=== PATIENT | female | born 1935 | race Caucasian/White ===

== ENCOUNTER → 2016-04-07 | Outpatient (CLI) | payer MEDICARE, OTHER | END | disposition home or self-care (01) | LOC: LABWHC1 16:27 | PROVIDERS: ATTEND Orthopaedic Surgery | DX: Z01.812 Encounter for preprocedural laboratory examination (principal) | CPT/HCPCS: 87070 ==

== ENCOUNTER → 2016-05-20 | Outpatient (CLI) | payer MEDICARE, OTHER ==
[2016-05-20 15:03] LABS: Appearance,Urine Clear (Clear); Bacteria,Urine Rare /hpf; Bilirubin,Urine Negative (Negative); Glucose,Urine (UA) Negative (Negative); Ketones,Urine Negative (Negative); Leukocyte Esterase,Urine Moderate (Negative); Mucus,Urine Rare /hpf; Nitrite,Urine Negative (Negative); Particle Count 1070; Protein,Urine Negative (Negative); RBC,Urine <1 /hpf (0-5); Specific Gravity,Urine 1.007 (1.001-1.035); Squamous Epithelial Cell,Urine <1 /hpf (0-4); UA Billing (MACRO vs. MICRO) MICRO; Urobilinogen,Urine <2.0 mg/dL (<2.0); WBC,Urine 5 /hpf (0-5)
[2016-05-20 15:05] LABS: Basophils % (A) 1 %; CH 33.6; CHCM 30.8; Eosinophils # (A) 0.3 k/uL (0-0.7); Eosinophils % (A) 5 %; HCT 32.5 % (34.0-46.0); HDW 2.55; HGB 10.1 gm/dL (11.4-16.0); Hypochromasia Slight; Luc # (Auto) 0.16; Luc % (Auto) 3; Lymphocytes # (A) 1.4 k/uL (1.0-4.8); Lymphocytes % (A) 24 %; MCHC 30.9 g/dL (31.0-37.0); MCV 109.8 fL (80.0-100.0); Macrocytosis Marked; Mean Platelet Volume 7.2; Monocytes # (A) 0.2 k/uL (0-1.0); Monocytes % (A) 4 %; Neutrophils # (A) 3.7 k/uL (1.3-7.7); Neutrophils % (A) 64 %; RBC 2.96 m/uL (3.80-5.40); RDW 14.2 % (11.5-15.5); WBC 5.8 k/uL (3.8-10.6); WBC (Perox) 6.58
[2016-05-20 15:10] LABS: INR 1.1 (<1.1); Partial Thromboplastin Time 24.8 sec (22.0-30.0); Prothrombin Time 10.8 sec (9.0-12.0)
[2016-05-20 15:25] LABS: ALT 23 U/L (9-52); AST 20 U/L (14-36); Alkaline Phosphatase 70 U/L (38-126); Anion Gap 9 mmol/L; Blood Urea Nitrogen 21 mg/dL (7-17); Calcium 8.9 mg/dL (8.4-10.2); Carbon Dioxide 27 mmol/L (22-30); Chloride 105 mmol/L (98-107); Digoxin 0.6 ng/mL; Glucose 75 mg/dL (74-99); Non-African American GFR(MDRD) 55 (>60 ml/min/1.73 sqM); Potassium 5.3 mmol/L (3.5-5.1); Sodium 141 mmol/L (137-145); Total Bilirubin 0.7 mg/dL (0.2-1.3); Total Protein 6.5 g/dL (6.3-8.2)
[2016-05-20 15:29] LABS: Manual Review Performed
[2016-05-20 15:30] LABS: Large Platelets Present; Polychromasia Present
[2016-05-20 15:31] LABS: Target Cells Present
== END ==
LOC: LABPAT 14:26
PROVIDERS: ATTEND Orthopaedic Surgery
DX: Z01.812 Encounter for preprocedural laboratory examination (principal); Z51.81 Encounter for therapeutic drug level monitoring; Z79.01 Long term (current) use of anticoagulants; Z79.899 Other long term (current) drug therapy
CPT/HCPCS: 36415; 80053; 80162; 81001; 85025; 85610; 85730

== ENCOUNTER 2016-05-23 08:36 | Inpatient (IN) | payer MEDICARE, OTHER ==
[~2016-05-23 08:36] MED LIST: ACETAMINOPHEN TAB 500 MG TAB PO ONE; MELOXICAM 7.5 MG TAB PO ONE; MIDAZOLAM 2 MG/2 ML VIAL IV PRN; ONDANSETRON 4 MG/2 ML VIAL IVP ONE; TRANEXAMIC ACID 1,000 MG in SODIUM CHLORIDE 0.9% 100 ML IVPB ONE; ceFAZolin 2 GM in SODIUM CHLORIDE 0.9% 100 ML IVPB ONE
[2016-05-23 09:05] VITALS: RESP 16
[2016-05-23] MEDS: LACTATED RINGERS 1,000 ML IV SCH ×2 (09:17→11:21)
[2016-05-23] MEDS ORDERED: DEXAMETHASONE SOD PHOS (MDV) 100 MG/10 ML VIAL IVP ONE (09:17)
[2016-05-23] MEDS ORDERED: ePHEDrine 50 MG/ML 1 ML AMP ONE (09:45)
[2016-05-23] MEDS ORDERED: fentaNYL (PF) 50 MCG/ML 2 ML AMP ONE (09:45)
[2016-05-23] MEDS ORDERED: SUCCINYLCHOLINE CHLORIDE 100 MG/5 ML SYR IV ONE (09:45)
[2016-05-23] MEDS ORDERED: MIDAZOLAM 2 MG/2 ML VIAL ONE (09:45)
[2016-05-23] MEDS ORDERED: NEOSTIGMINE 1 MG/ML 10 ML VIAL ONE (09:45)
[2016-05-23] MEDS ORDERED: SODIUM CHLORIDE 0.9% 100 ML BAG ONE (09:45)
[2016-05-23] MEDS ORDERED: ceFAZolin 3,000 MG in SODIUM CHLORIDE 0.9% IRRIGATIO 3,000 ML IRRIGATION ONE (09:45)
[2016-05-23] MEDS ORDERED: TRANEXAMIC ACID 1,000 MG/10 ML VIAL ONE (09:45)
[2016-05-23] MEDS ORDERED: GLYCOPYRROLATE 0.2 MG/ML 2 ML VIAL ONE (09:45)
[2016-05-23] MEDS ORDERED: LIDOCAINE 1% INJ 10MG/ML (20 ML MDV) ONE (09:45)
[2016-05-23] MEDS ORDERED: ROCURONIUM BROMIDE 10 MG/ML 10 ML VIAL IV ONE (09:45)
[2016-05-23] MEDS ORDERED: PROPOFOL 10 MG/ML 20 ML VIAL IV ONE (09:45)
--- NOTE | 2016-05-23 11:38 | P.OP ---
Date of Procedure: 05/23/16 Preoperative Diagnosis: Severe osteoarthritis of the left shoulder with chronic rotator cuff tear Postoperative Diagnosis: Severe osteoarthritis left shoulder with chronic rotator cuff tear Procedure(s) Performed: Reverse total shoulder arthroplasty Implants: Kaufman SMR shoulder system, humeral stem, 17 mm porous-coated. Kaufman SMR shoulder system, humeral bearing standard Kaufman SMR shoulder, Glenosphere baseplate, small Kaufman SMR shoulder, central peg, Small Kaufman SMR shoulder, bone screw, 6.5mm x 25mm x 2 Kaufman SMR reverse shoulder glenosphere, 36 mm, small All components were press-fit. Articulation is metal on polyethylene. [facility] Surgeon: Evangelist Contreras Arts Administrator #1: Radha Medina Estimated Blood Loss (ml): 50 Pathology: none sent Condition: stable Disposition: PACU Indications for Procedure: This is a patient that presented to my office with severe pain in the shoulder. X-rays demonstrated severe osteoarthritis of the glenohumeral joint of her shoulder. After failure of conservative treatment, we discussed the surgical and nonsurgical treatment options at length. The patient wishes to proceed with a reverse total shoulder arthroplasty. Patient is aware of the complications of the procedure which include but are not limited to infection, hardware failure, persistent pain, dislocation, and nerve injury. Informed consent was obtained. Operative Findings: The operative findings are consistent with severe osteoarthritis of the left shoulder with a chronic rotator cuff tear. Description of Procedure: The patient was seen in the preoperative area, consent was reviewed, and operative site was marked with a skin marker. Patient was then brought to the operating room and given preoperative antibiotics intravenously. Patient was also given 1 g of Tranexamic acid intravenously. A general anesthetic was administered by the anesthesia department. A Feliciano catheter was placed by the nursing staff. The patient was then placed in a beachchair position with the bony prominences well-padded and the head secured. The shoulder was then prepped and draped in the usual sterile fashion. A universal timeout was then performed, which confirmed the patient's name, surgical site, ALLERGIES, and consent. A standard deltopectoral approach was performed. The skin and subcutaneous tissue was sharply dissected down to the deltoid fascia. The cephalic vein was then identified and retracted medially. The deltopectoral interval was then utilized to expose the subscapularis tendon. A retractor was then placed under the coracobrachialis tendon retracted medially, and the deltoid. The axillary nerve is palpated and protected throughout the procedure. The subscapularis tendon was then released and retracted medially. The humeral head was then exposed easily. The rotator cuff tendon was found to be completely torn and retracted. After the humeral head was exposed, osteophytes were removed with a Ronguer. Next the humeral stem was prepared. A starter reamer was then placed through the humeral head along the axis of the humeral shaft just lateral to the articular surface and just medial to the rotator cuff attachment. Sequential reaming was performed to the appropriate size. Next the intramedullary resection guide was placed on the reamer shaft. It was placed to the appropriate resection depth and angle of 20 of retroversion. Resection guide block was then secured with Steinmann pins. The proximal humerus was then resected. The block was then removed and the humerus was then reamed sequentially to a secure fit. The Reamer handle was removed and a canal cover was placed protect the humerus while the glenoid was prepared. Next attention was directed to the glenoid. The appropriate retractors were placed around the glenoid and any remaining soft tissues was removed from around the glenoid. After the glenoid was adequately exposed, the threaded glenoid guide was placed onto the glenoid and a 3.2 mm Steinmann pin was inserted in the glenoid at the desired angle and position, ensuring the pin engaged medial cortical wall. Next, the cannulated baseplate reamer was placed over the top of the Steinmann pin. The glenoid was then reamed to the appropriate depth. The glenoid reamer was then removed, leaving the Steinmann pin. The central plug reamer was then inserted over the guidewire and reamed to the appropriate depth. The guidewire was then removed. The glenoid baseplate was then preassembled on the back table, and then inserted and fully seated into the prepared glenoid. 2 screws were then placed, one superior, and one inferior. Appropriate Nicolas a sphere was then assembled onto the insertion handle and inserted into the glenoid baseplate. The locking screw was then inserted into the glenoid sphere. Attention was then redirected to the humerus. The humeral inlay reamer was then used to ream the proximal humerus. The final stem was then impacted. Next a trial humeral tray was placed in the shoulder was reduced. Shoulder was taken through a full range of motion and found to be stable. The shoulder was then gently dislocated, and the trial humerus and humeral tray were removed. The final humeral stem was impacted in the final humeral tray was impacted as well. Shoulder was then relocated. Again the shoulder was taken through a range of motion and found to have no instability. Shoulder was then irrigated with pulsatile lavage. The shoulder was then irrigated with Irrisept solution. The soft tissues were then injected with ropivacaine solution. A second dose of 1 g of Tranexamic acid was given. The subscapularis was then repaired with #1 Vicryl. The deltopectoral interval was then closed with #1 Vicryl as well. The subcutaneous tissues were closed with 2-0 Vicryl then Dermabond was placed on the skin. A sterile dressing was then applied, the patient was transported to the recovery room in an arm sling in stable condition. The blood donor unit assistant Radha Medina required due the complexity of the surgery and the need for a skilled certified surgical tech/first assistant.
[2016-05-23] MEDS ORDERED: SENNOSIDES-DOCUSATE SODIUM 1 EACH TAB PO PRN (11:44)
[2016-05-23] MEDS ORDERED: HYDROmorphone 1 MG/ML 1 ML SYRINGE IVP PRN ×2 (11:44)
[2016-05-23] MEDS ORDERED: ONDANSETRON 4 MG/2 ML VIAL IVP PRN (11:44)
[2016-05-23] MEDS: HYDROmorphone 1 MG/ML 1 ML SYRINGE IVP PRN ×8 (11:51→23:41)
--- NOTE | 2016-05-23 12:13 | XR ---
Left shoulder HISTORY: Postop shoulder arthroplasty 4 views of the left shoulder submitted Patient shows post left shoulder arthroplasty change. Alignment is maintained. Lucency in the soft ti ssues compatible with postop state. Interstitium and central vascularity are noted to be increased. D ifficult to exclude thoracic aortic aneurysm. The heart may be enlarged. IMPRESSION: Orthopedic follow-up. Correlate for possible congestive heart failure.
[2016-05-23] MEDS ORDERED: fentaNYL (PF) 50 MCG/ML 2 ML AMP IV ONE (12:30)
[2016-05-23] MEDS: SODIUM CHLORIDE 0.9% 1,000 ML IV SCH (13:17)
[2016-05-23] MEDS: oxyCODONE-APAP 10-325MG 1 EACH TAB PO PRN ×3 (13:21→23:11)
[2016-05-23] MEDS ORDERED: ONDANSETRON 4 MG TAB PO PRN (14:54)
[2016-05-23] MEDS ORDERED: ALBUTEROL NEBULIZED 2.5 MG/3 ML INHALATION PRN (14:54)
[2016-05-23 15:28] LABS: Basophils % (A) 0 %; CH 32.8; CHCM 29.3; Eosinophils % (A) 1 %; HCT 32.7 % (34.0-46.0); HDW 2.54; HGB 10.1 gm/dL (11.4-16.0); Hypochromasia Marked; Luc # (Auto) 0.05; Luc % (Auto) 1; Lymphocytes # (A) 0.2 k/uL (1.0-4.8); Lymphocytes % (A) 3 %; MCH 34.9 pg (25.0-35.0); MCV 112.6 fL (80.0-100.0); Macrocytosis Marked; Mean Platelet Volume 7.4; Monocytes # (A) 0.1 k/uL (0-1.0); Monocytes % (A) 1 %; Neutrophils # (A) 7.2 k/uL (1.3-7.7); Neutrophils % (A) 95 %; RDW 13.9 % (11.5-15.5); WBC 7.6 k/uL (3.8-10.6); WBC (Perox) 7.94
[2016-05-23 16:01] LABS: Polychromasia Present
[2016-05-23] MEDS: ceFAZolin 2 GM in SODIUM CHLORIDE 0.9% 100 ML IVPB SCH ×2 (16:44→23:42)
[2016-05-23] MEDS: GABAPENTIN 400 MG CAP PO SCH ×2 (16:46→21:05)
[2016-05-23] MEDS: SYMBICORT 160-4.5 MCG INHALER INHALATION SCH (20:16)
[2016-05-23] MEDS ORDERED: VERAPAMIL SR 180 MG TABLET.ER PO SCH (21:00)
[2016-05-23] MEDS ORDERED: MONTELUKAST 10 MG TAB PO SCH (21:00)
[2016-05-23] MEDS: VIT A,C & E-LUTEIN-MINERALS 1 EACH TAB PO SCH (21:05)
[2016-05-23] MEDS: CITALOPRAM HYDROBROMIDE 20 MG TAB PO SCH (21:05)
[2016-05-23] MEDS: FERROUS SULFATE 325 MG TAB PO SCH (21:05)
[2016-05-24] MEDS: oxyCODONE-APAP 10-325MG 1 EACH TAB PO PRN ×2 (06:01→12:08)
[2016-05-24] MEDS ORDERED: LEVOTHYROXINE 75 MCG TAB PO SCH (06:30)
[2016-05-24] MEDS ORDERED: PANTOPRAZOLE 40 MG TABLET PO SCH (07:30)
--- NOTE | 2016-05-24 07:37 | CONS ---
DATE OF CONSULTATION: REASON FOR CONSULTATION: Advice regarding hypertension, hyperlipidemia requested by Orthopedics. HISTORY OF PRESENT ILLNESS: This 81-year-old woman with a past medical history of asthma, GERD, hypertension, hyperlipidemia, history of DJD, history of hypothyroidism, history of diverticulitis, history of bowel resection being followed by Dr. Ann in the outpatient setting underwent reverse total shoulder arthroplasty for severe DJD of the left shoulder with chronic rotator cuff tear. There is no history of any fever, rigors. No history of headache, loss of consciousness or seizures at this time. No history of chest pain or palpitation either. PAST MEDICAL HISTORY: History of asthma, history of GERD, hypertension, hyperlipidemia, history of DJD, hypothyroidism, history of vascular disorder. Medications prior to admission include home medications are: 1. Oxycodone 1 tablet 5 times daily p.r.n. 2. Vitamin B Complex p.o. daily. 3. Verapamil ER 180 mg q.h.s. 4. Pantoprazole 40 mg daily. 5. Zofran 4mg q.8 p.r.n. 6. Singulair 10 mg q.h.s. 7. Lopressor 25 mg p.o. daily. 8. Claritin 10 mg p.o. daily. 9. Synthroid 150 mcg p.o. daily. 10. Imdur 30 mg p.o. daily. 11. Gabapentin 800 mg p.o. q.i.d. 12. Lasix 20 mg p.o. daily. 13. Iron sulfate 325 mg p.o. b.i.d. 14. Eye vitamins one p.o. b.i.d. 15. Aricept 10 mg q.a.m. 16. Lanoxin 125 mcg p.o. q.48 hours. 17. Celexa 20 mg p.o. b.i.d. 18. Vitamin D3, 1000 daily. 19. Symbicort 160/4.5 two puffs b.i.d. 20. Lipitor 40 mg p.o. daily. 21. Ecotrin 81 mg daily. 22. Fosamax 70 mg p.o. Monday. 23. Ventolin HFA 2 puffs q.6 p.r.n. Allergies are BENAZEPRIL. FAMILY HISTORY: History of cancer in the family. SOCIAL HISTORY: No history of smoking. Occasional alcohol intake. REVIEW OF SYSTEMS: ENT: Diminishing hearing. Diminished vision. CARDIOVASCULAR: No angina or palpitations. RESPIRATORY: As mentioned earlier. GI: No nausea. : No dysuria. NERVOUS SYSTEM: No numbness or weakness. ALLERGY/IMMUNOLOGY: As mentioned earlier. MUSCULOSKELETAL: As mentioned earlier. HEMATOLOGY/ONCOLOGY: No history of anemia. ENDOCRINE: As mentioned earlier. CONSTITUTIONAL: As mentioned earlier. DERMATOLOGY: Negative. RHEUMATOLOGY: Negative. PSYCHIATRY: As mentioned earlier. PHYSICAL EXAMINATION: The patient is alert and oriented x2. Pulse 71, blood pressure 108/59, respirations 20, temperature normal, pulse ox 94% on room air. HEENT: Conjunctivae normal. Oral mucosa moist. NECK: No jugular venous distention. No carotid bruit. No lymph node enlargement. CARDIOVASCULAR: S1 and S2, muffled. No S3, no S4. RESPIRATORY: Breath sounds diminished at the bases. A few scattered rhonchi and crackles. ABDOMEN: Soft, nontender. No mass palpable. LEGS: No edema, no swelling. NERVOUS SYSTEM: Higher function as mentioned earlier. Moves all 4 limbs. No focal motor or sensory deficits. LYMPHATICS: No lymphadenopathy of neck, axillae or groin. SKIN: No ulcers, rashes or bleeding. EXAMINATION OF THE LEFT SHOULDER: Status post arthroplasty. LABS: Hemoglobin 10.1 and MCV 112. ASSESSMENT: 1. Status post left shoulder arthroplasty for severe degenerative joint disease. 2. Anemia. 3. Macrocytosis. 4. History of asthma. 5. History of gastroesophageal reflux disease. 6. Hypertension. 7. Hyperlipidemia. 8. History of myocardial infarction 9. History of hypothyroidism. 10. History of diverticulosis. 11. History of sarcoidosis. 12. History of bowel obstruction. 13. History of peptic ulcer disease. 14. History of macular degeneration. 15. History of degenerative joint disease. 16. History of osteoporosis. 17. History of bowel resection. 18. Depression, not otherwise specified. 19. History of splenectomy. 20. FULL CODE. 21. History of colostomy reversal. RECOMMENDATIONS AND DISCUSSION: This 81-year-old woman who presented with multiple complex medical issues, we will monitor the patient closely. Continue the current medications. Continue symptomatic treatment. Resume the home medication. Incentive spirometry. ( ) DVT prophylaxis. ( ) incentive spirometry. Otherwise, resume the home medications. Will continue to monitor. The patient will be asked to follow up with Dr. Ann closely. Thank you Dr. Contreras for letting us participate in the care of this patient.
[2016-05-24] MEDS: SYMBICORT 160-4.5 MCG INHALER INHALATION SCH (07:49)
[2016-05-24] MEDS: VIT A,C & E-LUTEIN-MINERALS 1 EACH TAB PO SCH (08:23)
[2016-05-24] MEDS: FERROUS SULFATE 325 MG TAB PO SCH (08:24)
[2016-05-24] MEDS: CITALOPRAM HYDROBROMIDE 20 MG TAB PO SCH (08:25)
[2016-05-24] MEDS: GABAPENTIN 400 MG CAP PO SCH ×2 (08:25→15:08)
--- NOTE | 2016-05-24 08:25 | P.DS ---
Providers Date of admission: 05/23/16 08:36 Expected date of discharge: 05/24/16 Attending physician: Evangelist Contreras Consults: 05/23/16 11:44 Consult Physician Routine Consulting Provider: Judith Coker Consult Reason/Comments: medical management Do you want consulting provider notified?: Yes Primary care physician: Blaze Ann - Discharge Diagnosis(es) (1) Cellulitis Current Visit: Yes Status: Acute (2) Osteoarthritis of left shoulder Current Visit: Yes Status: Acute (3) S/P total hip arthroplasty Current Visit: No Status: Acute Hospital Course: This is an 81-year-old female last seen in our office with complaints of left shoulder pain. She has known history of degenerative arthritis of the left shoulder. After discussion consideration the patient elected to proceed with reverse total shoulder. She was seen preoperatively and medically cleared for surgery by Dr. Ann and Dr. Hoskins. The patient was admitted to [facility] on 05/23/2016. She underwent left reversed total shoulder. The procedure was performed without complications or sequelae. The patient is seen and evaluated at the bedside this morning. She states that her pain is under fair control. She has no additional complaints at this time. She does not appear in acute distress. She is alert and orientated 3. Her dressing is clean dry and intact. This was changed today. Pernio tape is intact. Incision is without drainage or erythema. She has good active range of motion at her wrist and fingers. Sensation and circulatory status is intact. Left upper extremity neurovascular intact. Pertinent Studies: Laboratory Tests 05/23/16 14:46 WBC 7.6 RBC 2.90 L Hgb 10.1 L Hct 32.7 L MCV 112.6 H MCH 34.9 MCHC 31.0 Patient Condition at Discharge: Good Plan - Discharge Summary New Discharge Prescriptions: Sennosides-Docusate Sodium [Senokot-S] 2 tab PO DAILY #60 tablet Discharge Medication List Albuterol Sulfate [Ventolin HFA] 2 puff INHALATION RT-Q6H PRN 07/05/13 [History] Atorvastatin Calcium [Lipitor] 40 mg PO DAILY 07/05/13 [History] Donepezil [Aricept] 10 mg PO QAM 07/05/13 [History] Ferrous Sulfate [Feosol] 325 mg PO BID 07/05/13 [History] Furosemide [Lasix] 20 mg PO DAILY 07/05/13 [History] Gabapentin 800 mg PO QID 07/05/13 [History] Isosorbide Mononitrate ER [Imdur] 30 mg PO DAILY 07/05/13 [History] Montelukast [Singulair] 10 mg PO HS 07/05/13 [History] Pantoprazole Sodium 40 mg PO DAILY 07/05/13 [History] Cholecalciferol (Vitamin D3) [Vitamin D3] 1,000 unit PO DAILY 10/09/13 [History] Citalopram Hydrobromide [CeleXA] 20 mg PO BID 10/09/13 [History] Eyevitamin(Doseunknown) 1 tab PO BID 10/09/13 [History] Loratadine [Claritin] 10 mg PO DAILY 10/09/13 [History] Vitamin B Complex 1 cap PO DAILY 04/10/14 [History] Alendronate Sodium [Fosamax] 70 mg PO SMITH 05/26/14 [History] Budesonide-Formot 160-4.5 Mcg [Symbicort 160-4.5 Mcg Inhaler] 2 puff INHALATION RT-BID 11/14/15 [History] Digoxin [Lanoxin] 125 mcg PO Q48H 11/14/15 [History] Levothyroxine Sodium [Synthroid] 150 mcg PO DAILY 11/14/15 [History] Metoprolol Tartrate [Lopressor] 25 mg PO DAILY 11/14/15 [History] Ondansetron [Zofran] 4 mg PO Q8HR PRN 11/14/15 [History] Verapamil HCl [Verapamil ER] 180 mg PO HS 11/14/15 [History] Aspirin [Adult Low Dose Aspirin EC] 81 mg PO DAILY 04/18/16 [History] oxyCODONE HCL/ACETAMINOPHEN [Percocet 10-325 mg] 1 tab PO 5XD PRN 04/18/16 [ History] Sennosides-Docusate Sodium [Senokot-S] 2 tab PO DAILY #60 tablet 05/24/16 [Rx] Follow up Appointment(s)/Referral(s): Evangelist Contreras DO [Doctor of Osteopathic Medicine] - 2 Weeks Activity/Diet/Wound Care/Special Instructions: Continue with pain medications as prescribed by Dr. Luna Change dressing daily. Okay to shower after 72 hours without drainage Sling for comfort. May come out of the sling Ice to left upper extremity [facility] with any questions or concerns [phone] Discharge Disposition: HOME SELF-CARE
[2016-05-24] MEDS ORDERED: FUROSEMIDE 20 MG TAB PO SCH (09:00)
[2016-05-24] MEDS ORDERED: DONEPEZIL 10 MG TAB PO SCH (09:00)
[2016-05-24] MEDS ORDERED: ATORVASTATIN 40 MG TAB PO SCH (09:00)
[2016-05-24] MEDS ORDERED: ASPIRIN 81 MG CHEW PO SCH (09:00)
[2016-05-24] MEDS ORDERED: METOPROLOL TARTRATE 25 MG TAB PO SCH (09:00)
[2016-05-24] MEDS ORDERED: ISOSORBIDE MONONITRATE ER 30 MG TAB.ER.24H PO SCH (09:00)
[2016-05-24] MEDS ORDERED: DIGOXIN 125 MCG TAB PO SCH (09:00)
[2016-05-24] MEDS ORDERED: LORATADINE 10 MG TAB PO SCH (09:00)
[2016-05-24] MEDS: HYDROmorphone 1 MG/ML 1 ML SYRINGE IVP PRN (09:05)
[2016-05-24 09:44] VITALS: BP 135/65; PULSE 62; TEMP 98.7
[2016-05-24] MEDS: SODIUM CHLORIDE 0.9% 1,000 ML IV SCH (09:46)
[2016-05-24] MEDS ORDERED: LOPERAMIDE 2 MG CAP PO PRN (09:54)
[2016-05-24] MEDS ORDERED: B COMPLEX-VIT C-VIT E-ZINC 1 EACH TAB PO SCH (12:00)
[2016-05-24] MEDS ORDERED: CHOLECALCIFEROL 1,000 UNIT TAB PO SCH (12:00)
[2016-05-29] MEDS ORDERED: NON-FORMULARY DRUG (Alendronate Sodium [Fosamax] 70 MG) PO SCH (14:54)
== END 2016-05-24 16:22 | disposition home or self-care (01) | DRG 483 ==
LOC: 2ORMAIN 08:36 → 3SUR 11:47
PROVIDERS: ADMIT Orthopaedic Surgery; ATTEND Orthopaedic Surgery
PROC: 0RRK00Z Replacement of Left Shoulder Joint with Reverse Ball and Socket Synthetic Substitute, Open Approach (ICD-10-PCS; principal; 2016-05-23 10:00)
DX: M19.012 Primary osteoarthritis, left shoulder (principal); I11.0 Hypertensive heart disease with heart failure; I50.32 Chronic diastolic (congestive) heart failure; F03.90 Unspecified dementia, unspecified severity, without behavioral disturbance, psychotic disturbance, mood disturbance, and anxiety; D86.9 Sarcoidosis, unspecified; D75.89 Other specified diseases of blood and blood-forming organs; J45.909 Unspecified asthma, uncomplicated; D50.9 Iron deficiency anemia, unspecified; M81.0 Age-related osteoporosis without current pathological fracture; M75.102 Unspecified rotator cuff tear or rupture of left shoulder, not specified as traumatic; M25.712 Osteophyte, left shoulder; I08.3 Combined rheumatic disorders of mitral, aortic and tricuspid valves; J44.9 Chronic obstructive pulmonary disease, unspecified; G89.29 Other chronic pain; K21.9 Gastro-esophageal reflux disease without esophagitis; E03.9 Hypothyroidism, unspecified; E55.9 Vitamin D deficiency, unspecified; R29.6 Repeated falls; R26.9 Unspecified abnormalities of gait and mobility; H35.30 Unspecified macular degeneration; K57.90 Diverticulosis of intestine, part unspecified, without perforation or abscess without bleeding; M54.9 Dorsalgia, unspecified; I25.2 Old myocardial infarction; F32.9 Major depressive disorder, single episode, unspecified; H91.90 Unspecified hearing loss, unspecified ear; E78.00 Pure hypercholesterolemia, unspecified; H54.7 Unspecified visual loss; E78.2 Mixed hyperlipidemia; Z87.11 Personal history of peptic ulcer disease; Z90.81 Acquired absence of spleen; Z79.899 Other long term (current) drug therapy; Z80.9 Family history of malignant neoplasm, unspecified; Z96.649 Presence of unspecified artificial hip joint; Z88.8 Allergy status to other drugs, medicaments and biological substances; Z87.01 Personal history of pneumonia (recurrent); Z91.410 Personal history of adult physical and sexual abuse; Z87.19 Personal history of other diseases of the digestive system; Z91.81 History of falling; Z82.49 Family history of ischemic heart disease and other diseases of the circulatory system; Z96.653 Presence of artificial knee joint, bilateral; Z79.82 Long term (current) use of aspirin; Z79.83 Long term (current) use of bisphosphonates; Z79.891 Long term (current) use of opiate analgesic; Z79.51 Long term (current) use of inhaled steroids; Z86.79 Personal history of other diseases of the circulatory system
CPT/HCPCS: 36415; 80162; 81001; 85025; 85610; 85730; 88305; 88311; 94640

== ENCOUNTER → 2016-10-11 | Outpatient (CLI) | payer MEDICARE, OTHER ==
--- NOTE | 2016-10-11 10:48 | US ---
EXAMINATION TYPE: US abdomen complete DATE OF EXAM: 10/11/2016 COMPARISON: CT 2013 CLINICAL HISTORY: R10.84 gen abd pain, R09.89 Abd Bruit. Patient stated had spleen removed and c/o LL Q pain and hypogastric pain. EXAM MEASUREMENTS: Liver Length: 11.9 cm Gallbladder Wall: 0.1 cm CBD: 0.8cm and is smaller at pancreatic head at 0.3 cm Spleen: not seen Right Kidney: 9.0 x 4.3 x 3.8 cm Left Kidney: 9.0 x 4.2 x 4.7 cm Pancreas: hyperechoic; dilated pancreatic duct at 0.3cm Liver: wnl Gallbladder: wnl, multiple neck folds Evidence for sonographic Dai's sign: No CBD: wnl for 8th decade Spleen: not seen and per patient history of splenectomy Right Kidney: No hydronephrosis or masses seen Left Kidney: No hydronephrosis or masses seen Upper IVC: wnl Abd Aorta: size is wnl, mild intimal thickening is noted IMPRESSION: 1. Mild prominence of the pancreatic duct. No distinct pancreatic lesion identified.
== END | disposition home or self-care (01) ==
LOC: RADUSWWP 09:39
PROVIDERS: ATTEND Family Medicine
DX: R10.84 Generalized abdominal pain (principal); R09.89 Other specified symptoms and signs involving the circulatory and respiratory systems
CPT/HCPCS: 76700

== ENCOUNTER 2017-02-21 10:39 | Observation (INO) | payer MEDICARE, OTHER ==
[2017-02-21] MEDS ORDERED: SODIUM CHLORIDE 0.9% 1,000 ML IV STA (11:11)
[2017-02-21] MEDS ORDERED: HYDROmorphone 1 MG/ML 1 ML SYRINGE IVP STA ×2 (11:11→15:20)
[2017-02-21] MEDS ORDERED: METOCLOPRAMIDE 5 MG/ML 2 ML VIAL IVP STA (11:11)
[2017-02-21] MEDS ORDERED: PANTOPRAZOLE 40 MG/10 ML VIAL IVP STA (11:11)
[2017-02-21] MEDS ORDERED: LABETALOL 5 MG/ML VIAL MDV IVP STA ×2 (11:13→12:24)
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
[2017-02-21 11:42] LABS: ALT 33 U/L (9-52); AST 25 U/L (14-36); Albumin 4.6 g/dL (3.5-5.0); Alkaline Phosphatase 82 U/L (38-126); Amylase 46 U/L (30-110); Anion Gap 10 mmol/L; Blood Urea Nitrogen 14 mg/dL (7-17); Calcium 10.6 mg/dL (8.4-10.2); Carbon Dioxide 25 mmol/L (22-30); Chloride 105 mmol/L (98-107); Glucose 94 mg/dL (74-99); Lipase 40 U/L (23-300); Potassium 4.3 mmol/L (3.5-5.1); Sodium 140 mmol/L (137-145); Total Bilirubin 0.6 mg/dL (0.2-1.3); Total Protein 8.2 g/dL (6.3-8.2)
[2017-02-21 12:03] LABS: Basophils # (A) 0.1 k/uL (0-0.2); Basophils % (A) 1 %; Eosinophils # (A) 0.6 k/uL (0-0.7); Eosinophils % (A) 6 %; HCT 40.8 % (34.0-46.0); HGB 13.3 gm/dL (11.4-16.0); Lymphocytes # (A) 2.2 k/uL (1.0-4.8); Lymphocytes % (A) 23 %; MCH 34.2 pg (25.0-35.0); MCHC 32.6 g/dL (31.0-37.0); MCV 104.9 fL (80.0-100.0); Macrocytosis Slight; Mean Platelet Volume 7.4; Monocytes # (A) 0.4 k/uL (0-1.0); Monocytes % (A) 4 %; Neutrophils # (A) 6.3 k/uL (1.3-7.7); Neutrophils % (A) 65 %; Platelet Count 302 k/uL (150-450); RBC 3.89 m/uL (3.80-5.40); WBC 9.7 k/uL (3.8-10.6)
[2017-02-21 12:07] LABS: Troponin I 0.026 ng/mL (0.000-0.034)
[2017-02-21 12:10] LABS: Creatine Kinase MB 3.5 ng/mL (0.0-2.4)
--- NOTE | 2017-02-21 12:22 | XR ---
2 view abdomen HISTORY: Abdominal pain and nausea 2 views of the abdomen correlated prior exam 12/14/[address] 07/05/2013 Posterior diaphragmatic hernia on the left is again noted. The heart is enlarged. Postop changes are noted to the hips. There are overlying cardiac leads. No evident pneumoperitoneum or bowel obstructio n. Scoliosis present in the visualized spine, bone mineralization is reduced, there are degenerative disc changes. Old posttraumatic changes to the right hemipelvis are present which are now healed at t he medial ischium, inferior pubic ramus. Partial sacralization present at L5 on the right. Probable v ascular calcifications noted within the pelvis. Surgical clips present in the left upper quadrant as on prior exam. IMPRESSION: Nonobstructive bowel gas pattern.
[2017-02-21] MEDS ORDERED: RX INFO: IV CONTRAST WAS GIVEN 1 EACH MISC MISCELLANE PRN (12:24)
[2017-02-21 12:28] LABS: INR 1.1 (<1.2); Prothrombin Time 10.3 sec (9.0-12.0)
[2017-02-21 13:27] LABS: Appearance,Urine Clear (Clear); Bilirubin,Urine Negative (Negative); Blood,Urine Trace (Negative); Color,Urine Light Yellow; Glucose,Urine (UA) Negative (Negative); Ketones,Urine 1+ (Negative); Leukocyte Esterase,Urine Negative (Negative); Mucus,Urine Rare /hpf; Nitrite,Urine Negative (Negative); Protein,Urine 3+ (Negative); RBC,Urine 1 /hpf (0-5); Specific Gravity,Urine 1.011 (1.001-1.035); Squamous Epithelial Cell,Urine <1 /hpf (0-4); Urobilinogen,Urine <2.0 mg/dL (<2.0); WBC,Urine 1 /hpf (0-5)
--- NOTE | 2017-02-21 14:49 | CT ---
EXAMINATION TYPE: CT angio thoracic/abd aorta DATE OF EXAM: 02/21/2017 COMPARISON: NONE HISTORY: LLQ pain CT DLP: 1500 mGycm. Automated Exposure Control for Dose Reduction was Utilized. CONTRAST: CT scan of the thorax, abdomen and pelvis is performed without and with IV Contrast, patient injected with 100 mL of Omnipaque 350. FINDINGS: CT chest: Left shoulder prosthesis is present causing beam hardening artifact. Vascular calcification s at the aortic arch. Shotty lymphadenopathy is present within the mediastinum. The ascending thoraci c aorta at the level of main pulmonary artery is 3.8 cm. The main pulmonary artery the bifurcation is 3.7 cm. Coronary artery calcification is present. Posterior right apical thickening is present. There is some mild left apical thickening present. Some minimal pleural thickening along the posterior lateral right chest margin with a depth of 0.4 cm. Se sumeet 5 image 21. Loops of bowel without oral contrast appear unremarkable. CT ABDOMEN: There is a normal density without discrete masses or cysts. The adrenal glands appear nor mal. Spleen is absent. Pancreas appears atrophic. Adrenal glands are normal. CT PELVIS: Right hip prosthesis causes beam hardening artifact. Left hip prosthesis present. There is an old fracture of the right symphysis pubis. IMPRESSION: 1. No suspicious acute changes left midabdomen to account for pain. 2. Study is without intravenous contrast limiting the arterial evaluation.
[2017-02-21] MEDS ORDERED: NALOXONE 0.4 MG/ML 1 ML VIAL IV PRN (15:31)
[2017-02-21] MEDS ORDERED: ONDANSETRON 4 MG/2 ML VIAL IVP PRN (15:31)
[2017-02-21] MEDS ORDERED: SODIUM CHLORIDE 0.9% 1,000 ML IV SCH ×2 (15:45→18:00)
[2017-02-21 16:44] VITALS: RESP 16
[2017-02-21] MEDS ORDERED: ARTIFICIAL TEARS-HYPROMELLOSE DROPS 15 ML BTL BOTH EYES PRN (17:55)
[2017-02-21] MEDS ORDERED: ALBUTEROL NEBULIZED 2.5 MG/3 ML INHALATION PRN (18:42)
[2017-02-21] MEDS ORDERED: ONDANSETRON 4 MG TAB PO PRN (18:42)
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
[2017-02-21 19:06] LABS: Creatine Kinase MB 2.8 ng/mL (0.0-2.4); Troponin I 0.041 ng/mL (0.000-0.034)
[2017-02-21] MEDS: HYDROmorphone 1 MG/ML 1 ML SYRINGE IVP PRN (19:58)
[2017-02-21] MEDS: CITALOPRAM HYDROBROMIDE 20 MG TAB PO SCH (20:13)
[2017-02-21] MEDS: CIPROFLOXACIN 0.3% OPHTH SOLN 5 ML BTL BOTH EYES SCH ×2 (20:13→23:55)
[2017-02-21] MEDS: FERROUS SULFATE 325 MG TAB PO SCH (20:13)
[2017-02-21] MEDS: HEPARIN SODIUM,PORCINE 5,000 UNIT/ML 1 ML VIAL SQ SCH (20:14)
[2017-02-21] MEDS: SYMBICORT 160-4.5 MCG INHALER INHALATION SCH (20:40)
[2017-02-21] MEDS ORDERED: VERAPAMIL SR 180 MG TABLET.ER PO SCH (21:00)
[2017-02-21] MEDS ORDERED: MONTELUKAST 10 MG TAB PO SCH (21:00)
[2017-02-21] MEDS ORDERED: MELATONIN 5 MG TABLET PO PRN (21:12)
[2017-02-21] MEDS: oxyCODONE-APAP 10-325MG 1 EACH TAB PO PRN (21:55)
[2017-02-21] MEDS: GABAPENTIN 400 MG CAP PO SCH (21:55)
[2017-02-22 00:21] LABS: Creatine Kinase MB 2.5 ng/mL (0.0-2.4); Troponin I 0.044 ng/mL (0.000-0.034)
[2017-02-22] MEDS: CIPROFLOXACIN 0.3% OPHTH SOLN 5 ML BTL BOTH EYES SCH ×3 (06:26→14:45)
[2017-02-22] MEDS ORDERED: LEVOTHYROXINE 75 MCG TAB PO SCH (06:30)
[2017-02-22] MEDS: SYMBICORT 160-4.5 MCG INHALER INHALATION SCH (07:26)
[2017-02-22] MEDS ORDERED: hydrALAZINE HCL 20 MG/ML 1 ML VIAL IVP PRN (07:27)
--- NOTE | 2017-02-22 08:01 | P.PN ---
Progress Note - Text Progress Note Date: 02/22/17 The patient was seen on the floor. She states she has some back pain. She is denying any abdominal pain. On exam her vital signs appear stable. Her abdomen is soft. There is no significant tenderness. There is no rebound or guarding. Patient has no current surgical issues. We will see when necessary.
[2017-02-22] MEDS: HYDROmorphone 1 MG/ML 1 ML SYRINGE IVP PRN (08:07)
[2017-02-22] MEDS ORDERED: amLODIPine 5 MG TAB PO STA (08:09)
[2017-02-22 08:38] LABS: ALT 30 U/L (9-52); AST 19 U/L (14-36); Albumin 3.8 g/dL (3.5-5.0); Alkaline Phosphatase 66 U/L (38-126); Anion Gap 8 mmol/L; Blood Urea Nitrogen 12 mg/dL (7-17); Calcium 9.8 mg/dL (8.4-10.2); Carbon Dioxide 26 mmol/L (22-30); Chloride 105 mmol/L (98-107); Glucose 84 mg/dL (74-99); Potassium 4.4 mmol/L (3.5-5.1); Sodium 139 mmol/L (137-145); Total Bilirubin 0.5 mg/dL (0.2-1.3); Total Protein 6.9 g/dL (6.3-8.2)
[2017-02-22 08:51] LABS: Basophils % (A) 1 %; Eosinophils # (A) 0.3 k/uL (0-0.7); Eosinophils % (A) 6 %; HCT 37.7 % (34.0-46.0); Lymphocytes # (A) 1.7 k/uL (1.0-4.8); Lymphocytes % (A) 35 %; MCH 33.7 pg (25.0-35.0); MCHC 31.9 g/dL (31.0-37.0); MCV 105.8 fL (80.0-100.0); Macrocytosis Moderate; Mean Platelet Volume 7.5; Monocytes # (A) 0.3 k/uL (0-1.0); Monocytes % (A) 5 %; Neutrophils # (A) 2.5 k/uL (1.3-7.7); Neutrophils % (A) 50 %; Platelet Count 270 k/uL (150-450); RBC 3.57 m/uL (3.80-5.40); RDW 13.7 % (11.5-15.5); WBC 4.9 k/uL (3.8-10.6)
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
[2017-02-22] MEDS ORDERED: ASPIRIN 81 MG PO SCH (09:00)
[2017-02-22] MEDS ORDERED: PANTOPRAZOLE 40 MG/10 ML VIAL IV SCH (09:00)
[2017-02-22] MEDS ORDERED: DIGOXIN 125 MCG TAB PO SCH (09:00)
[2017-02-22] MEDS ORDERED: FUROSEMIDE 20 MG TAB PO SCH (09:00)
[2017-02-22] MEDS ORDERED: ISOSORBIDE MONONITRATE ER 30 MG TAB.ER.24H PO SCH (09:00)
[2017-02-22] MEDS ORDERED: LORATADINE 10 MG TAB PO SCH (09:00)
[2017-02-22] MEDS ORDERED: DONEPEZIL 10 MG TAB PO SCH (09:00)
[2017-02-22] MEDS ORDERED: CHOLECALCIFEROL 1,000 UNIT TAB PO SCH (09:00)
[2017-02-22] MEDS ORDERED: ATORVASTATIN 40 MG TAB PO SCH (09:00)
[2017-02-22] MEDS ORDERED: SENNOSIDES-DOCUSATE SODIUM 1 EACH TAB PO SCH (09:00)
[2017-02-22] MEDS ORDERED: METOPROLOL TARTRATE 25 MG TAB PO SCH (09:00)
[2017-02-22] MEDS ORDERED: B COMPLEX-VIT C-VIT E-ZINC 1 EACH TAB PO SCH (09:00)
[2017-02-22] MEDS: HEPARIN SODIUM,PORCINE 5,000 UNIT/ML 1 ML VIAL SQ SCH (09:09)
[2017-02-22] MEDS: FERROUS SULFATE 325 MG TAB PO SCH (09:09)
[2017-02-22] MEDS: CITALOPRAM HYDROBROMIDE 20 MG TAB PO SCH (09:09)
[2017-02-22] MEDS: GABAPENTIN 400 MG CAP PO SCH ×2 (09:10→14:44)
[2017-02-22] MEDS: oxyCODONE-APAP 10-325MG 1 EACH TAB PO PRN ×2 (09:22→14:44)
[2017-02-22 15:07] VITALS: BP 132/70; PULSE 65; TEMP 98.7
[2017-02-22 15:18] VITALS: BMI 26.4
--- NOTE | 2017-02-22 15:30 | P.DS ---
Providers Date of admission: 02/21/17 15:31 Attending physician: Rebeca Galeana Consults: 02/22/17 05:08 Consult Physician Routine Consulting Provider: [facility] Consult Reason/Comments: Elevated troponin Do you want consulting provider notified?: Yes, Notify in am 02/22/17 09:46 Consult Physician Routine Consulting Provider: Bharat Arias Consult Reason/Comments: abdominal pain Do you want consulting provider notified?: Yes Primary care physician: Blaze Dowling [facility] Course: 81-year-old presents female came in with complains of some left-sided abdominal pain about 7 x 10 in severity unable to rise the pain patient denied any fever chills patient was having body aches flulike symptoms going on for about 3 days and her abdominal pain started about that time patient was also having nausea vomiting patient was started on proton pump inhibitor patient denied any fever chills patient denied any cough patient does have conjunctivitis which is probably viral 02/22/2017 No nausea, vomting, diarrhea GENERAL: The patient is alert and oriented x3, not in any acute distress. Thin built HEENT: Pupils are round and equally reacting to light. EOMI. No scleral icterus. No conjunctival pallor. Normocephalic, atraumatic. No pharyngeal erythema. No thyromegaly. CARDIOVASCULAR: S1 and S2 present. No murmurs, rubs, or gallops. PULMONARY: Chest is clear to auscultation, no wheezing or crackles. ABDOMEN: Soft, nontender, nondistended, normoactive bowel sounds. No palpable organomegaly. MUSCULOSKELETAL: No joint swelling or deformity. EXTREMITIES: No cyanosis, clubbing, or pedal edema. NEUROLOGICAL: Gross neurological examination did not reveal any focal deficits. SKIN: No rashes. Assessment and Plan Plan: Viral gastroenteritis, patient is clinically doing well is being discharged today -Coronary artery disease Hyperlipidemia [place] hypertension Bronchial asthma without any acute exacerbation Viral conjunctivitis to grab patient was started on Cipro my ciprofloxacin eyedrops Hypertension Patient Condition at Discharge: Undetermined Plan - Discharge Summary Discharge Rx Participant: No New Discharge Prescriptions: New Ciprofloxacin Ophth Soln [Ciloxan 0.3% Ophth Soln] 1 drops BOTH EYES Q4HR # 10 ml amLODIPine [Norvasc] 5 mg PO BID #30 tab No Action Albuterol Sulfate [Ventolin HFA] 2 puff INHALATION RT-Q6H PRN PRN Reason: Shortness Of Breath Montelukast [Singulair] 10 mg PO HS Furosemide [Lasix] 20 mg PO DAILY Atorvastatin Calcium [Lipitor] 40 mg PO DAILY Pantoprazole Sodium 40 mg PO DAILY Isosorbide Mononitrate ER [Imdur] 30 mg PO DAILY Donepezil [Aricept] 10 mg PO QAM Gabapentin 800 mg PO QID Ferrous Sulfate [Feosol] 325 mg PO BID Loratadine [Claritin] 10 mg PO DAILY Citalopram Hydrobromide [CeleXA] 20 mg PO BID Cholecalciferol (Vitamin D3) [Vitamin D3] 1,000 unit PO DAILY Vitamin B Complex 1 cap PO DAILY Alendronate Sodium [Fosamax] 70 mg PO SMITH Ondansetron [Zofran] 4 mg PO Q8HR PRN PRN Reason: Nausea Budesonide-Formot 160-4.5 Mcg [Symbicort 160-4.5 Mcg Inhaler] 2 puff INHALATION RT-BID Digoxin [Lanoxin] 125 mcg PO Q48H Metoprolol Tartrate [Lopressor] 25 mg PO DAILY Levothyroxine Sodium [Synthroid] 150 mcg PO DAILY Verapamil HCl [Verapamil ER] 180 mg PO HS Aspirin [Adult Low Dose Aspirin EC] 81 mg PO DAILY oxyCODONE HCL/ACETAMINOPHEN [Percocet 10-325 mg] 1 tab PO 5XD PRN PRN Reason: Pain Sennosides-Docusate Sodium [Senokot-S] 2 tab PO DAILY #60 tablet Discharge Medication List Albuterol Sulfate [Ventolin HFA] 2 puff INHALATION RT-Q6H PRN 07/05/13 [History] Atorvastatin Calcium [Lipitor] 40 mg PO DAILY 07/05/13 [History] Donepezil [Aricept] 10 mg PO QAM 07/05/13 [History] Ferrous Sulfate [Feosol] 325 mg PO BID 07/05/13 [History] Furosemide [Lasix] 20 mg PO DAILY 07/05/13 [History] Gabapentin 800 mg PO QID 07/05/13 [History] Isosorbide Mononitrate ER [Imdur] 30 mg PO DAILY 07/05/13 [History] Montelukast [Singulair] 10 mg PO HS 07/05/13 [History] Pantoprazole Sodium 40 mg PO DAILY 07/05/13 [History] Cholecalciferol (Vitamin D3) [Vitamin D3] 1,000 unit PO DAILY 10/09/13 [History] Citalopram Hydrobromide [CeleXA] 20 mg PO BID 10/09/13 [History] Loratadine [Claritin] 10 mg PO DAILY 10/09/13 [History] Vitamin B Complex 1 cap PO DAILY 04/10/14 [History] Alendronate Sodium [Fosamax] 70 mg PO SMITH 05/26/14 [History] Budesonide-Formot 160-4.5 Mcg [Symbicort 160-4.5 Mcg Inhaler] 2 puff INHALATION RT-BID 11/14/15 [History] Digoxin [Lanoxin] 125 mcg PO Q48H 11/14/15 [History] Levothyroxine Sodium [Synthroid] 150 mcg PO DAILY 11/14/15 [History] Metoprolol Tartrate [Lopressor] 25 mg PO DAILY 11/14/15 [History] Ondansetron [Zofran] 4 mg PO Q8HR PRN 11/14/15 [History] Verapamil HCl [Verapamil ER] 180 mg PO HS 11/14/15 [History] Aspirin [Adult Low Dose Aspirin EC] 81 mg PO DAILY 04/18/16 [History] oxyCODONE HCL/ACETAMINOPHEN [Percocet 10-325 mg] 1 tab PO 5XD PRN 04/18/16 [ History] Sennosides-Docusate Sodium [Senokot-S] 2 tab PO DAILY #60 tablet 05/24/16 [Rx] Ciprofloxacin Ophth Soln [Ciloxan 0.3% Ophth Soln] 1 drops BOTH EYES Q4HR #10 ml 02/22/17 [Rx] amLODIPine [Norvasc] 5 mg PO BID #30 tab 02/22/17 [Rx] Follow up Appointment(s)/Referral(s): Blaze Ann III, MD [Primary Care Provider] - 1 Week Patient Instructions/Handouts: Gastroenteritis (DC)
[2017-02-22] MEDS ORDERED: amLODIPine 5 MG TAB PO SCH (21:00)
[2017-02-26] MEDS ORDERED: NON-FORMULARY DRUG (Alendronate Sodium [Fosamax] 70 MG) PO SCH (18:42)
== END 2017-02-22 16:51 | disposition home or self-care (01) ==
LOC: EC 10:39 → 4MS4W 15:31
PROVIDERS: ADMIT Internal Medicine; ATTEND Internal Medicine
DX: A08.4 Viral intestinal infection, unspecified (principal); I25.10 Atherosclerotic heart disease of native coronary artery without angina pectoris; R74.8 Abnormal levels of other serum enzymes; B30.9 Viral conjunctivitis, unspecified; I16.0 Hypertensive urgency; I11.0 Hypertensive heart disease with heart failure; I50.32 Chronic diastolic (congestive) heart failure; I47.1 Supraventricular tachycardia; E78.5 Hyperlipidemia, unspecified; Z88.8 Allergy status to other drugs, medicaments and biological substances; K21.9 Gastro-esophageal reflux disease without esophagitis; I25.2 Old myocardial infarction; M19.90 Unspecified osteoarthritis, unspecified site; Z87.11 Personal history of peptic ulcer disease; M81.0 Age-related osteoporosis without current pathological fracture; K58.9 Irritable bowel syndrome, unspecified; H54.8 Legal blindness, as defined in USA; H35.30 Unspecified macular degeneration; D86.9 Sarcoidosis, unspecified; D64.9 Anemia, unspecified; Z79.899 Other long term (current) drug therapy; Z79.82 Long term (current) use of aspirin; K29.70 Gastritis, unspecified, without bleeding; G89.29 Other chronic pain; M54.9 Dorsalgia, unspecified; J44.9 Chronic obstructive pulmonary disease, unspecified; E03.9 Hypothyroidism, unspecified; Z79.51 Long term (current) use of inhaled steroids; Z79.83 Long term (current) use of bisphosphonates
CPT/HCPCS: 99285; 96374 ×2; 96361 ×7; 96375 ×6; 96376 ×4; 96372 ×2; 36415; 94640 ×2; 93005; 80053 ×2; 82150; 82550; 82553; 83605; 83690; 83735; 84484; 85025 ×2; 85610; 81001; 87086; 74020; 75635; 71275; G0378 ×2; J0360; J1644 ×2; J2765; Q9967; J2405; J1170 ×2; C9113 ×2

== ENCOUNTER → 2017-06-09 | Outpatient (CLI) | payer MEDICARE, OTHER | END | disposition home or self-care (01) | LOC: LABPAT 11:52 | PROVIDERS: ATTEND Orthopaedic Surgery | DX: Z01.818 Encounter for other preprocedural examination (principal) | CPT/HCPCS: 87070 ==

== ENCOUNTER 2017-06-13 12:16 | Inpatient (IN) | payer MEDICARE, OTHER ==
[2017-06-02 13:06] VITALS: BMI 23.8
[~2017-06-13 12:16] MED LIST changes: +DEXAMETHASONE SOD PHOSPHATE 10 MG/ML 1 ML VIAL IV ONE; +HYDROmorphone 0.5 MG/0.5 ML SYRINGE IVP PRN; +LIDOCAINE 1% 20 ML VIAL (10MG/ML) FOR IV START INTRADERMA PRN; +SCOPOLAMINE 1.5MG/72HR PATCH TRANSDERM ONE; -TRANEXAMIC ACID 1,000 MG in SODIUM CHLORIDE 0.9% 100 ML IVPB ONE; +TRANEXAMIC ACID 1,000 MG in SODIUM CHLORIDE 0.9% 50 ML IVPB ONE; -ceFAZolin 2 GM in SODIUM CHLORIDE 0.9% 100 ML IVPB ONE; +ceFAZolin IN SWFI 2 GM/20 ML SYRINGE IVP ONE
[2017-06-13] MEDS ORDERED: MIDAZOLAM 2 MG/2 ML VIAL ONE (12:54)
[2017-06-13] MEDS: LACTATED RINGERS 1,000 ML IV SCH (13:14)
[2017-06-13] MEDS ORDERED: HYDROcodone/APAP 5-325MG 1 EACH TAB PO PRN ×2 (13:19)
[2017-06-13] MEDS ORDERED: ONDANSETRON 4 MG/2 ML VIAL IVP PRN (13:19)
[2017-06-13] MEDS ORDERED: SENNOSIDES-DOCUSATE SODIUM 1 EACH TAB PO PRN (13:19)
[2017-06-13] MEDS ORDERED: MORPHINE SULFATE 4MG/4ML SYRG IVP PRN ×3 (13:19)
[2017-06-13] MEDS ORDERED: ceFAZolin 3,000 MG in SODIUM CHLORIDE 0.9% IRRIGATIO 3,000 ML IRRIGATION ONE (13:54)
--- NOTE | 2017-06-13 14:24 | P.OP ---
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 She has subsequently developed more pain in her shoulder, and x- rays demonstrate loosening of the glenoid component. Due to her poor bone stock , her options for her shoulder are limited. I recommended removal of her glenoid component and conversion to a hemiarthroplasty of her shoulder. She is agreeable to this informed consent was obtained. Operative Findings: The operative findings are consistent with a loose glenoid component of her total shoulder arthroplasty. Description of Procedure: DESCRIPTION OF PROCEDURE(S): The patient was seen in the preoperative area, consent was reviewed, and operative site was marked with a skin marker. Patient was then brought to the operating room and given preoperative antibiotics intravenously. Patient was also given 1 g of Tranexamic acid intravenously. A general anesthetic was administered by the anesthesia department. A Feliciano catheter was placed by the nursing staff. The patient was then placed in a beachchair position with the bony prominences well-padded and the head secured. The shoulder was then prepped and draped in the usual sterile fashion. A universal timeout was then performed, which confirmed the patient's name, surgical site, ALLERGIES, and consent. A standard deltopectoral approach was performed. The skin and subcutaneous tissue was sharply dissected down to the deltoid fascia. The cephalic vein was then identified and retracted medially. The deltopectoral interval was then utilized to expose the subscapularis tendon. A retractor was then placed under the coracobrachialis tendon retracted medially, and the deltoid. The axillary nerve is palpated and protected throughout the procedure. The subscapularis tendon was then released and retracted medially. The glenohumeral joint was then easily visualized. The [place] was grossly loose. The shoulder was then easily dislocated, and the polyethylene was removed from the humeral component. The glenoid sphere was then disengaged from the glenoid baseplate. The screws were then removed and the glenoid baseplate was easily removed. Next the [address] head was measured, components were open and a CT head was impacted with the adapter. Shoulder was reduced and taken through range of motion and was found to be stable. Shoulder was then irrigated with pulsatile lavage. A second dose of 1 g of Tranexamic acid was given. The subscapularis was then repaired with #1 Vicryl. The deltopectoral interval was then closed with #1 Vicryl as well. The subcutaneous tissues were closed with 2-0 Vicryl then Dermabond was placed on the skin. A sterile dressing was then applied, the patient was transported to the recovery room in an arm sling in stable condition. The assistant professor of criminal justice LESTER Hawkins required due the complexity of the surgery and the need for a skilled surgical device sales representative.
[2017-06-13] MEDS: fentaNYL (PF) 50 MCG/ML 2 ML AMP IV PRN ×4 (14:59→15:11)
[2017-06-13] MEDS ORDERED: diphenhydrAMINE 50 MG/ML 1 ML VIAL IVP ONE (15:12)
--- NOTE | 2017-06-13 15:43 | XR ---
Left shoulder HISTORY: Postop left shoulder arthroplasty 2 views of the left shoulder correlated to previous exam dated 05/23/2016 Interval change in the appearance of the patient's left shoulder arthroplasty. There is been removal of the scapular component. Deformity of the scapula is noted which may be postoperative. Some scleros is is again noted, correlate to exclude infection. Proximal humerus shows cortical irregularity in th is single view, difficult to exclude fracture. Interval placement of a hemispheric component over the humeral component in the orientation, correlate with appropriate surgical history. IMPRESSION: Orthopedic revision as described, difficult to exclude fracture. Correlate to exclude inf ection and with appropriate surgical findings as described. Report relayed to Minda telephonically a t the time of interpretation of the exam.
[2017-06-13] MEDS ORDERED: MORPHINE SULFATE 4 MG/ML SYRINGE IVP ONE (15:46)
[2017-06-13] MEDS ORDERED: LACTATED RINGERS 1,000 ML IV ONE (16:16)
--- NOTE | 2017-06-13 16:45 | P.ONQ ---
Anesthesiology Proc Note - PNB - Peripheral Nerve Block Performed Left Interscalene Single Time Out Performed: Yes Procedure Start Time: 15:23 Procedure Stop Time: 15:35 Indication: Acute Post-Operative Pain, Requested by physician Specifically requested for management of pain by DrSaida: Evangelist Contreras Sedation Type: Awake Preparation: Sterile Prep Position: Supine Needle Types: Other (see comment) ([id number]) Needle Size: 50mm (2") Needle Gauge: 21 Technique: Ultrasound Injectate: 0.5% Ropivacaine (see comment for volume) (15 ml plus Lidocaine 1% with epi 1/200k 5 ml) Adjunct: Epinephrine (see comment for dilution ratio) Blood Aspirated: No Pain Paresthesia on Injection Noted: No Resistance on Injection: Normal Events: Uneventful and Well Tolerated
[2017-06-14] MEDS ORDERED: HYDROcodone/APAP 5-325MG 1 EACH TAB ONE (00:26)
--- NOTE | 2017-06-14 03:12 | CONS ---
CONSULTATION DATE OF SERVICE: 06/13/2017. REASON FOR CONSULTATION: Advice regarding hypertension, hyperlipidemia, requested by orthopedic surgery. HISTORY OF PRESENT ILLNESS: This 82 -year-old woman with a past medical history of hypertension, hyperlipidemia, history of myocardial infarction, DJD being followed by Dr. Ann in the outpatient setting was admitted after left total shoulder arthroplasty after conversion. There is no history of fever, rigors or chills. No history of headache, loss of consciousness, seizures. Patient is slightly drowsy after surgery. PAST MEDICAL HISTORY: Asthma, GERD, hypertension, hyperlipidemia, myocardial infarction, history of diverticulitis, bowel resection, depression. MEDICATIONS: Prior to admission include home medications are: 1. Oxycodone 7.5 mg daily 5 times p.r.n. 2. Ambien 5 mg q.h.s. p.r.n. 3. Vitamin B complex 1 p.o. daily. 4. Verapamil ER 180 mg p.o. q.h.s. 5. Protonix 40 mg. 6. Zofran 4 mg q.8h p.r.n. 7. Singulair 10 mg p.o. q.h.s. 8. Lopressor 25 mg p.o. daily. 9. Meloxicam 7.5 mg daily p.r.n. 10.Claritin 10 mg p.o. daily. 11.Synthroid 175 mcg p.o. daily. 12.Imdur 30 mg p.o. daily. 13.Gabapentin 800 mg p.o. q.i.d. 14.Lasix 10 mg p.o. daily. 15.Iron sulfate 320 mg p.o. b.i.d. 16.Aricept 10 mg q.a.m. 17.Lanoxin 125 mcg p.o. daily. 18.Celexa 20 mg p.o. b.i.d. 19.Vitamin D 3000 daily. 20.Symbicort 160/4.5 two puffs b.i.d. 21.Lipitor 40 mg p.o. daily. 22.Aspirin 81 mg p.o. daily. 23.Fosamax 70 mg p.o. Monday. 24.ProAir 2 puffs q.4h p.r.n. ALLERGIES: BENAZEPRIL. FAMILY HISTORY: No history of coronary artery disease or strokes. SOCIAL HISTORY: No history of smoking. Occasional alcohol intake. REVIEW OF SYSTEMS: ENT: Diminished hearing and vision. CARDIOVASCULAR: No angina. Respiration: No cough or hemoptysis. GI no nausea. no dysuria or retention. Nervous system: No numbness, weakness. Allergy/ Immunology: No asthma or hayfever. Musculoskeletal as mentioned earlier. Hematology: No history of anemia. Endocrine: Hypothyroidism. CONSTITUTIONAL: As mentioned earlier. Dermatology: Negative. Rheumatological: Negative Psychiatric: As mentioned earlier. PHYSICAL EXAM: Patient is alert, oriented x3. The pulse is 78. Blood pressure is 147/67, respirations 16, temp is normal. Pulse ox 100% on 3 L. HEENT is conjunctivae normal. Oral mucosa moist. Neck is no jugular venous distention. No carotid bruit. No lymph node enlargement. Cardiovascular S1-S2 muffled. Ejection systolic murmur present. Respiratory: Breath sounds diminished in the bases. A few scattered rhonchi. No crackles. ABDOMEN: Soft, nontender. No mass palpable. Legs: No edema and no swelling. NERVOUS SYSTEM: Higher functions as mentioned earlier. Moves all four limbs. No focal deficits. Lymphatics: No lymph nodes palpable in the neck, axillae or groin. Skin no ulcer, rash, bleeding. Shoulder status post arthroplasty. ASSESSMENT: 1. Status post conversion to hemiarthroplasty of the left-total shoulder for loose glenoid component. 2. Asthma. 3. Gastroesophageal reflux disease. 4. Hypertension. 5. Hyperlipidemia. 6. History of myocardial infarction. 7. History of degenerative joint disease. 8. Hypothyroidism. 10.History of irritable bowel syndrome. 11.Sarcoidosis. 12.History of peptic ulcer disease. 13.History of hiatal hernia. 14.History of bowel resection. 15.History of degenerative joint disease. 16.History of depression. 17.FULL CODE. RECOMMENDATIONS AND DISCUSSION: In this 82-year-old woman who presented with multiple complex medical issues, we will monitor the patient closely, continue the current medications, management and symptomatic treatment. Otherwise, resume the home medications. Also recommend DVT prophylaxis and incentive spirometry. We will follow the patient closely with you. Thank you, Dr. Contreras, for letting us participate in this patient's care. Copy of dictation being forwarded to Dr. Ann who is the primary care physician. MMODL / IJN: [id number] / STEPHENIE
[2017-06-14] MEDS ORDERED: LEVOTHYROXINE 75 MCG TAB PO SCH (06:30)
[2017-06-14] MEDS ORDERED: LEVOTHYROXINE 100 MCG TAB PO SCH (06:30)
[2017-06-14] MEDS ORDERED: PANTOPRAZOLE 40 MG TABLET PO SCH (07:30)
[2017-06-14] MEDS ORDERED: METOPROLOL TARTRATE 25 MG TAB PO SCH (09:00)
[2017-06-14] MEDS ORDERED: DIGOXIN 125 MCG TAB PO SCH (09:00)
--- NOTE | 2017-06-14 09:03 | P.DS ---
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 The patient presents for evaluation. After discussion and consideration patient elects to proceed with conversion hemiarthroplasty left total shoulder. The patient is seen preoperatively by Dr. Contreras and medically cleared for surgery by their primary care physician. Patient is admitted to [facility] on 06/13/2017 for conversion hemiarthroplasty left total shoulder. The procedures performed without complication or sequelae. The patient is doing well postoperatively. Labs and vital signs are stable on day of discharge. On day of discharge patient's shoulder incision is healing well. There is minimal erythema. There is no drainage noted at this time. There is minimal soft tissue swelling to the left shoulder. Patient has full left hand and wrist motion without difficulty or pain. Sensation intact. Neurovascular status and circulatory status are intact to the left upper extremity. Patient is discharged home in good condition. Please see med rec for accurate list of home medications. Plan - Discharge Summary Discharge Rx Participant: Yes New Discharge Prescriptions: No Action Montelukast [Singulair] 10 mg PO HS Atorvastatin Calcium [Lipitor] 40 mg PO DAILY Pantoprazole Sodium 40 mg PO DAILY Isosorbide Mononitrate ER [Imdur] 30 mg PO DAILY Donepezil [Aricept] 10 mg PO QAM Gabapentin 800 mg PO QID Ferrous Sulfate [Feosol] 325 mg PO BID Loratadine [Claritin] 10 mg PO DAILY Citalopram Hydrobromide [CeleXA] 20 mg PO BID Cholecalciferol (Vitamin D3) [Vitamin D3] 1,000 unit PO DAILY Vitamin B Complex 1 cap PO DAILY Alendronate Sodium [Fosamax] 70 mg PO SMITH Ondansetron [Zofran] 4 mg PO Q8HR PRN PRN Reason: Nausea Budesonide-Formot 160-4.5 Mcg [Symbicort 160-4.5 Mcg Inhaler] 2 puff INHALATION RT-BID Digoxin [Lanoxin] 125 mcg PO DAILY Metoprolol Tartrate [Lopressor] 25 mg PO DAILY Verapamil HCl [Verapamil ER] 180 mg PO HS Aspirin [Adult Low Dose Aspirin EC] 81 mg PO DAILY Zolpidem [Ambien] 5 mg PO HS PRN PRN Reason: sleep Meloxicam 7.5 mg PO DAILY PRN PRN Reason: Pain Albuterol Sulfate [Proair Hfa] 2 puff INHALATION RT-Q4H PRN PRN Reason: sob oxyCODONE HCL/ACETAMINOPHEN [Percocet 7.5-325 mg] 1 tab PO 5XD PRN PRN Reason: Pain Levothyroxine Sodium [Synthroid] 175 mcg PO DAILY Furosemide [Lasix] 10 mg PO DAILY Discharge Medication List Atorvastatin Calcium [Lipitor] 40 mg PO DAILY 07/05/13 [History] Donepezil [Aricept] 10 mg PO QAM 07/05/13 [History] Ferrous Sulfate [Feosol] 325 mg PO BID 07/05/13 [History] Gabapentin 800 mg PO QID 07/05/13 [History] Isosorbide Mononitrate ER [Imdur] 30 mg PO DAILY 07/05/13 [History] Montelukast [Singulair] 10 mg PO HS 07/05/13 [History] Pantoprazole Sodium 40 mg PO DAILY 07/05/13 [History] Cholecalciferol (Vitamin D3) [Vitamin D3] 1,000 unit PO DAILY 10/09/13 [History] Citalopram Hydrobromide [CeleXA] 20 mg PO BID 10/09/13 [History] Loratadine [Claritin] 10 mg PO DAILY 10/09/13 [History] Vitamin B Complex 1 cap PO DAILY 04/10/14 [History] Alendronate Sodium [Fosamax] 70 mg PO SMITH 05/26/14 [History] Budesonide-Formot 160-4.5 Mcg [Symbicort 160-4.5 Mcg Inhaler] 2 puff INHALATION RT-BID 11/14/15 [History] Digoxin [Lanoxin] 125 mcg PO DAILY 11/14/15 [History] Metoprolol Tartrate [Lopressor] 25 mg PO DAILY 11/14/15 [History] Ondansetron [Zofran] 4 mg PO Q8HR PRN 11/14/15 [History] Verapamil HCl [Verapamil ER] 180 mg PO HS 11/14/15 [History] Aspirin [Adult Low Dose Aspirin EC] 81 mg PO DAILY 04/18/16 [History] Albuterol Sulfate [Proair Hfa] 2 puff INHALATION RT-Q4H PRN 06/09/17 [History] Furosemide [Lasix] 10 mg PO DAILY 06/09/17 [History] Levothyroxine Sodium [Synthroid] 175 mcg PO DAILY 06/09/17 [History] Meloxicam 7.5 mg PO DAILY PRN 06/09/17 [History] Zolpidem [Ambien] 5 mg PO HS PRN 06/09/17 [History] oxyCODONE HCL/ACETAMINOPHEN [Percocet 7.5-325 mg] 1 tab PO 5XD PRN 06/09/17 [ History] Follow up Appointment(s)/Referral(s): Evangelist Contreras DO [Doctor of Osteopathic Medicine] - 2 Weeks Activity/Diet/Wound Care/Special Instructions: Maintain sling to the left upper extremity. Rest and ice left shoulder. Leave dressing in place for 10 days. May shower with dressing in place. Please call [facility] with any questions or concerns, Discharge Disposition: HOME WITH HOME HEALTH SERVICES
[2017-06-14] MEDS: SODIUM CHLORIDE 0.9% 1,000 ML IV SCH ×2 (10:07→10:10)
[2017-06-14] MEDS: LACTATED RINGERS 1,000 ML IV SCH (10:08)
[2017-06-14] MEDS: ceFAZolin IN SWFI 2 GM/20 ML SYRINGE IVP SCH (10:08)
[2017-06-14] MEDS ORDERED: HYDROmorphone 2 MG TAB PO PRN ×3 (11:22→11:23)
[2017-06-14] MEDS: oxyCODONE-APAP 10-325MG 1 EACH TAB PO SCH ×2 (11:53→16:04)
[2017-06-14 15:56] VITALS: BP 169/67; PULSE 65; RESP 15; TEMP 98.8
--- NOTE | 2017-06-14 20:21 | PN ---
PROGRESS NOTE DATE OF SERVICE: 06/14/2017. INTERVAL HISTORY: This 82-year-old woman who was admitted with conversion hemiarthroplasty of the left shoulder is improving significantly. No chest pain. No palpitations. No fever. EXAM: Alert and oriented times three. Pulse 65, blood pressure 169/61, respiration 15, temperature 98.8, pulse ox 94% room air. HEENT: Conjunctivae normal. Neck: No jugular venous distention. Cardiovascular: S1, S2 muffled. Respiratory: Breath sounds diminished in the bases. No rhonchi and no crackles. Abdomen is soft, nontender. No mass palpable. Legs: No edema. No swelling. Central nervous system: No focal deficits. Status post arthroplasty. LABS: Digoxin 0.6. ASSESSMENT: 1. Status post conversion hemiarthroplasty of the left shoulder for loose glenoid component. 2. Asthma. 3. Gastroesophageal reflux disease. 4. Hypertension. 5. Hyperlipidemia. 6. History of myocardial infarction. 7. History of degenerative joint disease. 8. History of hypothyroidism. 9. History of multiple medical problems. RECOMMENDATIONS AND DISCUSSION: Recommend to continue current medications, management and symptomatic treatment. Otherwise continue to monitor. Closely follow with Orthopedic surgery. Further recommendations to follow. MMODL / IJN: [id number] /
[2017-06-14] MEDS ORDERED: VERAPAMIL SR 180 MG TABLET.ER PO SCH (21:00)
== END 2017-06-14 16:48 | disposition home or self-care (01) | DRG 483 ==
LOC: 2ORMAIN 12:16 → 3SUR 14:44
PROVIDERS: ADMIT Orthopaedic Surgery; ATTEND Orthopaedic Surgery
PROC: 0RRK0J7 Replacement of Left Shoulder Joint with Synthetic Substitute, Glenoid Surface, Open Approach (ICD-10-PCS; principal; 2017-06-13 13:50)
DX: T84.038A Mechanical loosening of other internal prosthetic joint, initial encounter (principal); J44.9 Chronic obstructive pulmonary disease, unspecified; D86.9 Sarcoidosis, unspecified; E03.9 Hypothyroidism, unspecified; M19.91 Primary osteoarthritis, unspecified site; K58.9 Irritable bowel syndrome, unspecified; G89.4 Chronic pain syndrome; K21.9 Gastro-esophageal reflux disease without esophagitis; E78.5 Hyperlipidemia, unspecified; F32.9 Major depressive disorder, single episode, unspecified; I25.2 Old myocardial infarction; K44.9 Diaphragmatic hernia without obstruction or gangrene; I10 Essential (primary) hypertension; H54.8 Legal blindness, as defined in USA; Z79.51 Long term (current) use of inhaled steroids; Z79.82 Long term (current) use of aspirin; Z79.83 Long term (current) use of bisphosphonates; Z79.890 Hormone replacement therapy; Z79.891 Long term (current) use of opiate analgesic; Z79.899 Other long term (current) drug therapy; Z87.11 Personal history of peptic ulcer disease; Z96.643 Presence of artificial hip joint, bilateral; Z96.653 Presence of artificial knee joint, bilateral; Z90.81 Acquired absence of spleen; Z87.01 Personal history of pneumonia (recurrent); Z87.310 Personal history of (healed) osteoporosis fracture; Z60.2 Problems related to living alone; Z90.49 Acquired absence of other specified parts of digestive tract; Z87.39 Personal history of other diseases of the musculoskeletal system and connective tissue; Z88.8 Allergy status to other drugs, medicaments and biological substances; Y83.4 Other reconstructive surgery as the cause of abnormal reaction of the patient, or of later complication, without mention of misadventure at the time of the procedure
CPT/HCPCS: 80162

== ENCOUNTER 2017-08-10 10:52 | Inpatient (IN) | payer MEDICARE, OTHER ==
[2017-08-10] MEDS ORDERED: SODIUM CHLORIDE 0.9% 1,000 ML IV STA (11:15)
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
--- NOTE | 2017-08-10 11:52 | XR ---
EXAMINATION TYPE: XR chest 2V DATE OF EXAM: 08/10/2017 COMPARISON: Prior chest 11/15/2015, 04/07/2016 HISTORY: Weakness, abnormal chest x-ray TECHNIQUE: Frontal and lateral views of the chest are obtained. FINDINGS: Patient is rotated. Aorta is dense. Biapical pleural thickening again noted. There is no f ocal air space opacity, pleural effusion, or pneumothorax seen. The cardiac silhouette size is stabl e and enlarged. The osseous structures are intact. Prominent lung volumes are compatible with COPD. Postop change noted to the left shoulder. Suspect eventration of the posterior aspect of the left he midiaphragm similar to prior exam. IMPRESSION: No acute cardiopulmonary process.
[2017-08-10 11:59] LABS: Basophils % (A) 0 %; Eosinophils # (A) 0.2 k/uL (0-0.7); Eosinophils % (A) 2 %; HCT 39.7 % (34.0-46.0); HGB 12.9 gm/dL (11.4-16.0); Lymphocytes % (A) 18 %; MCH 34.2 pg (25.0-35.0); MCHC 32.5 g/dL (31.0-37.0); MCV 105.3 fL (80.0-100.0); Macrocytosis Moderate; Mean Platelet Volume 7.4; Monocytes # (A) 0.4 k/uL (0-1.0); Monocytes % (A) 4 %; Neutrophils # (A) 8.1 k/uL (1.3-7.7); Neutrophils % (A) 74 %; Platelet Count 372 k/uL (150-450); RBC 3.77 m/uL (3.80-5.40); RDW 15.8 % (11.5-15.5)
[2017-08-10 12:06] LABS: Albumin 3.8 g/dL (3.5-5.0); Calcium 11.1 mg/dL (8.4-10.2); Phosphorus 3.1 mg/dL (2.5-4.5); Potassium 3.7 mmol/L (3.5-5.1); Total Bilirubin 0.4 mg/dL (0.2-1.3); Total Protein 6.6 g/dL (6.3-8.2)
[2017-08-10 12:09] LABS: Partial Thromboplastin Time 23.9 sec (22.0-30.0); Prothrombin Time 9.8 sec (9.0-12.0)
[2017-08-10 12:22] LABS: T4, Free (Free Thyroxine) 0.86 ng/dL (0.78-2.19)
[2017-08-10 12:34] LABS: Creatine Kinase MB 3.7 ng/mL (0.0-2.4); Troponin I 0.277 ng/mL (0.000-0.034)
[2017-08-10 13:01] LABS: Appearance,Urine Cloudy (Clear); Bacteria,Urine Rare /hpf; Bilirubin,Urine Negative (Negative); Blood,Urine Negative (Negative); Color,Urine Yellow; Glucose,Urine (UA) Negative (Negative); Hyaline Casts,Urine 1 /lpf (0-2); Ketones,Urine Negative (Negative); Leukocyte Esterase,Urine Large (Negative); Nitrite,Urine Negative (Negative); Protein,Urine 1+ (Negative); RBC,Urine 1 /hpf (0-5); Specific Gravity,Urine 1.015 (1.001-1.035); Squamous Epithelial Cell,Urine 1 /hpf (0-4); Urobilinogen,Urine <2.0 mg/dL (<2.0); WBC,Urine 62 /hpf (0-5)
[2017-08-10] MEDS ORDERED: traMADol 50 MG TAB PO STA (13:10)
--- NOTE | 2017-08-10 13:18 | CT ---
EXAMINATION TYPE: CT brain wo con DATE OF EXAM: 08/10/2017 HISTORY: Weakness CT DLP: 1072.3 mGycm. Automated Exposure Control for Dose Reduction was Utilized. TECHNIQUE: CT scan of the head is performed without contrast. COMPARISON: CT brain April 03, 2012. FINDINGS: There is no acute intracranial hemorrhage or midline shift identified. There is diffuse v entricular and sulcal prominence consistent with diffuse age-related cerebral atrophy. There is low- attenuation in the periventricular white matter consistent with chronic small vessel ischemic change. Patchy soft tissue density bilateral external auditory canals likely reflects cerumen, left greater than right. There is new mild mucosal thickening with suspicious air-fluid level in the left spheno id sinus IMPRESSION: No acute intracranial hemorrhage or midline shift. There is moderate diffuse age-relate d cerebral atrophy and chronic small vessel ischemic change with some progression from prior CT felt present. There is new acute on chronic left sphenoid sinus disease.
[2017-08-10] MEDS ORDERED: HEPARIN SODIUM,PORCINE 5,000 UNIT/ML 1 ML VIAL IV ONE (14:18)
[2017-08-10] MEDS ORDERED: NITROGLYCERIN SL TABS 0.4 MG TAB SUBLINGUAL PRN (14:18)
[2017-08-10] MEDS ORDERED: HEPARIN SODIUM,PORCINE 5,000 UNIT/ML 1 ML VIAL IV PRN (14:18)
[2017-08-10] MEDS ORDERED: cefTRIAXone IN SWFI 1,000 MG/10 ML SYRINGE IVP STA (14:19)
[2017-08-10] MEDS ORDERED: HEPARIN SODIUM,PORCINE/D5W PMX 25,000 UNIT in DEXTROSE/WATER 1 500ML.BAG IV SCH (14:30)
--- NOTE | 2017-08-10 15:40 | ECHOF ---
Referral Reason:acs MEASUREMENTS -------- HEIGHT: 152.4 cm WEIGHT: 54.4 kg BP: 163/100 RVIDd: 3.1 cm (< 3.3) IVSd: 1.0 cm (0.6 - 1.1) LVIDd: 3.8 cm (3.9 - 5.3) LVPWd: 1.0 cm (0.6 - 1.1) IVSs: 1.2 cm LVIDs: 2.7 cm LVPWs: 1.2 cm LAESV Index (A-L): 22.39 ml/m Ao Diam: 3.3 cm (2.0 - 3.7) AV Cusp: 1.5 cm (1.5 - 2.6) LA Diam: 3.5 cm (2.7 - 3.8) MV E Mandeep: 0.79 m/s MV DecT: 143 ms MV A Mandeep: 0.77 m/s MV E/A Ratio: 1.05 AR PHT: 448 ms RAP: 5.00 mmHg RVSP: 22.13 mmHg FINDINGS -------- Sinus rhythm. This was a technically adequate study. The left ventricular size is normal. Left ventricular wall thickness is normal. Overall left vent ricular systolic function is normal with, an EF between 55 - 60 %. The right ventricle is normal in size and function. Normal LA size by volume 22+/-6 ml/m2. The right atrium is normal in size. Aortic valve is trileaflet and is mildly thickened. There is [id number]-xhoiqlma aortic regurgitation. There is no evidence of aortic stenosis. The mitral valve leaflets are mildly thickened. Mild mitral annular calcification present. There is trace to mild mitral regurgitation. Trace tricuspid regurgitation present. Right ventricular systolic pressure is normal at < 35 mmHg. There is no evidence of pulmonary hypertension. The pulmonic valve was not well visualized. The aortic root size is normal. Normal inferior vena cava with normal inspiratory collapse consistent with estimated right atrial pre ssure of 5 mmHg. There is no pericardial effusion. Pleural Effusion. CONCLUSIONS -------- 1. Sinus rhythm. 2. This was a technically adequate study. 3. The left ventricular size is normal. 4. Left ventricular wall thickness is normal. 5. Overall left ventricular systolic function is normal with, an EF between 55 - 60 %. 6. Normal LA size by volume 22+/-6 ml/m2. 7. Aortic valve is trileaflet and is mildly thickened. 8. There is [id number] aortic regurgitation. 9. The mitral valve leaflets are mildly thickened. 10. Mild mitral annular calcification present. 11. There is trace to mild mitral regurgitation. 12. Trace tricuspid regurgitation present. 13. Right ventricular systolic pressure is normal at < 35 mmHg. 14. There is no evidence of pulmonary hypertension. 15. The pulmonic valve was not well visualized. 16. The aortic root size is normal. 17. There is no pericardial effusion. 18. Pleural Effusion with Fibrin. SLITTER HELPER: Angel Melo RDCS
[2017-08-10] MEDS ORDERED: ALBUTEROL NEBULIZED 2.5 MG/3 ML INHALATION PRN (16:03)
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
[2017-08-10] MEDS: ACETAMINOPHEN TAB 325 MG TAB PO PRN (17:37)
[2017-08-10] MEDS: NITROGLYCERIN OINT 1 INCH/GM PACKET TOPICAL SCH ×2 (17:38→23:17)
[2017-08-10] MEDS: GABAPENTIN 300 MG CAP PO SCH ×2 (17:38→21:10)
[2017-08-10 17:41] LABS: Digoxin 0.9 ng/mL
[2017-08-10 17:50] LABS: Creatine Kinase MB 3.3 ng/mL (0.0-2.4); Troponin I 0.209 ng/mL (0.000-0.034)
[2017-08-10] MEDS: SYMBICORT 160-4.5 MCG INHALER INHALATION SCH (20:02)
[2017-08-10] MEDS: METOPROLOL TARTRATE 25 MG TAB PO SCH (21:10)
[2017-08-10] MEDS: SUCRALFATE 1 GM TAB PO SCH (21:10)
[2017-08-10] MEDS: traMADol 50 MG TAB PO PRN (21:10)
[2017-08-10] MEDS: CITALOPRAM HYDROBROMIDE 20 MG TAB PO SCH (21:10)
[2017-08-10] MEDS: DONEPEZIL 10 MG TAB PO SCH (21:10)
[2017-08-10] MEDS: VERAPAMIL SR 180 MG TABLET.ER PO SCH (21:10)
[2017-08-10] MEDS: MEMANTINE 10 MG TAB PO SCH (21:10)
[2017-08-10 23:12] LABS: Troponin I 0.197 ng/mL (0.000-0.034)
[2017-08-11 05:45] LABS: HGB 10.5 gm/dL (11.4-16.0); MCH 33.8 pg (25.0-35.0); MCHC 32.9 g/dL (31.0-37.0); MCV 102.7 fL (80.0-100.0); Macrocytosis Slight; Mean Platelet Volume 7.4; Platelet Count 332 k/uL (150-450); RBC 3.12 m/uL (3.80-5.40); WBC 12.9 k/uL (3.8-10.6)
[2017-08-11 05:57] LABS: Anion Gap 8 mmol/L; Blood Urea Nitrogen 26 mg/dL (7-17); Calcium 9.6 mg/dL (8.4-10.2); Carbon Dioxide 17 mmol/L (22-30); Chloride 113 mmol/L (98-107); Cholesterol 110 mg/dL (<200); Glucose 93 mg/dL (74-99); HDL Cholesterol 74 mg/dL (40-60); LDL Cholesterol,Calculated 25 mg/dL (0-99); Potassium 3.4 mmol/L (3.5-5.1); Sodium 138 mmol/L (137-145); Triglycerides 54 mg/dL (<150)
[2017-08-11] MEDS: LEVOTHYROXINE 75 MCG TAB PO SCH (06:11)
[2017-08-11] MEDS: PANTOPRAZOLE 40 MG TABLET PO SCH (06:12)
[2017-08-11] MEDS: traMADol 50 MG TAB PO PRN (06:12)
[2017-08-11] MEDS: SYMBICORT 160-4.5 MCG INHALER INHALATION SCH ×2 (08:50→21:07)
[2017-08-11] MEDS ORDERED: ASPIRIN 325 MG TAB PO SCH (09:00)
--- NOTE | 2017-08-11 09:28 | CONS ---
CONSULTATION Mariposa Ayon is an 82-year-old female who presents with weakness, tiredness and abdominal pain. When I interviewed her, she was complaining of mid and lower abdominal pain. She denied any chest discomfort, no undue shortness of breath. She is lying flat in bed and looks comfortable. No respiratory distress. Cardiology was consulted on account for mildly elevated troponin with non increasing pattern. However, 12-lead ECG showed T-wave inversions which are new. She has T wave inversions all across the precordium with a [address] depression in the lateral precordial leads which are definitely new. Her labs are reviewed and the troponins are 0.27, 0.20, and 0.197. Potassium is 3.4. Creatinine is normal. White count is elevated at 13,000, hemoglobin 10.5. UA is abnormal. She has been treated for a UTI. At this time, she has a kidney stone. Her 2D echo shows left ventricular ejection fraction of 50% to 60%, normal left atrial size, mild to moderate aortic regurgitation. No pulmonary hypertension. No pericardial effusion. There is pleural effusion noted. She follows with Dr. Grover. PAST HISTORY: Past history of lung disease, dyslipidemia, hypertension, history of MT, diverticulitis, colitis, possible history of sarcoidosis in the past. REVIEW OF SYSTEMS: No fever, chills, or rigors. No cough or expectoration. No nausea, vomiting, or diarrhea. There is dysuria. There is abdominal pain. No musculoskeletal pain. She did have some mental status changes. She underwent a brain CT. MEDICATIONS: Medications were reviewed and not listed. She has a long list of medication. ALLERGIES: Allergies to BENAZEPRIL. PHYSICAL EXAMINATION: On examination, vitals are stable at this time. She is afebrile, 97.8 degrees Fahrenheit, pulse rate in the 60s, blood pressure 166/70 mmHg. Head and neck examination is normal. Heart sounds S1, S2 are normal. No murmurs, no gallops, no rub. Breath sounds are reduced bilaterally. Abdomen is soft, but mildly and diffusely tender. Extremities are warm, no edema. IMPRESSION: Abnormal troponins with a non rising trend, but new ECG changes with T-wave inversions at precordial leads with [address] depression in the lateral precordial leads. She was on IV heparin which I am discontinuing at this time. She is on appropriate cardiac medications. PLAN: Plan is to continue with medical management of UTI and kidney stone and further cardiac workup thereafter. [place] / ANKIT: [id number] /
[2017-08-11] MEDS: COLCHICINE 0.6 MG EACH PO SCH (09:53)
[2017-08-11] MEDS: CITALOPRAM HYDROBROMIDE 20 MG TAB PO SCH ×2 (09:53→22:31)
[2017-08-11] MEDS: METOPROLOL TARTRATE 25 MG TAB PO SCH ×2 (09:59→22:30)
[2017-08-11] MEDS: DIGOXIN 125 MCG TAB PO SCH (09:59)
[2017-08-11] MEDS: ATORVASTATIN 40 MG TAB PO SCH (10:00)
[2017-08-11] MEDS: MEMANTINE 10 MG TAB PO SCH ×2 (10:00→22:31)
[2017-08-11] MEDS: amLODIPine 5 MG TAB PO SCH (10:00)
[2017-08-11] MEDS: ISOSORBIDE MONONITRATE ER 30 MG TAB.ER.24H PO SCH (10:00)
[2017-08-11] MEDS: GABAPENTIN 300 MG CAP PO SCH ×4 (10:00→22:30)
[2017-08-11] MEDS: ASPIRIN 81 MG PO SCH (10:00)
[2017-08-11] MEDS: SUCRALFATE 1 GM TAB PO SCH ×2 (10:01→22:31)
[2017-08-11] MEDS ORDERED: POTASSIUM CHLORIDE ER 20 MEQ TAB.ER PO STA (10:45)
--- NOTE | 2017-08-11 13:00 | P.PN ---
Subjective 82-year-old female came in with complaints of generalized weakness and tiredness chair believe is secondary to polypharmacy patient is feeling much better today after discontinue additional multiple medications particularly narcotic medications. And patient doesn't have any significant pain have the abdominal pain improved as well may be related to cystitis, I mostly believe patient has a symptom any bacteria rapid and cystitis or UTI anyways for now we' ll can need antibiotics. Awaiting physical therapy and occupational therapy evaluation. Possibly of discharge on Monday depending on PT and OT recommendations to subacute rehabilitation. Patient is feeling much better much stronger today. Constitutional: Denied any fatigue denied any fever. Cardio vascular: denied any chest pain, palpitations Gastrointestinal denied any nausea vomiting Pulmonary: Denied any shortness of breath cough Neurologic denied any new focal deficits Objective - Vital Signs Vital signs: Vital Signs Temp 97.5 F L 08/11/17 12:00 Pulse 60 08/11/17 12:00 Resp 17 08/11/17 12:00 BP 165/72 08/11/17 12:00 Pulse Ox 95 08/11/17 12:00 Intake & Output 08/10/17 08/11/17 08/11/17 18:59 06:59 18:59 Intake Total 811.482 Output Total 200 Balance 811.482 -200 Weight 54.431 kg 50.4 kg Intake: IV 600 Sodium Chloride 0.9% 1, 600 000 ml @ 100 mls/hr IV . Q10H [facility] Rx#:[id number] Intake, IV Titration 211.482 Amount Heparin Sodium,Porcine/ 211.482 D5w Pmx 25,000 unit In Dextrose/Water 1 500ml. bag @ 12 UNITS/KG/HR 13. 06 mls/hr IV .Q24H [facility] Rx #:[id number] Output: Urine 200 Other: Voiding Method Bedpan Bedside Commode - Exam PHYSICAL EXAMINATION: ell developed, well nourished. Thin built female HEENT: Pupils are round and equally reacting to light. EOMI. No scleral icterus. No conjunctival pallor. Normocephalic, atraumatic. No pharyngeal erythema. No thyromegaly. CARDIOVASCULAR: S1 and S2 present. No murmurs, rubs, or gallops. PULMONARY: Chest is clear to auscultation, no wheezing or crackles. ABDOMEN: Soft, nontender, nondistended, normoactive bowel sounds. No palpable organomegaly. MUSCULOSKELETAL: No joint swelling or deformity. EXTREMITIES: No cyanosis, clubbing, or pedal edema. NEUROLOGICAL: Gross neurological examination did not reveal any focal deficits. Initially and generalized weakness. SKIN: No rashes. - Labs CBC & Chem 7: 08/11/17 05:26 08/11/17 05:26 Labs: Abnormal Lab Results - Last 24 Hours (Table) 08/10/17 08/10/17 08/10/17 Range/Units 12:40 16:35 22:20 WBC (3.8-10.6) k/uL RBC (3.80-5.40) m/uL Hgb (11.4-16.0) gm/dL Hct (34.0-46.0) % MCV (80.0-100.0) fL APTT (22.0-30.0) sec Potassium (3.5-5.1) mmol/L Chloride (98-107) mmol/L Carbon Dioxide (22-30) mmol/L BUN (7-17) mg/dL CK-MB (CK-2) 3.3 H* 3.0 H* (0.0-2.4) ng/mL Troponin I 0.209 H* 0.197 H* (0.000-0.034) ng/mL HDL Cholesterol (40-60) mg/dL Urine Appearance Cloudy H (Clear) Urine Protein 1+ H (Negative) Ur Leukocyte Esterase Large H (Negative) Urine WBC 62 H (0-5) /hpf Urine WBC Clumps Few H (None) /hpf Urine Bacteria Rare H (None) /hpf 08/10/17 08/11/17 08/11/17 Range/Units 22:20 05:26 05:26 WBC 12.9 H (3.8-10.6) k/uL RBC 3.12 L (3.80-5.40) m/uL Hgb 10.5 L (11.4-16.0) gm/dL Hct 32.0 L (34.0-46.0) % MCV 102.7 H (80.0-100.0) fL APTT 39.7 H (22.0-30.0) sec Potassium 3.4 L (3.5-5.1) mmol/L Chloride 113 H (98-107) mmol/L Carbon Dioxide 17 L (22-30) mmol/L BUN 26 H (7-17) mg/dL CK-MB (CK-2) (0.0-2.4) ng/mL Troponin I (0.000-0.034) ng/mL HDL Cholesterol 74 H (40-60) mg/dL Urine Appearance (Clear) Urine Protein (Negative) Ur Leukocyte Esterase (Negative) Urine WBC (0-5) /hpf Urine WBC Clumps (None) /hpf Urine Bacteria (None) /hpf 08/11/17 Range/Units 05:26 WBC (3.8-10.6) k/uL RBC (3.80-5.40) m/uL Hgb (11.4-16.0) gm/dL Hct (34.0-46.0) % MCV (80.0-100.0) fL APTT 49.1 H (22.0-30.0) sec Potassium (3.5-5.1) mmol/L Chloride (98-107) mmol/L Carbon Dioxide (22-30) mmol/L BUN (7-17) mg/dL CK-MB (CK-2) (0.0-2.4) ng/mL Troponin I (0.000-0.034) ng/mL HDL Cholesterol (40-60) mg/dL Urine Appearance (Clear) Urine Protein (Negative) Ur Leukocyte Esterase (Negative) Urine WBC (0-5) /hpf Urine WBC Clumps (None) /hpf Urine Bacteria (None) /hpf Assessment and Plan Plan: Generalized weakness: I cannot completely rule out cystitis or UTI will continue with antibiotic for now. I believe her polypharmacy is contributing to her generalized weakness. Patient is not a good candidate for opiates, benzos pain barbiturates , anticholinergic medications most of these were discontinued discontinued, will try to use Tylenol and tramadol for pain. Patient is much better today Patient does have history of significant gastritis and peptic ulcer disease because of which I will not use nonsteroidal anti- inflammatories like Toradol at this time. Patient's digoxin level is within normal limits and a since TSH is within normal limits -Mildly elevated troponins: Cardiology evaluated the patient no further intervention from their perspective. Low possibility of non-ST elevation myocardial infarction. -Gastric esophageal reflux disease -hyperlipidemia -Hypertension next and have an hypothyroidism Have intravascular disease next and have an chronic low back pain -History of hiatal hernia in the past -Possibility of atrial fibrillation probably proximal and patient is not on anti -correlation at this time. -Depression For above-mentioned chronic medical problems patient will be resumed and continued on appropriate home medications polypharmacy need to be avoided
--- NOTE | 2017-08-11 13:47 | CT ---
EXAMINATION TYPE: CT brain wo con DATE OF EXAM: 08/11/2017 COMPARISON: Prior CT brain 08/10/2017 HISTORY: Fall, confusion CT DLP: 1054.2 mGycm Automated exposure control for dose reduction was used. Helical acquisition through the brain. FINDINGS: There is cortical atrophy. No hemorrhage or hydrocephalus. Periventricular white matter shows low att enuation. Calvarium is intact. There is inflammatory change present in the left maxillary sinus. IMPRESSION: NO ACUTE BRAIN ABNORMALITY. SINUS DISEASE.
[2017-08-11] MEDS: cefTRIAXone IN SWFI 1,000 MG/10 ML SYRINGE IVP SCH (16:13)
[2017-08-11] MEDS: DONEPEZIL 10 MG TAB PO SCH (22:30)
[2017-08-11] MEDS: VERAPAMIL SR 180 MG TABLET.ER PO SCH (22:31)
[2017-08-12 06:29] LABS: Anisocytosis Slight; HCT 31.7 % (34.0-46.0); HGB 10.5 gm/dL (11.4-16.0); MCH 34.4 pg (25.0-35.0); MCV 104.2 fL (80.0-100.0); Macrocytosis Moderate; Mean Platelet Volume 7.2; Platelet Count 353 k/uL (150-450); RBC 3.04 m/uL (3.80-5.40); RDW 16.4 % (11.5-15.5); WBC 10.3 k/uL (3.8-10.6)
[2017-08-12] MEDS: LEVOTHYROXINE 75 MCG TAB PO SCH (06:43)
[2017-08-12] MEDS: PANTOPRAZOLE 40 MG TABLET PO SCH (06:44)
[2017-08-12 06:45] LABS: Anion Gap 7 mmol/L; Blood Urea Nitrogen 12 mg/dL (7-17); Calcium 9.4 mg/dL (8.4-10.2); Carbon Dioxide 20 mmol/L (22-30); Chloride 111 mmol/L (98-107); Glucose 95 mg/dL (74-99); Potassium 3.9 mmol/L (3.5-5.1); Sodium 138 mmol/L (137-145)
[2017-08-12] MEDS: SYMBICORT 160-4.5 MCG INHALER INHALATION SCH ×2 (07:51→19:40)
[2017-08-12] MEDS: COLCHICINE 0.6 MG EACH PO SCH (08:01)
[2017-08-12] MEDS: DIGOXIN 125 MCG TAB PO SCH (08:01)
[2017-08-12] MEDS: ATORVASTATIN 40 MG TAB PO SCH (08:01)
[2017-08-12] MEDS: amLODIPine 5 MG TAB PO SCH (08:01)
[2017-08-12] MEDS: CITALOPRAM HYDROBROMIDE 20 MG TAB PO SCH ×2 (08:01→21:34)
[2017-08-12] MEDS: ASPIRIN 81 MG PO SCH (08:01)
[2017-08-12] MEDS: ISOSORBIDE MONONITRATE ER 30 MG TAB.ER.24H PO SCH (08:02)
[2017-08-12] MEDS: SUCRALFATE 1 GM TAB PO SCH ×2 (08:02→21:34)
[2017-08-12] MEDS: MEMANTINE 10 MG TAB PO SCH ×2 (08:02→21:34)
[2017-08-12] MEDS: METOPROLOL TARTRATE 25 MG TAB PO SCH (08:02)
[2017-08-12] MEDS: GABAPENTIN 300 MG CAP PO SCH ×4 (08:02→21:34)
[2017-08-12] MEDS: traMADol 50 MG TAB PO PRN ×2 (09:14→15:37)
--- NOTE | 2017-08-12 11:32 | PN ---
PROGRESS NOTE Mariposa Ayon is stable from a cardiovascular standpoint. She denies any chest discomfort. No shortness of breath. She initially presented with weakness, tiredness and abdominal pain and she had a mildly abnormal troponin and T-wave inversions with ST-depression in the precordial leads. Her white count was elevated. At that time she had a kidney stone and UTI. LV systolic function was normal. PHYSICAL EXAMINATION: Today her vitals are stable. Blood pressure is 167/69 mmHg and 149/95 mmHg. Pulse rate is in the 50s and 60s. She is also on verapamil as well as metoprolol. Head and neck examination normal. Heart sounds are normal. Lungs are clear to auscultation. SUGGEST: I would continue current medications and I would also add statins and in the next week further cardiac workup may be considered. LISAL / ADANN: [id number] /
--- NOTE | 2017-08-12 11:54 | P.PN ---
Subjective 82-year-old female came in with complaints of generalized weakness and tiredness chair believe is secondary to polypharmacy patient is feeling much better today after discontinue additional multiple medications particularly narcotic medications. And patient doesn't have any significant pain have the abdominal pain improved as well may be related to cystitis, I mostly believe patient has a symptom any bacteria rapid and cystitis or UTI anyways for now we' ll can need antibiotics. Awaiting physical therapy and occupational therapy evaluation. Possibly of discharge on Monday depending on PT and OT recommendations to subacute rehabilitation. Patient is feeling much better much stronger today. 08/12/2017 Patient looks better than yesterday. Sitting on the side of the bed looks much better today. Physical therapy is recommended subacute rehabilitation patient will be discharged tomorrow to subacute rehab.she apparently had bilateral pedal edema from amlodipine because of which the family doesn't want her to be on amlodipine and patient is ALLERGIC to LUCY inhibitor which is which was stung swelling because of which the all switch her to correlate for better blood pressure control from metoprolol and will monitor her blood pressures here. Constitutional: Denied any fatigue denied any fever. Cardio vascular: denied any chest pain, palpit ations Gastrointestinal denied any nausea vomiting Pulmonary: Denied any shortness of breath cough Neurologic denied any new focal deficits Objective - Vital Signs Vital signs: Vital Signs Temp 98.1 F 08/12/17 04:00 Pulse 53 L 08/12/17 04:00 Resp 18 08/12/17 04:00 BP 167/69 08/12/17 04:00 Pulse Ox 95 08/12/17 04:00 Intake & Output 08/11/17 08/12/17 08/12/17 18:59 06:59 18:59 Intake Total 540 280 Output Total 200 Balance 340 280 Weight 50.4 kg 50.5 kg Intake: Oral 540 280 Output: Urine 200 Other: Voiding Method Bedside Commode Bedside Commode # Voids 2 1 1 - Exam PHYSICAL EXAMINATION: ell developed, well nourished. Thin built female HEENT: Pupils are round and equally reacting to light. EOMI. No scleral icterus. No conjunctival pallor. Normocephalic, atraumatic. No pharyngeal erythema. No thyromegaly. CARDIOVASCULAR: S1 and S2 present. No murmurs, rubs, or gallops. PULMONARY: Chest is clear to auscultation, no wheezing or crackles. ABDOMEN: Soft, nontender, nondistended, normoactive bowel sounds. No palpable organomegaly. MUSCULOSKELETAL: No joint swelling or deformity. EXTREMITIES: No cyanosis, clubbing, or pedal edema. NEUROLOGICAL: Gross neurological examination did not reveal any focal deficits. Initially and generalized weakness. SKIN: No rashes. - Labs CBC & Chem 7: 08/12/17 05:55 08/12/17 05:55 Labs: Abnormal Lab Results - Last 24 Hours (Table) 08/12/17 08/12/17 Range/Units 05:55 05:55 RBC 3.04 L (3.80-5.40) m/uL Hgb 10.5 L (11.4-16.0) gm/dL Hct 31.7 L (34.0-46.0) % MCV 104.2 H (80.0-100.0) fL RDW 16.4 H (11.5-15.5) % Chloride 111 H (98-107) mmol/L Carbon Dioxide 20 L (22-30) mmol/L Creatinine 0.50 L (0.52-1.04) mg/dL Assessment and Plan Plan: Generalized weakness: I cannot completely rule out cystitis or UTI will continue with antibiotic for now. I believe her polypharmacy is contributing to her generalized weakness. Patient is not a good candidate for opiates, benzos pain barbiturates , anticholinergic medications most of these were discontinued discontinued, will try to use Tylenol and tramadol for pain. Patient is much better today Patient does have history of significant gastritis and peptic ulcer disease because of which I will not use nonsteroidal anti- inflammatories like Toradol at this time. Patient's digoxin level is within normal limits and a since TSH is within normal limits -Mildly elevated troponins: Cardiology evaluated the patient no further intervention from their perspective. Low possibility of non-ST elevation myocardial infarction. -Gastric esophageal reflux disease -hyperlipidemia -Hypertension next and have an hypothyroidism Have intravascular disease next and have an chronic low back pain -History of hiatal hernia in the past -Possibility of atrial fibrillation probably proximal and patient is not on anti -reacclimation at this time. -Depression For above-mentioned chronic medical problems patient will be resumed and continued on appropriate home medications polypharmacy need to be avoided
[2017-08-12] MEDS: ACETAMINOPHEN TAB 325 MG TAB PO PRN ×2 (12:06→21:38)
[2017-08-12] MEDS: cefTRIAXone IN SWFI 1,000 MG/10 ML SYRINGE IVP SCH (15:38)
[2017-08-12] MEDS: CARVEDILOL 12.5 MG TAB PO SCH (17:07)
[2017-08-12] MEDS ORDERED: amLODIPine 5 MG TAB PO SCH (21:00)
[2017-08-12] MEDS: DONEPEZIL 10 MG TAB PO SCH (21:34)
[2017-08-13 06:19] LABS: Mean Platelet Volume 7.3; Platelet Count 373 k/uL (150-450)
[2017-08-13] MEDS: PANTOPRAZOLE 40 MG TABLET PO SCH (06:37)
[2017-08-13] MEDS: LEVOTHYROXINE 75 MCG TAB PO SCH (06:38)
[2017-08-13] MEDS: CARVEDILOL 12.5 MG TAB PO SCH ×2 (06:38→16:51)
[2017-08-13] MEDS: ASPIRIN 81 MG PO SCH (07:50)
[2017-08-13] MEDS: ATORVASTATIN 40 MG TAB PO SCH (07:50)
[2017-08-13] MEDS: CITALOPRAM HYDROBROMIDE 20 MG TAB PO SCH ×2 (07:51→20:40)
[2017-08-13] MEDS: MEMANTINE 10 MG TAB PO SCH ×2 (07:51→20:41)
[2017-08-13] MEDS: COLCHICINE 0.6 MG EACH PO SCH (07:51)
[2017-08-13] MEDS: GABAPENTIN 300 MG CAP PO SCH ×4 (07:51→20:41)
[2017-08-13] MEDS: ISOSORBIDE MONONITRATE ER 30 MG TAB.ER.24H PO SCH (07:51)
[2017-08-13] MEDS: SUCRALFATE 1 GM TAB PO SCH ×2 (07:52→20:41)
[2017-08-13] MEDS: traMADol 50 MG TAB PO PRN ×3 (08:05→20:44)
[2017-08-13] MEDS: SYMBICORT 160-4.5 MCG INHALER INHALATION SCH ×2 (08:15→20:07)
[2017-08-13] MEDS ORDERED: METOPROLOL TARTRATE 25 MG TAB PO SCH (09:00)
--- NOTE | 2017-08-13 12:03 | PN ---
PROGRESS NOTE Mariposa is doing well. She is lying flat in bed. She is looks comfortable. No respiratory distress. No dizziness or lightheadedness. No chest discomfort. Vitals stable. Blood pressure is 121/59 mmHg, pulse in the 70s. She is afebrile. Head and neck examination is normal. Heart sounds are normal. Lungs are clear to auscultation. Extremities warm, no edema. IMPRESSION: 1. Acute myocardial injury associated with significant SVT changes, despite appropriate cardiac treatment. 2. Urinary tract infection and kidney stone management. This next coming week I will consider for coronary angiography. Continue current medication. MMODL / IJN: [id number] /
[2017-08-13] MEDS: ACETAMINOPHEN TAB 325 MG TAB PO PRN ×2 (12:13→18:50)
--- NOTE | 2017-08-13 12:34 | P.PN ---
Subjective 82-year-old female came in with complaints of generalized weakness and tiredness chair believe is secondary to polypharmacy patient is feeling much better today after discontinue additional multiple medications particularly narcotic medications. And patient doesn't have any significant pain have the abdominal pain improved as well may be related to cystitis, I mostly believe patient has a symptom any bacteria rapid and cystitis or UTI anyways for now we' ll can need antibiotics. Awaiting physical therapy and occupational therapy evaluation. Possibly of discharge on Monday depending on PT and OT recommendations to subacute rehabilitation. Patient is feeling much better much stronger today. 08/12/2017 Patient looks better than yesterday. Sitting on the side of the bed looks much better today. Physical therapy is recommended subacute rehabilitation patient will be discharged tomorrow to subacute rehab.she apparently had bilateral pedal edema from amlodipine because of which the family doesn't want her to be on amlodipine and patient is ALLERGIC to LUCY inhibitor which is which was stung swelling because of which the all switch her to correlate for better blood pressure control from metoprolol and will monitor her blood pressures here. 08/13/2017 No overnight events blood pressure is well controlled. Constitutional: Denied any fatigue denied any fever. Cardio vascular: denied any chest pain, palpit ations Gastrointestinal denied any nausea vomiting Pulmonary: Denied any shortness of breath cough Neurologic denied any new focal deficits Objective - Vital Signs Vital signs: Vital Signs Temp 97.7 F 08/13/17 12:00 Pulse 63 08/13/17 12:00 Resp 18 08/13/17 12:00 BP 134/64 08/13/17 12:00 Pulse Ox 96 08/13/17 12:00 Intake & Output 08/12/17 08/13/17 08/13/17 18:59 06:59 18:59 Intake Total 630 240 Output Total 400 402 Balance 230 -162 Weight 52 kg Intake: Oral 630 240 Output: Urine 400 402 Other: Voiding Method Bedside Commode Bedside Commode Bedside Commode # Voids 1 1 2 - Exam PHYSICAL EXAMINATION: ell developed, well nourished. Thin built female HEENT: Pupils are round and equally reacting to light. EOMI. No scleral icterus. No conjunctival pallor. Normocephalic, atraumatic. No pharyngeal erythema. No thyromegaly. CARDIOVASCULAR: S1 and S2 present. No murmurs, rubs, or gallops. PULMONARY: Chest is clear to auscultation, no wheezing or crackles. ABDOMEN: Soft, nontender, nondistended, normoactive bowel sounds. No palpable organomegaly. MUSCULOSKELETAL: No joint swelling or deformity. EXTREMITIES: No cyanosis, clubbing, or pedal edema. NEUROLOGICAL: Gross neurological examination did not reveal any focal deficits. Initially and generalized weakness. SKIN: No rashes. - Labs CBC & Chem 7: 08/13/17 05:45 08/12/17 05:55 Assessment and Plan Plan: Generalized weakness: I cannot completely rule out cystitis or UTI will continue with antibiotic for now. I believe her polypharmacy is contributing to her generalized weakness. Patient is not a good candidate for opiates, benzos pain barbiturates , anticholinergic medications most of these were discontinued discontinued, will try to use Tylenol and tramadol for pain. Patient is much better today Patient does have history of significant gastritis and peptic ulcer disease because of which I will not use nonsteroidal anti- inflammatories like Toradol at this time. Patient's digoxin level is within normal limits and a since TSH is within normal limits -Mildly elevated troponins: Cardiology evaluated the patient no further intervention from their perspective. Low possibility of non-ST elevation myocardial infarction. -Gastric esophageal reflux disease -hyperlipidemia -Hypertension next and have an hypothyroidism Have intravascular disease next and have an chronic low back pain -History of hiatal hernia in the past -Possibility of atrial fibrillation probably proximal and patient is not on anti -reacclimation at this time. -Depression For above-mentioned chronic medical problems patient will be resumed and continued on appropriate home medications polypharmacy need to be avoided
[2017-08-13] MEDS: cefTRIAXone IN SWFI 1,000 MG/10 ML SYRINGE IVP SCH (15:41)
[2017-08-13] MEDS: DONEPEZIL 10 MG TAB PO SCH (20:40)
[2017-08-14] MEDS: traMADol 50 MG TAB PO PRN ×4 (04:30→21:28)
[2017-08-14 06:37] LABS: Anion Gap 7 mmol/L; Blood Urea Nitrogen 18 mg/dL (7-17); Calcium 9.1 mg/dL (8.4-10.2); Carbon Dioxide 25 mmol/L (22-30); Chloride 106 mmol/L (98-107); Glucose 85 mg/dL (74-99); Potassium 4.6 mmol/L (3.5-5.1); Sodium 138 mmol/L (137-145)
[2017-08-14] MEDS: ACETAMINOPHEN TAB 325 MG TAB PO PRN ×3 (06:48→19:26)
[2017-08-14] MEDS: CARVEDILOL 12.5 MG TAB PO SCH ×2 (06:48→16:28)
[2017-08-14] MEDS: GABAPENTIN 300 MG CAP PO SCH ×4 (06:48→21:28)
[2017-08-14] MEDS: PANTOPRAZOLE 40 MG TABLET PO SCH (06:48)
[2017-08-14] MEDS: LEVOTHYROXINE 75 MCG TAB PO SCH (06:50)
[2017-08-14] MEDS: COLCHICINE 0.6 MG EACH PO SCH (07:43)
[2017-08-14] MEDS: ISOSORBIDE MONONITRATE ER 30 MG TAB.ER.24H PO SCH (07:44)
[2017-08-14] MEDS: MEMANTINE 10 MG TAB PO SCH ×2 (07:44→19:40)
[2017-08-14] MEDS: ATORVASTATIN 40 MG TAB PO SCH (07:44)
[2017-08-14] MEDS: SUCRALFATE 1 GM TAB PO SCH ×2 (07:44→20:32)
[2017-08-14] MEDS: CITALOPRAM HYDROBROMIDE 20 MG TAB PO SCH ×2 (07:44→19:40)
[2017-08-14] MEDS: ASPIRIN 81 MG PO SCH (07:44)
[2017-08-14] MEDS: SYMBICORT 160-4.5 MCG INHALER INHALATION SCH ×2 (08:35→21:29)
--- NOTE | 2017-08-14 10:25 | P.PN ---
Subjective Progress Note Date: 08/14/17 This is an 82-year-old female who follows with Dr. Grover in the office. She presented to the hospital with symptoms of lower abdominal discomfort, received treatment for UTI. Cardiology was consulted initially because of mild abnormal troponins as well as EKG changes. Patient was seen and examined this morning, denied any abdominal discomfort, no symptoms of chest discomfort. Did have an echocardiogram with Doppler study performed which revealed an ejection fraction of 50-60% with normal atrial size, mild to moderate aortic regurgitation. No pulmonary hypertension or pericardial effusion. The pressure this morning 150/70 with a heart rate in the 60s, temperature 98.5 she's 98% on room air. Sodium 138, potassium 4.6, BUN 18, creatinine 0.5. Objective - Vital Signs Vital signs: Vital Signs Temp 98.5 F 08/14/17 05:47 Pulse 55 L 08/14/17 05:47 Resp 16 08/14/17 05:47 BP 153/69 08/14/17 05:47 Pulse Ox 98 08/14/17 08:36 Intake & Output 08/13/17 08/14/17 08/14/17 18:59 06:59 18:59 Intake Total 1580 10 Output Total 301 Balance 1580 -291 Weight 52.2 kg Intake: IV 10 Invasive Line 2 10 Oral 1580 Output: Urine 301 Other: Voiding Method Bedside Commode Bedside Commode # Voids 1 1 # Bowel Movements 1 - Exam PHYSICAL EXAMINATION: GENERAL: 82-year-old female in no apparent distress at the time of my examination HEENT: Head is atraumatic, normocephalic. Pupils equal, round. Sclera anicteric. Conjunctiva are clear. Mucous membranes of the mouth are moist. Neck is supple. There is no elevated jugular venous pressure.] bruit is heard. HEART EXAMINATION: Heart S1, S2 normal. No murmur or gallop heard. CHEST EXAMINATION: Lungs are clear to auscultation and precussion. No chest wall tenderness is noted on palpation or with deep breathing. ABDOMEN: Soft, nontender. Bowel sounds are heard. No organomegaly noted. EXTREMITIES: 2+ peripheral pulses with no evidence of peripheral edema and no calf tenderness noted. NEUROLOGIC patient is awake, alert and oriented -3. . - Labs CBC & Chem 7: 06/17/18 05:45 08/14/17 06:05 Labs: Abnormal Lab Results - Last 24 Hours (Table) 08/14/17 Range/Units 06:05 BUN 18 H (7-17) mg/dL Assessment and Plan Plan: Assessment and plan #1 generalized weakness with evidence of UTI #2 abnormal troponins with EKG changes, consistent with a possible non-Q-wave myocardial infarction #3 hypertension #4 hyperlipidemia Plan Patient will be scheduled to undergo cardiac catheterization tomorrow by Dr. Grover. The risks and the benefits were explained to the patient in detail and she is willing to proceed. DNP note has been reviewed, I agree with a documented findings and plan of care. Patient was seen and examined.
[2017-08-14 13:18] VITALS: BMI 22.4
[2017-08-14] MEDS: cefTRIAXone IN SWFI 1,000 MG/10 ML SYRINGE IVP SCH (16:34)
[2017-08-14] MEDS: DONEPEZIL 10 MG TAB PO SCH (19:40)
[2017-08-15] MEDS ORDERED: SODIUM CHLORIDE 0.9% 1,000 ML in EMPTY BAG 1 BAG IV ONE
[2017-08-15] MEDS: traMADol 50 MG TAB PO PRN ×3 (03:39→13:10)
[2017-08-15] MEDS: ATORVASTATIN 40 MG TAB PO SCH (06:01)
[2017-08-15] MEDS: SUCRALFATE 1 GM TAB PO SCH (06:01)
[2017-08-15] MEDS: ASPIRIN 81 MG PO SCH (06:01)
[2017-08-15] MEDS: ISOSORBIDE MONONITRATE ER 30 MG TAB.ER.24H PO SCH (06:02)
[2017-08-15] MEDS: CARVEDILOL 12.5 MG TAB PO SCH (06:02)
[2017-08-15] MEDS: PANTOPRAZOLE 40 MG TABLET PO SCH (06:02)
[2017-08-15] MEDS: GABAPENTIN 300 MG CAP PO SCH ×2 (06:02→12:07)
[2017-08-15] MEDS: LEVOTHYROXINE 75 MCG TAB PO SCH (06:02)
[2017-08-15] MEDS: MEMANTINE 10 MG TAB PO SCH (06:03)
[2017-08-15] MEDS: CITALOPRAM HYDROBROMIDE 20 MG TAB PO SCH (06:03)
[2017-08-15] MEDS: COLCHICINE 0.6 MG EACH PO SCH (06:07)
[2017-08-15 06:24] LABS: Anion Gap 8 mmol/L; Blood Urea Nitrogen 23 mg/dL (7-17); Calcium 9.3 mg/dL (8.4-10.2); Carbon Dioxide 27 mmol/L (22-30); Chloride 102 mmol/L (98-107); Glucose 82 mg/dL (74-99); Potassium 4.7 mmol/L (3.5-5.1); Sodium 137 mmol/L (137-145)
[2017-08-15 07:15] LABS: Basophils # (A) 0.1 k/uL (0-0.2); Basophils % (A) 1 %; Eosinophils # (A) 0.4 k/uL (0-0.7); Eosinophils % (A) 6 %; HCT 33.3 % (34.0-46.0); HGB 10.7 gm/dL (11.4-16.0); Lymphocytes # (A) 2.2 k/uL (1.0-4.8); Lymphocytes % (A) 32 %; MCH 33.9 pg (25.0-35.0); MCHC 32.2 g/dL (31.0-37.0); MCV 105.3 fL (80.0-100.0); Macrocytosis Moderate; Mean Platelet Volume 7.4; Monocytes # (A) 0.4 k/uL (0-1.0); Monocytes % (A) 5 %; Neutrophils # (A) 3.8 k/uL (1.3-7.7); Neutrophils % (A) 54 %; Platelet Count 440 k/uL (150-450); RBC 3.17 m/uL (3.80-5.40); RDW 14.8 % (11.5-15.5)
[2017-08-15] MEDS ORDERED: SODIUM CHLORIDE 0.9% 1,000 ML IV ONE (07:29)
[2017-08-15] MEDS ORDERED: fentaNYL (PF) 50 MCG/ML 2 ML AMP ONE (07:38)
[2017-08-15] MEDS ORDERED: MIDAZOLAM 2 MG/2 ML VIAL ONE (07:42)
[2017-08-15] MEDS ORDERED: fentaNYL (PF) 50 MCG/ML 2 ML AMP IVP ONE (07:42)
[2017-08-15] MEDS ORDERED: MIDAZOLAM 2 MG/2 ML VIAL IVP ONE (07:44)
[2017-08-15] MEDS ORDERED: LIDOCAINE 2% INJ 20 MG/ML SQ ONE (07:44)
[2017-08-15] MEDS ORDERED: RX INFO: IV CONTRAST WAS GIVEN 1 EACH MISC MISCELLANE PRN (08:17)
[2017-08-15] MEDS ORDERED: IOPAMIDOL-370 125ML BTL INJ ONE (08:20)
--- NOTE | 2017-08-15 08:23 | P.PCN ---
Date of Procedure: 08/15/17 Postoperative Diagnosis: Abnormal EKG and positive troponins Procedure(s) Performed: Left heart catheterization without left ventriculography Description of Procedure: HISTORY: This is a 82-year-old female who was admitted to the hospital with weakness and evidence of possible UTI and sepsis. She had an abnormal EKG and positive troponins. A cardiac catheterization requested by to rule out underlying ischemic heart disease. CONSENT:I have discussed the risks, benefits and alternative therapies for the above-mentioned procedure and for both sedation/analgesia as well as necessary blood product administration, if indicated, as they pertain to this patient. The patient has indicated understanding and acceptance of the risks and procedures discussed. PROCEDURE: Patient was brought to the lab in a fasting state. Patient was given some IV sedation. The right groin is infiltrated with lidocaine and right femoral artery was entered using Seldinger technique. A 6-Stateless catheter was left in place and selective coronary arteriography was performed. Patient tolerated the procedure well. Femoral angiogram was performed and Angio-Seal was applied for hemostasis. No immediate complications were noted and patient was transferred to [facility] in a stable condition Conscious Sedation: Versed 0.5mg Fentanyl 25 g Duration 18minutes HEMODYNAMICS: The aortic pressure is about 120/70. Left ankle end-diastolic pressure is about 4-6. There was no gradient across the aortic valve SELECTIVE CORONARY ARTERIOGRAPHY: LEFT MAIN: Good caliber vessel and free of any occlusive disease. THE LEFT ANTERIOR DESCENDING CORONARY ARTERY: This is a good caliber vessel and tortuous in its course. The second septal branch has mild disease. The rest of the vessel appears to be free of any occlusive disease. THE LEFT CIRCUMFLEX AND IS CORONARY ARTERY: This is a codominant vessel and free of occlusive disease. The vessel is tortuous in its course THE RIGHT CORONARY ARTERY: This is a dominant vessel giving rise to good-sized PDA and PLV. The right coronary artery and its branches are free of occlusive disease LEFT VENTRICULOGRAPHY: Not performed FINAL IMPRESSION: Mild disease in the septal branch. Otherwise a normal coronary arteries PLAN: Maximum medical therapy and risk factor modification PROGNOSIS: Good
[2017-08-15] MEDS ORDERED: SODIUM CHLORIDE 0.9% 1,000 ML IV SCH (08:30)
[2017-08-15 09:20] VITALS: TEMP 97
[2017-08-15 10:17] VITALS: RESP 18
[2017-08-15 11:22] VITALS: BP 139/66; PULSE 57
[2017-08-15] MEDS: SYMBICORT 160-4.5 MCG INHALER INHALATION SCH (11:33)
--- NOTE | 2017-08-15 12:44 | CDI ---
Last Revision, January 2017 Documentation Clarification Form Date: 08/15/17 1241 From: Ester Bustos RN, CCDS Admit Date: 08/10/2017 2:17:00 PM Patient Name: Mariposa Ayon Visit Number: [id number] ATTENTION: The Clinical Documentation Specialists (CDI) and [facility] Coding Staff appreciate your assistance in clarifying documentation. Please respond to the clarification below the line at the bottom and electronically sign. The CDI & [facility] Coding staff will review the response and follow-up if needed. Please note: Queries are made part of the Legal Health Record. If you have any questions, please contact the author of this message via ITS. Dr. Rebeca Galeana A diagnosis of anemia lacks specificity to accurately reflect your patients severity of condition and clarification is needed. History/Risk Factors: Anemia, IBS, Colitis, PUD, atrial fib Clinical indicators: Hemoglobin: 12.9/10.5/10.7 Hematocrit:32/31.7/33.3 Treatment: Daily monitoring of CBC In order to capture the severity of condition, please clarify the type of anemia and etiology if known: Acute on chronic blood loss anemia Chronic blood loss anemia Iron deficiency anemia Drug induced anemia Nutritional anemia Anemia of chronic disease Unable to determine Other, please specify Please continue to document in your progress notes and discharge summary in order to capture severity of illness and risk of mortality. Include clinical findings that support your diagnosis. MTDD
--- NOTE | 2017-08-15 15:01 | P.PN ---
Subjective Progress Note Date: 08/14/17 Progress note being dictated for Dr. Galeana Interval history: 82-year-old female came in with complaints of generalized weakness and tiredness chair believe is secondary to polypharmacy patient is feeling much better today after discontinue additional multiple medications particularly narcotic medications. And patient doesn't have any significant pain have the abdominal pain improved as well may be related to cystitis, I mostly believe patient has a symptom any bacteria rapid and cystitis or UTI anyways for now we'll can need antibiotics. Awaiting physical therapy and occupational therapy evaluation. Possibly of discharge on Monday depending on PT and OT recommendations to subacute rehabilitation. Patient is feeling much better much stronger today. 08/12/2017 Patient looks better than yesterday. Sitting on the side of the bed looks much better today. Physical therapy is recommended subacute rehabilitation patient will be discharged tomorrow to subacute rehab.she apparently had bilateral pedal edema from amlodipine because of which the family doesn't want her to be on amlodipine and patient is ALLERGIC to LUCY inhibitor which is which was stung swelling because of which the all switch her to correlate for better blood pressure control from metoprolol and will monitor her blood pressures here. 08/13/2017 No overnight events blood pressure is well controlled. Constitutional: Denied any fatigue denied any fever. Cardio vascular: denied any chest pain, palpit ations Gastrointestinal denied any nausea vomiting Pulmonary: Denied any shortness of breath cough Neurologic denied any new focal deficits 08/14/17 Sitting up at bedside, denies chest pain, palpitations, telemetry sinus rhythm. Echo reporting EF 50-60%. Good diet intake, denies nausea vomiting or diarrhea. Ambulating, tolerating exertion well. Denies focal deficits, lightheadedness or dizziness. Evaluated by cardiology and patient is scheduled for cardiac catheterization tomorrow. Objective - Vital Signs Vital signs: Vital Signs Temp 97.0 F L 08/14/17 16:20 Pulse 72 08/14/17 16:20 Resp 16 08/14/17 16:20 BP 132/68 08/14/17 16:20 Pulse Ox 97 08/14/17 16:20 Intake & Output 08/13/17 08/14/17 08/14/17 18:59 06:59 18:59 Intake Total 1580 10 1580 Output Total 301 Balance 1580 -291 1580 Weight 52.2 kg 52.2 kg Intake: IV 10 Invasive Line 2 10 Oral 1580 1580 Output: Urine 301 Other: Voiding Method Bedside Commode Bedside Commode Bedside Commode # Voids 1 1 # Bowel Movements 1 - Exam PHYSICAL EXAMINATION: Sitting up in bed, no acute distress. HEENT: Pupils are round and equally reacting to light. EOMI. No scleral icterus. No conjunctival pallor. Normocephalic, atraumatic. No pharyngeal erythema. No thyromegaly. CARDIOVASCULAR: S1 and S2 present. No murmurs, rubs, or gallops. PULMONARY: Chest is clear to auscultation, no wheezing or crackles. ABDOMEN: Soft, nontender, nondistended, normoactive bowel sounds. No palpable organomegaly. MUSCULOSKELETAL: No joint swelling or deformity. EXTREMITIES: No cyanosis, clubbing, or pedal edema. NEUROLOGICAL: Gross neurological examination did not reveal any focal deficits. Initially and generalized weakness. SKIN: No rashes. - Labs CBC & Chem 7: 08/15/17 05:46 08/15/17 05:46 Labs: Abnormal Lab Results - Last 24 Hours (Table) 08/14/17 Range/Units 06:05 BUN 18 H (7-17) mg/dL Assessment and Plan Assessment: Generalized weakness with possible UTI, asymptomatic, on empiric antibiotics. I believe her polypharmacy is contributing to her generalized weakness. Patient is not a good candidate for opiates, benzos pain barbiturates , anticholinergic medications most of these were discontinued. -Mildly elevated troponins: Cardiology evaluated, Low possibility of non-ST elevation myocardial infarction, cardiac catheterization tomorrow. -Gastric esophageal reflux disease -hyperlipidemia -Hypertension -hypothyroidism -chronic low back pain -Anemia of chronic disease Plan: Continue on current medication regime ,monitoring and symptomatic treatment. As mentioned above scheduled for cardiac catheterization in a.m. Follow closely with cardiology. Discharge planning in progress for subacute rehab. The impression and plan of care has been dictated as directed. : I performed a history and examination of this patient, discussed the same with the dictator. I agree with the dictator's note ,documented as a scribe. Any additional findings or plans will be noted.
--- NOTE | 2017-08-15 15:06 | P.DS ---
Providers Date of admission: 08/10/17 14:17 Expected date of discharge: 08/15/17 Attending physician: Rebeca Galeana Consults: 08/10/17 14:18 Consult Physician Urgent Consulting Provider: Kulwant Das Consult Reason/Comments: cardiology eval Do you want consulting provider notified?: Yes Primary care physician: Blaze Dowling [facility] Course: Final Diagnoses: Generalized weakness with possible UTI, asymptomatic, on empiric antibiotics with no further antibx. at mt. I believe her polypharmacy is contributing to her generalized weakness. Patient is not a good candidate for opiates, benzos pain barbiturates , anticholinergic medications most of these were discontinued. -Mildly elevated troponins: Cardiology evaluated, Low possibility of non-ST elevation myocardial infarction. Status post cardiac catheterization reporting mild disease in the septal branch, otherwise normal coronary arteries. -Gastric esophageal reflux disease -hyperlipidemia -Hypertension -hypothyroidism -chronic low back pain -Anemia of chronic disease Hospital course: 82-year-old female came in with complaints of generalized weakness and tiredness chair believe is secondary to polypharmacy patient is feeling much better today after discontinue additional multiple medications particularly narcotic medications. And patient doesn't have any significant pain have the abdominal pain improved as well may be related to cystitis, I mostly believe patient has a symptom any bacteria rapid and cystitis or UTI anyways for now we'll can need antibiotics. Awaiting physical therapy and occupational therapy evaluation. Possibly of discharge on Monday depending on PT and OT recommendations to subacute rehabilitation. Patient is feeling much better much stronger today. 08/12/2017 Patient looks better than yesterday. Sitting on the side of the bed looks much better today. Physical therapy is recommended subacute rehabilitation patient will be discharged tomorrow to subacute rehab.she apparently had bilateral pedal edema from amlodipine because of which the family doesn't want her to be on amlodipine and patient is ALLERGIC to LUCY inhibitor which is which was stung swelling because of which the all switch her to correlate for better blood pressure control from metoprolol and will monitor her blood pressures here. 08/13/2017 No overnight events blood pressure is well controlled. Constitutional: Denied any fatigue denied any fever. Cardio vascular: denied any chest pain, palpit ations Gastrointestinal denied any nausea vomiting Pulmonary: Denied any shortness of breath cough Neurologic denied any new focal deficits 08/14/17 Sitting up at bedside, denies chest pain, palpitations, telemetry sinus rhythm. Echo reporting EF 50-60%. Good diet intake, denies nausea vomiting or diarrhea. Ambulating, tolerating exertion well. Denies focal deficits, lightheadedness or dizziness. Evaluated by cardiology and patient is scheduled for cardiac catheterization tomorrow. 08/15/17 underwent cardiac catheterization this morning, reporting mild disease in the septal branch, otherwise normal coronary arteries.tolerated procedure well. maximizing medical therapy recommended. Patient will be discharged to [facility] subacute rehab in a stable condition with guarded prognosis, pending cardiology clearance and final DC recommendations. PHYSICAL EXAMINATION: Sitting up in bed, no acute distress. CARDIOVASCULAR: S1 and S2 present. No murmurs, rubs, or gallops. PULMONARY: Chest is clear to auscultation, no wheezing or crackles. ABDOMEN: Soft, nontender, nondistended, normoactive bowel sounds. No palpable organomegaly. NEUROLOGICAL: Gross neurological examination did not reveal any focal deficits. Initially and generalized weakness. The impression and plan of care has been dictated as directed. : I performed a history and examination of this patient, discussed the same with the dictator. I agree with the dictator's note ,documented as a scribe. Any additional findings or plans will be noted. Time taken: 35 minutes Patient Condition at Discharge: Stable Plan - Discharge Summary Discharge Rx Participant: No New Discharge Prescriptions: New Acetaminophen Tab [Tylenol] 650 mg PO Q4HR PRN tab PRN Reason: Fever And/ Or Pain Albuterol Nebulized [Ventolin Nebulized] 2.5 mg INHALATION RT-Q4H PRN nebu PRN Reason: Shortness Of Breath Carvedilol [Coreg*] 25 mg PO BID-W/MEALS tab Gabapentin [Neurontin] 300 mg PO QID cap traMADol HCl [Ultram] 50 mg PO QID PRN #12 tab PRN Reason: Pain/Discomfort Continue Montelukast [Singulair] 10 mg PO HS Atorvastatin Calcium [Lipitor] 40 mg PO DAILY Pantoprazole Sodium 40 mg PO DAILY Isosorbide Mononitrate ER [Imdur] 30 mg PO DAILY Ferrous Sulfate [Feosol] 325 mg PO BID Loratadine [Claritin] 10 mg PO DAILY Citalopram Hydrobromide [CeleXA] 20 mg PO BID Cholecalciferol (Vitamin D3) [Vitamin D3] 1,000 unit PO DAILY Vitamin B Complex 1 cap PO DAILY Alendronate Sodium [Fosamax] 70 mg PO SMITH Ondansetron [Zofran] 4 mg PO Q6H PRN PRN Reason: Nausea Budesonide-Formot 160-4.5 Mcg [Symbicort 160-4.5 Mcg Inhaler] 2 puff INHALATION RT-BID Aspirin [Adult Low Dose Aspirin EC] 81 mg PO DAILY Colchicine [Colcrys] 0.6 mg PO DAILY Levothyroxine Sodium [Synthroid] 150 mcg PO DAILY Memantine HCl/Donepezil HCl [Namzaric 28 mg-10 mg Capsule] 1 cap PO HS Omeprazole [PriLOSEC] 40 mg PO DAILY Sucralfate [Carafate] 1 gm PO BID Discontinued Gabapentin 800 mg PO QID Digoxin [Lanoxin] 125 mcg PO DAILY Metoprolol Tartrate [Lopressor] 25 mg PO BID Verapamil HCl [Verapamil ER] 180 mg PO HS Albuterol Sulfate [Proair Hfa] 2 puff INHALATION RT-Q4H PRN PRN Reason: Shortness Of Breath oxyCODONE-APAP 10-325MG [Percocet 10-325 mg] 1 tab PO 5XD amLODIPine [Norvasc] 5 mg PO DAILY Furosemide [Lasix] 20 mg PO DAILY Discharge Medication List Atorvastatin Calcium [Lipitor] 40 mg PO DAILY 07/05/13 [History] Ferrous Sulfate [Feosol] 325 mg PO BID 07/05/13 [History] Isosorbide Mononitrate ER [Imdur] 30 mg PO DAILY 07/05/13 [History] Montelukast [Singulair] 10 mg PO HS 07/05/13 [History] Pantoprazole Sodium 40 mg PO DAILY 07/05/13 [History] Cholecalciferol (Vitamin D3) [Vitamin D3] 1,000 unit PO DAILY 10/09/13 [History] Citalopram Hydrobromide [CeleXA] 20 mg PO BID 10/09/13 [History] Loratadine [Claritin] 10 mg PO DAILY 10/09/13 [History] Vitamin B Complex 1 cap PO DAILY 04/10/14 [History] Alendronate Sodium [Fosamax] 70 mg PO SMITH 05/26/14 [History] Budesonide-Formot 160-4.5 Mcg [Symbicort 160-4.5 Mcg Inhaler] 2 puff INHALATION RT-BID 11/14/15 [History] Ondansetron [Zofran] 4 mg PO Q6H PRN 11/14/15 [History] Aspirin [Adult Low Dose Aspirin EC] 81 mg PO DAILY 04/18/16 [History] Colchicine [Colcrys] 0.6 mg PO DAILY 08/10/17 [History] Levothyroxine Sodium [Synthroid] 150 mcg PO DAILY 08/10/17 [History] Memantine HCl/Donepezil HCl [Namzaric 28 mg-10 mg Capsule] 1 cap PO HS 08/10/17 [History] Omeprazole [PriLOSEC] 40 mg PO DAILY 08/10/17 [History] Sucralfate [Carafate] 1 gm PO BID 08/10/17 [History] Acetaminophen Tab [Tylenol] 650 mg PO Q4HR PRN tab 08/15/17 [Rx] Albuterol Nebulized [Ventolin Nebulized] 2.5 mg INHALATION RT-Q4H PRN nebu [Rx] Carvedilol [Coreg*] 25 mg PO BID-W/MEALS tab 08/15/17 [Rx] Gabapentin [Neurontin] 300 mg PO QID cap 08/15/17 [Rx] traMADol HCl [Ultram] 50 mg PO QID PRN #12 tab 08/15/17 [Rx] Follow up Appointment(s)/Referral(s): Dean Antony MD [STAFF PHYSICIAN] - 3 Days (while at [facility]) Blaze Ann III, MD [Primary Care Provider] - 3 Days Patient Instructions/Handouts: *Surgery [facility] - After Heart Catheterization - Truck [employer] Heavy Instructions, Heart Healthy Diet (DC) Activity/Diet/Wound Care/Special Instructions: Tru [facility] pending cardiology clearance and final rec. Diet: cardiac Activity: as tolerated cbc,bmp in 3 days Discharge Disposition: TRANSFER TO SNF/ECF
== END 2017-08-15 15:31 | DRG 690 ==
LOC: EC 10:52 → 6SEL 14:17
PROVIDERS: ADMIT Internal Medicine; ATTEND Internal Medicine
PROC: B211YZZ Fluoroscopy of Multiple Coronary Arteries using Other Contrast (ICD-10-PCS; principal; 2017-08-15 07:30)
PROC: 4A023N7 Measurement of Cardiac Sampling and Pressure, Left Heart, Percutaneous Approach (ICD-10-PCS; principal; 2017-08-15 07:30)
DX: N39.0 Urinary tract infection, site not specified (principal); I47.1 Supraventricular tachycardia; J90 Pleural effusion, not elsewhere classified; R53.1 Weakness; R94.31 Abnormal electrocardiogram [ECG] [EKG]; R77.9 Abnormality of plasma protein, unspecified; T40.605A Adverse effect of unspecified narcotics, initial encounter; T42.4X5A Adverse effect of benzodiazepines, initial encounter; T44.1X5A Adverse effect of other parasympathomimetics [cholinergics], initial encounter; R13.10 Dysphagia, unspecified; D86.9 Sarcoidosis, unspecified; D63.8 Anemia in other chronic diseases classified elsewhere; I35.1 Nonrheumatic aortic (valve) insufficiency; E03.9 Hypothyroidism, unspecified; F32.9 Major depressive disorder, single episode, unspecified; N20.0 Calculus of kidney; G89.29 Other chronic pain; M54.5 Low back pain; J45.909 Unspecified asthma, uncomplicated; K21.9 Gastro-esophageal reflux disease without esophagitis; E78.5 Hyperlipidemia, unspecified; I10 Essential (primary) hypertension; I25.2 Old myocardial infarction; M19.91 Primary osteoarthritis, unspecified site; K57.90 Diverticulosis of intestine, part unspecified, without perforation or abscess without bleeding; K58.9 Irritable bowel syndrome, unspecified; K29.70 Gastritis, unspecified, without bleeding; K44.9 Diaphragmatic hernia without obstruction or gangrene; H35.30 Unspecified macular degeneration; I83.93 Asymptomatic varicose veins of bilateral lower extremities; H54.8 Legal blindness, as defined in USA; Z79.83 Long term (current) use of bisphosphonates; Z79.82 Long term (current) use of aspirin; Z79.51 Long term (current) use of inhaled steroids; Z79.890 Hormone replacement therapy; Z79.891 Long term (current) use of opiate analgesic; Z79.899 Other long term (current) drug therapy; Z96.612 Presence of left artificial shoulder joint; Z96.653 Presence of artificial knee joint, bilateral; Z96.643 Presence of artificial hip joint, bilateral; Z87.11 Personal history of peptic ulcer disease; Z98.42 Cataract extraction status, left eye; Z90.81 Acquired absence of spleen; Z87.39 Personal history of other diseases of the musculoskeletal system and connective tissue; Z87.442 Personal history of urinary calculi; Z98.41 Cataract extraction status, right eye; Z88.8 Allergy status to other drugs, medicaments and biological substances; Z82.5 Family history of asthma and other chronic lower respiratory diseases
CPT/HCPCS: 36415; 70450; 71046; 80048; 80053; 80061; 80162; 81001; 82550; 82553; 83605; 83735; 84100; 84439; 84443; 84481; 84484; 85025; 85027; 85049; 85610; 85730; 87324; 93005; 93306; 93458; 94640; 94760; 96361; 96365; 96366; 96375; 96376; 99291

== ENCOUNTER 2018-02-05 10:29 | Emergency (ER) | payer MEDICARE, OTHER ==
[2018-02-05] MEDS ORDERED: MORPHINE SULFATE 4 MG/ML SYRINGE IVP STA (11:18)
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
[2018-02-05] MEDS ORDERED: HYDROmorphone 1 MG/ML 1 ML SYRINGE IVP STA (12:58)
--- NOTE | 2018-02-05 13:13 | XR ---
EXAMINATION TYPE: XR forearm LT DATE OF EXAM: 02/05/2018 COMPARISON: NONE HISTORY: Pain Two views of the forearm demonstrate diffuse osteopenia. There is a deformity involving the distal ma rgin of the radius with sclerosis correlate with point tenderness for fracture. Spur along the ulnar styloid noted. Deformity involving the base of the fourth and fifth metacarpals. Arthropathy of the f irst carpal metacarpal joint. IMPRESSION: 1. Findings are suggestive of a fracture involving the metadiaphysis of the distal radius with no sig nificant displacement. 2. Deformities involving the base of the fourth and fifth metacarpals should be correlated with hand x-ray.
--- NOTE | 2018-02-05 13:15 | XR ---
EXAMINATION TYPE: XR hand complete LT DATE OF EXAM: 02/05/2018 COMPARISON: NONE HISTORY: Pain TECHNIQUE: Three views are submitted. FINDINGS: There are deformities involving the fourth and fifth metacarpals which may be chronic and should be c orrelated with point tenderness. Soft tissue edema is seen and there is a slightly displaced fracture involving the distal metadiaphysis of the radius. Chondrocalcinosis noted and there severe arthropat hy first carpal metacarpal joint and there is erosive change involving the DIP joint of the third dig it with arthropathy of all PIP, MCP and DIP joints. Diffuse soft tissue edema noted. IMPRESSION: 1. Distal radius fracture with mild displacement. 2. Erosive osteoarthritis 3. Deformities involving the fourth and fifth metacarpals are likely chronic and remote correlate wit h point tenderness for confirmation.
[2018-02-05] MEDS ORDERED: hydrALAZINE HCL 20 MG/ML 1 ML VIAL IVP STA (14:29)
[2018-02-05 14:30] VITALS: PULSE 62; RESP 22; TEMP 98.2
[2018-02-05 14:54] VITALS: BP 181/78
== END 2018-02-05 15:05 | disposition home or self-care (01) ==
LOC: EC 10:29
DX: S52.502A Unspecified fracture of the lower end of left radius, initial encounter for closed fracture (principal); I71.2 Thoracic aortic aneurysm, without rupture; I10 Essential (primary) hypertension; K21.9 Gastro-esophageal reflux disease without esophagitis; I25.2 Old myocardial infarction; M19.90 Unspecified osteoarthritis, unspecified site; Z96.653 Presence of artificial knee joint, bilateral; Z96.643 Presence of artificial hip joint, bilateral; Z96.612 Presence of left artificial shoulder joint; Z79.899 Other long term (current) drug therapy; Z88.8 Allergy status to other drugs, medicaments and biological substances; W18.09XA Striking against other object with subsequent fall, initial encounter; Y93.01 Activity, walking, marching and hiking
CPT/HCPCS: 73090; 73130; 72125; 70450; 99284; 29125; 96374; 96375 ×2; J2270; J0360; J1170

== ENCOUNTER 2018-04-12 10:01 | Observation (INO) | payer MEDICARE, OTHER ==
[2018-04-12] MEDS ORDERED: IPRATROPIUM-ALBUTEROL 3 ML NEB INHALATION STA (10:10)
[2018-04-12] MEDS ORDERED: methylPREDNISolone SOD SUCCI 125 MG/2 ML VIAL IV STA (10:10)
[2018-04-12] MEDS ORDERED: MORPHINE SULFATE 4 MG/ML SYRINGE IVP STA ×2 (10:26→12:48)
[2018-04-12 10:54] LABS: Basophils % (A) 0 %; Eosinophils # (A) 0.5 k/uL (0-0.7); Eosinophils % (A) 7 %; HCT 36.2 % (34.0-46.0); HGB 11.6 gm/dL (11.4-16.0); Lymphocytes # (A) 1.9 k/uL (1.0-4.8); Lymphocytes % (A) 27 %; MCV 100.2 fL (80.0-100.0); Macrocytosis Slight; Mean Platelet Volume 7.2; Monocytes # (A) 0.3 k/uL (0-1.0); Monocytes % (A) 4 %; Neutrophils # (A) 4.2 k/uL (1.3-7.7); Neutrophils % (A) 59 %; Platelet Count 239 k/uL (150-450); RBC 3.61 m/uL (3.80-5.40); RDW 15.6 % (11.5-15.5); WBC 7.1 k/uL (3.8-10.6)
[2018-04-12 10:56] LABS: Appearance,Urine Clear (Clear); Bilirubin,Urine Negative (Negative); Blood,Urine Negative (Negative); Color,Urine Yellow; Glucose,Urine (UA) Negative (Negative); Ketones,Urine Negative (Negative); Leukocyte Esterase,Urine Negative (Negative); Nitrite,Urine Negative (Negative); PH, Urine 7.5 (5.0-8.0); Protein,Urine Trace (Negative); Specific Gravity,Urine 1.012 (1.001-1.035); Urobilinogen,Urine <2.0 mg/dL (<2.0)
[2018-04-12 11:04] LABS: Partial Thromboplastin Time 25.5 sec (22.0-30.0); Prothrombin Time 10.5 sec (9.0-12.0)
[2018-04-12 11:05] LABS: Albumin 3.9 g/dL (3.5-5.0); Calcium 9.8 mg/dL (8.4-10.2); Magnesium 1.7 mg/dL (1.6-2.3); Potassium 4.2 mmol/L (3.5-5.1); Total Bilirubin 0.7 mg/dL (0.2-1.3); Total Protein 7.2 g/dL (6.3-8.2)
--- NOTE | 2018-04-12 11:16 | XR ---
EXAMINATION TYPE: XR chest 2V DATE OF EXAM: 04/12/2018 COMPARISON: Prior chest x-ray 01/05/2018, CT 07/05/2013, CT 02/21/2017 HISTORY: Difficulty breathing, shortness of breath TECHNIQUE: Frontal and lateral views of the chest are obtained. FINDINGS: Prominent lung volumes suggest underlying COPD. There is a Bochdalek hernia on the left. N o pneumothorax or pleural effusion. Heart is enlarged. Postop change noted to the left shoulder. Jacqueline ent is rotated, cardiac leads. Pulmonary vascularity and mert within normal limits. Strand-like densi ties at the lung bases may represent scarring, atelectasis. Bone mineralization somewhat reduced. Mil d wedge compression deformity noted at the midthoracic spine, thoracic spondylosis again seen, bone m ineralization is reduced. IMPRESSION: Stable cardiomegaly. Additional findings above.
[2018-04-12 11:20] LABS: Creatine Kinase 114 U/L (30-135)
[2018-04-12 11:33] LABS: Troponin I <0.012 ng/mL (0.000-0.034)
[2018-04-12] MEDS ORDERED: FUROSEMIDE 10 MG/ML 4 ML VIAL IV STA (11:46)
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
[2018-04-12] MEDS ORDERED: IPRATROPIUM-ALBUTEROL 3 ML NEB INHALATION PRN (13:55)
[2018-04-12] MEDS ORDERED: MORPHINE SULFATE 4 MG/ML SYRINGE IVP PRN (13:56)
[2018-04-12] MEDS ORDERED: ALPRAZolam 0.25 MG TAB PO PRN (15:42)
[2018-04-12] MEDS ORDERED: ACETAMINOPHEN TAB 500 MG TAB PO PRN (15:42)
[2018-04-12] MEDS: oxyCODONE-APAP 10-325MG 1 EACH TAB PO PRN ×2 (16:18→21:13)
[2018-04-12] MEDS: CARVEDILOL 12.5 MG TAB PO SCH (17:29)
[2018-04-12] MEDS: GABAPENTIN 400 MG CAP PO SCH ×2 (17:43→21:15)
[2018-04-12 17:44] LABS: Glucose,Whole Blood 221 mg/dL (75-99)
[2018-04-12] MEDS: methylPREDNISolone SOD SUCCI 125 MG/2 ML VIAL IV SCH (17:44)
[2018-04-12] MEDS: INSULIN ASPART (NovoLOG) 100 UNIT/ML VIAL SQ SCH ×2 (17:46→22:36)
--- NOTE | 2018-04-12 17:59 | HP ---
HISTORY AND PHYSICAL DATE OF SERVICE: 04/12/2018 CHIEF COMPLAINT: Shortness of breath. HISTORY OF PRESENT ILLNESS: This 83-year-old woman with a past medical history of multiple medical problems, including asthma, COPD, CHF, history of GERD, hyperlipidemia, hypertension, history of myocardial infarction, history of chronic back pain, history of DJD, depression, being followed by Dr. Ann in the outpatient setting as well as Dr. Hoskins and Dr. Grover, was complaining of increasing shortness of breath over the past several days. The patient was also complaining of lower abdominal pain and increased frequency of micturition. The patient had chronic low back pain as well. Because of worsening dyspnea for the last few days, the patient came to [facility] and was admitted for further evaluation and treatment. Chest x-ray showed COPD, acute exacerbation. Influenza was negative. The patient also had a CT scan of the abdomen and pelvis which showed multiple abnormalities, including cystic pancreatic tail lesion and very minimal intrahepatic biliary dilatation and collapse of small bowel, and low attenuated uterine fundus was also noted. The patient was admitted for further evaluation and treatment. There is no history of any fever, rigor or chills. No history of headache, loss of consciousness, seizures at this time. PAST MEDICAL HISTORY: 1. History of asthma. 2. COPD. 3. GERD. 4. Hypertension. 5. Hyperlipidemia. 6. History of myocardial infarction. 7. Hypothyroidism. 8. Chronic back pain. 9. Back surgery. HOME MEDICATIONS: 1. Oxycodone 5 mg q.4 to 6 p.r.n. 2. Vision Formula. 3. Zantac 150 mg at bedtime. 4. Protonix 20 mg daily. 5. Singulair 10 mg at bedtime. 6. Namenda 1 capsule p.o. at bedtime. 7. Mobic 7.5 p.o. b.i.d. 8. Claritin 10 mg p.o. daily. 9. Synthroid 175 mcg p.o. daily. 10.Imdur 30 mg p.o. daily. 11.Gabapentin 800 mg p.o. q.i.d. 12.Iron sulfate 320 mg p.o. b.i.d. 13.Celexa 20 mg p.o. b.i.d. 14.Vitamin D3 2000 daily. 15.Coreg 25 mg p.o. b.i.d. 16.Symbicort 160/4.5 two puffs b.i.d. 17.Z-Bec 1 p.o. b.i.d. 18.Lipitor 40 mg p.o. daily. 19.Aspirin 81 mg p.o. daily. 20.Fosamax 70 mg p.o. Monday. 21.Ventolin 2 puffs q.4 p.r.n. ALLERGIES: BENAZEPRIL. FAMILY HISTORY: History of COPD, smoking, emphysema. SOCIAL HISTORY: No history of smoking. Occasional alcohol intake. REVIEW OF SYSTEMS: ENT: Diminished hearing. Diminished vision. CARDIOVASCULAR SYSTEM: No angina, palpitations. RESPIRATORY SYSTEM: As mentioned earlier. GI: As mentioned earlier. : No dysuria or retention. NERVOUS SYSTEM: No numbness, weakness. ALLERGY/IMMUNOLOGY: No asthma, hayfever. MUSCULOSKELETAL: As mentioned earlier. HEMATOLOGY/ONCOLOGY: No history of anemia. ENDOCRINE: Hypothyroidism. CONSTITUTIONAL: As mentioned earlier. DERMATOLOGY: Negative. RHEUMATOLOGY: Negative. PSYCHIATRY: As mentioned earlier. PHYSICAL EXAMINATION: Patient is alert, oriented x3. Pulse 61, blood pressure 178/86, respiration 18, temperature 98.3, pulse ox 96% on 2 L. HEENT: Conjunctivae normal. Oral mucosa moist. NECK: No jugular venous distention. No carotid bruit. No lymph node enlargement. CARDIOVASCULAR SYSTEM: S1, S2 muffled. RESPIRATORY SYSTEM: Breath sounds diminished at the bases. Bilateral scattered rhonchi and crackles. Expiratory wheezing also present. Chest is emphysematous. ABDOMEN: Soft, nontender. Mild diffuse discomfort. No guarding. No rigidity. No mass palpable. LEGS: No edema. No swelling. NERVOUS SYSTEM: Higher functions as mentioned earlier. Moves all 4 limbs. Mild diffuse weakness. LYMPHATICS: No lymph node palpable in neck, axillae or groin. SKIN: No ulcer, rash, bleeding. JOINTS: No active deforming arthropathy. LABS: Labs at this time show WBC 7.1, hemoglobin 11.6; MCV 100.2. ASSESSMENT: 1. Chronic obstructive pulmonary disease, acute exacerbation, with acute purulent tracheobronchitis. 2. Abdominal pain and increased frequency of micturition of undetermined etiology. 3. Cystic pancreatic tail lesion. 4. Prolapse of the small bowel lateral to the right hemicolon, possible internal hernia. 5. Possible uterine leiomyoma. 6. History of asthma, chronic obstructive pulmonary disease. 7. History of congestive heart failure. 8. Gastroesophageal reflux disease. 9. Hypertension. 10.Hyperlipidemia. 11.History of degenerative joint disease. 12.History of hypothyroidism. 13.Chronic low back pain. 14.History of bowel resection. 15.History of depression. RECOMMENDATIONS: In this 83-year-old woman who presented with multiple complex medical issues, we will monitor the patient closely, continue the current medications, continue with symptomatic treatment. I would optimize bronchodilator treatment. IV steroids. Monitor blood sugars closely. Broad-spectrum IV antibiotics Rocephin, Zithromax. Consult Dr. Nicholas. I would also recommend evaluation by Surgery. Overall prognosis guarded because of the multiple complex medical issues. Further recommendations to follow. A copy of this dictation is being forwarded to Dr. Ann, who is the primary physician. MMODL / IJN: [id number] /
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
[2018-04-12] MEDS: IPRATROPIUM-ALBUTEROL 3 ML NEB INHALATION SCH ×2 (19:35)
[2018-04-12 20:56] LABS: Glucose,Whole Blood 288 mg/dL (75-99)
[2018-04-12] MEDS ORDERED: FAMOTIDINE 20 MG TAB PO SCH (21:00)
[2018-04-12] MEDS: MONTELUKAST 10 MG TAB PO SCH (21:15)
[2018-04-12] MEDS: MELOXICAM 7.5 MG TAB PO SCH (21:16)
[2018-04-12] MEDS: MEMANTINE 10 MG TAB PO SCH (21:16)
[2018-04-12] MEDS: FERROUS SULFATE 325 MG TAB PO SCH (21:17)
[2018-04-12] MEDS: DONEPEZIL 10 MG TAB PO SCH (21:17)
[2018-04-12] MEDS: CITALOPRAM HYDROBROMIDE 20 MG TAB PO SCH (21:18)
[2018-04-12] MEDS: HEPARIN SODIUM,PORCINE 5,000 UNIT/ML 1 ML VIAL SQ SCH (21:28)
[2018-04-12] MEDS: NON-FORMULARY DRUG (B Complex-Vit C-Vit E-Zinc 1 TAB) PO SCH (21:36)
[2018-04-12 22:51] LABS: Hemoglobin A1C 5.8 % (4.0-6.0)
[2018-04-13] MEDS: methylPREDNISolone SOD SUCCI 125 MG/2 ML VIAL IV SCH ×4 (01:20→17:29)
[2018-04-13] MEDS: LEVOTHYROXINE 100 MCG TAB PO SCH (06:22)
[2018-04-13 07:12] LABS: Glucose,Whole Blood 200 mg/dL (75-99)
[2018-04-13] MEDS: IPRATROPIUM-ALBUTEROL 3 ML NEB INHALATION SCH ×4 (07:46→21:06)
[2018-04-13] MEDS: GABAPENTIN 400 MG CAP PO SCH ×4 (08:39→21:53)
[2018-04-13] MEDS: CHOLECALCIFEROL 1,000 UNIT TAB PO SCH (08:40)
[2018-04-13] MEDS: MEMANTINE 10 MG TAB PO SCH ×2 (08:40→20:22)
[2018-04-13] MEDS: AZITHROMYCIN 500 MG TAB PO SCH (08:40)
[2018-04-13] MEDS: MELOXICAM 7.5 MG TAB PO SCH (08:41)
[2018-04-13] MEDS: VIT A,C & E-LUTEIN-MINERALS 1 EACH TAB PO SCH (08:42)
[2018-04-13] MEDS: CARVEDILOL 12.5 MG TAB PO SCH ×2 (08:42→17:35)
[2018-04-13] MEDS: LORATADINE 10 MG TAB PO SCH (08:43)
[2018-04-13] MEDS: ISOSORBIDE MONONITRATE ER 30 MG TAB.ER.24H PO SCH (08:43)
[2018-04-13] MEDS: CITALOPRAM HYDROBROMIDE 20 MG TAB PO SCH ×2 (08:44→20:21)
[2018-04-13] MEDS: PANTOPRAZOLE 40 MG TABLET PO SCH (08:44)
[2018-04-13] MEDS: ASPIRIN 81 MG PO SCH (08:45)
[2018-04-13] MEDS: FERROUS SULFATE 325 MG TAB PO SCH ×2 (08:45→20:22)
[2018-04-13] MEDS: ATORVASTATIN 40 MG TAB PO SCH (08:45)
[2018-04-13] MEDS: HEPARIN SODIUM,PORCINE 5,000 UNIT/ML 1 ML VIAL SQ SCH ×2 (08:52→20:21)
[2018-04-13] MEDS: oxyCODONE-APAP 10-325MG 1 EACH TAB PO PRN ×4 (09:00→21:53)
[2018-04-13] MEDS ORDERED: PANTOPRAZOLE SODIUM PO SCH (09:00)
[2018-04-13] MEDS: INSULIN ASPART (NovoLOG) 100 UNIT/ML VIAL SQ SCH ×4 (09:01→21:52)
[2018-04-13] MEDS: NON-FORMULARY DRUG (B Complex-Vit C-Vit E-Zinc 1 TAB) PO SCH ×2 (09:17→21:37)
[2018-04-13 09:47] LABS: Basophils % (A) 0 %; Eosinophils % (A) 0 %; HCT 37.9 % (34.0-46.0); HGB 11.9 gm/dL (11.4-16.0); Hypochromasia Slight; Lymphocytes # (A) 0.9 k/uL (1.0-4.8); Lymphocytes % (A) 18 %; MCH 31.9 pg (25.0-35.0); MCHC 31.4 g/dL (31.0-37.0); MCV 101.6 fL (80.0-100.0); Macrocytosis Slight; Mean Platelet Volume 6.9; Monocytes # (A) 0.1 k/uL (0-1.0); Monocytes % (A) 1 %; Neutrophils # (A) 4.1 k/uL (1.3-7.7); Neutrophils % (A) 80 %; Platelet Count 277 k/uL (150-450); RBC 3.73 m/uL (3.80-5.40); WBC 5.2 k/uL (3.8-10.6)
[2018-04-13 09:58] LABS: Calcium 9.4 mg/dL (8.4-10.2); Potassium 4.4 mmol/L (3.5-5.1)
--- NOTE | 2018-04-13 10:51 | P.PN ---
<Frances Sanchez - Last Filed: 04/13/18 10:49> Subjective Progress Note Date: 04/13/18 HISTORY OF PRESENT ILLNESS: Patient examined at the bedside. She denies pain or discomfort. Denies nausea or vomiting. Tolerating PO intake. WBC 5.2. PHYSICAL EXAM: VITAL SIGNS: Currently stable. GENERAL: Well-developed in no acute distress. HEENT: No sclera icterus. Extraocular movements grossly intact. Moist buccal mucosa. Head is atraumatic, normocephalic. Hears conversational speech. No nasal drainage. NECK: Supple without lymphadenopathy. CHEST: Non-labored respirations and equal bilateral excursions. CARDIOVASCULAR: Regular rate with regular rhythm. Palpable 2+ radial pulses. ABDOMEN: Soft. Nondistended. Nontender. MUSCULOSKELETAL: No clubbing, cyanosis or edema. NEUROLOGIC: No focal or lateralizing signs. Cranial nerves II through XII grossly intact. PSYCH: Appropriate affect. Alert and oriented to person, place and time. SKIN: Well perfused. Good skin turgor. ASSESSMENT: 1. Abdominal pain, resolved PLAN: No surgical intervention recommended. Continue medical management. We will sign off. Please reconsult if needed. Nurse practitioner note has been reviewed by physician. Signing provider agrees with the documented findings, assessment, and plan of care. Objective - Vital Signs Vital signs: Vital Signs Temp 97.5 F L 04/13/18 05:40 Pulse 70 04/13/18 07:55 Resp 12 04/13/18 07:46 BP 129/70 04/13/18 05:40 Pulse Ox 96 04/13/18 07:46 Intake & Output 04/12/18 04/13/18 04/13/18 18:59 06:59 18:59 Intake Total 400 450 200 Balance 400 450 200 Weight 56.699 kg Intake: Oral 400 450 200 Other: Voiding Method Bedside Commode Bedside Commode Bedside Commode # Voids 4 1 # Bowel Movements 0 - Labs CBC & Chem 7: 04/13/18 08:53 04/13/18 08:53 Labs: Abnormal Lab Results - Last 24 Hours (Table) 04/12/18 04/12/18 04/12/18 Range/Units 10:24 10:24 10:24 RBC 3.61 L (3.80-5.40) m/uL MCV 100.2 H (80.0-100.0) fL RDW 15.6 H (11.5-15.5) % Lymphocytes # (1.0-4.8) k/uL Sodium (137-145) mmol/L Chloride (98-107) mmol/L BUN 22 H (7-17) mg/dL Creatinine (0.52-1.04) mg/dL Glucose (74-99) mg/dL POC Glucose (mg/dL) (75-99) mg/dL Urine Protein Trace H (Negative) 04/12/18 04/12/18 04/13/18 Range/Units 17:39 20:43 07:02 RBC (3.80-5.40) m/uL MCV (80.0-100.0) fL RDW (11.5-15.5) % Lymphocytes # (1.0-4.8) k/uL Sodium (137-145) mmol/L Chloride (98-107) mmol/L BUN (7-17) mg/dL Creatinine (0.52-1.04) mg/dL Glucose (74-99) mg/dL POC Glucose (mg/dL) 221 H 288 H 200 H (75-99) mg/dL Urine Protein (Negative) 04/13/18 04/13/18 Range/Units 08:53 08:53 RBC 3.73 L (3.80-5.40) m/uL MCV 101.6 H (80.0-100.0) fL RDW 16.0 H (11.5-15.5) % Lymphocytes # 0.9 L (1.0-4.8) k/uL Sodium 134 L (137-145) mmol/L Chloride 96 L (98-107) mmol/L BUN 35 H (7-17) mg/dL Creatinine 1.93 H (0.52-1.04) mg/dL Glucose 308 H (74-99) mg/dL POC Glucose (mg/dL) (75-99) mg/dL Urine Protein (Negative) <Anders Vila - Last Filed: 04/13/18 17:20> Subjective As above. Patient doing well today. Denies abdominal pain. Tolerating diet. Passing flatus. Feels somewhat constipated. Will give trial of magnesium citrate. We'll sign off at this point. Please call if needed. Objective - Vital Signs Vital signs: Vital Signs Temp 98.2 F 04/13/18 14:33 Pulse 72 04/13/18 16:46 Resp 18 04/13/18 16:46 BP 111/68 04/13/18 14:33 Pulse Ox 97 04/13/18 14:33 Intake & Output 04/12/18 04/13/18 04/13/18 18:59 06:59 18:59 Intake Total 400 450 400 Balance 400 450 400 Weight 56.699 kg 56.699 kg Intake: Oral 400 450 400 Other: Voiding Method Bedside Commode Bedside Commode Bedside Commode # Voids 4 1 2 # Bowel Movements 0 0 - Labs CBC & Chem 7: 04/13/18 08:53 04/13/18 08:53 Labs: Abnormal Lab Results - Last 24 Hours (Table) 04/12/18 04/12/18 04/13/18 Range/Units 17:39 20:43 07:02 RBC (3.80-5.40) m/uL MCV (80.0-100.0) fL RDW (11.5-15.5) % Lymphocytes # (1.0-4.8) k/uL Sodium (137-145) mmol/L Chloride (98-107) mmol/L BUN (7-17) mg/dL Creatinine (0.52-1.04) mg/dL Glucose (74-99) mg/dL POC Glucose (mg/dL) 221 H 288 H 200 H (75-99) mg/dL 04/13/18 04/13/18 04/13/18 Range/Units 08:53 08:53 11:29 RBC 3.73 L (3.80-5.40) m/uL MCV 101.6 H (80.0-100.0) fL RDW 16.0 H (11.5-15.5) % Lymphocytes # 0.9 L (1.0-4.8) k/uL Sodium 134 L (137-145) mmol/L Chloride 96 L (98-107) mmol/L BUN 35 H (7-17) mg/dL Creatinine 1.93 H (0.52-1.04) mg/dL Glucose 308 H (74-99) mg/dL POC Glucose (mg/dL) 307 H (75-99) mg/dL Assessment and Plan (1) Abdominal pain Current Visit: Yes Status: Acute Code(s): R10.9 - UNSPECIFIED ABDOMINAL PAIN SNOMED Code(s): 68075838
[2018-04-13 11:39] VITALS: BMI 24.4
[2018-04-13 11:41] LABS: Glucose,Whole Blood 307 mg/dL (75-99)
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
[2018-04-13] MEDS ORDERED: MAGNESIUM CITRATE 296 ML BOTTLE PO ONE (17:15)
[2018-04-13 17:21] LABS: Glucose,Whole Blood 145 mg/dL (75-99)
--- NOTE | 2018-04-13 18:35 | PN ---
PROGRESS NOTE DATE OF SERVICE: 04/13/2018 This 83-year-old woman who was admitted with COPD acute exacerbation also has a chest x- ray showing increased vascular markings and a CT scan of the abdomen showed mild elevation of the left hemidiaphragm. The patient being closely monitored. No chest pain. No palpitations. No diarrhea. PAST MEDICAL HISTORY: Reviewed. REVIEW OF SYSTEMS: CARDIOVASCULAR: No angina or palpitations. RESPIRATION: As mentioned. GI: As mentioned earlier. is no dysuria. CURRENT MEDICATIONS: Reviewed and include: 1. Tylenol 500 mg q.6h p.r.n. 2. DuoNeb q.i.d. and p.r.n. 3. Xanax 0.5 t.i.d. 4. Aspirin 81 mg. 5. Lipitor 40 mg. 6. Zithromax 500 mg. 7. Symbicort 160/4.5 two puffs. 8. Coreg 25 mg b.i.d. 9. Vitamin D3. 10.Celexa. 11.Aricept 10 mg q.h.s. 12.Iron sulfate. 13.Neurontin 800 mg daily. 14.Heparin. 15.NovoLog. 16.Imdur. 17.Synthroid. 18.Claritin. 19.Mobic. 20.Namenda. 21.Solu-Medrol 60 IV q.6h. 22.Singular 10 mg q.h.s. 23.Morphine sulfate. 24.I-Ibeth. 25.Fosamax. 26.Percocet 10 mg q.4 p.r.n. 27.Protonix 40 mg daily. PHYSICAL EXAM: Patient is alert and oriented x3. Pulse 73, blood pressure 111/60, respiratory 20, temperature 98.2, pulse ox 97% on room air. HEENT: Conjunctivae normal. NECK: No jugular venous distention. CARDIOVASCULAR : S1, S2 muffled. RESPIRATORY: Breath sounds diminished in the bases. Breathing efforts marked increased. Bilateral scattered rhonchi and crackles. Expiratory wheezing also present. Abdomen soft, nontender. LEGS: No edema, no swelling. Central nervous system: Diffusely weak. LAB STUDIES: WBC 5.4, hemoglobin 11.6, sodium 134, creatinine is 1.93, which is worsened from 0.78, glucose 307. ASSESSMENT: 1. Chronic obstructive pulmonary disease exacerbation with acute purulent tracheobronchitis. 2. Abdominal pain with increased frequency of micturition of undetermined etiology. 3. History of pancreatic tail lesion. 4. Elevated left hemidiaphragm mild. 5. Collapse of small bowel lateral to the right; possible internal hernia. 6. Possible uterine leiomyoma. 7. History of asthma, chronic obstructive pulmonary disease. 8. History of congestive heart failure. 9. Gastroesophageal reflux disease. 10.History of hypertension. 11.Hyperlipidemia. 12.History of degenerative joint disease. 13.History hypothyroidism. 14.Chronic low back pain. 15.History of bowel resection. 16.History of depression. RECOMMENDATION AND DISCUSSION: Continue current management. Continue to monitor and symptomatic treatment. Otherwise, at this time, continue the bronchodilators. Continue steroids. Closely follow with Dr. Nicholas. Other than that, I would also continue with IV steroids. Guarded prognosis. Further recommendations to follow. MMJENNIFERL / ADANN: [id number] / MTDD
[2018-04-13] MEDS: MONTELUKAST 10 MG TAB PO SCH (20:22)
[2018-04-13] MEDS: DONEPEZIL 10 MG TAB PO SCH (20:22)
[2018-04-13 20:29] LABS: Glucose,Whole Blood 303 mg/dL (75-99)
[2018-04-13] MEDS: SYMBICORT 160-4.5 MCG INHALER INHALATION SCH (21:06)
[2018-04-14] MEDS: methylPREDNISolone SOD SUCCI 125 MG/2 ML VIAL IV SCH ×3 (00:51→12:58)
[2018-04-14] MEDS: LEVOTHYROXINE 100 MCG TAB PO SCH (06:50)
[2018-04-14 07:07] LABS: Glucose,Whole Blood 174 mg/dL (75-99)
[2018-04-14] MEDS: LORATADINE 10 MG TAB PO SCH (07:41)
[2018-04-14] MEDS: CARVEDILOL 12.5 MG TAB PO SCH ×2 (07:41→17:44)
[2018-04-14] MEDS: CHOLECALCIFEROL 1,000 UNIT TAB PO SCH (07:41)
[2018-04-14] MEDS: ASPIRIN 81 MG PO SCH (07:41)
[2018-04-14] MEDS: CITALOPRAM HYDROBROMIDE 20 MG TAB PO SCH ×2 (07:41→22:08)
[2018-04-14] MEDS: GABAPENTIN 400 MG CAP PO SCH ×4 (07:42→23:13)
[2018-04-14] MEDS: AZITHROMYCIN 500 MG TAB PO SCH (07:42)
[2018-04-14] MEDS: PANTOPRAZOLE 40 MG TABLET PO SCH (07:42)
[2018-04-14] MEDS: FERROUS SULFATE 325 MG TAB PO SCH ×2 (07:42→22:08)
[2018-04-14] MEDS: oxyCODONE-APAP 10-325MG 1 EACH TAB PO PRN ×3 (07:42→17:44)
[2018-04-14] MEDS: MEMANTINE 10 MG TAB PO SCH (07:42)
[2018-04-14] MEDS: ISOSORBIDE MONONITRATE ER 30 MG TAB.ER.24H PO SCH (07:42)
[2018-04-14] MEDS: HEPARIN SODIUM,PORCINE 5,000 UNIT/ML 1 ML VIAL SQ SCH ×2 (07:43→22:07)
[2018-04-14] MEDS: INSULIN ASPART (NovoLOG) 100 UNIT/ML VIAL SQ SCH ×4 (07:43→22:09)
[2018-04-14] MEDS: ATORVASTATIN 40 MG TAB PO SCH (07:43)
[2018-04-14] MEDS: NON-FORMULARY DRUG (B Complex-Vit C-Vit E-Zinc 1 TAB) PO SCH ×2 (07:43→20:21)
[2018-04-14] MEDS: VIT A,C & E-LUTEIN-MINERALS 1 EACH TAB PO SCH (07:57)
[2018-04-14] MEDS: SYMBICORT 160-4.5 MCG INHALER INHALATION SCH ×2 (09:54→19:19)
[2018-04-14] MEDS: IPRATROPIUM-ALBUTEROL 3 ML NEB INHALATION SCH ×4 (09:54→19:19)
[2018-04-14 11:35] LABS: Basophils % (A) 0 %; Eosinophils % (A) 0 %; HCT 35.5 % (34.0-46.0); HGB 11.2 gm/dL (11.4-16.0); Hypochromasia Slight; Lymphocytes # (A) 0.6 k/uL (1.0-4.8); Lymphocytes % (A) 6 %; MCH 32.2 pg (25.0-35.0); MCHC 31.4 g/dL (31.0-37.0); MCV 102.4 fL (80.0-100.0); Macrocytosis Slight; Mean Platelet Volume 6.9; Monocytes # (A) 0.2 k/uL (0-1.0); Monocytes % (A) 2 %; Neutrophils # (A) 8.4 k/uL (1.3-7.7); Neutrophils % (A) 91 %; Platelet Count 261 k/uL (150-450); RBC 3.47 m/uL (3.80-5.40); RDW 15.7 % (11.5-15.5); WBC 9.2 k/uL (3.8-10.6)
[2018-04-14 12:01] LABS: Calcium 8.9 mg/dL (8.4-10.2); Potassium 5.1 mmol/L (3.5-5.1)
[2018-04-14 12:22] LABS: Glucose,Whole Blood 212 mg/dL (75-99)
[2018-04-14] MEDS: SODIUM CHLORIDE 0.9% 1,000 ML IV SCH (12:34)
[2018-04-14 16:55] LABS: Glucose,Whole Blood 175 mg/dL (75-99)
--- NOTE | 2018-04-14 17:43 | PN ---
PROGRESS NOTE DATE OF SERVICE: 04/14/2018 This 83-year-old woman is admitted with COPD acute exacerbation and other multiple medical issues, improving slightly at this time. The patient is still short of breath. The patient is on bronchodilators, steroids, and Dr. Nicholas is following the patient closely. EXAM: Alert and oriented x3. The pulse is 73, blood pressure is 130/69, respiratory rate 16, temperature 97.2, pulse ox 94% on room air. HEENT: Conjunctivae normal. NECK: No jugular venous distention. CARDIOVASCULAR: S1, S2 muffled. RESPIRATORY: Breath sounds diminished in the bases. Scattered rhonchi and crackles. Abdomen is soft, nontender. Legs no edema. NERVOUS SYSTEM: No focal deficits. LABS: WBC 9.2, hemoglobin 11.2. Creatinine is 2.20. ASSESSMENT: 1. Chronic obstructive pulmonary disease exacerbation with acute purulent tracheobronchitis. 2. Abdominal pain with increase to frequency micturition with undetermined etiology. 3. History of pancreatic tail lesion. 4. Acute renal failure possibly prerenal acute tubular necrosis. 5. Elevated left hemidiaphragm, mild. 6. Collapse of small-bowel lateral to the right possibly internal hernia. 7. Possible uterine leiomyoma. 8. History of asthma, chronic obstructive pulmonary disease. 9. History of congestive heart failure. 10.Gastroesophageal reflux disease. 11.Hypertension. 12.History of hyperlipidemia. 13.History of degenerative joint disease. 14.History of hypothyroidism. 15.Chronic low back pain. 16.History of lower bowel resection. 17.History of depression. RECOMMENDATIONS AND DISCUSSION: Recommend to continue current medications, management and symptomatic. Otherwise, at this time, recommend IV fluids. Monitor creatinine closely. Otherwise taper the steroids. The prognosis guarded because of multiple complex medical issues. Further recommendations to follow. MMODL / IJN: [id number] /
[2018-04-14] MEDS: methylPREDNISolone SOD SUCCI 40 MG/ML 1 ML VIAL IV SCH (17:44)
[2018-04-14 20:39] LABS: Glucose,Whole Blood 255 mg/dL (75-99)
[2018-04-14] MEDS: DONEPEZIL 10 MG TAB PO SCH (22:08)
[2018-04-14] MEDS: MEMANTINE 5 MG TAB PO SCH (22:08)
[2018-04-14] MEDS: MONTELUKAST 10 MG TAB PO SCH (22:08)
[2018-04-15] MEDS: methylPREDNISolone SOD SUCCI 40 MG/ML 1 ML VIAL IV SCH ×4 (00:29→23:09)
[2018-04-15] MEDS: LEVOTHYROXINE 100 MCG TAB PO SCH (06:52)
[2018-04-15] MEDS: SYMBICORT 160-4.5 MCG INHALER INHALATION SCH ×2 (07:04→20:36)
[2018-04-15] MEDS: IPRATROPIUM-ALBUTEROL 3 ML NEB INHALATION SCH ×4 (07:04→20:36)
[2018-04-15 07:10] LABS: Glucose,Whole Blood 169 mg/dL (75-99)
[2018-04-15] MEDS: NON-FORMULARY DRUG (B Complex-Vit C-Vit E-Zinc 1 TAB) PO SCH ×2 (07:40→20:20)
[2018-04-15] MEDS: HEPARIN SODIUM,PORCINE 5,000 UNIT/ML 1 ML VIAL SQ SCH ×2 (07:52→20:19)
[2018-04-15] MEDS: ASPIRIN 81 MG PO SCH (07:53)
[2018-04-15] MEDS: ISOSORBIDE MONONITRATE ER 30 MG TAB.ER.24H PO SCH (07:53)
[2018-04-15] MEDS: GABAPENTIN 400 MG CAP PO SCH ×4 (07:53→20:19)
[2018-04-15] MEDS: AZITHROMYCIN 500 MG TAB PO SCH (07:53)
[2018-04-15] MEDS: ATORVASTATIN 40 MG TAB PO SCH (07:53)
[2018-04-15] MEDS: oxyCODONE-APAP 10-325MG 1 EACH TAB PO PRN ×4 (07:53→20:18)
[2018-04-15] MEDS: INSULIN ASPART (NovoLOG) 100 UNIT/ML VIAL SQ SCH ×4 (07:53→20:19)
[2018-04-15] MEDS: MEMANTINE 5 MG TAB PO SCH ×2 (07:54→20:19)
[2018-04-15] MEDS: LORATADINE 10 MG TAB PO SCH (07:54)
[2018-04-15] MEDS: SODIUM CHLORIDE 0.9% 1,000 ML IV SCH (07:54)
[2018-04-15] MEDS: CITALOPRAM HYDROBROMIDE 20 MG TAB PO SCH ×2 (07:54→20:19)
[2018-04-15] MEDS: FERROUS SULFATE 325 MG TAB PO SCH ×2 (07:54→20:19)
[2018-04-15] MEDS: CHOLECALCIFEROL 1,000 UNIT TAB PO SCH (07:54)
[2018-04-15] MEDS: PANTOPRAZOLE 40 MG TABLET PO SCH (07:54)
[2018-04-15] MEDS: CARVEDILOL 12.5 MG TAB PO SCH ×2 (07:54→16:35)
[2018-04-15] MEDS ORDERED: NON-FORMULARY DRUG (Alendronate Sodium [Fosamax] 70 MG) PO SCH (09:00)
[2018-04-15 09:22] LABS: Basophils % (A) 0 %; Eosinophils % (A) 1 %; HCT 35.4 % (34.0-46.0); HGB 11.2 gm/dL (11.4-16.0); Hypochromasia Slight; Lymphocytes # (A) 0.4 k/uL (1.0-4.8); Lymphocytes % (A) 7 %; MCH 32.6 pg (25.0-35.0); MCHC 31.7 g/dL (31.0-37.0); MCV 102.7 fL (80.0-100.0); Macrocytosis Slight; Mean Platelet Volume 6.7; Monocytes # (A) 0.1 k/uL (0-1.0); Monocytes % (A) 2 %; Neutrophils # (A) 5.6 k/uL (1.3-7.7); Neutrophils % (A) 90 %; Platelet Count 273 k/uL (150-450); RBC 3.45 m/uL (3.80-5.40); RDW 15.7 % (11.5-15.5); WBC 6.2 k/uL (3.8-10.6)
[2018-04-15 09:33] LABS: Calcium 8.6 mg/dL (8.4-10.2); Potassium 4.4 mmol/L (3.5-5.1)
[2018-04-15] MEDS: VIT A,C & E-LUTEIN-MINERALS 1 EACH TAB PO SCH (09:56)
[2018-04-15 11:31] LABS: Glucose,Whole Blood 229 mg/dL (75-99)
--- NOTE | 2018-04-15 12:13 | XR ---
EXAMINATION TYPE: XR chest 1V portable DATE OF EXAM: 04/15/2018 Comparison: 04/12/2018 Clinical History: 83 year-old female shortness of breath, CHF Findings: Degenerative appearance to the partially visualized left shoulder arthroplasty. Heart is enlarged wit h diffuse interstitial prominence. Hazy lung densities likely related to overlying soft tissue. Focal patchy left basilar opacity. A trace effusion may be present. Impression: Cardiomegaly and interstitial changes. Correlate for mild CHF with pulmonary vascular congestion. Pat derrick left basilar atelectasis/consolidation and possible trace effusion.
--- NOTE | 2018-04-15 16:14 | PN ---
PROGRESS NOTE DATE OF SERVICE: 04/15/2018 This 83-year-old woman was admitted with COPD exacerbation also had some abdominal pain. The patient improved significantly. Steroids have been tapered. No chest pain. No palpitations. No fever. Patient has renal failure. The patient received some IV fluids. EXAM: Alert and oriented x3. Pulse 72, blood pressure is 126/63, respiration 16, temperature 98 degrees, pulse ox 94% on room air. HEENT: Conjunctivae normal. NECK: No jugular venous distention. CARDIOVASCULAR: S1, S2. RESPIRATORY: Breath sounds diminished in the bases. Bilateral scattered rhonchi and crackles. ABDOMEN: Soft. Nontender. NERVOUS SYSTEM: No focal deficits. LABS: WBC 6, hemoglobin 11.2. Creatinine is 1.43. ASSESSMENT: 1. Chronic obstructive pulmonary disease exacerbation with acute purulent tracheobronchitis. 2. Abdominal pain with increased frequency with exertion, undetermined etiology. 3. Acute renal failure possibly prerenal acute renal failure with acute tubular necrosis. 4. History of pancreatic tail lesion. 5. Elevated left hemidiaphragm, mild. 6. Collapse of the small bowel lateral to the right possibly internal hernia. 7. Possible uterine leiomyoma. 8. Asthma, chronic obstructive pulmonary disease. 9. History of congestive heart failure. 10.Gastroesophageal reflux disease. 11.Hypertension. 12.Hyperlipidemia. 13.History of degenerative joint disease. 14.Hypothyroidism. 15.Chronic low back pain. 16.History of lower bowel resection. 17.History of depression. RECOMMENDATIONS AND DISCUSSION: I recommend to continue current medications, continue with monitoring, and symptomatic treatment. Otherwise at this time I recommend continue with bronchodilators, taper the steroids. Continue with IV fluids. Monitor creatinine closely. Guarded prognosis because of multiple complex medical issues. Further recommendations to follow. MMODL / IJN: [id number] /
[2018-04-15 16:36] LABS: Glucose,Whole Blood 176 mg/dL (75-99)
[2018-04-15 19:52] LABS: Glucose,Whole Blood 149 mg/dL (75-99)
[2018-04-15] MEDS: DONEPEZIL 10 MG TAB PO SCH (20:19)
[2018-04-15] MEDS: MONTELUKAST 10 MG TAB PO SCH (20:19)
[2018-04-16] MEDS: SODIUM CHLORIDE 0.9% 1,000 ML IV SCH (06:18)
[2018-04-16] MEDS: LEVOTHYROXINE 100 MCG TAB PO SCH (06:19)
[2018-04-16] MEDS: oxyCODONE-APAP 10-325MG 1 EACH TAB PO PRN ×3 (06:23→15:45)
[2018-04-16] MEDS: SYMBICORT 160-4.5 MCG INHALER INHALATION SCH (07:17)
[2018-04-16] MEDS: IPRATROPIUM-ALBUTEROL 3 ML NEB INHALATION SCH ×3 (07:18→15:10)
[2018-04-16 07:53] VITALS: BP 151/58; RESP 18; TEMP 98.2
[2018-04-16 07:53] LABS: Glucose,Whole Blood 155 mg/dL (75-99)
[2018-04-16] MEDS: LORATADINE 10 MG TAB PO SCH (08:18)
[2018-04-16] MEDS: CARVEDILOL 12.5 MG TAB PO SCH (08:18)
[2018-04-16] MEDS: ISOSORBIDE MONONITRATE ER 30 MG TAB.ER.24H PO SCH (08:18)
[2018-04-16] MEDS: GABAPENTIN 400 MG CAP PO SCH ×2 (08:18→12:55)
[2018-04-16] MEDS: HEPARIN SODIUM,PORCINE 5,000 UNIT/ML 1 ML VIAL SQ SCH (08:18)
[2018-04-16] MEDS: CITALOPRAM HYDROBROMIDE 20 MG TAB PO SCH (08:19)
[2018-04-16] MEDS: PANTOPRAZOLE 40 MG TABLET PO SCH (08:19)
[2018-04-16] MEDS: ASPIRIN 81 MG PO SCH (08:19)
[2018-04-16] MEDS: CHOLECALCIFEROL 1,000 UNIT TAB PO SCH (08:19)
[2018-04-16] MEDS: FERROUS SULFATE 325 MG TAB PO SCH (08:19)
[2018-04-16] MEDS: ATORVASTATIN 40 MG TAB PO SCH (08:19)
[2018-04-16] MEDS: AZITHROMYCIN 500 MG TAB PO SCH (08:19)
[2018-04-16] MEDS: methylPREDNISolone SOD SUCCI 40 MG/ML 1 ML VIAL IV SCH ×2 (08:19→15:46)
[2018-04-16] MEDS: MEMANTINE 5 MG TAB PO SCH (08:19)
[2018-04-16] MEDS: INSULIN ASPART (NovoLOG) 100 UNIT/ML VIAL SQ SCH ×2 (08:19→12:56)
[2018-04-16] MEDS: VIT A,C & E-LUTEIN-MINERALS 1 EACH TAB PO SCH (08:24)
[2018-04-16] MEDS: NON-FORMULARY DRUG (B Complex-Vit C-Vit E-Zinc 1 TAB) PO SCH (08:24)
[2018-04-16 09:06] LABS: Basophils % (A) 0 %; Eosinophils % (A) 0 %; HCT 35.6 % (34.0-46.0); HGB 11.3 gm/dL (11.4-16.0); Lymphocytes # (A) 0.6 k/uL (1.0-4.8); Lymphocytes % (A) 9 %; MCHC 31.7 g/dL (31.0-37.0); Macrocytosis Slight; Monocytes # (A) 0.2 k/uL (0-1.0); Monocytes % (A) 3 %; Neutrophils # (A) 5.7 k/uL (1.3-7.7); Neutrophils % (A) 87 %; Platelet Count 273 k/uL (150-450); RBC 3.53 m/uL (3.80-5.40); RDW 15.8 % (11.5-15.5); WBC 6.6 k/uL (3.8-10.6)
[2018-04-16 09:20] LABS: Potassium 5.1 mmol/L (3.5-5.1)
[2018-04-16 12:13] LABS: Glucose,Whole Blood 153 mg/dL (75-99)
--- NOTE | 2018-04-16 13:00 | P.DS ---
Addendum entered and electronically signed by Kat Beckett NP-C 04/16/18 13: 39: Insulin sliding scale subcu as ordered while on steroids, then DC. Original Note: <Kat Beckett - Last Filed: 04/16/18 12:47> Providers Date of admission: 04/12/18 13:55 Expected date of discharge: 04/16/18 Attending physician: Jg Coker Consults: 04/12/18 15:41 Consult Physician Routine Consulting Provider: Anders Vila Consult Reason/Comments: abnormal ct scan Do you want consulting provider notified?: Yes 04/12/18 15:42 Consult Physician Routine Consulting Provider: Gila Nicholas Consult Reason/Comments: copd Do you want consulting provider notified?: Yes Primary care physician: Blaze Ann Hospital Course: Final Diagnoses: -Acute COPD exacerbation with acute purulent tracheobronchitis -Abdominal pain with increased frequency, with exertion, undetermined etiology, resolved -Acute renal failure, possibly prerenal with ATN -hx pancreatic tail lesion -Mild elevated left hemidiaphragm -Collapse of the small bilateral to the right possibly internal hernia -Possible uterine leiomyoma -Hypertension -Hyperlipidemia Hospital course this is a 83-year-old female admitted with acute COPD exacerbation, abdominal pain-resolved, and multiple other medical issues. Evaluated by pulmonary. Maintained on antibiotics, nebulized bronchodilators, steroids, gentle IV fluid hydration. 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 Evaluated by surgery, patient is not a good operative candidate for any further aggressive surgery. Abdominal pain resolved with no further workup recommended at this time . Significant clinical improvement. Patient has been cleared by all consults for discharge. Patient is being discharged to [facility] subacute rehab in stable condition with guarded prognosis. Exam: GEN: Alert and oriented 3, no acute distress CV: S1, S2. LUNGS: Bilateral bases diminished, with bilateral scattered rhonchi , occasional expiratory wheezes Abdomen soft, nontender, positive bowel sounds Neuro: No focal deficits The impression and plan of care has been dictated as directed. : I performed a history and examination of this patient, discussed the same with the dictator. I agree with the dictator's note ,documented as a scribe. Any additional findings or plans will be noted. Time taken: 35 minutes Patient Condition at Discharge: Stable Plan - Discharge Summary Discharge Rx Participant: No New Discharge Prescriptions: New Azithromycin [Zithromax] 500 mg PO DAILY #5 tab Ipratropium-Albuterol Nebulize [Duoneb 0.5 mg-3 mg/3 ml Soln] 3 ml INHALATION RT-QID ampul.neb Ipratropium-Albuterol Nebulize [Duoneb 0.5 mg-3 mg/3 ml Soln] 3 ml INHALATION RT-Q4H PRN ampul.neb PRN Reason: Shortness Of Breath Or Wheezing Levothyroxine Sodium [Synthroid] 100 mcg PO 0630 tab predniSONE 10 mg PO DIRECTED #30 tab Continue Loratadine [Claritin] 10 mg PO DAILY Aspirin 81 mg PO DAILY #30 chew Atorvastatin [Lipitor] 40 mg PO DAILY #30 tab Alendronate Sodium [Fosamax] 70 mg PO SMITH #5 tablet Citalopram Hydrobromide [CeleXA] 20 mg PO BID #60 tablet Isosorbide Mononitrate ER [Imdur] 30 mg PO DAILY #30 tab.er.24h Memantine HCl/Donepezil HCl [Namzaric 28 mg-10 mg Capsule] 1 cap PO HS #30 cap.spr.24 Montelukast [Singulair] 10 mg PO HS #30 tab Vits A,C,E/Lutein/Minerals [Vision Formula with Lutein Tab] 2 tab PO BID B Complex-Vit C-Vit E-Zinc [Z-Bec] 1 tab PO BID Budesonide-Formot 160-4.5 Mcg [Symbicort 160-4.5 Mcg Inhaler] 2 puff INHALATION RT-BID Gabapentin 800 mg PO QID Ferrous Sulfate [Feosol] 325 mg PO BID Carvedilol [Coreg] 25 mg PO BID Cholecalciferol (Vitamin D3) [Vitamin D3] 2,000 unit PO DAILY Pantoprazole Sodium [Protonix] 40 mg PO DAILY Changed oxyCODONE-APAP 10-325MG [Percocet 10-325 mg] 1 tab PO Q4H #12 tab Discontinued Levothyroxine Sodium [Synthroid] 175 mcg PO DAILY #30 tablet Ranitidine HCl [Zantac] 150 mg PO HS #30 tablet Albuterol Inhaler [Ventolin Hfa Inhaler] 2 puff INHALATION RT-Q4H Meloxicam [Mobic] 7.5 mg PO BID Discharge Medication List Loratadine [Claritin] 10 mg PO DAILY 10/09/13 [History] Alendronate Sodium [Fosamax] 70 mg PO SMITH #5 tablet 01/08/18 [Rx] Aspirin 81 mg PO DAILY #30 chew 01/08/18 [Rx] Atorvastatin [Lipitor] 40 mg PO DAILY #30 tab 01/08/18 [Rx] Citalopram Hydrobromide [CeleXA] 20 mg PO BID #60 tablet 01/08/18 [Rx] Isosorbide Mononitrate ER [Imdur] 30 mg PO DAILY #30 tab.er.24h 01/08/18 [Rx] Memantine HCl/Donepezil HCl [Namzaric 28 mg-10 mg Capsule] 1 cap PO HS #30 cap.spr.24 01/08/18 [Rx] Montelukast [Singulair] 10 mg PO HS #30 tab 01/08/18 [Rx] B Complex-Vit C-Vit E-Zinc [Z-Bec] 1 tab PO BID 04/12/18 [History] Budesonide-Formot 160-4.5 Mcg [Symbicort 160-4.5 Mcg Inhaler] 2 puff INHALATION RT-BID 04/12/18 [History] Carvedilol [Coreg] 25 mg PO BID 04/12/18 [History] Cholecalciferol (Vitamin D3) [Vitamin D3] 2,000 unit PO DAILY 04/12/18 [History] Ferrous Sulfate [Feosol] 325 mg PO BID 04/12/18 [History] Gabapentin 800 mg PO QID 04/12/18 [History] Pantoprazole Sodium [Protonix] 40 mg PO DAILY 04/12/18 [History] Vits A,C,E/Lutein/Minerals [Vision Formula with Lutein Tab] 2 tab PO BID [History] Azithromycin [Zithromax] 500 mg PO DAILY #5 tab 04/16/18 [Rx] Ipratropium-Albuterol Nebulize [Duoneb 0.5 mg-3 mg/3 ml Soln] 3 ml INHALATION RT -Q4H PRN ampul.neb 04/16/18 [Rx] Ipratropium-Albuterol Nebulize [Duoneb 0.5 mg-3 mg/3 ml Soln] 3 ml INHALATION RT -QID ampul.neb 04/16/18 [Rx] Levothyroxine Sodium [Synthroid] 100 mcg PO 0630 tab 04/16/18 [Rx] oxyCODONE-APAP 10-325MG [Percocet 10-325 mg] 1 tab PO Q4H #12 tab 04/16/18 [Rx] predniSONE 10 mg PO DIRECTED #30 tab 04/16/18 [Rx] Follow up Appointment(s)/Referral(s): Gila Nicholas MD [STAFF PHYSICIAN] - 04/27/18 2:30 pm Blaze Ann III, MD [Primary Care Provider] - 04/23/18 11:00 am (DR. [place] ) [facility], [NON-STAFF] - Patient Instructions/Handouts: Heart Failure (DC), COPD (Chronic Obstructive Pulmonary Disease) (DC), Chronic Hypertension (DC) Activity/Diet/Wound Care/Special Instructions: Diet: Consistent carb Activity: As tolerated CBC, BMP in 3 days Discharge Disposition: HOME WITH HOME HEALTH SERVICES <Judith Coker - Last Filed: 04/16/18 14:59> Hospital Course: This pt will be dcd home. please refer to CM notes for details
[2018-04-16 14:55] VITALS: PULSE 58
== END 2018-04-16 16:36 | disposition home health service (06) ==
LOC: EC 10:01 → 4MS4W 13:55
PROVIDERS: ADMIT Internal Medicine; ATTEND Internal Medicine
DX: J44.1 Chronic obstructive pulmonary disease with (acute) exacerbation (principal); D86.9 Sarcoidosis, unspecified; R10.30 Lower abdominal pain, unspecified; E03.9 Hypothyroidism, unspecified; E78.5 Hyperlipidemia, unspecified; G89.29 Other chronic pain; H35.30 Unspecified macular degeneration; H54.8 Legal blindness, as defined in USA; M19.90 Unspecified osteoarthritis, unspecified site; I11.0 Hypertensive heart disease with heart failure; I25.10 Atherosclerotic heart disease of native coronary artery without angina pectoris; I25.2 Old myocardial infarction; F32.9 Major depressive disorder, single episode, unspecified; I42.9 Cardiomyopathy, unspecified; I50.9 Heart failure, unspecified; J45.901 Unspecified asthma with (acute) exacerbation; K21.9 Gastro-esophageal reflux disease without esophagitis; K58.9 Irritable bowel syndrome, unspecified; M54.5 Low back pain; K63.89 Other specified diseases of intestine; N17.9 Acute kidney failure, unspecified; Z79.51 Long term (current) use of inhaled steroids; Z79.52 Long term (current) use of systemic steroids; Z79.82 Long term (current) use of aspirin; Z79.83 Long term (current) use of bisphosphonates; Z79.890 Hormone replacement therapy; Z79.899 Other long term (current) drug therapy; Z82.5 Family history of asthma and other chronic lower respiratory diseases; Z86.73 Personal history of transient ischemic attack (TIA), and cerebral infarction without residual deficits; Z87.11 Personal history of peptic ulcer disease; Z90.49 Acquired absence of other specified parts of digestive tract; Z90.81 Acquired absence of spleen
CPT/HCPCS: 96376 ×6; 96361; 96372 ×5; 96374; 96375; 99285; 36415; 94640 ×10; 94760 ×3; 93005; 97116; 97110; 97162; 97166; 83880; 80053; 80048 ×4; 82550; 82553; 83605; 83735; 84484; 85025 ×5; 85610; 85730; 81003; 87502; 83036; 71045; 71046; 74177; G0378 ×5; J2270; J1644 ×5; J1940; J2920 ×3; J2930 ×3; Q9967

== ENCOUNTER → 2018-05-11 | Outpatient (CLI) | payer MEDICARE, OTHER ==
--- NOTE | 2018-05-11 13:42 | MR ---
EXAMINATION TYPE: MR lumbar spine wo con DATE OF EXAM: 05/11/2018 COMPARISON: CT 04/12/2018 abdomen pelvis HISTORY: Low back pain TECHNIQUE: Multiplanar, multisequence images of the lumbar spine were acquired. L1-L2: Posterior broad-based disc bulge causes mild anterior mass effect on the thecal sac. Circumfer ential extension of endplate disc complex results in foraminal encroachment greater on the right. No significant central stenosis. There is mild facet arthropathy. L2-L3: Posterior broad-based disc bulge causes anterior mass effect on the thecal sac, mild to modera te central stenosis. Facet arthropathy with hypertrophy of the ligamentum flavum causes posterior lat eral mass effect on the thecal sac. Circumferential extension endplate disc complex combined with the listhesis contributes to cause bilateral foraminal encroachment. L3-L4: There is moderate central canal stenosis. Facet arthropathy combined with the listhesis also c auses asymmetrical appearance of the thecal sac, moderate central stenosis, circumferential extension of endplate disc complex results in bilateral foraminal encroachment. Broad-based posterior disc bul ge causes anterior mass effect on the thecal sac. L4-L5: Hypertrophic changes of the facets with posterior lateral mass effect on the thecal sac noted, circumferential extension endplate disc complex laterally causing some foraminal encroachment bilate rally. There is a trefoil appearance of the thecal sac. L5-S1: Facet arthropathy changes present. There is no significant spinal stenosis or foraminal encroa chment. No disc herniation. Lumbar segments are intact. No paraspinal masses are identified. Conus medullaris has a normal appe arance. There is a spinal curvature. Minimal retrolisthesis grade 1 L4-5, anterolisthesis grade 1 L3- 3. Loss of disc height signal present at the vertebral levels especially L3-4, L4-5, L1-2 and T12, th ere is associated vacuum phenomenon, endplate discogenic marrow signal change, spondylosis. IMPRESSION: Degenerative disc disease, spinal stenosis, multilevel foraminal encroachment. Spinal curvature.
== END ==
LOC: RADMRIMAIN 12:27
PROVIDERS: ATTEND Nurse Practitioner Family
DX: M48.061 Spinal stenosis, lumbar region without neurogenic claudication (principal); M51.36 Other intervertebral disc degeneration, lumbar region; M43.8X6 Other specified deforming dorsopathies, lumbar region
CPT/HCPCS: 72148

== ENCOUNTER 2018-05-21 11:14 | Emergency (ER) | payer MEDICARE, OTHER ==
[2018-05-21 11:38] VITALS: RESP 18; TEMP 99.2
[2018-05-21] MEDS ORDERED: SODIUM CHLORIDE 0.9% 1,000 ML IV STA (12:34)
[2018-05-21] MEDS ORDERED: HYDROmorphone 0.5 MG/0.5 ML SYRINGE IVP STA (12:34)
[2018-05-21] MEDS ORDERED: hydrALAZINE HCL 20 MG/ML 1 ML VIAL IVP STA (12:49)
[2018-05-21 13:12] LABS: Anisocytosis Slight; Basophils % (A) 0 %; Eosinophils # (A) 0.2 k/uL (0-0.7); Eosinophils % (A) 2 %; HGB 11.8 gm/dL (11.4-16.0); Hypochromasia Slight; Lymphocytes # (A) 2.1 k/uL (1.0-4.8); Lymphocytes % (A) 20 %; MCH 31.9 pg (25.0-35.0); MCHC 31.1 g/dL (31.0-37.0); MCV 102.3 fL (80.0-100.0); Macrocytosis Moderate; Mean Platelet Volume 7.8; Monocytes # (A) 0.4 k/uL (0-1.0); Monocytes % (A) 4 %; Neutrophils # (A) 7.7 k/uL (1.3-7.7); Neutrophils % (A) 72 %; Platelet Count 312 k/uL (150-450); RBC 3.71 m/uL (3.80-5.40); RDW 17.1 % (11.5-15.5); WBC 10.6 k/uL (3.8-10.6)
[2018-05-21 13:19] LABS: Appearance,Urine Clear (Clear); Bilirubin,Urine Negative (Negative); Blood,Urine Negative (Negative); Color,Urine Yellow; Glucose,Urine (UA) Negative (Negative); Ketones,Urine Negative (Negative); Leukocyte Esterase,Urine Trace (Negative); Mucus,Urine Rare /hpf; Nitrite,Urine Negative (Negative); PH, Urine 6.5 (5.0-8.0); Protein,Urine Trace (Negative); Squamous Epithelial Cell,Urine 1 /hpf (0-4); Urobilinogen,Urine <2.0 mg/dL (<2.0); WBC,Urine 2 /hpf (0-5)
[2018-05-21 13:25] LABS: Albumin 3.9 g/dL (3.5-5.0); Potassium 4.7 mmol/L (3.5-5.1); Total Bilirubin 2.1 mg/dL (0.2-1.3); Total Protein 6.8 g/dL (6.3-8.2)
--- NOTE | 2018-05-21 14:00 | XR ---
EXAM TYPE: LUMBAR SPINE X RAY SERIES COMPARISON: 09/27/2015 HISTORY: Pain TECHNIQUE: 4 views are submitted. FINDINGS: There are surgical changes in the abdomen. Diffuse osteopenia is noted. Severe degenerative disc dise ase at all levels. There are compression deformity of T10 is not included on the prior exam. Multilev el facet arthropathy noted. Surgical change overlying the right acetabulum. Metallic sutures within t he pelvis suggested. IMPRESSION: 1. Severe multilevel degenerative disc disease and facet arthropathy. 2. There appears to be an age-indeterminate moderate compression fracture at the approximate level of T10.
--- NOTE | 2018-05-21 14:04 | XR ---
EXAMINATION TYPE: XR thoracic spine 2V DATE OF EXAM: 05/21/2018 COMPARISON: NONE HISTORY: Pain Findings: There is a curvature the spine with multilevel severe degenerative disc disease involving the visuali zed thoracic and lower cervical spine. There is a kyphosis. There is a compression fracture of modera te at the approximate level of T9 or T10. IMPRESSION: 1. Severe multilevel degenerative disc disease with a compression fracture at the approximate level o f T9 or T10. This does appear to be present on the CT scan of the chest dated 02/21/2017 and therefor e likely is chronic. Correlate clinically.
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
[2018-05-21] MEDS ORDERED: DIAZEPAM 5 MG/ML 2 ML INJ IVP STA (15:05)
--- NOTE | 2018-05-21 16:14 | CT ---
EXAMINATION TYPE: CT abdomen pelvis w con DATE OF EXAM: 05/21/2018 COMPARISON: 04/12/2018 INDICATION: Right upper quadrant abdominal and back pain. DLP: 855.1 mGycm, Automated exposure control for dose reduction was used. CONTRAST: 100ml mL of Isovue 300. Study performed without Oral Contrast TECHNIQUE: Axial images were obtained from above the diaphragm to the pubic rami in the axial plane a t 5 mm thick sections. Reconstructed images are reviewed on the computer in the coronal plane. FINDINGS: Limited CT sections are obtained the lung bases. Some compressive atelectasis is likely present with in the dependent lung bases bilaterally.. Coronary artery calcification is noted. CT ABDOMEN: Liver: Normal Spleen: Surgically absent Pancreas: Atrophic. Some hypodense area within the tail of pancreas is again noted. This area appears stable. Adrenal glands: The adrenal glands are normal. Gallbladder: Normal Kidneys: No masses are evident. No hydronephrosis is present. No cysts are present. Delayed images were obtained through the kidneys, which remain unremarkable. Aorta: Vascular calcification is within the aorta. Inferior vena cava: Normal. CT PELVIS: Pelvis is limited due to beam hardening artifact from bilateral hip prostheses. Old pelvic fractures are evident. Scoliosis within the lumbar spine. Loops of bowel within the abdomen and pelvis are normal. Studies performed without oral contrast limiting bowel evaluation. Appendix: Not identified. No suspicious tubular structures or inflammatory changes are evident. Urinary bladder: Decompressed with limited evaluation. Genitourinary structures: Uterus appears normal. Adnexal regions appear within normal limits. Osseous structures: No suspicious lytic or sclerotic lesions. Degenerative disc changes present throu ghout the lumbar spine and lower thoracic spine. Mild wedge deformity of T9 is present of indetermina te age. Correlate with location of the patient's pain. Suspicious swelling adjacent is not identified . IMPRESSIONS: 1. No suspicious abnormality to account for patient's symptoms. 2. Mild compression deformity T9 more likely old. Correlate with the patient's location of pain. 3. Chronic changes within the pancreas tail.
[2018-05-21] MEDS ORDERED: ONDANSETRON 4 MG/2 ML VIAL IVP STA (16:21)
[2018-05-21 16:33] LABS: Amylase 52 U/L (30-110); Lipase 30 U/L (23-300)
[2018-05-21 17:32] VITALS: BP 188/96; PULSE 80
== END 2018-05-21 17:33 | disposition home or self-care (01) ==
LOC: EC 11:14
DX: S22.070A Wedge compression fracture of T9-T10 vertebra, initial encounter for closed fracture (principal); K52.9 Noninfective gastroenteritis and colitis, unspecified; K29.70 Gastritis, unspecified, without bleeding; J44.9 Chronic obstructive pulmonary disease, unspecified; I11.0 Hypertensive heart disease with heart failure; I50.9 Heart failure, unspecified; I25.2 Old myocardial infarction; K21.9 Gastro-esophageal reflux disease without esophagitis; D64.9 Anemia, unspecified; H54.8 Legal blindness, as defined in USA; Z87.11 Personal history of peptic ulcer disease; Z87.19 Personal history of other diseases of the digestive system; Z98.890 Other specified postprocedural states; Z90.49 Acquired absence of other specified parts of digestive tract; Z96.611 Presence of right artificial shoulder joint; Z96.653 Presence of artificial knee joint, bilateral; Z96.643 Presence of artificial hip joint, bilateral; Z93.3 Colostomy status; Z79.51 Long term (current) use of inhaled steroids; Z79.899 Other long term (current) drug therapy; Z88.8 Allergy status to other drugs, medicaments and biological substances; X58.XXXA Exposure to other specified factors, initial encounter
CPT/HCPCS: 36415; 80053; 82150; 83690; 85025; 81001; 72070; 72100; 74177; 99285; 96374; 96375 ×3; 96361 ×3; J0360; J3360; J2405; J1170; Q9967

== ENCOUNTER → 2018-07-11 | Outpatient (CLI) | payer MEDICARE, OTHER ==
[2018-07-11 11:40] VITALS: BP 151/78; PULSE 71; RESP 18
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
== END ==
LOC: PNWHC3 11:26
PROVIDERS: ATTEND Specialist
DX: G89.29 Other chronic pain (principal); M48.061 Spinal stenosis, lumbar region without neurogenic claudication; M47.816 Spondylosis without myelopathy or radiculopathy, lumbar region; M46.86 Other specified inflammatory spondylopathies, lumbar region; T39.395A Adverse effect of other nonsteroidal anti-inflammatory drugs [NSAID], initial encounter; E03.9 Hypothyroidism, unspecified; J44.9 Chronic obstructive pulmonary disease, unspecified; K21.9 Gastro-esophageal reflux disease without esophagitis; E78.5 Hyperlipidemia, unspecified; I11.0 Hypertensive heart disease with heart failure; I50.9 Heart failure, unspecified; I25.2 Old myocardial infarction; M19.90 Unspecified osteoarthritis, unspecified site; S42.302D Unspecified fracture of shaft of humerus, left arm, subsequent encounter for fracture with routine healing; K58.9 Irritable bowel syndrome, unspecified; Z96.653 Presence of artificial knee joint, bilateral; Z79.891 Long term (current) use of opiate analgesic; Z79.899 Other long term (current) drug therapy; Z96.643 Presence of artificial hip joint, bilateral; Z79.51 Long term (current) use of inhaled steroids; Z79.82 Long term (current) use of aspirin; Z88.8 Allergy status to other drugs, medicaments and biological substances
CPT/HCPCS: 99211

== ENCOUNTER 2018-07-25 08:53 | Day surgery (SDC) | payer MEDICARE, OTHER ==
[2018-07-20 11:03] VITALS: BMI 26.4
[~2018-07-25 08:53] MED LIST changes: -ACETAMINOPHEN TAB 500 MG TAB PO ONE; -DEXAMETHASONE SOD PHOSPHATE 10 MG/ML 1 ML VIAL IV ONE; -HYDROmorphone 0.5 MG/0.5 ML SYRINGE IVP PRN; +LACTATED RINGERS 1,000 ML IV SCH; -LIDOCAINE 1% 20 ML VIAL (10MG/ML) FOR IV START INTRADERMA PRN; -MELOXICAM 7.5 MG TAB PO ONE; -MIDAZOLAM 2 MG/2 ML VIAL IV PRN; -ONDANSETRON 4 MG/2 ML VIAL IVP ONE; -SCOPOLAMINE 1.5MG/72HR PATCH TRANSDERM ONE; -TRANEXAMIC ACID 1,000 MG in SODIUM CHLORIDE 0.9% 50 ML IVPB ONE; -ceFAZolin IN SWFI 2 GM/20 ML SYRINGE IVP ONE
[2018-07-25 09:12] VITALS: RESP 18; TEMP 97.8
[2018-07-25] MEDS ORDERED: LIDOCAINE 1% 20 ML VIAL (10MG/ML) FOR IV START INTRADERMA ONE (09:19)
[2018-07-25] MEDS ORDERED: LACTATED RINGERS 1,000 ML IV ONE (09:19)
--- NOTE | 2018-07-25 10:28 | P.PCN ---
Date of Procedure: 07/25/18 Procedure(s) Performed: PREOPERATIVE DIAGNOSIS : 1- Lumbar spondylosis with Facet Arthropathy without myelopathy . 2- Lumber spinal stenosis POSTOPERATIVE DIAGNOSIS: 1- Lumbar spondylosis with Facet Arthropathy without myelopathy . 2- Lumber spinal stenosis PROCEDURE: Diagnostic bilateral L2-3 ,L3 -4 , L4 -5 , and L5-S1 medial branch block under fluoroscopy ANESTHESIA: moderate sedation with intravenous Versed 1 mg and Fentanyl 50 mcg. EBL: Minimal COMPLICATION: None. IV FLUIDS: 100 mL of normal saline. PROCEDURE INDICATION: Chronic low back pain secondary to Facet arthropathy unresponsive to conservative treatment. PROCEDURE DESCRIPTION: the patient was seen and identified in the preop holding area , risks and benefits and possible complications of the procedure and alternative were discussed with the patient, and the patient agreed to proceed with the procedure and signed the consent IV was started and vital signs monitored during the procedure and fluoroscopy was used to maximize the benefit and accuracy of the needle placement, and sedation was given to decrease patient anxiety, patient was taken to the procedure room and placed in prone position vital signs monitored in the back prepped with chlorhexidine X3 then under strict sterile technique using a right oblique fluoroscopy ,the junction of the transverse process and the superior articulating process of the rightL2-3 , L3- 4 , L4- 5, and L5-S1 vertebra which corresponding to the fluoroscopy image of the eye of the Oliverio dog on the block side for the medial branches and subsequently , after local infiltration of skin and subcu tissuies with Ropivacaine 0.5 % , one mL at each level ,then 25-gauge Quincke-type needles , 4 needle was used , each one of them placed at the junction of the base of the transverse process and the superior articular process at the appropriate level, and the needle was advanced until the periosteum contacted, needle placement confirmed with AP oblique and lateral view and after appropriate needle placement confirmed, and after negative aspiration for heme and CSF and there was no paresthesia 2 mL of Ropivacaine 0.5% mixed with 20 mg Depo-Medrol, then half mL injected at each level after negative aspiration the needle subsequently removed and the same procedure repeated for the left side at left side at L2-3 , L3-4, L4- 5 and L5-S1 levels. At the end of the procedure and the needles removed and a bandage applied after the skin was cleaned the cleaning solution patient taken to recovery room in stable condition and monitors in the recovery room for 20-30 minutes and discharged home in stable condition after discharge criteria met and patient will follow up with the pain clinic in 2-4 weeks
[2018-07-25] MEDS ORDERED: IV FLUID CONTINUATION 700 ML IV ONE (10:33)
--- NOTE | 2018-07-25 10:38 | FL ---
EXAMINATION TYPE: FL guided pain mgmt statistic DATE OF EXAM: 07/25/2018 HISTORY: Pain Dr. Santos supervised use of tye for pain services. 29 secs fl paper images
[2018-07-25 11:12] VITALS: BP 171/70; PULSE 66
== END 2018-07-25 11:02 | disposition home or self-care (01) ==
LOC: ORPAIN 08:53
PROVIDERS: ATTEND Specialist
DX: G89.29 Other chronic pain (principal); M47.816 Spondylosis without myelopathy or radiculopathy, lumbar region; M48.061 Spinal stenosis, lumbar region without neurogenic claudication; M51.36 Other intervertebral disc degeneration, lumbar region; Z88.8 Allergy status to other drugs, medicaments and biological substances
CPT/HCPCS: 64493; 64494; 64495; J2250; J1030; J3010; 99152

== ENCOUNTER 2018-08-14 08:12 | Day surgery (SDC) | payer MEDICARE, OTHER ==
[2018-08-09 09:00] VITALS: BMI 25.5
[2018-08-14] MEDS ORDERED: LIDOCAINE 1% 20 ML VIAL (10MG/ML) FOR IV START INTRADERMA ONE (08:55)
[2018-08-14 08:57] VITALS: TEMP 97
--- NOTE | 2018-08-14 09:19 | P.PCN ---
Date of Procedure: 08/14/18 Procedure(s) Performed: PREOPERATIVE DIAGNOSIS : 1- Lumbar spondylosis with Facet Arthropathy without myelopathy . 2- Lumber degenerative disc disease POSTOPERATIVE DIAGNOSIS: 1- Lumbar spondylosis with Facet Arthropathy without myelopathy . 2- Lumber degenerative disc disease PROCEDURE: Diagnostic bilateral L2-3 , L3 -4 , L4 -5 , and L5-S1 medial branch block under fluoroscopy #2nd ANESTHESIA: Local with Ropivacain 0.5 % 6 ml , moderate sedation with intravenous Versed 1 mg and Fentanyl 50 mcg. EBL: Minimal COMPLICATION: None. IV FLUIDS: 100 mL of normal saline. PROCEDURE INDICATION: Chronic low back pain secondary to Facet arthropathy unresponsive to conservative treatment. PROCEDURE DESCRIPTION: the patient was seen and identified in the preop holding area , risks and benefits and possible complications of the procedure and alternative were discussed with the patient, and the patient agreed to proceed with the procedure and signed the consent IV was started and vital signs monitored during the procedure and fluoroscopy was used to maximize the benefit and accuracy of the needle placement, and sedation was given to decrease patient anxiety, patient was taken to the procedure room and placed in prone position vital signs monitored in the back prepped with chlorhexidine X3 then under strict sterile technique using a right oblique fluoroscopy ,the junction of the transverse process and the superior articulating process of the right L2-3 ,L3- 4 , L4- 5, and L5-S1 vertebra which corresponding to the fluoroscopy image of the eye of the Oliverio dog on the block side for the medial branches and subsequently , after local infiltration of skin and subcu tissuies with Ropivacaine 0.5 % , one mL at each level ,then 22-gauge Quincke-type needles , 4 needle was used , each one of them placed at the junction of the base of the transverse process and the superior articular process at the appropriate level, and the needle was advanced until the periosteum contacted, needle placement confirmed with AP oblique and lateral view and after appropriate needle placement confirmed, and after negative aspiration for heme and CSF and there was no paresthesia 2 mL of Ropivacaine 0.5% mixed with 20 mg Depo-Medrol , then half mL injected at each level after negative aspiration the needle subsequently removed and the same procedure repeated for the left side at left side at L2-3 , L3-4, L4- 5 ,and L5-S1 levels. At the end of the procedure and the needles removed and a bandage applied after the skin was cleaned the cleaning solution patient taken to recovery room in stable condition and monitors in the recovery room for 20-30 minutes and discharged home in stable condition after discharge criteria met and patient will follow up with the pain clinic in 2-4 weeks
[2018-08-14] MEDS ORDERED: IV FLUID CONTINUATION 600 ML IV ONE (09:23)
[2018-08-14 09:34] VITALS: BP 121/64; PULSE 62; RESP 18
--- NOTE | 2018-08-14 09:36 | FL ---
EXAMINATION TYPE: FL guided pain mgmt statistic DATE OF EXAM: 08/14/2018 HISTORY: Flouroscopy time 12 seconds of fluoroscopy provided. IMPRESSION: 1. Fluoroscopy time.
== END 2018-08-14 09:49 | disposition home or self-care (01) ==
LOC: ORPAIN 08:12
PROVIDERS: ATTEND Specialist
DX: M47.816 Spondylosis without myelopathy or radiculopathy, lumbar region (principal); M51.36 Other intervertebral disc degeneration, lumbar region; I25.10 Atherosclerotic heart disease of native coronary artery without angina pectoris; I11.0 Hypertensive heart disease with heart failure; I50.9 Heart failure, unspecified; E03.9 Hypothyroidism, unspecified; Z88.8 Allergy status to other drugs, medicaments and biological substances
CPT/HCPCS: 64493; 64494; 64495; J2250; J1030; J3010; 99152

== ENCOUNTER 2018-09-11 08:50 | Day surgery (SDC) | payer MEDICARE, OTHER ==
[2018-09-10 09:07] VITALS: BMI 25.9
[2018-09-11 09:07] VITALS: RESP 16; TEMP 98.3
[2018-09-11] MEDS ORDERED: LACTATED RINGERS 1,000 ML IV ONE (09:11)
[2018-09-11] MEDS ORDERED: LIDOCAINE 1% 20 ML VIAL (10MG/ML) FOR IV START INTRADERMA ONE (09:11)
[2018-09-11] MEDS ORDERED: LACTATED RINGERS 1,000 ML IV SCH (09:15)
--- NOTE | 2018-09-11 10:00 | P.PCN ---
Date of Procedure: 09/11/18 Procedure(s) Performed: PREOPERATIVE DIAGNOSIS: Lumbar Spondylosis POSTOPERATIVE DIAGNOSIS: Same PROCEDURES: Radiofrequency ablation of the left L2, L3, L4, L5 medial branches with fluoroscopic guidance (for facet joints L3-4, L4-5, L5-S1) SURGEON: Hipolito Hicks MD. ANESTHESIA: Moderate sedation with intravenous Versed and fentanyl EBL: Minimal PROCEDURE INDICATION: The patient with low back pain secondary to lumbar facet arthropathy who had more than 50% relief of pain with previous diagnostic lumbar medial branch block X2. PROCEDURE DESCRIPTION / TECHNIQUE: The patient was seen and identified in the preoperative area. Risks, benefits, complications, including but not limited to risk of infection ,bleeding , allergic reactions to the medications and incomplete pain relief , and alternatives were discussed with the patient, the patient agreed to proceed with the procedure and signed the consent. IV was started. The operative site was marked. Patient was taken to the OR and time out was completed. The patient was placed in the prone position on the procedure table. The lumbar area was prepped and draped in the usual sterile fashion. . Vital signs were closely monitored during the procedure .IV sedation was used during the procedure to decrease patients anxiety. Using AP and then oblique fluoroscopy, the ``eye of the Oliverio dog corresponding to the connection between the superior and transverse articular processes of the L4 and L5 as well as the sacral ala were identified, marked, and localized with 1% lidocaine. Subsequently, an 18 guage 100 mm radiofrequency cannula with a 10-mm active tip was advanced guided by fluoroscopy to the identified target at each site. Needle positioning was confirmed on AP, oblique and lateral fluoroscopy. Motor testing at 2.5 Hz was done with paraspinal muscle stimulation only, and no radicular symptoms down the legs. Then 1 mL of 4% lidocaine was injected in each site. Radiofrequency thermocoagulation at 80 degrees Celsius for 90 seconds was then performed. [place] were removed. Sterile dressings were applied. COMPLICATIONS: No acute complications. DISPOSITION / PLANS: The patient was placed in a supine position and transferred to the recovery area in a stable condition for observation and was discharged from the recovery room after meeting discharge criteria. Home discharge instructions given to the patient by the staff. The patient will follow up in clinic in 4 weeks.
[2018-09-11 10:28] VITALS: PULSE 64
[2018-09-11] MEDS ORDERED: IV FLUID CONTINUATION 1,000 ML IV ONE (10:29)
[2018-09-11 10:30] VITALS: BP 164/81
--- NOTE | 2018-09-11 10:35 | FL ---
EXAMINATION TYPE: FL guided pain mgmt statistic DATE OF EXAM: 09/11/2018 HISTORY: Flouroscopy time 30 seconds of fluoroscopy provided. IMPRESSION: 1. Fluoroscopy time.
== END 2018-09-11 10:44 | disposition home or self-care (01) ==
LOC: ORPAIN 08:50
PROVIDERS: ATTEND Anesthesiology
DX: G89.29 Other chronic pain (principal); M47.816 Spondylosis without myelopathy or radiculopathy, lumbar region; M48.061 Spinal stenosis, lumbar region without neurogenic claudication; M51.36 Other intervertebral disc degeneration, lumbar region; Z79.891 Long term (current) use of opiate analgesic; Z79.899 Other long term (current) drug therapy; Z79.82 Long term (current) use of aspirin; Z79.890 Hormone replacement therapy; Z79.51 Long term (current) use of inhaled steroids; Z88.8 Allergy status to other drugs, medicaments and biological substances; Z98.890 Other specified postprocedural states; Z78.0 Asymptomatic menopausal state
CPT/HCPCS: 64635; 64636; J2250; J3010; 99152; 99153

== ENCOUNTER → 2018-09-18 | Outpatient (CLI) | payer MEDICARE, OTHER ==
[2018-09-18 10:05] LABS: Anisocytosis Slight; Basophils % (A) 1 %; Eosinophils # (A) 0.5 k/uL (0-0.7); Eosinophils % (A) 7 %; HCT 32.5 % (34.0-46.0); HGB 9.9 gm/dL (11.4-16.0); Hypochromasia Marked; Lymphocytes # (A) 1.8 k/uL (1.0-4.8); Lymphocytes % (A) 28 %; MCH 32.9 pg (25.0-35.0); MCHC 30.5 g/dL (31.0-37.0); MCV 107.7 fL (80.0-100.0); Macrocytosis Marked; Mean Platelet Volume 7.1; Monocytes # (A) 0.3 k/uL (0-1.0); Monocytes % (A) 5 %; Neutrophils # (A) 3.7 k/uL (1.3-7.7); Neutrophils % (A) 57 %; Platelet Count 300 k/uL (150-450); RBC 3.02 m/uL (3.80-5.40); RDW 17.5 % (11.5-15.5); WBC 6.5 k/uL (3.8-10.6)
[2018-09-18 12:33] LABS: Poikilocytosis (M) Present
== END | disposition home or self-care (01) ==
LOC: LABWHC1 08:43
PROVIDERS: ATTEND Family Medicine
DX: D64.9 Anemia, unspecified (principal)
CPT/HCPCS: 36415; 85025

== ENCOUNTER 2018-09-25 08:46 | Day surgery (SDC) | payer MEDICARE, OTHER ==
[2018-09-25 10:27] VITALS: RESP 16; TEMP 97.1
[2018-09-25] MEDS ORDERED: LIDOCAINE 1% 20 ML VIAL (10MG/ML) FOR IV START INTRADERMA ONE (10:34)
--- NOTE | 2018-09-25 11:05 | P.PCN ---
Date of Procedure: 09/25/18 Preoperative Diagnosis: Left sacroiliitis, myofascial pain, lumbar spondylosis without myelopathy Postoperative Diagnosis: Same as above Procedure(s) Performed: Left sacroiliac joint steroid injection under fluoroscopic guidance Trigger point injection in the left lumbar paravertebral musculature Anesthesia: MAC (IV moderate conscious sedation with Versed and fentanyl) Surgeon: Micheal Reich Pathology: none sent Condition: stable Disposition: PACU Description of Procedure: The patient was seen in the preop holding area. The patient had lumbar medial branch RFA a few weeks ago on the left side and she came today for lumbar RFA on the right side however the patient states that she has only mild pain on the right side of her lower back however her left sided pain has been getting worse since her last RFA on the left side. By exam she has significant tenderness around the left sacroiliac joint and milder tenderness in the left lumbar paravertebral musculature in general. At this point I think the patient would benefit better from doing left sacroiliac joint steroid injection under fluoroscopic guidance and trigger point injection in the lumbar paravertebral musculature on the left side. The plan will be to bring her back for the right lumbar medial branch RFA in a few weeks. Of note the physical exam did not show any sign of infection on the left side of her lower back or her previous lumbar RFA was done. Preoperative diagnoses= sacroiliac joint dysfunction and sacroiliitis on the left side Postoperative diagnoses= same as preoperative diagnosis. Procedure= sacroiliac joint steroid injection under fluoroscopic guidance. Anesthesia= local anesthesia with lidocaine 1% and IV moderate conscious sedation with fentanyl and Versed Estimated blood loss=minimal. Procedure description= the patient was seen and identified in the preoperative holding area, risks and benefits and alternative of the procedure and possible complications discussed with the patient, patient signed the consent. an IV was started, and vital signs were monitored and were stable throughout the procedure, patient was placed in the prone position or table and the lumbosacral area was prepped and draped with a sterile fashion, vital signs were closely monitored during the procedure.The sacroiliac joint was identified on the AP view of fluoroscopy then the C-arm was tilted to the contralateral oblique position to superimpose the anterior and posterior joint lines on each other and to have a unified joint line with the target point at the inferior one third of this line. I used 22-gauge 3-1/2 inch Quincke spinal needle for this procedure and after getting into the sacroiliac joint I injected 40 mg of Kenalog +2 MLS of Ropivacaine 0.5%. Patient tolerated the procedure well without any complication, Trigger point injection: The patient had an injection in the musculature of the lumbar paravertebral area in the premarked spots using 2-gauge 3-1/2 inch Quincke spinal needle. 1 mL of ropivacaine both percent were injected at each trigger point and a total of 5 trigger points were injected The patient returned to supine position after the back was cleaned and a Band- Aid applied, the patient transported to recovery room in stable condition and he was monitored for 30 minutes before he was discharged home and then patient was reexamined before going home and patient was discharged in stable condition and patient will follow up with the pain clinic in a few weeks
[2018-09-25] MEDS ORDERED: IV FLUID CONTINUATION 1,000 ML IV ONE (11:14)
[2018-09-25 11:37] VITALS: BP 155/87; PULSE 84
--- NOTE | 2018-09-25 11:57 | FL ---
EXAMINATION TYPE: FL guided pain mgmt statistic DATE OF EXAM: 09/25/2018 HISTORY: Flouroscopy time 10 seconds of fluoroscopy provided. IMPRESSION: 1. Fluoroscopy time.
== END 2018-09-25 11:58 | disposition home or self-care (01) ==
LOC: ORPAIN 08:46
PROVIDERS: ATTEND Anesthesiology
DX: M46.1 Sacroiliitis, not elsewhere classified (principal); M79.18 Myalgia, other site; M47.816 Spondylosis without myelopathy or radiculopathy, lumbar region; M51.36 Other intervertebral disc degeneration, lumbar region; M48.061 Spinal stenosis, lumbar region without neurogenic claudication; Z79.82 Long term (current) use of aspirin; Z79.890 Hormone replacement therapy; Z79.899 Other long term (current) drug therapy; Z79.1 Long term (current) use of non-steroidal anti-inflammatories (NSAID); Z79.891 Long term (current) use of opiate analgesic
CPT/HCPCS: 20553; G0260; J2250; J3301; J3010; 27096

== ENCOUNTER → 2018-10-03 | Outpatient (CLI) | payer MEDICARE, OTHER | END | disposition home or self-care (01) | LOC: LABWHC1 13:49 | PROVIDERS: ATTEND Orthopaedic Surgery | DX: M25.572 Pain in left ankle and joints of left foot (principal); M84.364A Stress fracture, left fibula, initial encounter for fracture; M20.12 Hallux valgus (acquired), left foot | CPT/HCPCS: 36415; 82306 ==

== ENCOUNTER 2019-10-07 06:26 | Emergency (ER) | payer MEDICARE, OTHER ==
[2019-10-07] MEDS ORDERED: METOPROLOL TARTRATE 5 MG/5 ML VIAL IVP STA (06:45)
--- NOTE | 2019-10-07 06:46 | CT ---
EXAMINATION TYPE: CT brain cspine wo con DATE OF EXAM: 10/07/2019 COMPARISON: CT brain and cervical spine February 05, 2018 HISTORY: Fall injury with headache and neck pain. CT DLP: 1359.2 mGycm. Automated Exposure Control for Dose Reduction was Utilized. TECHNIQUE: CT scan of the head and cervical spine are performed without contrast. FINDINGS: There is no acute intracranial hemorrhage or midline shift identified. Diffuse ventricula r and sulcal prominence low attenuation in the periventricular and deep white matter. Patchy soft tis pam density bilateral external auditory canals. Nasal septum remains deviated to right of midline. Th e calvarium is intact. Small to moderate size focal scalp hematoma left supraorbital region near axia l image 31. The globes are intact and the visualized sinuses are clear. Cervical spine is visualized in its entirety from C1 through upper thoracic levels and demonstrates s table and straightened alignment without evidence of acute fracture or dislocation. Persistent grade 1 anterolisthesis C3 on C4 and to lesser degree C4 on C5 and C5 on C6 . Vertebral body heights are ma intained. Moderate disc space narrowing and spurring C4-C5 through C6-C7 levels. Posterior spur disc complexes and disc herniations efface the anterior thecal sac C3-C4 through C6-C7 levels on sagittal and axial images. Axial images also show uncovertebral facet degenerative changes contributing to mayur ateral neural foraminal narrowing greatest at C3-C4 through C5-C6 levels. Prevertebral soft tissue ap pears within normal limits. The C1-C2 articulation is within normal limits on the coronal images. T he lung apices redemonstrate moderate biapical pleural/parenchymal scarring extending posteriorly. Th yroid gland remains somewhat small in size. IMPRESSION: 1. There is no acute fracture or dislocation evident in the cervical spine. No significant change fro m prior study. 2. No acute intracranial hemorrhage or midline shift is seen. [id number] diffuse cerebral atrop hy and chronic small vessel ischemic change redemonstrated. New small to moderate size acute left sup raorbital hematoma.
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
[2019-10-07 06:49] LABS: Basophils % (A) 0 %; Eosinophils # (A) 0.2 k/uL (0-0.7); Eosinophils % (A) 3 %; HCT 38.1 % (34.0-46.0); HGB 12.2 gm/dL (11.4-16.0); Lymphocytes # (A) 1.9 k/uL (1.0-4.8); Lymphocytes % (A) 25 %; MCH 32.6 pg (25.0-35.0); MCV 101.8 fL (80.0-100.0); Macrocytosis Slight; Mean Platelet Volume 8.5; Monocytes # (A) 0.3 k/uL (0-1.0); Monocytes % (A) 3 %; Neutrophils # (A) 5.1 k/uL (1.3-7.7); Neutrophils % (A) 67 %; Platelet Count 200 k/uL (150-450); RBC 3.74 m/uL (3.80-5.40); WBC 7.6 k/uL (3.8-10.6)
[2019-10-07 06:56] LABS: ALT 16 U/L (4-34); AST 28 U/L (14-36); African American GFR (CKD) 90 (>60 ml/min/1.73 sqM); Albumin 3.8 g/dL (3.5-5.0); Alcohol <10 mg/dL; Alkaline Phosphatase 78 U/L (38-126); Amylase 43 U/L (30-110); Anion Gap 11 mmol/L; Blood Urea Nitrogen 10 mg/dL (7-17); Calcium 8.8 mg/dL (8.4-10.2); Carbon Dioxide 20 mmol/L (22-30); Chloride 105 mmol/L (98-107); Glucose 109 mg/dL (74-99); Non-African American GFR(CKD) 78 (>60 ml/min/1.73 sqM); Sodium 136 mmol/L (137-145); Total Bilirubin 0.9 mg/dL (0.2-1.3); Total Protein 6.7 g/dL (6.3-8.2)
[2019-10-07] MEDS ORDERED: levETIRAcetam IV 1,000 MG in SALINE 1 100ML.BAG IVPB STA (06:57)
--- NOTE | 2019-10-07 06:58 | XR ---
EXAMINATION TYPE: XR chest 1V portable DATE OF EXAM: 10/07/2019 COMPARISON: Chest x-ray April 15, 2018. HISTORY: Fall injury with pain. TECHNIQUE: Single frontal supine view of the chest is obtained. FINDINGS: There is background chronic parenchymal change bilaterally with elevated left hemidiaphragm . There is no new suspicious focal air space opacity, pleural effusion, or pneumothorax seen. The ca rdiac silhouette size remains enlarged with atherosclerotic change in the thoracic aorta. The nativ e osseous structures remain demineralized. Partial visualization of surgical change left proximal hum erus. Surgical clips epigastric region noted. Chronic thickening right paratracheal stripe. IMPRESSION: Chronic changes and cardiomegaly without acute pulmonary process.
[2019-10-07 07:00] LABS: Potassium 4.5 mmol/L (3.5-5.1)
--- NOTE | 2019-10-07 07:00 | XR ---
EXAMINATION TYPE: XR pelvis AP view DATE OF EXAM: 10/07/2019 CLINICAL HISTORY: Pain after fall injury. TECHNIQUE: A single AP view of the pelvis is obtained. COMPARISON: CT abdomen and pelvis May 21, 2018.. FINDINGS: [place] osseous structures are demineralized which is noted to lower radiographic sensitivi ty. There is no acute fracture/dislocation clearly evident in the pelvis. Old fracture deformities r ight superior and inferior pelvic rami are redemonstrated. Pubic symphysis is intact. Sacroiliac join ts are felt preserved. Partial visualization of metallic hardware from bilateral hip arthroplasty is noted. Surgical sutures overlie the pelvis. Incidental multilevel spurring and disc space narrowing i n the visualized lumbar spine. IMPRESSION: There is no new acute fracture or dislocation clearly identified in the pelvis.
[2019-10-07 07:05] LABS: INR 1.1 (<1.2); Partial Thromboplastin Time 23.5 sec (22.0-30.0); Prothrombin Time 11.3 sec (9.0-12.0)
[2019-10-07 07:17] LABS: Creatine Kinase MB 0.9 ng/mL (0.0-2.4); Troponin I 0.027 ng/mL (0.000-0.034)
[2019-10-07 07:30] VITALS: BP 179/89; PULSE 64; RESP 22; TEMP 97.7
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
== END 2019-10-07 07:17 | disposition other institution (70) ==
LOC: SUPCPDRO 06:26 → EC 06:26
DX: S06.9X0A Unspecified intracranial injury without loss of consciousness, initial encounter (principal); S00.83XA Contusion of other part of head, initial encounter; R56.9 Unspecified convulsions; L89.151 Pressure ulcer of sacral region, stage 1; I11.0 Hypertensive heart disease with heart failure; I50.9 Heart failure, unspecified; J45.909 Unspecified asthma, uncomplicated; I25.2 Old myocardial infarction; E78.5 Hyperlipidemia, unspecified; E03.9 Hypothyroidism, unspecified; F32.9 Major depressive disorder, single episode, unspecified; K21.9 Gastro-esophageal reflux disease without esophagitis; Z79.890 Hormone replacement therapy; Z79.51 Long term (current) use of inhaled steroids; Z79.899 Other long term (current) drug therapy; Z88.8 Allergy status to other drugs, medicaments and biological substances; Z79.02 Long term (current) use of antithrombotics/antiplatelets; Z96.643 Presence of artificial hip joint, bilateral; Z96.653 Presence of artificial knee joint, bilateral; Z96.612 Presence of left artificial shoulder joint; W22.8XXA Striking against or struck by other objects, initial encounter; Y93.01 Activity, walking, marching and hiking; Y92.002 Bathroom of unspecified non-institutional (private) residence as the place of occurrence of the external cause
CPT/HCPCS: 36415; 86900; 86901; 80053; 82150; 82550; 82553; 83605; 83690; 84484; 85025; 85610; 85730; 86850; 72170; 71045; 72125; 70450; 99291; 96374; 96375; G0480; J1953; 80320

== ENCOUNTER → 2020-02-26 | Outpatient (CLI) | payer MEDICARE, OTHER ==
--- NOTE | 2020-02-26 15:13 | MR ---
EXAMINATION TYPE: MR iac wo/w con DATE OF EXAM: 02/26/2020 COMPARISON: CT brain 10/07/2019 HISTORY: Lt side hearing loss TECHNIQUE: Multiplanar, multisequence images of the brain and brainstem, internal auditory canals is performed w ithout and with IV contrast, utilizing 6.5 mL intravenous Gadavist, small [id number] and high reso lution images through the internal auditory canals . FINDINGS: Diffusion weighted images demonstrate no evidence of a recent infarct or other diffusion ab normality. There is no extra-axial fluid collection or significant interval change in white matter s ignal abnormality, confluent and scattered hyperintensities are present in the pericallosal, perivent ricular, subcortical and juxtacortical white matter. The ventricular system and cisternal spaces are normal in size and appearance. The brain volume is age appropriate, there is cortical atrophy. Midline structures demonstrate normal morphology. The craniocervical junction appears within normal limits. Post contrast images demonstrate no abnormal enhancement. The dural venous sinuses appear pa tent. The visualized sinuses are clear and the globes are intact, mild inflammatory change in the eth moid air cells on the right. IMPRESSION: Age-related changes of atrophy and probable chronic small vessel ischemia. There is no in ternal auditory canal mass, no cerebellopontine angle mass
== END | disposition home or self-care (01) ==
LOC: RADMRIMAIN 10:29
PROVIDERS: ATTEND Otolaryngology
DX: G31.1 Senile degeneration of brain, not elsewhere classified (principal)
CPT/HCPCS: 70553; A9585

== ENCOUNTER 2020-03-29 17:02 | Inpatient (IN) | payer MEDICARE, OTHER ==
[2020-03-29] MEDS ORDERED: SODIUM CHLORIDE 0.9% 1,000 ML IV STA ×2 (17:24)
[2020-03-29] MEDS ORDERED: MORPHINE SULFATE 4 MG/ML SYRINGE IV STA (17:24)
[2020-03-29] MEDS ORDERED: METOCLOPRAMIDE 5 MG/ML 2 ML VIAL IVP STA (17:24)
[2020-03-29 17:44] LABS: ALT 13 U/L (4-34); AST 24 U/L (14-36); African American GFR (CKD) >90 (>60 ml/min/1.73 sqM); Albumin 3.9 g/dL (3.5-5.0); Alkaline Phosphatase 93 U/L (38-126); Anion Gap 11 mmol/L; Blood Urea Nitrogen 9 mg/dL (7-17); Calcium 9.5 mg/dL (8.4-10.2); Carbon Dioxide 24 mmol/L (22-30); Chloride 101 mmol/L (98-107); Glucose 125 mg/dL (74-99); Lipase 25 U/L (23-300); Non-African American GFR(CKD) 82 (>60 ml/min/1.73 sqM); Potassium 4.1 mmol/L (3.5-5.1); Sodium 136 mmol/L (137-145); Total Bilirubin 1.2 mg/dL (0.2-1.3); Total Protein 7.2 g/dL (6.3-8.2)
[2020-03-29 17:47] LABS: INR 1.2 (<1.2); Partial Thromboplastin Time 24.9 sec (22.0-30.0); Prothrombin Time 12.3 sec (9.0-12.0)
[2020-03-29 17:49] LABS: Basophils % (A) 0 %; Eosinophils # (A) 0.1 k/uL (0-0.7); Eosinophils % (A) 1 %; HCT 37.7 % (34.0-46.0); HGB 12.2 gm/dL (11.4-16.0); Lymphocytes # (A) 1.8 k/uL (1.0-4.8); Lymphocytes % (A) 20 %; MCH 33.5 pg (25.0-35.0); MCHC 32.5 g/dL (31.0-37.0); MCV 103.2 fL (80.0-100.0); Macrocytosis Slight; Mean Platelet Volume 8.3; Monocytes # (A) 0.4 k/uL (0-1.0); Monocytes % (A) 4 %; Neutrophils # (A) 6.6 k/uL (1.3-7.7); Neutrophils % (A) 72 %; Platelet Count 229 k/uL (150-450); RBC 3.65 m/uL (3.80-5.40); RDW 14.7 % (11.5-15.5); WBC 9.1 k/uL (3.8-10.6)
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
[2020-03-29 18:30] LABS: Appearance,Urine Clear (Clear); Bilirubin,Urine Negative (Negative); Blood,Urine Negative (Negative); Color,Urine Yellow; Glucose,Urine (UA) Negative (Negative); Ketones,Urine 1+ (Negative); Leukocyte Esterase,Urine Negative (Negative); Nitrite,Urine Negative (Negative); PH, Urine 6.5 (5.0-8.0); Protein,Urine Trace (Negative); Specific Gravity,Urine 1.012 (1.001-1.035); Urobilinogen,Urine <2.0 mg/dL (<2.0)
[2020-03-29] MEDS ORDERED: HYDROmorphone 1 MG/ML 1 ML SYRINGE IVP STA (19:08)
[2020-03-29] MEDS ORDERED: ONDANSETRON 4 MG/2 ML VIAL IVP PRN (19:10)
[2020-03-29] MEDS ORDERED: HYDROmorphone 1 MG/ML 1 ML SYRINGE IVP PRN (19:10)
[2020-03-29] MEDS ORDERED: ACETAMINOPHEN TAB 325 MG TAB PO PRN (19:10)
[2020-03-29] MEDS ORDERED: NALOXONE 0.4 MG/ML 1 ML VIAL IV PRN (19:10)
--- NOTE | 2020-03-29 19:16 | CT ---
EXAMINATION TYPE: CT abdomen pelvis w con DATE OF EXAM: 03/29/2020 COMPARISON: 05/21/2018 HISTORY: Non-localized abdominal pain. Pt states she was just released from 8 days in hospital for [place] I. CT DLP: 886.2 mGycm Automated exposure control for dose reduction was used. CONTRAST: Performed with IV Contrast, patient injected with 100 mL of Isovue 300. Images obtained from the diaphragm to the floor the pelvis with IV contrast. There is some patchy atelectasis at the lung bases. There is no pleural effusion. Heart is enlarged. There is no pericardial effusion. There are surgical clips on the posterior aspect of the stomach. There is pancreatic atrophy. There i s no sign of pancreatic mass. Gallbladder is intact. Liver shows no focal defect. The spleen is absen t. There is no adrenal mass. Bile ducts are not dilated. Kidneys show satisfactory contrast opacificatio n. There is no hydronephrosis. Delayed images show normal renal excretion. Ureters are not dilated. T here is no retroperitoneal adenopathy. There is metal artifact from bilateral hip prosthesis. There i s no evidence of a pelvic mass. There is previous surgery at the rectosigmoid junction. There are mul tiple sigmoid diverticula. I see no definite sign of diverticulitis. There is no free air. There is no ascites. There is no sign of a bowel obstruction. There is no mesen teric edema. Appendix is not seen. There is no sign of thickened appendix. There appears to be some w all thickening of the transverse colon and the splenic flexure of the colon. Lumbar vertebra show disc space narrowing. There is no compression fracture. There is multilevel vacu um disc. The bony pelvis shows no evidence of a fracture. IMPRESSION: There is some wall thickening of the transverse colon that appears new compared to old exam and could be some nonspecific colitis. Moderate colonic diverticulosis. No diverticulitis. Spondylotic changes in the lumbar spine. Mild atelectasis at the lung bases unchanged.
[2020-03-29] MEDS ORDERED: metroNIDAZOLE-NS PMX 500 MG in SALINE 1 100ML.BAG IVPB STA (19:18)
[2020-03-29] MEDS ORDERED: LEVOFLOXACIN 500MG-D5W PMX 500 MG in DEXTROSE/WATER 1 100ML.BAG IVPB STA (19:18)
[2020-03-29] MEDS ORDERED: LORazepam 2 MG/ML INJ IV PRN (19:45)
--- NOTE | 2020-03-29 20:06 | ED ---
Medical Decision Making - Medical Decision Making The EKG was reviewed and shows a sinus bradycardia at a rate of 56. There is no acute ST elevation noted. There is some mild T-wave inversions in V1 through V3. There is possible slight peaked T waves. The NC intervals 190, QRS duration is 90, and the QTC intervals 453. The patient is unsure of her medications. The granddaughter apparently was not home now to give the medica tions. If able to get an accurate medication list then I will reconcile her medications. Stool studies are also ordered. - Lab Data Result diagrams: 03/29/20 17:27 03/29/20 17:27 Lab Results 03/29/20 03/29/20 03/29/20 Range/Units 17:27 17: 17:27 WBC 9.1 (3.8-10.6) k/uL RBC 3.65 L (3.80-5.40) m/uL Hgb 12.2 (11.4-16.0) gm/dL Hct 37.7 (34.0-46.0) % MCV 103.2 H (80.0-100.0) fL MCH 33.5 (25.0-35.0) pg MCHC 32.5 (31.0-37.0) g/dL RDW 14.7 (11.5-15.5) % Plt Count 229 (150-450) k/uL MPV 8.3 Neutrophils % 72 % Lymphocytes % 20 % Monocytes % 4 % Eosinophils % 1 % Basophils % 0 % Neutrophils # 6.6 (1.3-7.7) k/uL Lymphocytes # 1.8 (1.0-4.8) k/uL Monocytes # 0.4 (0-1.0) k/uL Eosinophils # 0.1 (0-0.7) k/uL Basophils # 0.0 (0-0.2) k/uL Macrocytosis Slight PT 12.3 H (9.0-12.0) sec INR 1.2 H (<1.2) APTT 24.9 (22.0-30.0) sec Sodium 136 L (137-145) mmol/L Potassium 4.1 (3.5-5.1) mmol/L Chloride 101 (98-107) mmol/L Carbon Dioxide 24 (22-30) mmol/L Anion Gap 11 mmol/L BUN 9 (7-17) mg/dL Creatinine 0.62 (0.52-1.04) mg/dL Est GFR (CKD-EPI)AfAm >90 (>60 ml/min/1.73 sqM) Est GFR (CKD-EPI)NonAf 82 (>60 ml/min/1.73 sqM) Glucose 125 H (74-99) mg/dL Calcium 9.5 (8.4-10.2) mg/dL Total Bilirubin 1.2 (0.2-1.3) mg/dL AST 24 (14-36) U/L ALT 13 (4-34) U/L Alkaline Phosphatase 93 (38-126) U/L Troponin I (0.000-0.034) ng/mL Total Protein 7.2 (6.3-8.2) g/dL Albumin 3.9 (3.5-5.0) g/dL Lipase 25 (23-300) U/L Urine Color Urine Appearance (Clear) Urine pH (5.0-8.0) Ur Specific [place] (1.001-1.035) Urine Protein (Negative) Urine Glucose (UA) (Negative) Urine Ketones (Negative) Urine Blood (Negative) Urine Nitrite (Negative) Urine Bilirubin (Negative) Urine Urobilinogen (<2.0) mg/dL Ur Leukocyte Esterase (Negative) Coronavirus (PCR) (Not Detectd) 03/29/20 03/29/20 03/29/20 Range/Units 17:27 18:22 19:11 WBC (3.8-10.6) k/uL RBC (3.80-5.40) m/uL Hgb (11.4-16.0) gm/dL Hct (34.0-46.0) % MCV (80.0-100.0) fL MCH (25.0-35.0) pg MCHC (31.0-37.0) g/dL RDW (11.5-15.5) % Plt Count (150-450) k/uL MPV Neutrophils % % Lymphocytes % % Monocytes % % Eosinophils % % Basophils % % Neutrophils # (1.3-7.7) k/uL Lymphocytes # (1.0-4.8) k/uL Monocytes # (0-1.0) k/uL Eosinophils # (0-0.7) k/uL Basophils # (0-0.2) k/uL Macrocytosis PT (9.0-12.0) sec INR (<1.2) APTT (22.0-30.0) sec Sodium (137-145) mmol/L Potassium (3.5-5.1) mmol/L Chloride (98-107) mmol/L Carbon Dioxide (22-30) mmol/L Anion Gap mmol/L BUN (7-17) mg/dL Creatinine (0.52-1.04) mg/dL Est GFR (CKD-EPI)AfAm (>60 ml/min/1.73 sqM) Est GFR (CKD-EPI)NonAf (>60 ml/min/1.73 sqM) Glucose (74-99) mg/dL Calcium (8.4-10.2) mg/dL Total Bilirubin (0.2-1.3) mg/dL AST (14-36) U/L ALT (4-34) U/L Alkaline Phosphatase (38-126) U/L Troponin I <0.012 (0.000-0.034) ng/mL Total Protein (6.3-8.2) g/dL Albumin (3.5-5.0) g/dL Lipase (23-300) U/L Urine Color Yellow Urine Appearance Clear (Clear) Urine pH 6.5 (5.0-8.0) Ur Specific [place] 1.012 (1.001-1.035) Urine Protein Trace H (Negative) Urine Glucose (UA) Negative (Negative) Urine Ketones 1+ H (Negative) Urine Blood Negative (Negative) Urine Nitrite Negative (Negative) Urine Bilirubin Negative (Negative) Urine Urobilinogen <2.0 (<2.0) mg/dL Ur Leukocyte Esterase Negative (Negative) Coronavirus (PCR) Not Detected (Not Detectd) Disposition Clinical Impression: Acute abdominal pain, Diarrhea, Nausea and vomiting, Dehydration, Colitis, Failure of outpatient treatment Disposition: ADMITTED IP TO THIS [facility] Condition: Fair Referrals: Dean Antony MD [Primary Care Provider] - 1-2 days
--- NOTE | 2020-03-29 20:21 | HP ---
HISTORY AND PHYSICAL CHIEF COMPLAINT: Abdominal pain. HISTORY OF PRESENT ILLNESS: This 85-year-old woman with a past medical history of multiple medical problems including history of asthma, COPD, CHF, GERD, hypertension, hyperlipidemia, being followed by Dr. Antony in the outpatient setting, recently admitted to [facility] about 8 days with abdominal pain, diarrhea. Some infection was diagnosed and the patient given antibiotics and the patient went home. Subsequently the patient was having continuous diarrhea, abdominal pain. Because of lack of improvement, patient came to [facility] and was admitted for further evaluation and treatment. A CT scan of the abdomen and pelvis was done which showed some thickening of the transverse colon that appears to be new compared to the old exam. There is no history of fever, rigors or chills. No history of headache, loss of consciousness or seizures. PAST MEDICAL HISTORY: Asthma, COPD, CHF, hypertension, hyperlipidemia, myocardial infarction, back surgery, bowel surgery. MEDICATIONS: Medications prior to admission include home medications are: Ultram, vitamin A and C, Synthroid. Protonix, MS Contin, Singulair, meloxicam, Claritin, Imdur, gabapentin, iron sulfate, Celexa. Coreg, Symbicort, B complex and , Lipitor and aspirin. ALLERGIES: BENAZEPRIL. FAMILY HISTORY: History of COPD, smoking, emphysema. SOCIAL HISTORY: No history of smoking. Occasional alcohol intake. REVIEW OF SYSTEMS: ENT: Diminished vision. Diminished hearing. CARDIOVASCULAR: No angina. RESPIRATIONS: Occasional cough, hemoptysis. GI as mentioned earlier. no dysuria. NERVOUS system: No numbness, weakness. ALLERGY/IMMUNOLOGY: As mentioned earlier. HEMATOLOGY/ONCOLOGY: No history of anemia. ENDOCRINE: No history of diabetes or hypothyroidism. CONSTITUTIONAL: As mentioned earlier. DERMATOLOGY: Negative. RHEUMATOLOGY negative. PSYCHIATRY as mentioned earlier. PHYSICAL EXAMINATION: Alert and oriented x3. Pulse is 63, blood pressure 190/84. Respiration 18, temperature 97.4, pulse ox 94% on room air. HEENT: Conjunctivae normal. NECK: No JVD. CARDIOVASCULAR: S1, S2 muffled. RESPIRATORY: Breath sounds diminished in the bases. No rhonchi. No crackles. ABDOMEN: Soft. Mild diffuse distention. Mild diffuse tenderness present. No guarding. No rigidity. No mass palpable. Bowel sounds present. No ascites. LEGS: No edema. No swelling. NERVOUS SYSTEM: Higher functions as mentioned earlier. Moves all 4 limbs. No focal motor or sensory deficits. LYMPHATICS: No lymph nodes palpable in the neck, axillae or groin. SKIN: No ulcer, rashes or bleeding. JOINTS: No active deforming arthropathy. LABS: WBC 9.2, hemoglobin 12.2, INR 1.2 and sodium is 136. UA noted. ASSESSMENT: 1. Abdominal pain and nausea, vomiting and diarrhea, possible acute transverse colitis with failure of outpatient treatment. 2. Hyponatremia. 3. Increased MCV. 4. History of asthma. 5. History of congestive heart failure, ejection fraction unknown. 6. Chronic obstructive pulmonary disease. 7. Gastroesophageal reflux disease. 8. Hypertension. 9. Hyperlipidemia. 10.History of myocardial infarction. 11.History of degenerative joint disease. 12.History of chronic low back pain. 13.History of irritable bowel syndrome. 14.History of colitis. 15.History of back surgery. 16.History of bowel resection. 17.History of degenerative joint disease. 18.History of splenectomy. 19.History of hammertoes. 20.Depression. 21.FULL CODE. RECOMMENDATIONS AND DISCUSSION: In this 85-year-old woman who presented with multiple complex medical issues, we will monitor the patient closely, continue the current medications, management and symptomatic treatment. We will initiate broad-spectrum IV antibiotics, Levaquin and Flagyl. Otherwise also obtain a gastroenterology consultation for possible endoscopies. We will obtain the records from [facility]. Resume the home medications once they are reconciled. Symptomatic treatment will continue. We will also check for C difficile. Prognosis guarded because of multiple complex medical issues. Further recommendations to follow. A copy of dictation being forwarded to Dr. Antony who is the primary physician. MMODL / IJN: [id number] / STEPHENIE
[2020-03-29] MEDS ORDERED: HEPARIN SODIUM,PORCINE 5,000 UNIT/ML 1 ML VIAL SQ SCH (21:00)
[2020-03-29] MEDS ORDERED: ALBUTEROL HFA INHALER INHALATION PRN (21:05)
--- NOTE | 2020-03-29 21:10 | ED ---
Medical Decision Making - Medical Decision Making The medications just came through for reconciliation. There are received by the pharmacy district manager from the granddaughter at home. It appears as though she is on oral vancomycin. Therefore, it is suspected that she likely had C. difficile colitis at the previous hospital. The Levaquin and Flagyl are therefore discontinued. The vancomycin is continued. Medications are reconciled. The patient cannot tell me whether or not she had C. difficile colitis and is a poor historian. Old records will be requested from the previous facility. - Lab Data Result diagrams: 03/29/20 17:27 03/29/20 17:27 Lab Results 03/29/20 03/29/20 03/29/20 Range/Units 17:27 17:27 17:27 WBC 9.1 (3.8-10.6) k/uL RBC 3.65 L (3.80-5.40) m/uL Hgb 12.2 (11.4-16.0) gm/dL Hct 37.7 (34.0-46.0) % MCV 103.2 H (80.0-100.0) fL MCH 33.5 (25.0-35.0) pg MCHC 32.5 (31.0-37.0) g/dL RDW 14.7 (11.5-15.5) % Plt Count 229 (150-450) k/uL MPV 8.3 Neutrophils % 72 % Lymphocytes % 20 % Monocytes % 4 % Eosinophils % 1 % Basophils % 0 % Neutrophils # 6.6 (1.3-7.7) k/uL Lymphocytes # 1.8 (1.0-4.8) k/uL Monocytes # 0.4 (0-1.0) k/uL Eosinophils # 0.1 (0-0.7) k/uL Basophils # 0.0 (0-0.2) k/uL Macrocytosis Slight PT 12.3 H (9.0-12.0) sec INR 1.2 H (<1.2) APTT 24.9 (22.0-30.0) sec Sodium 136 L (137-145) mmol/L Potassium 4.1 (3.5-5.1) mmol/L Chloride 101 (98-107) mmol/L Carbon Dioxide 24 (22-30) mmol/L Anion Gap 11 mmol/L BUN 9 (7-17) mg/dL Creatinine 0.62 (0.52-1.04) mg/dL Est GFR (CKD-EPI)AfAm >90 (>60 ml/min/1.73 sqM) Est GFR (CKD-EPI)NonAf 82 (>60 ml/min/1.73 sqM) Glucose 125 H (74-99) mg/dL Calcium 9.5 (8.4-10.2) mg/dL Total Bilirubin 1.2 (0.2-1.3) mg/dL AST 24 (14-36) U/L ALT 13 (4-34) U/L Alkaline Phosphatase 93 (38-126) U/L Troponin I (0.000-0.034) ng/mL Total Protein 7.2 (6.3-8.2) g/dL Albumin 3.9 (3.5-5.0) g/dL Lipase 25 (23-300) U/L Urine Color Urine Appearance (Clear) Urine pH (5.0-8.0) Ur Specific [place] (1.001-1.035) Urine Protein (Negative) Urine Glucose (UA) (Negative) Urine Ketones (Negative) Urine Blood (Negative) Urine Nitrite (Negative) Urine Bilirubin (Negative) Urine Urobilinogen (<2.0) mg/dL Ur Leukocyte Esterase (Negative) 03/29/20 03/29/20 Range/Units 17:27 18:22 WBC (3.8-10.6) k/uL RBC (3.80-5.40) m/uL Hgb (11.4-16.0) gm/dL Hct (34.0-46.0) % MCV (80.0-100.0) fL MCH (25.0-35.0) pg MCHC (31.0-37.0) g/dL RDW (11.5-15.5) % Plt Count (150-450) k/uL MPV Neutrophils % % Lymphocytes % % Monocytes % % Eosinophils % % Basophils % % Neutrophils # (1.3-7.7) k/uL Lymphocytes # (1.0-4.8) k/uL Monocytes # (0-1.0) k/uL Eosinophils # (0-0.7) k/uL Basophils # (0-0.2) k/uL Macrocytosis PT (9.0-12.0) sec INR (<1.2) APTT (22.0-30.0) sec Sodium (137-145) mmol/L Potassium (3.5-5.1) mmol/L Chloride (98-107) mmol/L Carbon Dioxide (22-30) mmol/L Anion Gap mmol/L BUN (7-17) mg/dL Creatinine (0.52-1.04) mg/dL Est GFR (CKD-EPI)AfAm (>60 ml/min/1.73 sqM) Est GFR (CKD-EPI)NonAf (>60 ml/min/1.73 sqM) Glucose (74-99) mg/dL Calcium (8.4-10.2) mg/dL Total Bilirubin (0.2-1.3) mg/dL AST (14-36) U/L ALT (4-34) U/L Alkaline Phosphatase (38-126) U/L Troponin I <0.012 (0.000-0.034) ng/mL Total Protein (6.3-8.2) g/dL Albumin (3.5-5.0) g/dL Lipase (23-300) U/L Urine Color Yellow Urine Appearance Clear (Clear) Urine pH 6.5 (5.0-8.0) Ur Specific [place] 1.012 (1.001-1.035) Urine Protein Trace H (Negative) Urine Glucose (UA) Negative (Negative) Urine Ketones 1+ H (Negative) Urine Blood Negative (Negative) Urine Nitrite Negative (Negative) Urine Bilirubin Negative (Negative) Urine Urobilinogen <2.0 (<2.0) mg/dL Ur Leukocyte Esterase Negative (Negative) Disposition Clinical Impression: Acute abdominal pain, Diarrhea, Nausea and vomiting, Dehydration, Colitis, Failure of outpatient treatment Disposition: ADMITTED IP TO THIS HOSP Condition: Fair
[2020-03-29] MEDS: HYDROmorphone 0.5 MG/0.5 ML SYRINGE IVP PRN (23:02)
[2020-03-29] MEDS: VANCOMYCIN 125 MG CAPSULE PO SCH (23:30)
[2020-03-30] MEDS: HYDROmorphone 0.5 MG/0.5 ML SYRINGE IVP PRN ×4 (03:35→22:47)
[2020-03-30] MEDS ORDERED: metroNIDAZOLE-NS PMX 500 MG in SALINE 1 100ML.BAG IVPB SCH (06:00)
[2020-03-30 06:20] LABS: Basophils % (A) 0 %; Eosinophils # (A) 0.1 k/uL (0-0.7); Eosinophils % (A) 1 %; HCT 31.6 % (34.0-46.0); HGB 10.6 gm/dL (11.4-16.0); Lymphocytes # (A) 2.1 k/uL (1.0-4.8); Lymphocytes % (A) 36 %; MCH 34.2 pg (25.0-35.0); MCHC 33.5 g/dL (31.0-37.0); MCV 102.1 fL (80.0-100.0); Macrocytosis Slight; Mean Platelet Volume 8.2; Monocytes # (A) 0.4 k/uL (0-1.0); Monocytes % (A) 7 %; Neutrophils % (A) 53 %; Platelet Count 190 k/uL (150-450); RDW 14.3 % (11.5-15.5); WBC 5.7 k/uL (3.8-10.6)
[2020-03-30] MEDS ORDERED: LEVOTHYROXINE 100 MCG TAB PO SCH (06:30)
[2020-03-30] MEDS: PANTOPRAZOLE 40 MG/10 ML VIAL IV SCH (08:03)
[2020-03-30] MEDS: ISOSORBIDE MONONITRATE ER 30 MG TAB.ER.24H PO SCH (08:03)
[2020-03-30] MEDS: carvediloL 12.5 MG TAB PO SCH ×2 (08:04→17:27)
[2020-03-30] MEDS: MONTELUKAST 10 MG TAB PO SCH (08:04)
[2020-03-30] MEDS: MORPHINE SULFATE ER 15 MG TABLET PO SCH ×2 (08:04→20:46)
[2020-03-30] MEDS: VANCOMYCIN 125 MG CAPSULE PO SCH ×4 (08:05→21:09)
[2020-03-30] MEDS: APIXABAN 2.5 MG TABLET PO SCH ×2 (08:05→20:46)
[2020-03-30] MEDS: CITALOPRAM HYDROBROMIDE 20 MG TAB PO SCH (08:05)
[2020-03-30] MEDS: Memantine Hcl/Donepezil Hcl [Namzaric 28 Mg-10 Mg Capsule] PO SCH (08:15)
[2020-03-30 08:39] LABS: African American GFR (CKD) 90.3 (60.0-200.0); Anion Gap 4.9 mmol/L (4.00-12.00); Calcium 8.5 mg/dL (8.7-10.3); Carbon Dioxide 28.1 mmol/L (21.6-31.8); Non-African American GFR(CKD) 77.9 (60.0-200.0); Potassium 3.6 mmol/L (3.5-5.5)
[2020-03-30] MEDS: FERROUS SULFATE 325 MG TAB PO SCH (10:40)
[2020-03-30] MEDS: CALCIUM CARBONATE 500 MG CHEWABLE PO SCH (10:40)
[2020-03-30] MEDS: MULTIVITAMINS, THERA 1 EACH TAB PO SCH (10:40)
[2020-03-30] MEDS: CHOLECALCIFEROL 25 MCG (1000 IU) TABLET PO SCH (10:40)
--- NOTE | 2020-03-30 15:05 | P.GSCN ---
History of Present Illness Consult date: 03/30/20 History of present illness: CHIEF COMPLAINT: Abdominal pain HISTORY OF PRESENT ILLNESS: Patient seen and examined with Dr. Arias. This is a 85-year-old female with past medical history of asthma, COPD, CHF, GERD, hypertension, hyperlipidemia. Patient also has a known history of ischemic bowel, chronic abdominal pain, peptic ulcer disease and diverticulosis. Surgical history includes past history of bowel resection and hernia repair. Patient recently been hospitalized at [facility] for about day 8 days for abdominal pain and diarrhea. She was discharged home with antibiotics. Patient's continued to have diarrhea and abdominal pain. Patient was brought into the hospital due to the lack of improvement. Patient had computed tomography scan of the abdomen and pelvis completed there is some wall thickening of the transverse colon that appears new compared to old exam and could be some nonspecific colitis. Moderate clonic diverticulosis. No divert iculitis. Spondylitic changes in the lumbar spine. Mild atelectasis in the lung bases unchanged. Patient denies any fever chills or sweats. PAST MEDICAL HISTORY: See list. PAST SURGICAL HISTORY: See list. MEDICATIONS: See list. ALLERGIES: See list. SOCIAL HISTORY: No illicit drug use. REVIEW OF SYSTEMS: CONSTITUTIONAL: Denies fever or chills. HEENT: Denies blurred vision, vision changes, or eye pain. Denies hemoptysis CARDIOVASCULAR: Denies chest pain or pressure. RESPIRATORY: No shortness of breath. GASTROINTESTINAL: See HPI for pertinent findings HEMATOLOGIC: Denies bleeding disorders. GENITOURINARY: Denies any blood in urine or increased urinary frequency. SKIN: Denies pruitis. Denies rash. PHYSICAL EXAM: VITAL SIGNS: Reviewed GENERAL: Well-developed in no acute distress. HEENT: No sclera icterus. Extraocular movements grossly intact. Moist buccal mucosa. Head is atraumatic, normocephalic. No nasal drainage. ABDOMEN: Soft. Nondistended. Mild diffuse tenderness NEUROLOGIC: Alert and oriented. Cranial nerves II through XII grossly intact. LABORATORY DATA: WBC 5.7 hemoglobin 10.6 Covid not detected UA negative LFTs and lipase within normal range IMAGING: computed tomography scan of the abdomen and pelvis completed there is some wall thickening of the transverse colon that appears new compared to old exam and could be some nonspecific colitis. Moderate clonic diverticulosis. No diverticulitis. Spondylitic changes in the lumbar spine. Mild atelectasis in the lung bases unchanged. ASSESSMENT: 1. Abdominal pain with diarrhea possibly this due to a transverse colitis 2. History of chronic abdominal pain PLAN: -Agree with GI consult -Continue supportive care -No surgical intervention planned Thank you for this consultation Physician Hand Worker note has been reviewed by physician. Signing provider agrees with the documented findings, assessment, and plan of care. Past Medical History Past Medical History: Asthma, Chest Pain / Angina, Heart Failure, COPD, Eye Disorder, GERD/Reflux, Hyperlipidemia, Hypertension, Myocardial Infarction ([place]), Osteoarthritis (OA), Thyroid Disorder, Vascular Disorder Additional Past Medical History / Comment(s): Chronic low back pain, recent L arm fracture and pt still has pain and swelling in that arm, legally blind d/t macular degeneration, PUD, hiatal hernia, diverticular disease, IBS, colitis, past bowel obstruction, sarcoidosis, occasional difficulty swallowing, anemia, irregular heart beat, varicose veins, hypothyroid, di Last Myocardial Infarction Date:: 2012 History of Any Multi-Drug Resistant Organisms: None Reported Past Surgical History: Back Surgery, Bowel Resection, Hernia Repair, Joint Replacement Additional Past Surgical History / Comment(s): 06/16/17 conversion hemiarthroplasty L shoulder, mayur knee and mayur hip replacements, SPLENECTOMY, NASAL/SINUS SX, FOOT SX FOR [place], had colosotomy then had reversal later, mayur cataracts, additional bowel repair r/t looped strangulation. Past Anesthesia/Blood Transfusion Reactions: No Reported Reaction Additional Past Anesthesia/Blood Transfusion Reaction / Comm: blood transfusion- no reaction Past Psychological History: Depression Additional Psychological History / Comment(s): Pt resides in her own home with 6 steps. Her great grandson lives with her but he works and goes to college. Pt is legally blind. Family manages her medications and drives her to [employer]. She has alot of visitors. She uses a walker when she goes out. She has a person who comes twice a week to do chores. She has 2 permanent cats in her home and 2 "visitor" cats. Smoking Status: Never smoker Past Alcohol Use History: Occasional Past Drug Use History: None Reported - Past Family History Sister(s) Family Medical History: Cancer Mother Family Medical History: COPD Additional Family Medical History / Comment(s): SMOKER/EMPHYSEMA Medications and Allergies Home Medications Medication Instructions Recorded Confirmed Type Isosorbide Mononitrate ER [Imdur] 30 mg PO DAILY #30 tab.er.[id number] 01/08/18 03/29/20 Rx Carvedilol [Coreg] 25 mg PO BID 04/12/18 03/29/20 History Ferrous Sulfate [Feosol] 325 mg PO DAILY 04/12/18 03/29/20 History Albuterol Sulfate [Ventolin HFA] 2 puff INHALATION RT-Q6H PRN 10/07/19 03/29/20 History Morphine Sulfate ER [Ms Contin] 15 mg PO Q12HR 10/07/19 03/29/20 History Pantoprazole Sodium [Protonix] 20 mg PO DAILY 10/07/19 03/29/20 History Apixaban [Eliquis] 2.5 mg PO BID 03/29/20 03/29/20 History Calcium Carbonate [Calcium] 600 mg PO DAILY 03/29/20 03/29/20 History Cholecalciferol [Vitamin D3 (25 25 mcg PO DAILY 03/29/20 03/29/20 History Mcg = 1000 Iu)] Citalopram Hydrobromide [CeleXA] 20 mg PO DAILY 03/29/20 03/29/20 History HYDROcodone/APAP 5-325MG [[place] 1 tab PO BID 03/29/20 03/29/20 History 5-325] Levothyroxine Sodium [Synthroid] 100 mcg PO MOTH 03/29/20 03/29/20 History Levothyroxine Sodium [Synthroid] 125 mcg PO SUTUWEFRSA 03/29/20 03/29/20 History Memantine HCl/Donepezil HCl 1 cap PO DAILY 03/29/20 03/29/20 History [Namzaric 28 mg-10 mg Capsule] Montelukast [Singulair] 10 mg PO DAILY 03/29/20 03/29/20 History Multivitamins, Thera [Multivitamin 1 tab PO DAILY 03/29/20 03/29/20 History (formulary)] Vancomycin HCl [Vancocin HCl] 250 mg PO QID 03/29/20 03/29/20 History Allergies Allergy/AdvReac Type Severity Reaction Status Date / Time benazepril Allergy tongue Verified 03/29/20 20:50 swelling Surgical - Exam Vital Signs Temp Pulse Resp BP Pulse Ox 97.4 F L 58 L 18 203/90 98 03/29/20 17:11 03/29/20 17:11 03/29/20 17:11 03/29/20 17:11 03/29/20 17:11 Results - Labs 03/30/20 06:03 03/30/20 06:03 Abnormal Lab Results - Last 24 Hours (Table) 03/29/20 03/29/20 03/29/20 Range/Units 17:27 17:27 17:27 RBC 3.65 L (3.80-5.40) m/uL Hgb (11.4-16.0) gm/dL Hct (34.0-46.0) % MCV 103.2 H (80.0-100.0) fL PT 12.3 H (9.0-12.0) sec INR 1.2 H (<1.2) Sodium 136 L (137-145) mmol/L BUN (9.0-27.0) mg/dL BUN/Creatinine Ratio (12.00-20.00) Ratio Glucose 125 H (74-99) mg/dL Calcium (8.7-10.3) mg/dL Urine Protein (Negative) Urine Ketones (Negative) 03/29/20 03/30/20 03/30/20 Range/Units 18:22 06:03 06:03 RBC 3.10 L (3.80-5.40) m/uL Hgb 10.6 L (11.4-16.0) gm/dL Hct 31.6 L (34.0-46.0) % MCV 102.1 H (80.0-100.0) fL PT (9.0-12.0) sec INR (<1.2) Sodium (137-145) mmol/L BUN 7.0 L (9.0-27.0) mg/dL BUN/Creatinine Ratio 10.00 L (12.00-20.00) Ratio Glucose (74-99) mg/dL Calcium 8.5 L (8.7-10.3) mg/dL Urine Protein Trace H (Negative) Urine Ketones 1+ H (Negative) Diabetes panel 03/29/20 03/30/20 Range/Units 17:27 06:03 Sodium 136 L 138 (137-145) mmol/L Potassium 4.1 3.6 (3.5-5.1) mmol/L Chloride 101 105 (98-107) mmol/L Carbon Dioxide 24 28.1 (22-30) mmol/L BUN 9 7.0 L (7-17) mg/dL Creatinine 0.62 0.7 (0.52-1.04) mg/dL Glucose 125 H 81 (74-99) mg/dL Calcium 9.5 8.5 L (8.4-10.2) mg/dL AST 24 (14-36) U/L ALT 13 (4-34) U/L Alkaline Phosphatase 93 (38-126) U/L Total Protein 7.2 (6.3-8.2) g/dL Albumin 3.9 (3.5-5.0) g/dL Calcium panel 03/29/20 03/30/20 Range/Units 17:27 06:03 Calcium 9.5 8.5 L (8.4-10.2) mg/dL Albumin 3.9 (3.5-5.0) g/dL Pituitary panel 03/29/20 03/30/20 Range/Units 17:27 06:03 Sodium 136 L 138 (137-145) mmol/L Potassium 4.1 3.6 (3.5-5.1) mmol/L Chloride 101 105 (98-107) mmol/L Carbon Dioxide 24 28.1 (22-30) mmol/L BUN 9 7.0 L (7-17) mg/dL Creatinine 0.62 0.7 (0.52-1.04) mg/dL Glucose 125 H 81 (74-99) mg/dL Calcium 9.5 8.5 L (8.4-10.2) mg/dL Adrenal panel 03/29/20 03/30/20 Range/Units 17:27 06:03 Sodium 136 L 138 (137-145) mmol/L Potassium 4.1 3.6 (3.5-5.1) mmol/L Chloride 101 105 (98-107) mmol/L Carbon Dioxide 24 28.1 (22-30) mmol/L BUN 9 7.0 L (7-17) mg/dL Creatinine 0.62 0.7 (0.52-1.04) mg/dL Glucose 125 H 81 (74-99) mg/dL Calcium 9.5 8.5 L (8.4-10.2) mg/dL Total Bilirubin 1.2 (0.2-1.3) mg/dL AST 24 (14-36) U/L ALT 13 (4-34) U/L Alkaline Phosphatase 93 (38-126) U/L Total Protein 7.2 (6.3-8.2) g/dL Albumin 3.9 (3.5-5.0) g/dL
--- NOTE | 2020-03-30 15:33 | PN ---
PROGRESS NOTE DATE OF SERVICE: 03/30/2020. This 85-year-old woman who was admitted with abdominal pain, nausea, had possible recurrent colitis. The patient had failure of outpatient treatment. The patient is on broad-spectrum IV antibiotics. Multiple consultants are following the patient closely. PAST MEDICAL HISTORY: Reviewed. REVIEW OF SYSTEMS: CARDIOVASCULAR SYSTEM: No angina. RESPIRATORY SYSTEM: As mentioned earlier. GI: As mentioned earlier. : No dysuria. NERVOUS SYSTEM: No numbness or weakness. CURRENT MEDICATIONS: Current medications are reviewed and include Tylenol, Ventolin, Eliquis, Tums, Coreg, cholecalciferol, Celexa. Dilaudid, Imdur, Synthroid,. Ativan, MS Contin, Restoril with p.o. vancomycin. PHYSICAL EXAMINATION: Patient is alert and oriented x3. Pulse 61, blood pressure 115/73, respirations 16, temperature 99.2, pulse ox 93% on room air. HEENT: Conjunctivae normal. NECK: No jugular venous distention. CARDIOVASCULAR: S1, S2 muffled. RESPIRATORY: Breath sounds are diminished at the bases. A few scattered rhonchi and crackles. ABDOMEN: Soft. Mild diffuse tenderness. LEGS: No edema. No swelling. NERVOUS SYSTEM: No focal deficits. LABS: WBC 5.7, hemoglobin 10.62. Sodium 138. ASSESSMENT: 1. Abdominal pain, nausea, vomiting, diarrhea, possible acute transverse colitis with failure of outpatient treatment. 2. Hyponatremia. 3. Possible Clostridium difficile colitis. 4. Increased MCV. 5. History of asthma. 6. History of congestive heart failure, ejection fraction unknown. 7. Chronic obstructive pulmonary disease. 8. Gastroesophageal reflux disease. 9. Hypertension. 10.Hyperlipidemia. 11.History of myocardial infarction. 12.History of degenerative joint disease. 13.History of chronic low back pain. 14.History of irritable bowel syndrome. 15.History of colitis. 16.History of back surgery. 17.History of bowel resection. 18.History of splenectomy. 19.History of hammertoes. 20.Depression. 21.FULL CODE. RECOMMENDATIONS AND DISCUSSION: Recommend to continue current medications, continue symptomatic treatment. Otherwise, will follow the cultures, stools for C difficile. I would also recommend infectious disease consultation with Dr. Giron also. Prognosis guarded. Further recommendations to follow. MMODL / IJN: [id number] /
--- NOTE | 2020-03-30 19:31 | CONS ---
CONSULTATION DATE OF DICTATION: March 30, 2020. REQUESTING PHYSICIAN: Dr. Antony. REASON FOR CONSULTATION: Nausea, vomiting and diarrhea for the last 3-4 days duration. HISTORY OF PRESENT ILLNESS: The patient is an 85-year-old pleasant white female with history of COPD, congestive heart failure, hypertension, hyperlipidemia, was recently discharged from [facility] where she was initially admitted with acute urinary tract infection and was treated with antibiotics. The patient states that she was in the hospital for almost 8 days and doing the later part of her hospitalization, it appears that she started having abdominal pain with diarrhea. She was sent home on vancomycin making it likely that she was diagnosed with C difficile colitis. Records not available at the time of this dictation, which were already requested. After she went home, she continued to have abdominal pain and persistent diarrhea and after 2 or 3 days, symptoms got much worse and now she started developing nausea, vomiting. She hence came back to the emergency room yesterday and had a CT of the abdomen and pelvis done that showed some thickening of the transverse colon consistent with acute colitis. The patient was started back on oral vancomycin 250 mg 4 times daily. This morning, she is feeling better. Abdominal pain has improved. Nausea and vomiting has resolved. She had no bowel movements today. However, prior to admission to the hospital, she was having about 4 or 5 loose watery bowel movements daily. No rectal bleeding. No fever, chills or night sweats. PAST MEDICAL HISTORY: Her past medical history is significant for COPD, congestive heart failure, hypertension, hyperlipidemia, history of asthma, nasal allergies, hypothyroidism, gastroesophageal reflux disease, anxiety and depression. MEDICATIONS: Medications at home include: Ultram, vitamin A, vitamin C, Synthroid, Protonix, MS Contin, Singulair, meloxicam, Iron, Celexa, Coreg, Symbicort, vitamin B complex, Lipitor, aspirin and Claritin and gabapentin. ALLERGIES: BENAZEPRIL. SOCIAL HISTORY: No smoking. No alcohol use. FAMILY HISTORY: Brother had COPD and asthma. REVIEW OF SYSTEMS: CARDIOPULMONARY: No chest pain or shortness of breath. MUSCULOSKELETAL unremarkable other than chronic severe back pain for which she takes narcotics at home. NEUROLOGY unremarkable. PSYCHIATRIC unremarkable. ENT/VISION: Unremarkable. CONSTITUTIONAL: Weight loss of about 5 pounds. No fever, chills, night sweats. GENITOURINARY: Recent UTI for which she was hospitalized at [facility] 1 week ago and was treated with antibiotics. PHYSICAL EXAMINATION: She appears comfortable. No apparent distress. Vital signs stable. Blood pressure is 155/64, pulse rate 64, temperature 98.2. HEENT examination unremarkable. Conjunctivae pink. Sclerae anicteric. Oral cavity no lesions. NECK: No JVD or lymph node enlargement. CHEST was clear to auscultation. HEART: Regular rate and rhythm. ABDOMEN: Soft. Bowel sounds are positive. No organomegaly. There was mild tenderness in the suprapubic area. EXTREMITIES: No pedal edema. NEUROLOGIC: Alert and oriented x3. No focal deficits. LABS: WBC 9.1, hemoglobin 12.2. Platelets normal. PT/INR is 1.2. Basic metabolic panel is within normal limits. AST/ALT and T-bilirubin and alkaline phosphatase are normal. Augustine virus PCR is negative. IMPRESSION: 1. Abdominal pain associated with nausea, vomiting, diarrhea for the last 4-5 days duration. The patient was just discharged from [facility] wherein she was admitted with urinary tract infection and treated with antibiotics and at the time of discharge from the hospital, she started having nausea, vomiting, and diarrhea and appears that she was diagnosed with C difficile colitis and was sent home on oral vancomycin. She took it for 2 days and continued to have symptoms and was readmitted to the hospital with the same symptoms. Repeat C difficile toxin was requested but pending. She started back on oral vancomycin and today her nausea, vomiting, and diarrhea has resolved. 2. History of congestive heart failure. 3. History of chronic obstructive pulmonary disease. 4. Longstanding history of gastroesophageal reflux disease. 5. History of hypertension and hyperlipidemia. RECOMMENDATIONS: 1. Continue with oral vancomycin 250 mg 4 times daily. 2. Await medical records from [facility]. 3. We will advance diet as tolerated. 4. Monitor labs closely. 5. Continue with symptomatic and supportive care. 6. We will follow with you closely. Thank you for this consultation. MMODL / IJN: [id number] /
[2020-03-30] MEDS ORDERED: LEVOFLOXACIN 500MG-D5W PMX 500 MG in DEXTROSE/WATER 1 100ML.BAG IVPB SCH (20:00)
[2020-03-30] MEDS: TEMAZEPAM 15 MG CAP PO PRN (20:46)
[2020-03-31] MEDS: HYDROmorphone 0.5 MG/0.5 ML SYRINGE IVP PRN ×4 (03:56→21:36)
[2020-03-31] MEDS: LEVOTHYROXINE 50 MCG TAB PO SCH (05:59)
--- NOTE | 2020-03-31 06:24 | CONS ---
CONSULTATION DATE OF SERVICE: 03/30/2020 REASON FOR CONSULTATION: Colitis. HISTORY OF PRESENT ILLNESS: The patient is an 85-year-old female who was recently admitted at [facility] where the patient was treated for urinary tract infection. Apparently, the patient did develop some diarrhea and has been discharged home on oral antibiotic. The patient was not sure about the name. The patient presented to the [facility] ER 3 days after discharge from [facility] with concern for nausea, vomiting and diarrhea with multiple loose stools. Patient denies any blood or mucus in the stool. Patient complaining of some crampy abdominal pain mostly diffuse 5 to 6/10 with no radiation. Also was complaining of some burning and frequency of urine. With these symptoms, the patient was evaluated by the ER physician. On arrival to the ER, the patient has been afebrile and no fever has been recorded. The patient did have a normal white count. Liver enzymes have been normal. Urine has been negative. Augustine PCR was negative. The patient did have a CT of abdomen and pelvis with mild thickening of the transverse colon, exam, could be nonspecific colitis. Some diverticulosis with no diverticulitis. Patient was given Levaquin, Flagyl, subsequent antibiotic has been adjusted to oral vancomycin. Infectious Disease was consulted with concern for colitis. The patient is not a very good historian. Most of the information has been extruded from review of the chart. REVIEW OF SYSTEMS: Positive points have been mentioned in HPI. Rest of the systems are negative. PAST MEDICAL HISTORY: Coronary artery disease, COPD, gastroesophageal reflux disease, hypertension, hyperlipidemia, AR, hypothyroidism, UTI, possible C difficile. PAST SURGICAL HISTORY: Neck surgery, bowel resection, hernia repair, joint replacement. SOCIAL HISTORY: Remote history of smoking. Occasionally drinks. No drug use. FAMILY HISTORY: Mother with history of COPD. ALLERGIES: BENAZEPRIL. MEDICATIONS: the patient is currently on Tylenol, Ventolin, Eliquis, Coreg, vitamin D3, Celexa, iron sulfate, Dilaudid, Synthroid, Ativan, Singulair, Theragran, Protonix, vancomycin 250 p.o. q.6 hours. PHYSICAL EXAMINATION: Her blood pressure 115/45 with a pulse of 87, temperature 98.4, she is 93% on room air. General description is an elderly female lying in bed in no distress. No tachypnea or accessory muscle of respiration use. HEENT examination showed no pallor. Slight pallor. No scleral icterus. Oral mucous membrane is dry. Neck trachea is central, no thyromegaly. Lungs: Unlabored breathing, clear to auscultation anteriorly. Heart S1, S2. Regular rate and rhythm. Abdomen is soft, no tenderness, no guarding, no rigidity. Extremities: No edema of the feet. Skin examination no rash or mass palpable. Neurologically the patient is awake, alert, oriented. Mood and affect normal. LABS: Hemoglobin is 10.2, white count of 5.7, BUN of 7, creatinine 0.7. Urine is negative. CT report as mentioned above. DIAGNOSTIC IMPRESSION: 1. Patient admitted to the hospital with abdominal pain, nausea, vomiting and diarrhea in this patient who has been recently to the other facility with urinary tract infection and possible C diff. High clinical suspicion for C difficile colitis versus ischemic colitis involving mostly the transverse colon. 2. Patient complained of some urinary symptoms, however, urinalysis has been negative. PLAN: 1. We will check a stool for C difficile. 2. Continue the vancomycin 250 p.o. q.6 hours. 3. We will follow on clinical condition and further adjust medication if needed. Thank you for this consultation. Will follow this patient along with you. MMODL / IJN: [id number] /
[2020-03-31] MEDS: PANTOPRAZOLE 40 MG/10 ML VIAL IV SCH (08:19)
[2020-03-31] MEDS: FERROUS SULFATE 325 MG TAB PO SCH (08:19)
[2020-03-31] MEDS: carvediloL 12.5 MG TAB PO SCH ×2 (08:20→17:07)
[2020-03-31] MEDS: ISOSORBIDE MONONITRATE ER 30 MG TAB.ER.24H PO SCH (08:20)
[2020-03-31] MEDS: MONTELUKAST 10 MG TAB PO SCH (08:20)
[2020-03-31] MEDS: CITALOPRAM HYDROBROMIDE 20 MG TAB PO SCH (08:20)
[2020-03-31] MEDS: MORPHINE SULFATE ER 15 MG TABLET PO SCH ×2 (08:20→20:23)
[2020-03-31] MEDS: CHOLECALCIFEROL 25 MCG (1000 IU) TABLET PO SCH (08:20)
[2020-03-31] MEDS: APIXABAN 2.5 MG TABLET PO SCH ×2 (08:20→20:23)
[2020-03-31] MEDS: Memantine Hcl/Donepezil Hcl [Namzaric 28 Mg-10 Mg Capsule] PO SCH (08:21)
[2020-03-31] MEDS: VANCOMYCIN 125 MG CAPSULE PO SCH ×4 (08:21→21:36)
[2020-03-31] MEDS: CALCIUM CARBONATE 500 MG CHEWABLE PO SCH (08:21)
[2020-03-31] MEDS: MULTIVITAMINS, THERA 1 EACH TAB PO SCH (08:26)
[2020-03-31 09:21] LABS: Basophils # (A) 0.04 X 10*3/uL (0.00-0.10); Basophils % (A) 0.6 %; Eosinophils % (A) 4.2 %; HCT 30.6 % (37.2-46.3); Lymphocytes # (A) 2.89 X 10*3/uL (0.90-5.00); MCH 33.6 pg (27.0-32.0); MCHC 32.7 g/dL (32.0-37.0); MCV 102.7 fL (80.0-97.0); Monocytes # (A) 0.64 X 10*3/uL (0.20-1.00); Monocytes % (A) 8.9 %; Neutrophils # (A) 3.33 X 10*3/uL (1.80-7.70); Platelet Count 218 X 10*3/uL (140-440); RBC 2.98 X 10*6/uL (4.10-5.20); RDW 16.8 % (11.5-14.5); WBC 7.22 X 10*3/uL (4.50-10.00)
--- NOTE | 2020-03-31 09:33 | P.PN ---
Subjective Progress Note Date: 03/31/20 Principal diagnosis: Nausea, vomiting, diarrhea 85-year-old female who was readmitted to the hospital after being treated [facility] for a urinary tract infection and developing Clostridium difficile toxin infection. The patient was discharged home with vancomycin, however returned to [facility] for abdominal pain, diarrhea, nausea, and vomiting. The patient had no further episodes of nausea, vomiting, or diarrhea since yesterday. Records for review from [facility] which did state she was positive for C. diff toxin infection and treated with vancomycin. Today the patient is seen and evaluated lying in bed, she states she has no abdominal pain, nausea, vomiting, or diarrhea. She is tolerating a regular diet. She continues to be on vancomycin. Infectious diseases consultation and has seen patient as well. Objective - Vital Signs Vital signs: Vital Signs Temp 97.8 F 03/31/20 08:18 Pulse 55 L 03/31/20 08:18 Resp 14 03/31/20 08:18 BP 172/72 03/31/20 08:18 Pulse Ox 94 L 03/31/20 08:18 Intake & Output 03/30/20 03/31/20 03/31/20 18:59 06:59 18:59 Intake Total 500 425 Balance 500 425 Intake: Oral 500 425 Other: Voiding Method Diaper Diaper Incontinent Incontinent # Voids 3 2 1 - Exam General appearance: The patient is alert, oriented, appears in no acute distress. HET: Head is normocephalic and atraumatic. Conjunctiva pink. Sclera anicteric. Neck: Supple without lymphadenopathy. Abdomen: Soft, nontender, nondistended with bowel sounds. No guarding or rigidity. Extremities: Normal skin color and turgor. No pedal edema Neurological: No focal deficits. Alert and oriented 3. - Labs CBC & Chem 7: 03/31/20 04:45 03/31/20 04:45 Labs: Abnormal Lab Results - Last 24 Hours (Table) 03/31/20 03/31/20 Range/Units 04:45 04:45 RBC 2.98 L (4.10-5.20) X 10*6/uL Hgb 10.0 L (12.0-15.0) g/dL Hct 30.6 L (37.2-46.3) % MCV 102.7 H (80.0-97.0) fL MCH 33.6 H (27.0-32.0) pg RDW 16.8 H (11.5-14.5) % Plasma Lactic Acid Marin 0.6 L (0.7-2.0) mmol/L Microbiology - Last 24 Hours (Table) 03/29/20 18:22 Blood Culture - Preliminary Blood No Growth after 24 hours Assessment and Plan (1) Nausea and vomiting Narrative/Plan: Technique a 5-year-old female who came in with complaints of abdominal pain associated with nausea, vomiting, and diarrhea for the last 4-5 days duration. The patient was just discharged from the [facility] where she was admitted with urinary tract infection and treated with antibiotics. At the time of discharge from the hospital she was starting to have nausea vomiting and diar wilmer. She was diagnosed with C. difficile colitis and was sent home on oral vancomycin. She took it for 2 days and continued to have symptoms and was readmitted to the hospital for nausea, vomiting and diarrhea. She was started back on her oral vancomycin and has had no further episodes of nausea vomiting or diarrhea since hospitalized. Current Visit: Yes Status: Acute Code(s): R11.2 - NAUSEA WITH VOMITING, UNSPECIFIED SNOMED Code(s): 82825525 (2) Diarrhea Current Visit: Yes Status: Acute Code(s): R19.7 - DIARRHEA, UNSPECIFIED SNOMED Code(s): 09290277 (3) Abdominal pain Current Visit: No Status: Acute Code(s): R10.9 - UNSPECIFIED ABDOMINAL PAIN SNOMED Code(s): 94774227 (4) Colitis Current Visit: Yes Status: Acute Code(s): K52.9 - NONINFECTIVE GASTROENTERITIS AND COLITIS, UNSPECIFIED SNOMED Code(s): 67497374 (5) GERD (gastroesophageal reflux disease) Current Visit: Yes Status: Acute Code(s): K21.9 - GASTRO-ESOPHAGEAL REFLUX DISEASE WITHOUT ESOPHAGITIS SNOMED Code(s): 138505685 (6) History of COPD Current Visit: Yes Status: Acute Code(s): Z87.09 - PERSONAL HISTORY OF OTHER DISEASES OF THE RESPIRATORY SYSTEM SNOMED Code(s): 788163135 Plan: 1. Continue supportive care 2. Continue vancomycin and 50 mg 4 times daily as ordered 3. Diet as tolerated 4. C. diff ordered, uncollected 5. No plans for endoscopies this admission 6. Recommend outpatient follow-up 7. Patient may be discharged home on oral vancomycin from gastroenterology standpoint once medically stable Dr. Javier Brooks I agree with the dictator's note, documented as a scribe by Shelbie Simpson.
[2020-03-31 09:54] LABS: Albumin 3.2 g/dL (3.80-4.90); Albumin/Globulin Ratio 1.6 (1.60-3.17); Anion Gap 5.7 mmol/L (4.00-12.00); BUN/Creat Ratio 11.67 Ratio (12.00-20.00); C Reactive Protein 0.6 mg/dL (0.0-0.8); Calcium 8.4 mg/dL (8.7-10.3); Carbon Dioxide 28.3 mmol/L (21.6-31.8); Potassium 3.8 mmol/L (3.5-5.5); Total Bilirubin 0.4 mg/dL (0.3-1.2); Total Protein 5.2 g/dL (6.2-8.2)
--- NOTE | 2020-03-31 13:58 | P.PN ---
Subjective Progress Note Date: 03/31/20 HISTORY OF PRESENT ILLNESS This is an 85-year-old female patient treated for colitis on oral vancomycin. Patient is seen today eating a regular diet. She denies any nausea or vomiting. She states the diarrhea is completely gone. She denies having any abdominal pain. Stool for C. difficile toxin and stool studies are uncollected. Patient has been afebrile, heart rate 55, blood pressure 172/72, pulse ox 94% on room air. WBC 7.22, hemoglobin 10, creatinine 0.6. PHYSICAL EXAMINATION Gen: This is an 85-year-old thin female. She is sitting up in a recliner and eating lunch. No acute distress. HEENT: Head is atraumatic, normocephalic. Pupils equal, round. Sclerae is anicteric. NECK: Supple. No JVD. No lymphadenopathy. LUNGS: Clear to auscultation. No wheezes or rhonchi. No intercostal retractions. HEART: Regular rate and rhythm. ABDOMEN: Soft. Bowel sounds are present. No masses. No tenderness. EXTREMITIES: No pedal edema. No calf tenderness. NEUROLOGICAL: Patient is awake, alert. ASSESSMENT Acute colitis PLAN Continue oral vancomycin for 7-10 days Continue supportive care The above dictated assessment and findings were discussed with Dr. Giron. The impression and plan of care have been directed as dictated. Lola Manzanares nurse practitioner acting as scribe for Dr. Giron. Objective - Vital Signs Vital signs: Vital Signs Temp 97.8 F 03/31/20 08:18 Pulse 55 L 03/31/20 08:18 Resp 14 03/31/20 08:18 BP 172/72 03/31/20 08:18 Pulse Ox 94 L 03/31/20 08:18 Intake & Output 03/30/20 03/31/20 03/31/20 18:59 06:59 18:59 Intake Total 500 425 Balance 500 425 Intake: Oral 500 425 Other: Voiding Method Diaper Diaper Diaper Incontinent Incontinent Incontinent # Voids 3 2 1 - Labs CBC & Chem 7: 03/31/20 04:45 03/31/20 04:45 Labs: Abnormal Lab Results - Last 24 Hours (Table) 03/31/20 03/31/20 03/31/20 Range/Units 04:45 04:45 04:45 RBC 2.98 L (4.10-5.20) X 10*6/uL Hgb 10.0 L (12.0-15.0) g/dL Hct 30.6 L (37.2-46.3) % MCV 102.7 H (80.0-97.0) fL MCH 33.6 H (27.0-32.0) pg RDW 16.8 H (11.5-14.5) % BUN 7.0 L (9.0-27.0) mg/dL BUN/Creatinine Ratio 11.67 L (12.00-20.00) Ratio Plasma Lactic Acid Marin 0.6 L (0.7-2.0) mmol/L Calcium 8.4 L (8.7-10.3) mg/dL Total Protein 5.2 L (6.2-8.2) g/dL Albumin 3.20 L (3.80-4.90) g/dL Microbiology - Last 24 Hours (Table) 03/29/20 18:22 Blood Culture - Preliminary Blood No Growth after 24 hours
--- NOTE | 2020-03-31 14:31 | P.PN ---
Subjective Progress Note Date: 03/31/20 CHIEF COMPLAINT: Abdominal pain HISTORY OF PRESENT ILLNESS: Patient had recently been hospitalized at [facility] and treated for C. diff colitis. Patient reports that her abdominal pain has improved. She is no longer having diarrhea. She is tolerating diet. She's afebrile. WBC 7.2 hemoglobin 10 PHYSICAL EXAM: VITAL SIGNS: Reviewed. GENERAL: Well-developed in no acute distress. HEENT: No sclera icterus. Extraocular movements grossly intact. Moist buccal mucosa. Head is atraumatic, normocephalic. ABDOMEN: Soft. Nondistended. Nontender. NEUROLOGIC: Alert and oriented. Cranial nerves II through XII grossly intact. ASSESSMENT: 1. Abdominal pain with diarrhea possibly this due to colitis 2. History of chronic abdominal pain PLAN: -Continue supportive care -No surgical intervention planned Physician Dumper Bailer Operator note has been reviewed by physician. Signing provider agrees with the documented findings, assessment, and plan of care. Objective - Vital Signs Vital signs: Vital Signs Temp 97.8 F 03/31/20 08:18 Pulse 55 L 03/31/20 08:18 Resp 14 03/31/20 08:18 BP 172/72 03/31/20 08:18 Pulse Ox 94 L 03/31/20 08:18 Intake & Output 03/30/20 03/31/20 03/31/20 18:59 06:59 18:59 Intake Total 500 425 Balance 500 425 Intake: Oral 500 425 Other: Voiding Method Diaper Diaper Diaper Incontinent Incontinent Incontinent # Voids 3 2 1 - Labs CBC & Chem 7: 03/31/20 04:45 03/31/20 04:45 Labs: Abnormal Lab Results - Last 24 Hours (Table) 03/31/20 03/31/20 03/31/20 Range/Units 04:45 04:45 04:45 RBC 2.98 L (4.10-5.20) X 10*6/uL Hgb 10.0 L (12.0-15.0) g/dL Hct 30.6 L (37.2-46.3) % MCV 102.7 H (80.0-97.0) fL MCH 33.6 H (27.0-32.0) pg RDW 16.8 H (11.5-14.5) % BUN 7.0 L (9.0-27.0) mg/dL BUN/Creatinine Ratio 11.67 L (12.00-20.00) Ratio Plasma Lactic Acid Marin 0.6 L (0.7-2.0) mmol/L Calcium 8.4 L (8.7-10.3) mg/dL Total Protein 5.2 L (6.2-8.2) g/dL Albumin 3.20 L (3.80-4.90) g/dL Microbiology - Last 24 Hours (Table) 03/29/20 18:22 Blood Culture - Preliminary Blood No Growth after 24 hours
--- NOTE | 2020-03-31 17:49 | PN ---
PROGRESS NOTE DATE OF SERVICE: 03/31/2020 This 85-year-old woman was admitted with abdominal pain and had features of colitis. The patient was recently admitted up to 8 days in [facility]. Patient was seen by Surgery as well as Infectious Disease. The possibility of C difficile versus ischemic colitis is being considered. The patient was started on vancomycin [address] scan of abdomen and pelvis was reviewed. Past medical history reviewed. REVIEW OF SYSTEM: CARDIOVASCULAR SYSTEM: No angina, palpitations. RESPIRATORY SYSTEM: As mentioned earlier. GI: As mentioned earlier. : No dysuria or retention. NERVOUS SYSTEM: No numbness, weakness. CURRENT MEDICATIONS: Reviewed. They include Tylenol, Ventolin, Eliquis, Tums, Coreg, vitamin D3, Celexa, iron sulfate, Dilaudid, Imdur, Synthroid. PHYSICAL EXAMINATION: Patient is alert, oriented x2. Pulse 55, blood pressure 172/72, respiration 14, temperature 97.8, pulse ox 94% on room air. HEENT: Conjunctivae normal. NECK: No jugular venous distention. CARDIOVASCULAR SYSTEM: S1, S2 muffled. RESPIRATORY SYSTEM: Breath sounds diminished at the bases. A few scattered rhonchi. ABDOMEN: Soft. Mild diffuse discomfort on palpation. NERVOUS SYSTEM: No focal deficits. LABS: Labs at this time show WBC 7.2, hemoglobin is 10. Otherwise, BUN is 7, total protein is 5.2. UA noted. COVID-19 is negative. Cultures are negative. ASSESSMENT: 1. Abdominal pain, nausea, vomiting, diarrhea; possibly acute transverse colitis with failure of outpatient treatment; possible acute Clostridium difficile colitis. 2. Hyponatremia. 3. Increased mean corpuscular volume. 4. History of asthma. 5. History of congestive heart failure; ejection fraction unknown. 6. Chronic obstructive pulmonary disease. 7. History of gastroesophageal reflux disease. 8. Hypertension. 9. Hyperlipidemia. 10.History of myocardial infarction. 11.History of degenerative joint disease. 12.History of chronic low back pain. 13.History of irritable bowel syndrome. 14.History of colitis. 15.History of back surgery. 16.History of bowel resection. 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 18.History of hammertoes. 19.Depression. 20.FULL CODE. RECOMMENDATIONS AND DISCUSSION: I recommend to continue current medications, continue with the monitoring, symptomatic treatment. Otherwise at this time I would recommend continuing with anticoagulants. Continue with vancomycin orally. Infectious disease input appreciated. Guarded prognosis. PT/OT evaluation. Further recommendations to follow. Symptomatic treatment also will be ordered. See orders for details. MMODL / IJN: [id number] /
[2020-03-31] MEDS: TEMAZEPAM 15 MG CAP PO PRN (20:23)
[2020-04-01] MEDS: HYDROmorphone 0.5 MG/0.5 ML SYRINGE IVP PRN ×5 (01:48→17:03)
[2020-04-01] MEDS: LEVOTHYROXINE 50 MCG TAB PO SCH (05:53)
[2020-04-01] MEDS: FERROUS SULFATE 325 MG TAB PO SCH (08:08)
[2020-04-01] MEDS: MORPHINE SULFATE ER 15 MG TABLET PO SCH (08:08)
[2020-04-01] MEDS: ISOSORBIDE MONONITRATE ER 30 MG TAB.ER.24H PO SCH (08:08)
[2020-04-01] MEDS: PANTOPRAZOLE 40 MG/10 ML VIAL IV SCH (08:09)
[2020-04-01] MEDS: MONTELUKAST 10 MG TAB PO SCH (08:09)
[2020-04-01] MEDS: APIXABAN 2.5 MG TABLET PO SCH (08:09)
[2020-04-01] MEDS: CALCIUM CARBONATE 500 MG CHEWABLE PO SCH (08:09)
[2020-04-01] MEDS: CHOLECALCIFEROL 25 MCG (1000 IU) TABLET PO SCH (08:09)
[2020-04-01] MEDS: carvediloL 12.5 MG TAB PO SCH ×2 (08:09→17:04)
[2020-04-01] MEDS: VANCOMYCIN 125 MG CAPSULE PO SCH ×2 (08:09→13:08)
[2020-04-01] MEDS: MULTIVITAMINS, THERA 1 EACH TAB PO SCH (08:09)
[2020-04-01] MEDS: CITALOPRAM HYDROBROMIDE 20 MG TAB PO SCH (08:09)
[2020-04-01] MEDS: Memantine Hcl/Donepezil Hcl [Namzaric 28 Mg-10 Mg Capsule] PO SCH (08:10)
[2020-04-01 09:12] LABS: Basophils # (A) 0.04 X 10*3/uL (0.00-0.10); Basophils % (A) 0.5 %; Eosinophils # (A) 0.42 X 10*3/uL (0.04-0.35); HGB 10.7 g/dL (12.0-15.0); Lymphocytes # (A) 3.22 X 10*3/uL (0.90-5.00); Lymphocytes % (A) 38.2 %; MCH 34.2 pg (27.0-32.0); MCHC 33.4 g/dL (32.0-37.0); MCV 102.2 fL (80.0-97.0); Mean Platelet Volume 11.8 fL (9.5-12.2); Monocytes # (A) 0.85 X 10*3/uL (0.20-1.00); Monocytes % (A) 10.1 %; Neutrophils # (A) 3.89 X 10*3/uL (1.80-7.70); Platelet Count 234 X 10*3/uL (140-440); RBC 3.13 X 10*6/uL (4.10-5.20); RDW 16.8 % (11.5-14.5); WBC 8.44 X 10*3/uL (4.50-10.00)
[2020-04-01 09:41] LABS: African American GFR (CKD) 90.3 (60.0-200.0); Anion Gap 6.6 mmol/L (4.00-12.00); BUN/Creat Ratio 15.71 Ratio (12.00-20.00); Calcium 8.7 mg/dL (8.7-10.3); Carbon Dioxide 29.4 mmol/L (21.6-31.8); Non-African American GFR(CKD) 77.9 (60.0-200.0)
--- NOTE | 2020-04-01 09:53 | P.PN ---
Subjective Progress Note Date: 04/01/20 HISTORY OF PRESENT ILLNESS This is an 85-year-old female patient treated for colitis on oral vancomycin. Patient denies diarrhea but states that she is a little sore in the lower abdomen. She denies any nausea or vomiting. She denies cough, shortness of breath or sputum production. Her nurse states that she had 2 bowel movements last evening that were soft formed stools. Patient is complaining of her tongue feeling sore for which nystatin started. C. difficile toxin was negative. Stool for occult blood negative. Patient has been afebrile, heart rate 57, blood pressure 181/77, pulse ox 93% on room air. PHYSICAL EXAMINATION Gen: This is an 85-year-old thin female. She is sitting up in a recliner and eating lunch. No acute distress. HEENT: Head is atraumatic, normocephalic. Pupils equal, round. Sclerae is anicteric. NECK: Supple. No JVD. No lymphadenopathy. LUNGS: Clear to auscultation. No wheezes or rhonchi. No intercostal retractions. HEART: Regular rate and rhythm. ABDOMEN: Soft. Bowel sounds are present. No masses. No tenderness. EXTREMITIES: No pedal edema. No calf tenderness. NEUROLOGICAL: Patient is awake, alert. ASSESSMENT Acute colitis PLAN Continue oral vancomycin for 7 days, prescription has been sent to her pharmacy Continue supportive care The above dictated assessment and findings were discussed with Dr. Giron. The impression and plan of care have been directed as dictated. Lola Manzanares nurse practitioner acting as scribe for Dr. Giron. Objective - Vital Signs Vital signs: Vital Signs Temp 98.3 F 04/01/20 08:00 Pulse 57 L 04/01/20 08:00 Resp 17 04/01/20 08:00 BP 181/77 04/01/20 08:00 Pulse Ox 93 L 04/01/20 08:00 Intake & Output 03/31/20 04/01/20 04/01/20 18:59 06:59 18:59 Intake Total 897 Balance 897 Intake: Oral 897 Other: Voiding Method Diaper Diaper Diaper Incontinent Incontinent Incontinent # Voids 1 2 # Bowel Movements 1 - Labs CBC & Chem 7: 04/01/20 04:52 04/01/20 04:52 Labs: Abnormal Lab Results - Last 24 Hours (Table) 03/31/20 04/01/20 Range/Units 04:45 04:52 RBC 3.13 L (4.10-5.20) X 10*6/uL Hgb 10.7 L (12.0-15.0) g/dL Hct 32.0 L (37.2-46.3) % MCV 102.2 H (80.0-97.0) fL MCH 34.2 H (27.0-32.0) pg RDW 16.8 H (11.5-14.5) % Eosinophils # 0.42 H (0.04-0.35) X 10*3/uL BUN 7.0 L (9.0-27.0) mg/dL BUN/Creatinine Ratio 11.67 L (12.00-20.00) Ratio Calcium 8.4 L (8.7-10.3) mg/dL Total Protein 5.2 L (6.2-8.2) g/dL Albumin 3.20 L (3.80-4.90) g/dL Microbiology - Last 24 Hours (Table) 03/29/20 18:22 Blood Culture - Preliminary Blood No Growth after 48 hours
[2020-04-01] MEDS: NYSTATIN 100,000 UNIT/ML SUSP 500,000 UNIT/5 ML CUP PO SCH ×2 (10:10→13:08)
[2020-04-01 14:01] VITALS: BP 133/59; PULSE 58; RESP 16; TEMP 98
--- NOTE | 2020-04-01 16:31 | P.PN ---
Progress Note - Text Progress Note Date: 04/01/20 Patient states she feels better. Her abdominal pain is improved. She is tolerating diet. On exam vital signs are stable. Abdomen soft. Resolving UTI/found for his. Patient to receive supportive care.
--- NOTE | 2020-04-01 23:23 | P.DS ---
Providers Date of admission: 03/31/20 12:40 Expected date of discharge: 04/01/20 Attending physician: Jose Angel Zuleta Consults: 03/30/20 14:48 Consult Physician Routine Consulting Provider: Beverley Giron Consult Reason/Comments: colitis? Do you want consulting provider notified?: Yes [facility]: Presenting complaint: Nausea vomiting diarrhea abdominal pain. History of presenting complaint: Patient initially presented with nausea vomiting diarrhea abdominal pain. She stated she was at [facility] for 8 days with discharge 4 days ago. She was diagnosed with UTI and C. diff colitis at [facility].. Patient was discharged on vancomycin. Patient was started on vancomycin. Computed tomography scan of the abdomen showed some wall thickening of the transverse colon. No diverticulitis. Patient tested negative for C. diff here. Today-patient doing well. Oral intake 100%. Mild abdominal discomfort. No further diarrhea. No fever. 7 more days of vancomycin per ID. Care was discussed with the patient. Consultation: Dr. Giron from ID Dr. Javier Brooks from GI On examination: VITAL SIGNS: 98.3, 57, 17, 102/50, 93% on room air GENERAL APPEARANCE: Laying in bed, comfortable. HEENT: Normal external appearance of nose and ear. Oral cavity normal EYES: Pupils equal. Conjunctiva normal. NECK: JVD unable to assess. Mass not palpable. RESPIRATORY: Respiratory effort normal. Lungs decreased breath sounds CARDIOVASCULAR: First and second sounds normal. No edema. ABDOMEN: Soft. Liver and spleen not palpable. Minimal tenderness. No mass palpable. PSYCHIATRY: Alert and oriented x3. Mood and affect normal. Investigations: White count 8.4 hemoglobin 10.7 platelets 234 potassium 4 creatinine 0.7 Stool occult blood negative Coronavirus [PCR]-not detected Computed tomography scan of the abdomen pelvis-thickening of the transverse colon, colonic diverticulosis Assessment: -Acute C. diff transverse colitis -COPD -GERD -Essential hypertension -Hyperlipidemia -Primary osteoarthritis -Hypothyroid -Legally blind due to macular degeneration -Peptic ulcer disease -Hiatal hernia -Chronic diverticulosis -Irritable bowel syndrome -Chronic sarcoidosis -History of Splenectomy Plan: Disposition home. Patient Condition at Discharge: Stable Plan - Discharge Summary Discharge Rx Participant: No New Discharge Prescriptions: New Vancomycin 250 mg PO QID #28 capsule Nystatin 100,000 Unit/ml Susp [Mycostatin Oral Susp] 500,000 unit PO QID ml Continue Isosorbide Mononitrate ER [Imdur] 30 mg PO DAILY #30 tab.er.24h Ferrous Sulfate [Feosol] 325 mg PO DAILY Carvedilol [Coreg] 25 mg PO BID Albuterol Sulfate [Ventolin HFA] 2 puff INHALATION RT-Q6H PRN PRN Reason: Shortness Of Breath Pantoprazole Sodium [Protonix] 20 mg PO DAILY Multivitamins, Thera [Multivitamin (formulary)] 1 tab PO DAILY Cholecalciferol [Vitamin D3 (25 Mcg = 1000 Iu)] 25 mcg PO DAILY Calcium Carbonate [Calcium] 600 mg PO DAILY Montelukast [Singulair] 10 mg PO DAILY Memantine HCl/Donepezil HCl [Namzaric 28 mg-10 mg Capsule] 1 cap PO DAILY Levothyroxine Sodium [Synthroid] 125 mcg PO SUTUWEFRSA Levothyroxine Sodium [Synthroid] 100 mcg PO MOTH Citalopram Hydrobromide [CeleXA] 20 mg PO DAILY Apixaban [Eliquis] 2.5 mg PO BID Morphine Sulfate ER [Ms Contin] 15 mg PO Q12HR #6 tab HYDROcodone/APAP 5-325MG [[place] 5-325] 1 tab PO BID #6 tab Discontinued Vancomycin HCl [Vancocin HCl] 250 mg PO QID Discharge Medication List Isosorbide Mononitrate ER [Imdur] 30 mg PO DAILY #30 tab.er.24h 01/08/18 [Rx] Carvedilol [Coreg] 25 mg PO BID 04/12/18 [History] Ferrous Sulfate [Feosol] 325 mg PO DAILY 04/12/18 [History] Albuterol Sulfate [Ventolin HFA] 2 puff INHALATION RT-Q6H PRN 10/07/19 [History] Pantoprazole Sodium [Protonix] 20 mg PO DAILY 10/07/19 [History] Apixaban [Eliquis] 2.5 mg PO BID 03/29/20 [History] Calcium Carbonate [Calcium] 600 mg PO DAILY 03/29/20 [History] Cholecalciferol [Vitamin D3 (25 Mcg = 1000 Iu)] 25 mcg PO DAILY 03/29/20 [History] Citalopram Hydrobromide [CeleXA] 20 mg PO DAILY 03/29/20 [History] Levothyroxine Sodium [Synthroid] 100 mcg PO MOTH 03/29/20 [History] Levothyroxine Sodium [Synthroid] 125 mcg PO SUTUWEFRSA 03/29/20 [History] Memantine HCl/Donepezil HCl [Namzaric 28 mg-10 mg Capsule] 1 cap PO DAILY 03/29/20 [History] Montelukast [Singulair] 10 mg PO DAILY 03/29/20 [History] Multivitamins, Thera [Multivitamin (formulary)] 1 tab PO DAILY 03/29/20 [History] HYDROcodone/APAP 5-325MG [[place] 5-325] 1 tab PO BID #6 tab 04/01/20 [Rx] Morphine Sulfate ER [Ms Contin] 15 mg PO Q12HR #6 tab 04/01/20 [Rx] Nystatin 100,000 Unit/ml Susp [Mycostatin Oral Susp] 500,000 unit PO QID ml 04/01/20 [Rx] Vancomycin 250 mg PO QID #28 capsule 04/01/20 [Rx] Follow up Appointment(s)/Referral(s): Dean Antony MD [Primary Care Provider] - 1-2 days [facility] Visiting Nurse, [NON-STAFF] - 1-2 Days Patient Instructions/Handouts: Acute Nausea and Vomiting (DC)
== END 2020-04-01 17:36 | disposition home health service (06) | DRG 372 ==
LOC: EC 17:02 → 6NMEDSUR 19:10 → OBSVTOIN 03-31 12:40
PROVIDERS: ADMIT Hospitalist; ATTEND Hospitalist
DX: A04.72 Enterocolitis due to Clostridium difficile, not specified as recurrent (principal); E87.1 Hypo-osmolality and hyponatremia; J98.11 Atelectasis; D86.9 Sarcoidosis, unspecified; E03.9 Hypothyroidism, unspecified; E78.5 Hyperlipidemia, unspecified; E86.0 Dehydration; F32.9 Major depressive disorder, single episode, unspecified; G89.29 Other chronic pain; H35.30 Unspecified macular degeneration; H54.8 Legal blindness, as defined in USA; I11.0 Hypertensive heart disease with heart failure; I25.10 Atherosclerotic heart disease of native coronary artery without angina pectoris; I25.2 Old myocardial infarction; I50.9 Heart failure, unspecified; J44.9 Chronic obstructive pulmonary disease, unspecified; K21.9 Gastro-esophageal reflux disease without esophagitis; K44.9 Diaphragmatic hernia without obstruction or gangrene; K57.90 Diverticulosis of intestine, part unspecified, without perforation or abscess without bleeding; K58.9 Irritable bowel syndrome, unspecified; M19.91 Primary osteoarthritis, unspecified site; Z20.822 Contact with and (suspected) exposure to COVID-19; Z87.440 Personal history of urinary (tract) infections; Z79.01 Long term (current) use of anticoagulants; Z79.1 Long term (current) use of non-steroidal anti-inflammatories (NSAID); Z79.51 Long term (current) use of inhaled steroids; Z79.82 Long term (current) use of aspirin; Z79.890 Hormone replacement therapy; Z79.899 Other long term (current) drug therapy; Z82.5 Family history of asthma and other chronic lower respiratory diseases; Z80.9 Family history of malignant neoplasm, unspecified; Z87.11 Personal history of peptic ulcer disease; Z87.891 Personal history of nicotine dependence; Z90.49 Acquired absence of other specified parts of digestive tract; Z90.81 Acquired absence of spleen; Z98.42 Cataract extraction status, left eye; Z98.41 Cataract extraction status, right eye; Z96.653 Presence of artificial knee joint, bilateral; Z96.643 Presence of artificial hip joint, bilateral; Z88.8 Allergy status to other drugs, medicaments and biological substances; M54.5 Low back pain
CPT/HCPCS: 36415; 74177; 80048; 80053; 81003; 82272; 83605; 83615; 83630; 83690; 84484; 85025; 85610; 85730; 86140; 87040; 87045; 87046; 87324; 87635; 93005; 96361; 96365; 96374; 96375; 99285

== ENCOUNTER 2020-05-22 10:49 | Emergency (ER) | payer MEDICARE, OTHER ==
[2020-05-22] MEDS ORDERED: MORPHINE SULFATE 2 MG/ML SYRINGE IVP STA (11:05)
[2020-05-22] MEDS ORDERED: SODIUM CHLORIDE 0.9% 1,000 ML IV STA ×2 (11:05→15:24)
[2020-05-22] MEDS ORDERED: ONDANSETRON 4 MG/2 ML VIAL IVP STA (11:05)
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
[2020-05-22 12:07] LABS: Partial Thromboplastin Time 23.7 sec (22.0-30.0); Prothrombin Time 10.7 sec (9.0-12.0)
--- NOTE | 2020-05-22 12:09 | XR ---
EXAMINATION TYPE: XR chest 2V DATE OF EXAM: 05/22/2020 COMPARISON: October 07, 2019 HISTORY: Shortness of breath TECHNIQUE: Frontal and lateral views of the chest are obtained. FINDINGS: Scattered senescent parenchymal changes noted. Hyperinflation compatible with COPD. No evidence for infiltrate. No evidence for atelectasis. Heart size is stable. Mediastinal structures are stable and grossly unremarkable. No evidence for hilar prominence. Degenerative changes dorsal spine. IMPRESSION: 1. No evidence for acute pulmonary disease.
[2020-05-22 12:11] LABS: ALT 9 U/L (4-34); AST 20 U/L (14-36); African American GFR (CKD) >90 (>60 ml/min/1.73 sqM); Albumin 3.5 g/dL (3.5-5.0); Alkaline Phosphatase 77 U/L (38-126); Anion Gap 7 mmol/L; Blood Urea Nitrogen 9 mg/dL (7-17); Calcium 9.3 mg/dL (8.4-10.2); Carbon Dioxide 27 mmol/L (22-30); Chloride 104 mmol/L (98-107); Glucose 94 mg/dL (74-99); Magnesium 1.4 mg/dL (1.6-2.3); Non-African American GFR(CKD) 82 (>60 ml/min/1.73 sqM); Potassium 3.9 mmol/L (3.5-5.1); Sodium 138 mmol/L (137-145); Total Bilirubin 0.8 mg/dL (0.2-1.3); Total Protein 6.5 g/dL (6.3-8.2)
[2020-05-22 12:31] LABS: Basophils % (A) 1 %; Eosinophils # (A) 0.2 k/uL (0-0.7); Eosinophils % (A) 3 %; HCT 35.5 % (34.0-46.0); HGB 11.7 gm/dL (11.4-16.0); Lymphocytes % (A) 36 %; MCHC 32.9 g/dL (31.0-37.0); MCV 103.3 fL (80.0-100.0); Macrocytosis Slight; Mean Platelet Volume 7.9; Monocytes # (A) 0.3 k/uL (0-1.0); Monocytes % (A) 5 %; Neutrophils # (A) 2.9 k/uL (1.3-7.7); Neutrophils % (A) 52 %; Platelet Count 243 k/uL (150-450); RBC 3.44 m/uL (3.80-5.40); RDW 13.3 % (11.5-15.5); WBC 5.6 k/uL (3.8-10.6)
[2020-05-22 12:38] LABS: Appearance,Urine Cloudy (Clear); Bacteria,Urine Rare /hpf; Bilirubin,Urine Negative (Negative); Blood,Urine Negative (Negative); Color,Urine Yellow; Glucose,Urine (UA) Negative (Negative); Ketones,Urine Negative (Negative); Leukocyte Esterase,Urine Negative (Negative); Mucus,Urine Rare /hpf; Nitrite,Urine Negative (Negative); PH, Urine 6.5 (5.0-8.0); Protein,Urine Trace (Negative); RBC,Urine 3 /hpf (0-5); Specific Gravity,Urine 1.012 (1.001-1.035); Squamous Epithelial Cell,Urine 2 /hpf (0-4); Urobilinogen,Urine <2.0 mg/dL (<2.0)
[2020-05-22 13:22] VITALS: BP 169/62
[2020-05-22] MEDS ORDERED: MORPHINE SULFATE 4 MG/ML SYRINGE IVP STA (13:42)
[2020-05-22 18:18] VITALS: PULSE 74; RESP 18; TEMP 98.9
== END 2020-05-22 18:18 | disposition home or self-care (01) ==
LOC: EC 10:49
DX: R19.7 Diarrhea, unspecified (principal); R11.2 Nausea with vomiting, unspecified; I11.0 Hypertensive heart disease with heart failure; I50.9 Heart failure, unspecified; E03.9 Hypothyroidism, unspecified; E78.5 Hyperlipidemia, unspecified; F32.9 Major depressive disorder, single episode, unspecified; I25.2 Old myocardial infarction; K21.9 Gastro-esophageal reflux disease without esophagitis; M19.90 Unspecified osteoarthritis, unspecified site; Z79.01 Long term (current) use of anticoagulants; Z20.822 Contact with and (suspected) exposure to COVID-19
CPT/HCPCS: 36415; 93005; 80053; 83605; 83735; 84484; 85025; 85610; 85730; 81001; 87635; 71046; 99285; 96374; 96375; 96376; 96361; J2270 ×2; J2405

== ENCOUNTER 2020-06-18 17:10 | Emergency (ER) | payer MEDICARE, OTHER ==
[2020-06-18 17:16] VITALS: TEMP 98.6
[2020-06-18] MEDS ORDERED: SODIUM CHLORIDE 0.9% 1,000 ML IV STA (17:25)
[2020-06-18] MEDS ORDERED: DEXAMETHASONE SOD PHOSPHATE 10 MG/ML 1 ML VIAL IV STA (17:26)
[2020-06-18] MEDS ORDERED: MORPHINE SULFATE 4 MG/ML SYRINGE IVP STA (17:26)
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
[2020-06-18 17:42] LABS: Basophils % (A) 0 %; Eosinophils # (A) 0.1 k/uL (0-0.7); Eosinophils % (A) 1 %; HCT 41.6 % (34.0-46.0); HGB 14.1 gm/dL (11.4-16.0); Lymphocytes % (A) 19 %; MCHC 33.9 g/dL (31.0-37.0); MCV 100.4 fL (80.0-100.0); Mean Platelet Volume 9.1; Monocytes # (A) 0.8 k/uL (0-1.0); Monocytes % (A) 8 %; Neutrophils # (A) 7.2 k/uL (1.3-7.7); Neutrophils % (A) 71 %; Platelet Count 286 k/uL (150-450); RBC 4.15 m/uL (3.80-5.40); WBC 10.2 k/uL (3.8-10.6)
[2020-06-18 17:53] LABS: ALT 19 U/L (4-34); AST 22 U/L (14-36); African American GFR (CKD) >90 (>60 ml/min/1.73 sqM); Albumin 3.1 g/dL (3.5-5.0); Alkaline Phosphatase 67 U/L (38-126); Anion Gap 5 mmol/L; Blood Urea Nitrogen 27 mg/dL (7-17); Carbon Dioxide 25 mmol/L (22-30); Chloride 98 mmol/L (98-107); Glucose 98 mg/dL (74-99); Non-African American GFR(CKD) 82 (>60 ml/min/1.73 sqM); Sodium 128 mmol/L (137-145); Total Protein 5.9 g/dL (6.3-8.2)
[2020-06-18 18:05] LABS: INR 1.1 (<1.2); Partial Thromboplastin Time 21.7 sec (22.0-30.0); Prothrombin Time 11.4 sec (9.0-12.0)
[2020-06-18 18:44] VITALS: RESP 16
--- NOTE | 2020-06-18 19:25 | XR ---
EXAMINATION TYPE: XR chest 2V DATE OF EXAM: 06/18/2020 CLINICAL HISTORY: difficulty breathing. Cough, shortness breath, nausea. Covid positive. TECHNIQUE: Frontal and lateral view of the chest. COMPARISON: 05/22/2020 FINDINGS: The lungs are hyperinflated with chronic interstitial coarsening and emphysematous changes . There is redemonstrated elevation of the left posterior hemidiaphragm. Cardiomegaly unchanged. No p ulmonary vascular congestion. Minimal left basilar atelectasis. No pleural effusion or pneumothorax. Biapical pleural thickening. Increased thoracic kyphosis. Incompletely visualized left shoulder total arthroplasty. IMPRESSION: Chronic emphysematous changes. No acute focal airspace opacity.
[2020-06-18] MEDS ORDERED: ONDANSETRON 4 MG ODT STARTER PACK 2 TAB BTL PO STA (19:42)
[2020-06-18 19:44] VITALS: BP 142/96; PULSE 68
[2020-06-18] MEDS ORDERED: ONDANSETRON 4 MG/2 ML VIAL IVP STA (19:50)
== END 2020-06-18 20:50 | disposition home or self-care (01) ==
LOC: EC 17:10
DX: U07.1 COVID-19 (principal); J44.9 Chronic obstructive pulmonary disease, unspecified; F32.9 Major depressive disorder, single episode, unspecified; I11.0 Hypertensive heart disease with heart failure; I50.9 Heart failure, unspecified; K21.9 Gastro-esophageal reflux disease without esophagitis; E78.5 Hyperlipidemia, unspecified; I25.2 Old myocardial infarction; M19.90 Unspecified osteoarthritis, unspecified site; E03.9 Hypothyroidism, unspecified; Z87.09 Personal history of other diseases of the respiratory system; Z79.51 Long term (current) use of inhaled steroids; Z79.890 Hormone replacement therapy; Z79.01 Long term (current) use of anticoagulants
CPT/HCPCS: 36415; 93005; 80053; 83605; 84484; 85025; 85610; 85730; 71046; 99285; 96374; 96375 ×2; 96361 ×2; J2270; J1100; J2405; S0119

== ENCOUNTER 2020-07-17 12:56 | Inpatient (IN) | payer MEDICARE, OTHER ==
[2020-07-17] MEDS ORDERED: SODIUM CHLORIDE 0.9% 1,000 ML IV STA (14:14)
--- NOTE | 2020-07-17 14:22 | ED ---
Weakness HPI - General Chief complaint: Weakness Stated complaint: weakness,diarrhea,not eating Time Seen by Provider: 07/17/20 14:08 Source: patient Mode of arrival: ambulatory Limitations: no limitations - History of Present Illness Initial comments: 85-year-old female with history of CA, heart failure, asthma, hypertension, dyslipidemia presents to the emergency department with chief complaint of weakness. Granddaughter is also present in the room states the patient had Covid around and was admitted for a short period of time. States after discharge the patient had never fully recovered. States the patient has suffered from gradual decline in health. Reports about a 20 pound weight loss since Covid. She states the patient has decreased appetite it is always thirsty for water. Patient states she's been having diarrhea intermittently over the last few weeks. Patient reports some umbilical abdominal pain which she believ es is secondary to the diarrhea that has been ongoing for the past several weeks. She does have history of diverticulosis and diverticular is. No recent nausea or vomiting. She denies any cough, chest pain or shortness of breath. Denies any fevers or chills. Denies any infectious or obstructive urinary symptoms. - Related Data Home Medications Medication Instructions Recorded Confirmed Carvedilol [Coreg] 25 mg PO BID 04/12/18 07/17/20 Ferrous Sulfate [Feosol] 325 mg PO BID 04/12/18 07/17/20 Pantoprazole Sodium [Protonix] 20 mg PO DAILY 10/07/19 07/17/20 Apixaban [Eliquis] 2.5 mg PO BID 03/29/20 07/17/20 Cholecalciferol [Vitamin D3 (25 50 mcg PO DAILY 03/29/20 07/17/20 Mcg = 1000 Iu)] Citalopram Hydrobromide [CeleXA] 20 mg PO DAILY 03/29/20 07/17/20 Levothyroxine Sodium [Synthroid] 100 mcg PO MOWEFR 03/29/20 07/17/20 Levothyroxine Sodium [Synthroid] 125 mcg PO SUTUTHSA 03/29/20 07/17/20 Memantine HCl/Donepezil HCl 1 cap PO DAILY 03/29/20 07/17/20 [Namzaric 28 mg-10 mg Capsule] HYDROcodone/APAP 5-325MG [[place] 1 tab PO TID PRN 05/22/20 07/17/20 5-325] Menthol [Biofreeze] 1 applic TOPICAL DAILY PRN 05/22/20 07/17/20 Morphine Sulfate ER [Ms Contin] 15 mg PO Q12H 05/22/20 07/17/20 Vitamin B Complex W/Vitamin C 1 tab PO BID 05/22/20 07/17/20 Ascorbic Acid [Vitamin C] 500 mg PO DAILY 07/17/20 07/17/20 Budesonide/Formoterol Fumarate 2 puff INHALATION RT-BID 07/17/20 07/17/20 [Symbicort 160-4.5 Mcg Inhaler] Zinc 50 mg PO DAILY 07/17/20 07/17/20 Previous Rx's Medication Instructions Recorded Isosorbide Mononitrate ER [Imdur] 30 mg PO DAILY #30 tab.er.24h 01/08/18 Ondansetron Odt [Zofran Odt] 4 mg PO Q8HR PRN #10 tab 06/18/20 Allergies Allergy/AdvReac Type Severity Reaction Status Date / Time benazepril Allergy tongue Verified 07/17/20 17:06 swelling Review of Systems ROS Statement: Those systems with pertinent positive or pertinent negative responses have been documented in the HPI. ROS Other: All systems not noted in ROS Statement are negative. Past Medical History Past Medical History: Asthma, Chest Pain / Angina, Heart Failure, COPD, Eye Disorder, GERD/Reflux, Hyperlipidemia, Hypertension, Myocardial Infarction ([place]), Osteoarthritis (OA), Thyroid Disorder, Vascular Disorder Additional Past Medical History / Comment(s): Chronic low back pain, recent L arm fracture and pt still has pain and swelling in that arm, legally blind d/t macular degeneration, PUD, hiatal hernia, diverticular disease, IBS, colitis, past bowel obstruction, sarcoidosis, occasional difficulty swallowing, anemia, irregular heart beat, varicose veins, hypothyroid, COVID+ 4\21 Last Myocardial Infarction Date:: 2012 History of Any Multi-Drug Resistant Organisms: None Reported Past Surgical History: Back Surgery, Bowel Resection, Hernia Repair, Joint Replacement Additional Past Surgical History / Comment(s): 06/16/17 conversion hemiarthroplasty L shoulder, mayur knee and mayur hip replacements, SPLENECTOMY, NASAL/SINUS SX, FOOT SX FOR HAMMERTOE, had colosotomy then had reversal later, mayur cataracts, additional bowel repair r/t looped strangulation. Past Anesthesia/Blood Transfusion Reactions: No Reported Reaction Additional Past Anesthesia/Blood Transfusion Reaction / Comment(s): blood transfusion-no reaction Past Psychological History: Depression Smoking Status: Never smoker Past Alcohol Use History: Occasional Past Drug Use History: None Reported - Past Family History Sister(s) Family Medical History: Cancer Mother Family Medical History: COPD Additional Family Medical History / Comment(s): SMOKER/EMPHYSEMA General Exam Limitations: no limitations General appearance: alert, in no apparent distress Head exam: Present: atraumatic, normocephalic, normal inspection Eye exam: Present: normal appearance, PERRL, EOMI Pupils: Present: normal accommodation ENT exam: Present: normal exam, normal oropharynx, mucous membranes dry, TM's normal bilaterally, normal external ear exam Neck exam: Present: normal inspection, full ROM. Absent: tenderness, lymphadenopathy Respiratory exam: Present: normal lung sounds bilaterally. Absent: respiratory distress, wheezes, rales, rhonchi, stridor, chest wall tenderness, accessory muscle use Cardiovascular Exam: Present: regular rate, normal rhythm, normal heart sounds. Absent: systolic murmur GI/Abdominal exam: Present: soft, tenderness (Mild peribuccal tenderness). Absent: distended, guarding, rebound Extremities exam: Present: normal inspection, full ROM, normal capillary refill. Absent: tenderness, pedal edema, joint swelling Back exam: Present: normal inspection, full ROM. Absent: tenderness, CVA tenderness (R), CVA tenderness (L) Neurological exam: Present: alert, oriented X3 Psychiatric exam: Present: normal affect, normal mood Skin exam: Present: warm, dry, intact, normal color Course Vital Signs 07/17/20 07/17/20 13:14 16:35 Temperature 97.9 F Pulse Rate 96 81 Respiratory 18 18 Rate Blood Pressure 120/76 131/71 O2 Sat by Pulse 95 97 Oximetry Medical Decision Making - Medical Decision Making 85-year-old female with history of heart failure presents to the emergency room with a chief complaint of weakness and diarrhea. On physical examination, patient appears to have dry mucous membranes and appears weak. Weight loss of about 20 pounds over the last 2 months. CBC CMP unremarkable. UA shows microscopic hematuria. Chest x-ray reveal mild interstitial edema/atelectasis. She was given a liter of IV bolus fluids. Patient is not able to complete due to her weakness. I will admit the patient for dehydration and weakness. I di scussed the case with [place] NP who will admit for Dr. Coker. Case discussed with - Lab Data Result diagrams: 07/17/20 14:46 07/17/20 14:46 Lab Results 07/17/20 07/17/20 07/17/20 Range/Units 14:46 14:46 14:46 WBC 7.0 (3.8-10.6) k/uL RBC 3.67 L (3.80-5.40) m/uL Hgb 12.4 (11.4-16.0) gm/dL Hct 37.0 (34.0-46.0) % MCV 100.8 H (80.0-100.0) fL MCH 33.9 (25.0-35.0) pg MCHC 33.6 (31.0-37.0) g/dL RDW 13.5 (11.5-15.5) % Plt Count 411 (150-450) k/uL MPV 7.5 Neutrophils % 66 % Lymphocytes % 22 % Monocytes % 4 % Eosinophils % 6 % Basophils % 1 % Neutrophils # 4.6 (1.3-7.7) k/uL Lymphocytes # 1.5 (1.0-4.8) k/uL Monocytes # 0.3 (0-1.0) k/uL Eosinophils # 0.4 (0-0.7) k/uL Basophils # 0.1 (0-0.2) k/uL Macrocytosis Slight PT 10.8 (9.0-12.0) sec INR 1.0 (<1.2) APTT 29.1 (22.0-30.0) sec Sodium (137-145) mmol/L Potassium (3.5-5.1) mmol/L Chloride (98-107) mmol/L Carbon Dioxide (22-30) mmol/L Anion Gap mmol/L BUN (7-17) mg/dL Creatinine (0.52-1.04) mg/dL Est GFR (CKD-EPI)AfAm (>60 ml/min/1.73 sqM) Est GFR (CKD-EPI)NonAf (>60 ml/min/1.73 sqM) Glucose (74-99) mg/dL Calcium (8.4-10.2) mg/dL Magnesium (1.6-2.3) mg/dL Total Bilirubin (0.2-1.3) mg/dL AST (14-36) U/L ALT (4-34) U/L Alkaline Phosphatase (38-126) U/L Troponin I (0.000-0.034) ng/mL NT-Pro-B Natriuret Pep pg/mL Total Protein (6.3-8.2) g/dL Albumin (3.5-5.0) g/dL Urine Color Dark Yellow Urine Appearance Cloudy H (Clear) Urine pH 5.5 (5.0-8.0) Ur Specific [place] 1.020 (1.001-1.035) Urine Protein Trace H (Negative) Urine Glucose (UA) Negative (Negative) Urine Ketones Negative (Negative) Urine Blood Trace H (Negative) Urine Nitrite Negative (Negative) Urine Bilirubin Negative (Negative) Urine Urobilinogen <2.0 (<2.0) mg/dL Ur Leukocyte Esterase Negative (Negative) Urine RBC 9 H (0-5) /hpf Urine WBC 4 (0-5) /hpf Ur Squamous Epith Cells 3 (0-4) /hpf Hyaline Casts 18 H (0-2) /lpf Urine Mucus Many H (None) /hpf 07/17/20 07/17/20 07/17/20 Range/Units 14:46 14:46 14:46 WBC (3.8-10.6) k/uL RBC (3.80-5.40) m/uL Hgb (11.4-16.0) gm/dL Hct (34.0-46.0) % MCV (80.0-100.0) fL MCH (25.0-35.0) pg MCHC (31.0-37.0) g/dL RDW (11.5-15.5) % Plt Count (150-450) k/uL MPV Neutrophils % % Lymphocytes % % Monocytes % % Eosinophils % % Basophils % % Neutrophils # (1.3-7.7) k/uL Lymphocytes # (1.0-4.8) k/uL Monocytes # (0-1.0) k/uL Eosinophils # (0-0.7) k/uL Basophils # (0-0.2) k/uL Macrocytosis PT (9.0-12.0) sec INR (<1.2) APTT (22.0-30.0) sec Sodium 136 L (137-145) mmol/L Potassium 4.2 (3.5-5.1) mmol/L Chloride 105 (98-107) mmol/L Carbon Dioxide 25 (22-30) mmol/L Anion Gap 6 mmol/L BUN 13 (7-17) mg/dL Creatinine 0.72 (0.52-1.04) mg/dL Est GFR (CKD-EPI)AfAm 88 (>60 ml/min/1.73 sqM) Est GFR (CKD-EPI)NonAf 76 (>60 ml/min/1.73 sqM) Glucose 115 H (74-99) mg/dL Calcium 9.5 (8.4-10.2) mg/dL Magnesium 1.6 (1.6-2.3) mg/dL Total Bilirubin 0.5 (0.2-1.3) mg/dL AST 19 (14-36) U/L ALT 9 (4-34) U/L Alkaline Phosphatase 97 (38-126) U/L Troponin I 0.019 (0.000-0.034) ng/mL NT-Pro-B Natriuret Pep 1280 pg/mL Total Protein 6.4 (6.3-8.2) g/dL Albumin 3.4 L (3.5-5.0) g/dL Urine Color Urine Appearance (Clear) Urine pH (5.0-8.0) Ur Specific [place] (1.001-1.035) Urine Protein (Negative) Urine Glucose (UA) (Negative) Urine Ketones (Negative) Urine Blood (Negative) Urine Nitrite (Negative) Urine Bilirubin (Negative) Urine Urobilinogen (<2.0) mg/dL Ur Leukocyte Esterase (Negative) Urine RBC (0-5) /hpf Urine WBC (0-5) /hpf Ur Squamous Epith Cells (0-4) /hpf Hyaline Casts (0-2) /lpf Urine Mucus (None) /hpf Disposition Clinical Impression: Weakness, Diarrhea, Dehydration Disposition: ADMITTED IP TO THIS [facility] Condition: Good Is patient prescribed a controlled substance at d/c from ED?: No Referrals: Cassia,Dean, MD [Primary Care Provider] - 1-2 days Time of Disposition: 18:26
[2020-07-17 15:00] LABS: Basophils # (A) 0.1 k/uL (0-0.2); Basophils % (A) 1 %; Eosinophils # (A) 0.4 k/uL (0-0.7); Eosinophils % (A) 6 %; HGB 12.4 gm/dL (11.4-16.0); Lymphocytes # (A) 1.5 k/uL (1.0-4.8); Lymphocytes % (A) 22 %; MCH 33.9 pg (25.0-35.0); MCHC 33.6 g/dL (31.0-37.0); MCV 100.8 fL (80.0-100.0); Macrocytosis Slight; Mean Platelet Volume 7.5; Monocytes # (A) 0.3 k/uL (0-1.0); Monocytes % (A) 4 %; Neutrophils # (A) 4.6 k/uL (1.3-7.7); Neutrophils % (A) 66 %; Platelet Count 411 k/uL (150-450); RBC 3.67 m/uL (3.80-5.40); RDW 13.5 % (11.5-15.5)
[2020-07-17 15:12] LABS: Albumin 3.4 g/dL (3.5-5.0); Calcium 9.5 mg/dL (8.4-10.2); Magnesium 1.6 mg/dL (1.6-2.3); Potassium 4.2 mmol/L (3.5-5.1); Total Bilirubin 0.5 mg/dL (0.2-1.3); Total Protein 6.4 g/dL (6.3-8.2)
[2020-07-17 15:16] LABS: Partial Thromboplastin Time 29.1 sec (22.0-30.0); Prothrombin Time 10.8 sec (9.0-12.0)
[2020-07-17 17:07] LABS: Appearance,Urine Cloudy (Clear); Bilirubin,Urine Negative (Negative); Blood,Urine Trace (Negative); Color,Urine Dark Yellow; Glucose,Urine (UA) Negative (Negative); Hyaline Casts,Urine 18 /lpf (0-2); Ketones,Urine Negative (Negative); Leukocyte Esterase,Urine Negative (Negative); Mucus,Urine Many /hpf; Nitrite,Urine Negative (Negative); PH, Urine 5.5 (5.0-8.0); Protein,Urine Trace (Negative); RBC,Urine 9 /hpf (0-5); Squamous Epithelial Cell,Urine 3 /hpf (0-4); Urobilinogen,Urine <2.0 mg/dL (<2.0); WBC,Urine 4 /hpf (0-5)
--- NOTE | 2020-07-17 17:18 | XR ---
EXAMINATION TYPE: XR chest 2V DATE OF EXAM: 07/17/2020 COMPARISON: 06/18/2020. HISTORY: Weakness TECHNIQUE: Frontal and lateral views of the chest are obtained. FINDINGS: There is diffuse mild hazy opacity. No pleural effusion, or pneumothorax seen. Stable even tration of the left hemidiaphragm. The cardiac silhouette size is within normal limits. The osseous structures are without acute abnormality. Left shoulder arthroplasty seen. IMPRESSION: Mild interstitial edema/atelectasis.
[2020-07-17] MEDS ORDERED: NALOXONE 0.4 MG/ML 1 ML VIAL IV PRN (18:27)
[2020-07-17] MEDS ORDERED: ONDANSETRON 4 MG/2 ML VIAL IVP PRN (18:42)
[2020-07-17] MEDS ORDERED: LORazepam 2 MG/ML INJ IV PRN (18:42)
[2020-07-17] MEDS ORDERED: ONDANSETRON ODT 4 MG TAB PO PRN (21:51)
[2020-07-17] MEDS ORDERED: METHYL SALICYLATE/MENTHOL CREAM 5 OZ TOPICAL PRN (21:51)
[2020-07-17] MEDS: SODIUM CHLORIDE 0.9% 1,000 ML IV SCH (22:10)
[2020-07-17] MEDS: LEVOTHYROXINE 100 MCG TAB PO SCH (22:21)
[2020-07-17] MEDS: carvediloL 12.5 MG TAB PO SCH (22:22)
[2020-07-17] MEDS: MORPHINE SULFATE ER 15 MG TABLET PO SCH (22:22)
[2020-07-17] MEDS: HYDROcodone/APAP 5-325MG 1 EACH TAB PO PRN (22:23)
[2020-07-17] MEDS: FERROUS SULFATE 325 MG TAB PO SCH (22:23)
[2020-07-18] MEDS: LEVOTHYROXINE 125 MCG TAB PO SCH (05:56)
[2020-07-18] MEDS ORDERED: NON FORMULARY DRUG (Vitamin B Complex W/Vitamin C 1 TAB) PO SCH (09:00)
[2020-07-18] MEDS ORDERED: MEMANTINE 10 MG TAB PO SCH (09:00)
[2020-07-18] MEDS ORDERED: DONEPEZIL 10 MG TAB PO SCH (09:00)
[2020-07-18] MEDS: BUDESONIDE 0.25 MG/2 ML NEBU INHALATION SCH ×2 (09:27→20:45)
[2020-07-18] MEDS: FERROUS SULFATE 325 MG TAB PO SCH ×2 (09:40→20:16)
[2020-07-18] MEDS: PANTOPRAZOLE 40 MG TABLET PO SCH (09:40)
[2020-07-18] MEDS: ASCORBIC ACID 500 MG TAB PO SCH (09:40)
[2020-07-18] MEDS: MORPHINE SULFATE ER 15 MG TABLET PO SCH ×2 (09:40→20:16)
[2020-07-18] MEDS: CHOLECALCIFEROL 25 MCG (1000 IU) TABLET PO SCH (09:41)
[2020-07-18] MEDS: CITALOPRAM HYDROBROMIDE 20 MG TAB PO SCH (09:41)
[2020-07-18] MEDS: SODIUM CHLORIDE 0.9% 1,000 ML IV SCH ×2 (09:41→22:39)
[2020-07-18] MEDS: APIXABAN 2.5 MG TABLET PO SCH ×2 (09:41→20:16)
[2020-07-18] MEDS: carvediloL 12.5 MG TAB PO SCH ×2 (09:41→20:16)
[2020-07-18] MEDS: ISOSORBIDE MONONITRATE ER 30 MG TAB.ER.24H PO SCH (09:41)
[2020-07-18] MEDS: MEMANTINE 10 MG TAB PO SCH ×2 (09:48→20:16)
[2020-07-18] MEDS: DONEPEZIL 10 MG TAB PO SCH (09:48)
[2020-07-18] MEDS ORDERED: IOPAMIDOL CONTRAST (ORAL USE) VIAL PO PRN (10:32)
--- NOTE | 2020-07-18 14:33 | CT ---
EXAMINATION TYPE: CT abdomen pelvis w con DATE OF EXAM: 07/18/2020 COMPARISON: 03/29/2020. HISTORY: RLQ abdominal pain CT DLP: 707 mGycm Automated exposure control for dose reduction was used. TECHNIQUE: Helical acquisition of images was performed from the lung bases through the pelvis. CONTRAST: Performed with Oral Contrast and with IV Contrast, patient injected with 100 ml mL of Isovue 300. FINDINGS: LUNG BASES: Chronic mild bibasilar interstitial opacities with unchanged few small bilateral lobe nod ules measuring up to 3 mm. LIVER/GB: No significant abnormality is appreciated. PANCREAS: No significant abnormality is seen. SPLEEN: Surgically absent. ADRENALS: No significant abnormality is seen. KIDNEYS: No significant abnormality is seen. FREE AIR: No free air is visualized. RETROPERITONEAL ADENOPATHY: None visualized REPRODUCTIVE ORGANS: No significant abnormality is seen URINARY BLADDER: No significant abnormality is seen. PELVIC ADENOPATHY: None visualized. OSSEOUS STRUCTURES: No acute abnormality is seen. Bilateral hip arthroplasties and moderate lumbar s pondylosis noted. BOWEL: Borderline distention of the transverse colon. No bowel obstruction. Colonic diverticulosis. OTHER: None IMPRESSION: NONSPECIFIC BORDERLINE DISTENTION OF TRANSVERSE COLON WITHOUT BOWEL OBSTRUCTION OR SIGNIFICANT INFLAM MATORY CHANGES. MAY RELATE TO MILD ILEUS. CHRONIC MILD BIBASILAR OPACITIES WITH STABLE FEW SMALL PULMONARY NODULES.
--- NOTE | 2020-07-18 17:04 | P.HPIM ---
History of Present Illness is on-year-old pleasant female came in with complaints of abdominal pain in the right lower quadrant and multiple episodes of diarrhea patient was having diarrhea for about 3 weeks which now improved. Patient was recently hospitaliz ed around the for Covid 19. Since then the patient had diarrhea and a 20 pound weight loss . Patient had diarrhea since since her "diagnosis. Patient had a computed tomography scan of the abdomen is which did not show any significant abnormality but there may be mild distention of the transverse colon. General surgery is being consulted.. Patient is quite weak and mildly clinically dehydrated and patient is getting IV fluids. Patient will need physical therapy occupational therapy evaluation and possible placement to subacute rehabilitation patient denied any fever chills. Review of Systems REVIEW OF SYSTEMS: CONSTITUTIONAL: No fever, no malaise, no fatigue. HEENT: No recent visual problems or hearing problems. Denied any sore throat. CARDIOVASCULAR: No chest pain, orthopnea, PND, no palpitations, no syncope. PULMONARY: No shortness of breath, no cough, no hemoptysis. GASTROINTESTINAL: as mentioned in HPI NEUROLOGICAL: No headaches, no weakness, no numbness. HEMATOLOGICAL: Denies any bleeding or petechiae. GENITOURINARY: Denies any burning micturition, frequency, or urgency. MUSCULOSKELETAL/RHEUMATOLOGICAL: Denies any joint pain, swelling, or any muscle pain. ENDOCRINE: Denies any polyuria or polydipsia. The rest of the 14-point review of systems is negative. Past Medical History Past Medical History: Asthma, Chest Pain / Angina, Heart Failure, COPD, Eye Disorder, GERD/Reflux, Hyperlipidemia, Hypertension, Myocardial Infarction ([place]), Osteoarthritis (OA), Thyroid Disorder, Vascular Disorder Additional Past Medical History / Comment(s): Chronic low back pain, recent L arm fracture and pt still has pain and swelling in that arm, legally blind d/t macular degeneration, PUD, hiatal hernia, diverticular disease, IBS, colitis, past bowel obstruction, sarcoidosis, occasional difficulty swallowing, anemia, irregular heart beat, varicose veins, hypothyroid, COVID+ 4\\21 Last Myocardial Infarction Date:: 2012 History of Any Multi-Drug Resistant Organisms: None Reported Past Surgical History: Back Surgery, Bowel Resection, Hernia Repair, Joint Replacement Additional Past Surgical History / Comment(s): 06/16/17 conversion hemiarthroplasty L shoulder, mayur knee and mayur hip replacements, SPLENECTOMY, NASAL/SINUS SX, FOOT SX FOR HAMMERTOE, had colosotomy then had reversal later, mayur cataracts, additional bowel repair r/t looped strangulation. Past Anesthesia/Blood Transfusion Reactions: No Reported Reaction Additional Past Anesthesia/Blood Transfusion Reaction / Comment(s): blood transfusion-no reaction Past Psychological History: Depression Additional Psychological History / Comment(s): Pt resides in her own home with 6 steps. Her great grandson lives with her but he works and goes to college. Pt is legally blind. Family manages her medications and drives her to [employer]. She has alot of visitors. She uses a walker when she goes out. She has a person who comes twice a week to do chores. She has 2 permanent cats in her home and 2 "visitor" cats. Smoking Status: Never smoker Past Alcohol Use History: Occasional Past Drug Use History: None Reported - Past Family History Sister(s) Family Medical History: Cancer Mother Family Medical History: COPD Additional Family Medical History / Comment(s): SMOKER/EMPHYSEMA Medications and Allergies Home Medications Medication Instructions Recorded Confirmed Type Isosorbide Mononitrate ER [Imdur] 30 mg PO DAILY #30 tab.er.24h 01/08/18 07/17/20 Rx Carvedilol [Coreg] 25 mg PO BID 04/12/18 07/17/20 History Ferrous Sulfate [Feosol] 325 mg PO BID 04/12/18 07/17/20 History Pantoprazole Sodium [Protonix] 20 mg PO DAILY 10/07/19 07/17/20 History Apixaban [Eliquis] 2.5 mg PO BID 03/29/20 07/17/20 History Cholecalciferol [Vitamin D3 (25 50 mcg PO DAILY 03/29/20 07/17/20 History Mcg = 1000 Iu)] Citalopram Hydrobromide [CeleXA] 20 mg PO DAILY 03/29/20 07/17/20 History Levothyroxine Sodium [Synthroid] 100 mcg PO MOWEFR 03/29/20 07/17/20 History Levothyroxine Sodium [Synthroid] 125 mcg PO SUTUTHSA 03/29/20 07/17/20 History Memantine HCl/Donepezil HCl 1 cap PO DAILY 03/29/20 07/17/20 History [Namzaric 28 mg-10 mg Capsule] HYDROcodone/APAP 5-325MG [[place] 1 tab PO TID PRN 05/22/20 07/17/20 History 5-325] Menthol [Biofreeze] 1 applic TOPICAL DAILY PRN 05/22/20 07/17/20 History Morphine Sulfate ER [Ms Contin] 15 mg PO Q12H 05/22/20 07/17/20 History Vitamin B Complex W/Vitamin C 1 tab PO BID 05/22/20 07/17/20 History Ondansetron Odt [Zofran Odt] 4 mg PO Q8HR PRN #10 tab 06/18/20 07/17/20 Rx Ascorbic Acid [Vitamin C] 500 mg PO DAILY 07/17/20 07/17/20 History Budesonide/Formoterol Fumarate 2 puff INHALATION RT-BID 07/17/20 07/17/20 History [Symbicort 160-4.5 Mcg Inhaler] Zinc 50 mg PO DAILY 07/17/20 07/17/20 History Allergies Allergy/AdvReac Type Severity Reaction Status Date / Time benazepril Allergy tongue Verified 07/17/20 17:06 swelling Physical Exam Vitals: Vital Signs Temp Pulse Pulse Resp BP BP Pulse Ox 07/18/20 14:59 99.3 F 81 14 104/63 94 L 07/18/20 08:15 99.4 F 75 14 150/90 95 07/18/20 02:00 98.8 F 76 17 109/67 95 07/17/20 20:32 98.6 F 71 17 133/71 95 07/17/20 19:36 84 18 155/89 93 L 07/17/20 19:00 86 20 155/90 91 L 07/17/20 18:00 87 18 137/70 92 L Intake and Output 07/18/20 07/18/20 07/18/20 06:59 14:59 22:59 Intake Total 236 Balance 236 Intake: Oral 236 Other: Voiding Method Toilet # Voids 2 2 # Bowel Movements 1 PHYSICAL EXAMINATION: GENERAL: The patient is alert and oriented x3, not in any acute distress. Well developed, well nourished. Thin built HEENT: Pupils are round and equally reacting to light. EOMI. No scleral icterus. No conjunctival pallor. Normocephalic, atraumatic. No pharyngeal erythema. No thyromegaly. CARDIOVASCULAR: S1 and S2 present. No murmurs, rubs, or gallops. PULMONARY: Chest is clear to auscultation, no wheezing or crackles. ABDOMEN: Soft, patient's abdomen is soft but there is tenderness in the right lower quadrant of the abdomen, nondistended, normoactive bowel sounds. No palpable organomegaly. MUSCULOSKELETAL: No joint swelling or deformity. EXTREMITIES: No cyanosis, clubbing, or pedal edema. NEUROLOGICAL: Gross neurological examination did not reveal any focal deficits. SKIN: No rashes. Results CBC & Chem 7: 07/17/20 14:46 07/17/20 14:46 Labs: Abnormal Lab Results - Last 24 Hours (Table) 07/17/20 Range/Units 14:46 Urine Appearance Cloudy H (Clear) Urine Protein Trace H (Negative) Urine Blood Trace H (Negative) Urine RBC 9 H (0-5) /hpf Hyaline Casts 18 H (0-2) /lpf Urine Mucus Many H (None) /hpf Thrombosis Risk Factor Assmnt - Choose All That Apply Any of the Below Risk Factors Present?: Yes Each Factor Represents 1 point: Abnormal pulmonary function (COPD), Varicose veins Other Risk Factors: Yes Each Risk Factor Represents 3 Points: Age 75 years or older Other congenital or acquired thrombophilia - If yes, enter type in comment: No Thrombosis Risk Factor Assessment Total Risk Factor Score: 5 Thrombosis Risk Factor Assessment Level: High Risk Assessment and Plan Plan: -Abdominal pain: Probably secondary to colitis or gastroenteritis. Consider management with IV fluids general surgery will be consulted. -Mild dehydration continue with IV fluids -Significant weight loss secondary to poor by mouth intake -Generalized deconditioning: Secondary to recent cold hospitalization and age- related muscle loss is alert and occupational therapy will be consulted COPD without any acute acceleration Gastroesophageal reflux disease -Hyperlipidemia -Hypertension -Coronary artery disease -Hyperthyroidism -Peripheral vascular disease for above-mentioned chronic medical problems patient will be resumed on appropriate home medications DVT prophylaxis with the Lovenox
[2020-07-18] MEDS: ACETAMINOPHEN TAB 325 MG TAB PO PRN (20:20)
[2020-07-18] MEDS ORDERED: TEMAZEPAM 15 MG CAP PO PRN (22:44)
[2020-07-19] MEDS: LEVOTHYROXINE 125 MCG TAB PO SCH (05:46)
[2020-07-19] MEDS: BUDESONIDE 0.25 MG/2 ML NEBU INHALATION SCH ×2 (07:34→19:43)
[2020-07-19] MEDS: PANTOPRAZOLE 40 MG TABLET PO SCH (08:40)
[2020-07-19] MEDS: DONEPEZIL 10 MG TAB PO SCH (08:40)
[2020-07-19] MEDS: APIXABAN 2.5 MG TABLET PO SCH ×2 (08:40→19:59)
[2020-07-19] MEDS: MORPHINE SULFATE ER 15 MG TABLET PO SCH ×2 (08:40→22:37)
[2020-07-19] MEDS: FERROUS SULFATE 325 MG TAB PO SCH ×2 (08:41→19:58)
[2020-07-19] MEDS: CHOLECALCIFEROL 25 MCG (1000 IU) TABLET PO SCH (08:41)
[2020-07-19] MEDS: CITALOPRAM HYDROBROMIDE 20 MG TAB PO SCH (08:41)
[2020-07-19] MEDS: ASCORBIC ACID 500 MG TAB PO SCH (08:41)
[2020-07-19] MEDS: carvediloL 12.5 MG TAB PO SCH ×2 (08:41→19:59)
[2020-07-19] MEDS: MEMANTINE 10 MG TAB PO SCH ×2 (08:41→19:58)
[2020-07-19] MEDS: ISOSORBIDE MONONITRATE ER 30 MG TAB.ER.24H PO SCH (08:41)
[2020-07-19] MEDS: SODIUM CHLORIDE 0.9% 1,000 ML IV SCH (08:45)
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
--- NOTE | 2020-07-19 17:25 | P.PN ---
Subjective pleasant female came in with complaints of abdominal pain in the right lower quadrant and multiple episodes of diarrhea patient was having diarrhea for about 3 weeks which now improved. Patient was recently hospitalized around the for Covid 19. Since then the patient had diarrhea and a 20 pound weight loss . Patient had diarrhea since since her "diagnosis. Patient had a computed tomography scan of the abdomen is which did not show any significant abnormality but there may be mild distention of the transverse colon. General surgery is being consulted.. Patient is quite weak and mildly clinically dehydrated and patient is getting IV fluids. Patient will need physical therapy occupational therapy evaluation and possible placement to subacute rehabilitation patient denied any fever chills. 07/19/2020 Patient is still having some pain. General surgery evaluated the patient. Patient will be evaluated by physical therapy and outpatient therapy tomorrow possibility of discharge to subacute rehabilitation. Constitutional: Denied any fatigue denied any fever. Cardio vascular: denied any chest pain, palpitations Gastrointestinal denied any nausea vomiting Pulmonary: Denied any shortness of breath cough Neurologic denied any new focal deficits All inpatient medications were reviewed and appropriate changes in these medications as dictated in the interval history and assessment and plan. Objective - Vital Signs Vital signs: Vital Signs Temp 98.9 F 07/19/20 14:09 Pulse 69 07/19/20 14:09 Resp 18 07/19/20 14:09 BP 104/59 07/19/20 14:09 Pulse Ox 94 L 07/19/20 14:09 Intake & Output 07/18/20 07/19/20 07/19/20 18:59 06:59 18:59 Intake Total 708 500 Balance 708 500 Intake: Oral 708 500 Other: Voiding Method Toilet Diaper # Voids 2 2 2 # Bowel Movements 1 1 - Exam PHYSICAL EXAMINATION: GENERAL: The patient is alert and oriented x3, not in any acute distress. Well developed, well nourished. Thin built HEENT: Pupils are round and equally reacting to light. EOMI. No scleral icterus. No conjunctival pallor. Normocephalic, atraumatic. No pharyngeal erythema. No thyromegaly. CARDIOVASCULAR: S1 and S2 present. No murmurs, rubs, or gallops. PULMONARY: Chest is clear to auscultation, no wheezing or crackles. ABDOMEN: Soft, patient's abdomen is soft tenderness in the right lower quadrant of the abdomen improved, nondistended, normoactive bowel sounds. No palpable organomegaly. MUSCULOSKELETAL: No joint swelling or deformity. EXTREMITIES: No cyanosis, clubbing, or pedal edema. NEUROLOGICAL: Gross neurological examination did not reveal any focal deficits. - Labs CBC & Chem 7: 07/17/20 14:46 07/17/20 14:46 Assessment and Plan Plan: -Abdominal pain: Secondary to ileus. Conservative management, Gen. surgery evaluated the patient -Mild dehydration improved with IV fluids IV fluids were discontinued -Significant weight loss secondary to poor by mouth intake -Generalized deconditioning: Secondary to recent cold hospitalization and age- related muscle loss physical therapy and occupational therapy will evaluate the patient COPD without any acute acceleration Gastroesophageal reflux disease -Hyperlipidemia -Hypertension -Coronary artery disease -Hyperthyroidism -Peripheral vascular disease for above-mentioned chronic medical problems patient will be resumed on appropriate home medications DVT prophylaxis with the Lovenox Possibility of discharge tomorrow to subacute rehabilitation
[2020-07-19] MEDS: ACETAMINOPHEN TAB 325 MG TAB PO PRN (19:59)
[2020-07-19] MEDS: IBUPROFEN 400 MG TAB PO PRN (22:30)
[2020-07-20] MEDS: LEVOTHYROXINE 100 MCG TAB PO SCH (06:30)
[2020-07-20] MEDS: BUDESONIDE 0.25 MG/2 ML NEBU INHALATION SCH ×2 (07:40→20:02)
[2020-07-20] MEDS: HYDROcodone/APAP 5-325MG 1 EACH TAB PO PRN ×2 (08:05→15:50)
[2020-07-20] MEDS: PANTOPRAZOLE 40 MG TABLET PO SCH (08:05)
[2020-07-20] MEDS: ISOSORBIDE MONONITRATE ER 30 MG TAB.ER.24H PO SCH (08:27)
[2020-07-20] MEDS: carvediloL 12.5 MG TAB PO SCH ×2 (08:27→21:29)
[2020-07-20] MEDS: APIXABAN 2.5 MG TABLET PO SCH ×2 (08:27→21:29)
[2020-07-20] MEDS: CHOLECALCIFEROL 25 MCG (1000 IU) TABLET PO SCH (08:27)
[2020-07-20] MEDS: CITALOPRAM HYDROBROMIDE 20 MG TAB PO SCH (08:27)
[2020-07-20] MEDS: ASCORBIC ACID 500 MG TAB PO SCH (08:27)
[2020-07-20] MEDS: MEMANTINE 10 MG TAB PO SCH ×2 (08:27→21:29)
[2020-07-20] MEDS: FERROUS SULFATE 325 MG TAB PO SCH ×2 (08:27→21:29)
[2020-07-20] MEDS: DONEPEZIL 10 MG TAB PO SCH (08:27)
[2020-07-20 09:15] LABS: Basophils # (A) 0.1 k/uL (0-0.2); Basophils % (A) 1 %; Eosinophils # (A) 0.5 k/uL (0-0.7); Eosinophils % (A) 8 %; HCT 31.9 % (34.0-46.0); Lymphocytes # (A) 1.8 k/uL (1.0-4.8); Lymphocytes % (A) 27 %; MCH 31.8 pg (25.0-35.0); MCHC 31.3 g/dL (31.0-37.0); MCV 101.3 fL (80.0-100.0); Macrocytosis Slight; Mean Platelet Volume 7.4; Monocytes # (A) 0.3 k/uL (0-1.0); Monocytes % (A) 4 %; Neutrophils % (A) 59 %; Platelet Count 350 k/uL (150-450); RBC 3.15 m/uL (3.80-5.40); RDW 14.1 % (11.5-15.5); WBC 6.8 k/uL (3.8-10.6)
[2020-07-20] MEDS: MORPHINE SULFATE ER 15 MG TABLET PO SCH ×2 (10:41→22:02)
--- NOTE | 2020-07-20 13:32 | P.PN ---
Subjective Progress Note Date: 07/20/20 CHIEF COMPLAINT: Abdominal pain HISTORY OF PRESENT ILLNESS: Surgical service is following in regards to p jordy's ileus patient's is having bowel movements. She is tolerating regular diet. Denies any nausea vomiting. Abdominal pain has resolved. She did have a temp of 101.4 last night. She is complaining of burning with urination. She is currently afebrile. WBC is 6.8 hemoglobin is 10 PHYSICAL EXAM: VITAL SIGNS: Reviewed. GENERAL: Well-developed in no acute distress. HEENT: No sclera icterus. Extraocular movements grossly intact. Moist buccal mucosa. Head is atraumatic, normocephalic. ABDOMEN: Soft. Nondistended. Nontender. NEUROLOGIC: Alert and oriented. Cranial nerves II through XII grossly intact. ASSESSMENT: 1. Generalized abdominal pain secondary to ileus. Symptoms have resolved 2. History of transverse colitis 3. Fever and burning with urination PLAN: -Check urinalysis with culture and sensitivity -Continue conservative management -Continue regular diet [facility] note has been reviewed by physician. Signing provider agrees with the documented findings, assessment, and plan of care. Objective - Vital Signs Vital signs: Vital Signs Temp 97.4 F L 07/20/20 07:00 Pulse 64 07/20/20 07:49 Resp 18 07/20/20 07:00 BP 103/66 07/20/20 07:00 Pulse Ox 93 L 07/20/20 07:00 Intake & Output 07/19/20 07/20/20 07/20/20 18:59 06:59 18:59 Intake Total 500 118 Balance 500 118 Intake: Oral 500 118 Other: Voiding Method Diaper Diaper Diaper # Voids 2 2 1 # Bowel Movements 1 2 - Labs CBC & Chem 7: 07/20/20 08:34 07/17/20 14:46 Labs: Abnormal Lab Results - Last 24 Hours (Table) 07/20/20 Range/Units 08:34 RBC 3.15 L (3.80-5.40) m/uL Hgb 10.0 L D (11.4-16.0) gm/dL Hct 31.9 L (34.0-46.0) % MCV 101.3 H (80.0-100.0) fL
--- NOTE | 2020-07-20 15:51 | P.PN ---
Subjective Progress Note Date: 07/20/20 This is a pleasant 85-year-old female that came in with complaints of abdominal pain in the right lower quadrant and multiple episodes of diarrhea patient was having diarrhea for about 3 weeks which now improved. Patient was recently hospitalized around the for Covid 19. Since then the patient had diarrhea and a 20 pound weight loss . Patient had diarrhea since since her "diagnosis. Patient had a computed tomography scan of the abdomen is which did not show any significant abnormality but there may be mild distention of the transverse colon. General surgery is being consulted.. Patient is quite weak and mildly clinically dehydrated and patient is getting IV fluids. Patient will need physical therapy occupational therapy evaluation and possible placement to subacute rehabilitation patient denied any fever chills. 07/19/2020 Patient is still having some pain. General surgery evaluated the patient. Patient will be evaluated by physical therapy and outpatient therapy tomorrow possibility of discharge to subacute rehabilitation. 07/20/2020 Patient is seen and evaluated in follow-up with no acute overnight issues. Surgery evaluated the patient recommending no surgical intervention at this time. Patient is tolerating diet and no reports of nausea or vomiting noted. Patient was seen and evaluated by physical therapy recommending subacute rehab for continued PT/OT therapy and social work following working on accepting facilities. Patient did have one episode of fever yesterday and reports some discomfort with urination and will obtain urinalysis. Previous Urinalysis is negative for infection and was not started on antibiotics. Will repeat a.m. labs Constitutional: Denied any fatigue denied any fever. Cardio vascular: denied any chest pain, palpitations Gastrointestinal denied any nausea vomiting Pulmonary: Denied any shortness of breath cough Neurologic denied any new focal deficits All inpatient medications were reviewed and appropriate changes in these medications as dictated in the interval history and assessment and plan. Objective - Vital Signs Vital signs: Vital Signs Temp 97.4 F L 07/20/20 07:00 Pulse 64 07/20/20 07:49 Resp 18 07/20/20 07:00 BP 103/66 07/20/20 07:00 Pulse Ox 93 L 07/20/20 07:00 Intake & Output 07/19/20 07/20/20 07/20/20 18:59 06:59 18:59 Intake Total 500 118 Balance 500 118 Intake: Oral 500 118 Other: Voiding Method Diaper Diaper Diaper # Voids 2 2 1 # Bowel Movements 1 2 - Exam GENERAL: The patient is alert and oriented x3, not in any acute distress. Well developed, well nourished. Thin built HEENT: Pupils are round and equally reacting to light. EOMI. No scleral icterus. No conjunctival pallor. Normocephalic, atraumatic. No pharyngeal erythema. No thyromegaly. CARDIOVASCULAR: S1 and S2 present. No murmurs, rubs, or gallops. PULMONARY: Chest is clear to auscultation, no wheezing or crackles. ABDOMEN: Soft, patient's abdomen is soft nontender on palpation, nondistended, normoactive bowel sounds. No palpable organomegaly. MUSCULOSKELETAL: No joint swelling or deformity. EXTREMITIES: No cyanosis, clubbing, or pedal edema. NEUROLOGICAL: Gross neurological examination did not reveal any focal deficits. Diffuse weakness - Labs CBC & Chem 7: 07/20/20 08:34 07/17/20 14:46 Labs: Abnormal Lab Results - Last 24 Hours (Table) 07/20/20 Range/Units 08:34 RBC 3.15 L (3.80-5.40) m/uL Hgb 10.0 L D (11.4-16.0) gm/dL Hct 31.9 L (34.0-46.0) % MCV 101.3 H (80.0-100.0) fL Assessment and Plan Assessment: -Abdominal pain: Secondary to ileus. Conservative management, surgery following -Mild dehydration improved with IV fluids IV fluids were discontinued -Significant weight loss secondary to poor by mouth intake -Generalized deconditioning: Secondary to recent cold hospitalization and age- related muscle loss physical therapy and occupational therapy will evaluate the patient -COPD without any acute acceleration -Gastroesophageal reflux disease -Hyperlipidemia -Hypertension -Coronary artery disease -Hyperthyroidism -Peripheral vascular disease -DVT prophylaxis with the Lovenox Plan: Continue with current medications and conservative management and continue to encourage oral intake. Patient continues to be weak and evaluated by physical therapy recommending subacute rehab for strength and mobility. Social work following and working on accepting facilities for placement. Will repeat basic labs along with magnesium in the morning. Possibility of discharge tomorrow to subacute rehabilitation.
[2020-07-20 21:00] LABS: Appearance,Urine Turbid (Clear); Bacteria,Urine Many /hpf; Bilirubin,Urine Negative (Negative); Blood,Urine Small (Negative); Color,Urine Yellow; Glucose,Urine (UA) Negative (Negative); Hyaline Casts,Urine 16 /lpf (0-2); Ketones,Urine Negative (Negative); Leukocyte Esterase,Urine Large (Negative); Mucus,Urine Rare /hpf; Nitrite,Urine Negative (Negative); PH, Urine 5.5 (5.0-8.0); Protein,Urine 1+ (Negative); RBC,Urine 22 /hpf (0-5); Urobilinogen,Urine <2.0 mg/dL (<2.0); WBC,Urine >182 /hpf (0-5)
[2020-07-21] MEDS: HYDROcodone/APAP 5-325MG 1 EACH TAB PO PRN ×2 (00:25→13:59)
[2020-07-21 05:32] LABS: Basophils % (A) 1 %; Eosinophils # (A) 0.6 k/uL (0-0.7); Eosinophils % (A) 9 %; HCT 28.7 % (34.0-46.0); HGB 9.7 gm/dL (11.4-16.0); Lymphocytes # (A) 1.6 k/uL (1.0-4.8); Lymphocytes % (A) 25 %; MCH 34.2 pg (25.0-35.0); MCHC 33.9 g/dL (31.0-37.0); Macrocytosis Slight; Mean Platelet Volume 7.7; Monocytes # (A) 0.3 k/uL (0-1.0); Monocytes % (A) 5 %; Neutrophils # (A) 3.7 k/uL (1.3-7.7); Neutrophils % (A) 58 %; Platelet Count 297 k/uL (150-450); RBC 2.84 m/uL (3.80-5.40); RDW 13.7 % (11.5-15.5); WBC 6.3 k/uL (3.8-10.6)
[2020-07-21 05:44] LABS: African American GFR (CKD) >90 (>60 ml/min/1.73 sqM); Anion Gap 4 mmol/L; Blood Urea Nitrogen 16 mg/dL (7-17); Calcium 8.4 mg/dL (8.4-10.2); Carbon Dioxide 26 mmol/L (22-30); Chloride 103 mmol/L (98-107); Glucose 91 mg/dL (74-99); Magnesium 1.5 mg/dL (1.6-2.3); Non-African American GFR(CKD) 79 (>60 ml/min/1.73 sqM); Potassium 4.6 mmol/L (3.5-5.1); Sodium 133 mmol/L (137-145)
[2020-07-21] MEDS: IBUPROFEN 400 MG TAB PO PRN (06:02)
[2020-07-21 07:13] VITALS: RESP 16; TEMP 98.4
[2020-07-21] MEDS: CHOLECALCIFEROL 25 MCG (1000 IU) TABLET PO SCH (08:21)
[2020-07-21] MEDS: carvediloL 12.5 MG TAB PO SCH (08:22)
[2020-07-21] MEDS: APIXABAN 2.5 MG TABLET PO SCH (08:22)
[2020-07-21] MEDS: CITALOPRAM HYDROBROMIDE 20 MG TAB PO SCH (08:22)
[2020-07-21] MEDS: FERROUS SULFATE 325 MG TAB PO SCH (08:22)
[2020-07-21] MEDS: PANTOPRAZOLE 40 MG TABLET PO SCH (08:22)
[2020-07-21] MEDS: ASCORBIC ACID 500 MG TAB PO SCH (08:22)
[2020-07-21] MEDS: ISOSORBIDE MONONITRATE ER 30 MG TAB.ER.24H PO SCH (08:22)
[2020-07-21] MEDS: LEVOTHYROXINE 125 MCG TAB PO SCH (08:23)
[2020-07-21] MEDS: DONEPEZIL 10 MG TAB PO SCH (08:24)
[2020-07-21] MEDS ORDERED: Magnesium Replacement Protocol 1 EACH MISC MISCELLANE PRN (09:09)
[2020-07-21] MEDS: MORPHINE SULFATE ER 15 MG TABLET PO SCH (09:41)
[2020-07-21] MEDS: MEMANTINE 10 MG TAB PO SCH (09:42)
[2020-07-21] MEDS: MAGNESIUM SULFATE-D5W PMX 1 GM in DEXTROSE/WATER 1 100ML.BAG IVPB SCH ×2 (09:42→11:22)
[2020-07-21] MEDS: BUDESONIDE 0.25 MG/2 ML NEBU INHALATION SCH (11:27)
--- NOTE | 2020-07-21 12:35 | P.DS ---
Providers Date of admission: 07/17/20 20:22 Expected date of discharge: 07/21/20 Attending physician: Judith Coker Consults: 07/18/20 16:54 Consult Physician Routine Consulting Provider: Bharat Arias Consult Reason/Comments: Abd pain, unclear etiology Do you want consulting provider notified?: Yes Primary care physician: Dean Antony Hospital Course: Final diagnosis -Abdominal pain: Secondary to ileus, resolved -Possible acute urinary tract infection -Mild dehydration -Significant weight loss secondary to poor by mouth intake -Generalized deconditioning: Secondary to recent Covid hospitalization and age- related muscle loss -COPD without any acute acceleration -Gastroesophageal reflux disease -Hyperlipidemia -Hypertension -Coronary artery disease -Hyperthyroidism -Peripheral vascular disease -DVT prophylaxis Discharge disposition Patient is being discharged in a stable condition with guarded prognosis to [facility] for continued PT/OT therapy. Patient will follow-up with Dr. Antony in the outpatient setting upon discharge. Patient is to continue with oral antibiotics in the form of Ceftin 500 mg twice daily for the next 4 days and then may discontinue. Total time taken is greater than 35 minutes. Hospital course This is a pleasant 85-year-old female that came in with complaints of abdominal pain in the right lower quadrant and multiple episodes of diarrhea patient was having diarrhea for about 3 weeks which now improved. Patient was recently hospitalized around the for Covid 19. Since then the patient had diarrhea and a 20 pound weight loss . Patient had diarrhea since since her "diagnosis. Patient had a computed tomography scan of the abdomen is which did not show any significant abnormality but there may be mild distention of the transverse colon. General surgery is being consulted.. Patient is quite weak and mildly clinically dehydrated and patient is getting IV fluids. Patient will need physical therapy occupational therapy evaluation and possible placement to subacute rehabilitation patient denied any fever chills. 07/19/2020 Patient is still having some pain. General surgery evaluated the patient. Patient will be evaluated by physical therapy and outpatient therapy tomorrow possibility of discharge to subacute rehabilitation. 07/20/2020 Patient is seen and evaluated in follow-up with no acute overnight issues. Surgery evaluated the patient recommending no surgical intervention at this time. Patient is tolerating diet and no reports of nausea or vomiting noted. Patient was seen and evaluated by physical therapy recommending subacute rehab for continued PT/OT therapy and social work following working on accepting facilities. Patient did have one episode of fever yesterday and reports some discomfort with urination and will obtain urinalysis. Previous Urinalysis is negative for infection and was not started on antibiotics. Will repeat a.m. labs 07/21/2020 Patient is seen in follow-up this morning with no overnight issues. Patient was started on ceftriaxone and will continue and transitioned to oral Ceftin 500 mg twice daily for the next 4 days and then may discontinue for acute urinary tract infection. Patient's magnesium was found to be 1.5 and being replaced and recommend repeat labs in a few days to monitor CBC, BMP, magnesium. Patient's oral intake continues to be poor and needs encouragement with meals and will add ensure 3 times a day with meals. Currently no reports of chest pain, shortness of breath, or palpitations. Patient is afebrile. No reports of nausea or vomiting and patient is tolerating diet. Patient will be going to [facility] today. On exam vital signs are stable. Cardio S1, S2 are muffled. Respiratory system shows diminished breath sounds at the bases with no wheezing or rhonchi noted. Abdomen is soft and nontender. Nervous system shows diffuse weakness. Please refer to medication reconciliation sheet for a list of medications. Patient Condition at Discharge: Good Plan - Discharge Summary Discharge Rx Participant: No New Discharge Prescriptions: New Ibuprofen [Motrin] 400 mg PO Q8HR PRN tab PRN Reason: Fever Acetaminophen Tab [Tylenol] 650 mg PO Q6HR PRN tab PRN Reason: Fever And/ Or Pain Cefuroxime Axetil [Ceftin] 500 mg PO BID 4 Days #8 tab Continue Isosorbide Mononitrate ER [Imdur] 30 mg PO DAILY #30 tab.er.24h Ferrous Sulfate [Feosol] 325 mg PO BID Carvedilol [Coreg] 25 mg PO BID Pantoprazole Sodium [Protonix] 20 mg PO DAILY Cholecalciferol [Vitamin D3 (25 Mcg = 1000 Iu)] 50 mcg PO DAILY Memantine HCl/Donepezil HCl [Namzaric 28 mg-10 mg Capsule] 1 cap PO DAILY Levothyroxine Sodium [Synthroid] 125 mcg PO SUTUTHSA Levothyroxine Sodium [Synthroid] 100 mcg PO MOWEFR Citalopram Hydrobromide [CeleXA] 20 mg PO DAILY Apixaban [Eliquis] 2.5 mg PO BID Vitamin B Complex W/Vitamin C 1 tab PO BID Ascorbic Acid [Vitamin C] 500 mg PO DAILY Zinc 50 mg PO DAILY Menthol [Biofreeze] 1 applic TOPICAL DAILY PRN PRN Reason: shoulder/lower back pain Ondansetron Odt [Zofran ODT] 4 mg PO Q8HR PRN #10 tab PRN Reason: Nausea Budesonide/Formoterol Fumarate [Symbicort 160-4.5 Mcg Inhaler] 2 puff INHALATION RT-BID Morphine Sulfate ER [Ms Contin] 15 mg PO Q12H #6 tab HYDROcodone/APAP 5-325MG [[place] 5-325] 1 tab PO TID PRN #6 tab PRN Reason: Pain Discharge Medication List Isosorbide Mononitrate ER [Imdur] 30 mg PO DAILY #30 tab.er.24h 01/08/18 [Rx] Carvedilol [Coreg] 25 mg PO BID 04/12/18 [History] Ferrous Sulfate [Feosol] 325 mg PO BID 04/12/18 [History] Pantoprazole Sodium [Protonix] 20 mg PO DAILY 10/07/19 [History] Apixaban [Eliquis] 2.5 mg PO BID 03/29/20 [History] Cholecalciferol [Vitamin D3 (25 Mcg = 1000 Iu)] 50 mcg PO DAILY 03/29/20 [History] Citalopram Hydrobromide [CeleXA] 20 mg PO DAILY 03/29/20 [History] Levothyroxine Sodium [Synthroid] 100 mcg PO MOWEFR 03/29/20 [History] Levothyroxine Sodium [Synthroid] 125 mcg PO SUTUTHSA 03/29/20 [History] Memantine HCl/Donepezil HCl [Namzaric 28 mg-10 mg Capsule] 1 cap PO DAILY 03/29/20 [History] Menthol [Biofreeze] 1 applic TOPICAL DAILY PRN 05/22/20 [History] Vitamin B Complex W/Vitamin C 1 tab PO BID 05/22/20 [History] Ondansetron Odt [Zofran ODT] 4 mg PO Q8HR PRN #10 tab 06/18/20 [Rx] Ascorbic Acid [Vitamin C] 500 mg PO DAILY 07/17/20 [History] Budesonide/Formoterol Fumarate [Symbicort 160-4.5 Mcg Inhaler] 2 puff INHALATION RT-BID 07/17/20 [History] Zinc 50 mg PO DAILY 07/17/20 [History] Acetaminophen Tab [Tylenol] 650 mg PO Q6HR PRN tab 07/21/20 [Rx] Cefuroxime Axetil [Ceftin] 500 mg PO BID 4 Days #8 tab 07/21/20 [Rx] HYDROcodone/APAP 5-325MG [[place] 5-325] 1 tab PO TID PRN #6 tab 07/21/20 [Rx] Ibuprofen [Motrin] 400 mg PO Q8HR PRN tab 07/21/20 [Rx] Morphine Sulfate ER [Ms Contin] 15 mg PO Q12H #6 tab 07/21/20 [Rx] Follow up Appointment(s)/Referral(s): Dean Antony MD [Primary Care Provider] - 1-2 days Activity/Diet/Wound Care/Special Instructions: patient is going to [facility] Activity as tolerated Continue heart healthy diet and ensures 3 times a day with meals Continue antibiotics for 4 days and then may discontinue Repeat labs for BMP and magnesium and CBC in 3 days Follow-up with primary care provider upon discharge physical therapy Discharge Disposition: TRANSFER TO SNF/F
--- NOTE | 2020-07-21 13:16 | P.PN ---
Subjective Progress Note Date: 07/21/20 CHIEF COMPLAINT: Abdominal pain HISTORY OF PRESENT ILLNESS: Surgical service is following in regards to p jordy's ileus patient's is having bowel movements. She is tolerating regular diet. Denies any nausea vomiting. Abdominal pain has resolved. Patient has had no further fever. She was found have evidence of UTI and started on antibiotic. WBC 6.3 PHYSICAL EXAM: VITAL SIGNS: Reviewed. GENERAL: Well-developed in no acute distress. HEENT: No sclera icterus. Extraocular movements grossly intact. Moist buccal mucosa. Head is atraumatic, normocephalic. ABDOMEN: Soft. Nondistended. Nontender. NEUROLOGIC: Alert and oriented. Cranial nerves II through XII grossly intact. ASSESSMENT: 1. Generalized abdominal pain secondary to ileus. Symptoms have resolved 2. History of transverse colitis 3. UTI PLAN: -Patient is stable from surgical standpoint for discharge -Continue antibiotic for UTI Physician Forensic Examiner note has been reviewed by physician. Signing provider agrees with the documented findings, assessment, and plan of care. Objective - Vital Signs Vital signs: Vital Signs Temp 98.4 F 07/21/20 07:00 Pulse 72 07/21/20 07:00 Resp 16 07/21/20 07:00 BP 111/71 07/21/20 07:00 Pulse Ox 93 L 07/21/20 07:00 Intake & Output 07/20/20 07/21/20 07/21/20 18:59 06:59 18:59 Intake Total 118 1370 Balance 118 1370 Intake: Intake, IV Titration 250 Amount Magnesium Sulfate-D5w Pmx 200 1 gm In Dextrose/Water 1 100ml.bag @ 100 mls/hr IVPB Q1H MICHA Rx#: [id number] cefTRIAXone 1 gm In 50 Sodium Chloride 0.9% 50 ml @ 100 mls/hr IVPB Q24HR MICHA Rx#:[id number] Oral 118 1120 Other: Voiding Method Diaper Incontinent Diaper Incontinent # Voids 1 2 3 - Labs CBC & Chem 7: 07/21/20 04:45 07/21/20 04:45 Labs: Abnormal Lab Results - Last 24 Hours (Table) 07/20/20 07/21/20 07/21/20 Range/Units 20:52 04:45 04:45 RBC 2.84 L (3.80-5.40) m/uL Hgb 9.7 L (11.4-16.0) gm/dL Hct 28.7 L (34.0-46.0) % MCV 101.0 H (80.0-100.0) fL Sodium 133 L (137-145) mmol/L Magnesium 1.5 L (1.6-2.3) mg/dL Urine Appearance Turbid H (Clear) Urine Protein 1+ H (Negative) Urine Blood Small H (Negative) Ur Leukocyte Esterase Large H (Negative) Urine RBC 22 H (0-5) /hpf Urine WBC >182 H (0-5) /hpf Urine WBC Clumps Many H (None) /hpf Urine Bacteria Many H (None) /hpf Hyaline Casts 16 H (0-2) /lpf Urine Mucus Rare H (None) /hpf Microbiology - Last 24 Hours (Table) 07/20/20 20:52 Urine Culture - Preliminary Urine,Voided
[2020-07-21 13:47] VITALS: BP 110/62; PULSE 60
== END 2020-07-21 15:00 | DRG 690 ==
LOC: EC 12:56 → 6NMEDSUR 20:22 → OBSVTOIN 07-21 11:29
PROVIDERS: ADMIT Hospitalist; ATTEND Hospitalist
DX: N39.0 Urinary tract infection, site not specified (principal); K56.7 Ileus, unspecified; J98.11 Atelectasis; I11.0 Hypertensive heart disease with heart failure; I50.9 Heart failure, unspecified; J44.9 Chronic obstructive pulmonary disease, unspecified; I73.9 Peripheral vascular disease, unspecified; Z20.822 Contact with and (suspected) exposure to COVID-19; E86.0 Dehydration; F32.9 Major depressive disorder, single episode, unspecified; E03.9 Hypothyroidism, unspecified; E05.90 Thyrotoxicosis, unspecified without thyrotoxic crisis or storm; H35.30 Unspecified macular degeneration; H54.8 Legal blindness, as defined in USA; E78.5 Hyperlipidemia, unspecified; I25.10 Atherosclerotic heart disease of native coronary artery without angina pectoris; K44.9 Diaphragmatic hernia without obstruction or gangrene; K58.9 Irritable bowel syndrome, unspecified; D86.9 Sarcoidosis, unspecified; Z79.51 Long term (current) use of inhaled steroids; M19.90 Unspecified osteoarthritis, unspecified site; K21.9 Gastro-esophageal reflux disease without esophagitis; K57.90 Diverticulosis of intestine, part unspecified, without perforation or abscess without bleeding; I83.90 Asymptomatic varicose veins of unspecified lower extremity; I25.2 Old myocardial infarction; G89.29 Other chronic pain; M54.5 Low back pain; R13.10 Dysphagia, unspecified; R32 Unspecified urinary incontinence; D64.9 Anemia, unspecified; R31.29 Other microscopic hematuria; Z79.01 Long term (current) use of anticoagulants; Z79.890 Hormone replacement therapy; Z79.899 Other long term (current) drug therapy; Z86.16 Personal history of COVID-19; Z87.19 Personal history of other diseases of the digestive system; Z87.81 Personal history of (healed) traumatic fracture; Z87.11 Personal history of peptic ulcer disease; Z90.49 Acquired absence of other specified parts of digestive tract; Z90.81 Acquired absence of spleen; Z98.42 Cataract extraction status, left eye; Z98.41 Cataract extraction status, right eye; Z96.612 Presence of left artificial shoulder joint; Z96.653 Presence of artificial knee joint, bilateral; Z96.643 Presence of artificial hip joint, bilateral; Z98.890 Other specified postprocedural states; Z88.8 Allergy status to other drugs, medicaments and biological substances; Z82.5 Family history of asthma and other chronic lower respiratory diseases; Z80.9 Family history of malignant neoplasm, unspecified; Z81.2 Family history of tobacco abuse and dependence
CPT/HCPCS: 36415; 71046; 74177; 80048; 80053; 81001; 83735; 83880; 84443; 84484; 85025; 85610; 85730; 87077; 87086; 87186; 87635; 94640; 96360; 99285

== ENCOUNTER 2020-10-14 18:28 | Observation (INO) | payer MEDICARE, OTHER ==
[2020-10-14] MEDS ORDERED: ONDANSETRON 4 MG/2 ML VIAL IVP STA (20:18)
[2020-10-14] MEDS ORDERED: SODIUM CHLORIDE 0.9% 500 ML 500 ML IV STA (20:18)
[2020-10-14 20:48] LABS: Basophils % (A) 1 %; Eosinophils # (A) 0.2 k/uL (0-0.7); Eosinophils % (A) 4 %; HCT 42.7 % (34.0-46.0); HGB 13.7 gm/dL (11.4-16.0); Lymphocytes # (A) 2.4 k/uL (1.0-4.8); Lymphocytes % (A) 42 %; MCH 33.5 pg (25.0-35.0); MCHC 32.1 g/dL (31.0-37.0); MCV 104.2 fL (80.0-100.0); Macrocytosis Moderate; Mean Platelet Volume 9.1; Monocytes # (A) 0.3 k/uL (0-1.0); Monocytes % (A) 6 %; Neutrophils # (A) 2.5 k/uL (1.3-7.7); Neutrophils % (A) 44 %; Platelet Count 181 k/uL (150-450); RDW 15.4 % (11.5-15.5); WBC 5.6 k/uL (3.8-10.6)
[2020-10-14 20:59] LABS: Albumin 4.1 g/dL (3.5-5.0); Calcium 9.9 mg/dL (8.4-10.2); Total Bilirubin 0.8 mg/dL (0.2-1.3); Total Protein 7.1 g/dL (6.3-8.2)
[2020-10-14 21:04] LABS: Potassium 4.2 mmol/L (3.5-5.1)
[2020-10-14 21:44] LABS: Appearance,Urine Clear (Clear); Bilirubin,Urine Negative (Negative); Blood,Urine Negative (Negative); Color,Urine Yellow; Glucose,Urine (UA) Negative (Negative); Ketones,Urine Negative (Negative); Leukocyte Esterase,Urine Negative (Negative); Nitrite,Urine Negative (Negative); PH, Urine 7.5 (5.0-8.0); Protein,Urine Trace (Negative); Specific Gravity,Urine 1.014 (1.001-1.035); Urobilinogen,Urine <2.0 mg/dL (<2.0)
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
[2020-10-14] MEDS ORDERED: ONDANSETRON 4 MG/2 ML VIAL IVP PRN (22:06)
[2020-10-14] MEDS ORDERED: NALOXONE 0.4 MG/ML 1 ML VIAL IV PRN (22:06)
[2020-10-14] MEDS: SODIUM CHLORIDE 0.9% 1,000 ML IV SCH (23:21)
[2020-10-15] MEDS ORDERED: carvediloL 12.5 MG TAB PO ONE (01:05)
[2020-10-15] MEDS ORDERED: ACETAMINOPHEN TAB 325 MG TAB PO PRN (01:12)
[2020-10-15] MEDS: HYDROcodone/APAP 5-325MG 1 EACH TAB PO PRN ×2 (01:53→21:46)
[2020-10-15] MEDS ORDERED: LEVOTHYROXINE 125 MCG TAB PO SCH (06:30)
[2020-10-15] MEDS: SODIUM CHLORIDE 0.9% 1,000 ML IV SCH ×3 (06:49→21:42)
[2020-10-15] MEDS: MEMANTINE HCL PO SCH (07:19)
[2020-10-15] MEDS: [UNRECOGNIZED DRUG - OTHER] PO SCH (07:19)
[2020-10-15] MEDS: DONEPEZIL HCL PO SCH (07:19)
[2020-10-15] MEDS: PANTOPRAZOLE 40 MG TABLET PO SCH (07:28)
[2020-10-15] MEDS: MORPHINE SULFATE ER 15 MG TABLET PO SCH ×2 (07:28→19:19)
[2020-10-15] MEDS: carvediloL 12.5 MG TAB PO SCH ×2 (07:28→17:43)
[2020-10-15] MEDS: ISOSORBIDE MONONITRATE ER 30 MG TAB.ER.24H PO SCH (07:28)
[2020-10-15] MEDS: CITALOPRAM HYDROBROMIDE 20 MG TAB PO SCH (07:29)
[2020-10-15] MEDS: APIXABAN 2.5 MG TABLET PO SCH ×2 (07:29→19:19)
[2020-10-15 07:48] VITALS: RESP 16
--- NOTE | 2020-10-15 08:19 | XR ---
EXAMINATION TYPE: XR chest 1V DATE OF EXAM: 10/15/2020 COMPARISON: 07/18/2019 HISTORY: Weakness TECHNIQUE: Single frontal view of the chest is obtained. FINDINGS: Coarsened interstitium with subsegmental changes at the left lung base and partial eventra tion of the hemidiaphragm stable. Surgical clips in the abdomen. No pneumothorax. Diffuse osteopenia and arthropathy of the shoulder and postsurgical change of the left shoulder. Atherosclerotic change aorta. IMPRESSION: 1. COPD with chronic interstitial disease is either partial eventration of left diaphragm or diaphrag matic hernia stable from prior exam.
[2020-10-15] MEDS: SYMBICORT 160-4.5 MCG INHALER INHALATION SCH ×2 (08:48→21:24)
[2020-10-15 09:02] LABS: Basophils # (A) 0.1 k/uL (0-0.2); Basophils % (A) 1 %; Eosinophils # (A) 0.2 k/uL (0-0.7); Eosinophils % (A) 5 %; HCT 38.6 % (34.0-46.0); HGB 12.5 gm/dL (11.4-16.0); Hypochromasia Slight; Lymphocytes % (A) 38 %; MCHC 32.2 g/dL (31.0-37.0); MCV 105.4 fL (80.0-100.0); Macrocytosis Moderate; Monocytes # (A) 0.3 k/uL (0-1.0); Monocytes % (A) 5 %; Neutrophils # (A) 2.5 k/uL (1.3-7.7); Neutrophils % (A) 48 %; Platelet Count 153 k/uL (150-450); RBC 3.67 m/uL (3.80-5.40); RDW 15.2 % (11.5-15.5); WBC 5.2 k/uL (3.8-10.6)
[2020-10-15 09:07] LABS: ALT 9 U/L (4-34); AST 20 U/L (14-36); African American GFR (CKD) >90 (>60 ml/min/1.73 sqM); Albumin 3.3 g/dL (3.5-5.0); Albumin/Globulin Ratio 1.3; Alkaline Phosphatase 59 U/L (38-126); Anion Gap 6 mmol/L; Bilirubin,Unconjugated 0.6 mg/dL (0.0-1.1); Blood Urea Nitrogen 10 mg/dL (7-17); Carbon Dioxide 22 mmol/L (22-30); Chloride 110 mmol/L (98-107); Globulin 2.6 g/dL; Glucose 95 mg/dL (74-99); Magnesium 1.5 mg/dL (1.6-2.3); Non-African American GFR(CKD) 80 (>60 ml/min/1.73 sqM); Potassium 3.6 mmol/L (3.5-5.1); Sodium 138 mmol/L (137-145); Total Bilirubin 0.6 mg/dL (0.2-1.3); Total Protein 5.9 g/dL (6.3-8.2)
[2020-10-15] MEDS ORDERED: POTASSIUM CHLORIDE ER 20 MEQ TAB.ER PO STA (09:23)
[2020-10-15] MEDS ORDERED: Magnesium Replacement Protocol 1 EACH MISC MISCELLANE PRN (09:24)
[2020-10-15] MEDS: IOPAMIDOL CONTRAST (ORAL USE) VIAL PO PRN ×2 (10:03→11:19)
[2020-10-15] MEDS: MAGNESIUM SULFATE-D5W PMX 1 GM in DEXTROSE/WATER 1 100ML.BAG IVPB SCH ×2 (10:04→11:19)
[2020-10-15 10:21] LABS: T4, Free (Free Thyroxine) 1.79 ng/dL (0.78-2.19)
--- NOTE | 2020-10-15 12:24 | CT ---
EXAMINATION TYPE: CT abdomen pelvis w con DATE OF EXAM: 10/15/2020 COMPARISON: None HISTORY: Abdominal pain and diarrhea. CT DLP: 617.1 mGycm CONTRAST: CT scan of the abdomen and pelvis is performed with Oral Contrast and with IV Contrast, patient injec paige with 100 mL of Isovue 300. FINDINGS: LUNG BASES-: No visible nodule. No infiltrate. LIVER/GB: No calcified gallstones. No space occupying hepatic lesion. Biliary tree is of normal ca liber. PANCREAS: No inflammation. No distinct mass. Atrophic changes of the pancreas. SPLEEN: No splenic enlargement. No lesion seen. ADRENALS: No nodule. No thickening. KIDNEYS/BLADDER: No hydronephrosis. No nephrolithiasis. No distinct renal mass. Urinary bladder g rossly unremarkable. BOWEL: Normal appendix. Normal bowel caliber. No inflammation. GENITAL ORGANS: No gross abnormality. LYMPH NODES: No greater than 1cm abdominal or pelvic lymph nodes are appreciated. AORTA: No significant abnormality. OSSEOUS STRUCTURES: Bilateral hip replacement surgery resulting in streak artifact. Severe degenerati ve change lumbar spine. OTHER: No significant additional abnormality is seen. IMPRESSION: 1. No acute process to account for the patient's symptoms.
[2020-10-15 13:30] LABS: Hemoglobin A1C 5.2 % (4.0-6.0)
--- NOTE | 2020-10-15 15:24 | P.HPIM ---
History of Present Illness This is a pleasant 85 years old female with past medical history of asthma/COPD, heart failure, hyperlipidemia, hypertension, chronic back pain, legally blind due to macular degeneration, peptic ulcer disease and hiatal hernia, dive rticular disease/irritable bowel syndrome, sarcoidosis with occasional difficulty swallowing. She had positive covid test on 05/2020. Patient presents because of diarrhea for the last 2 days with continuous soft stool as patient describes, baseline bowel movement since once to twice a day. Associated with nausea vomiting and also she was complaining from left lower abdominal pain and tenderness with no rebound tenderness, she rates her pain this morning at 8/10 and scabs as nonspecific associated with decreased appetite for the last 2 days. She has nausea but no vomiting and she told me. Because of her abdominal pain and tenderness in the area CT of the abdomen and pelvis is ordered which was unremarkable. No chest pain, but she has mild dyspnea. Chest x-ray: COPD with chronic interstitial disease She denies smoking or illicit drugs, she drinks alcohol occasionally She is not sure why she takes Eliquis 2.5 mg twice daily. She states she is taking morphine for her chronic back pain and bilateral hip pain. On admission patient is afebrile, slightly bradycardic with heart rate 58-63, hypertensive with a blood pressure 189/88, she is saturating 95% on room air. Labs including CBC, BMP, liver enzymes are unremarkable. Urinalysis is not suspicious for infection. C. diff is negative. Troponin negative at 0.019. C. diff is negative TSH slightly low at 0.4 but normal T4 at 1.7. Vitamin B12 is pending and hemoglobin A1c is normal at 5.2% In the emergency room she was started on normal saline at 1 50 mL/h Review of Systems CONSTITUTIONAL: No fever, no malaise, no fatigue. HEENT: No recent visual problems or hearing problems. Denied any sore throat. CARDIOVASCULAR: No orthopnea, PND, no palpitations, no syncope. PULMONARY: No shortness of breath, no cough, no hemoptysis. GASTROINTESTINAL: No abdominal wall rash or hernia. Normoactive bowel sounds. NEUROLOGICAL: No headaches, no weakness, no numbness. HEMATOLOGICAL: Denies any bleeding or petechiae. GENITOURINARY: Denies any burning micturition, frequency, or urgency. MUSCULOSKELETAL/RHEUMATOLOGICAL: Denies any joint pain, swelling, or any muscle pain. ENDOCRINE: Denies any polyuria or polydipsia. Past Medical History Past Medical History: Asthma, Chest Pain / Angina, Heart Failure, COPD, Eye Disorder, GERD/Reflux, Hyperlipidemia, Hypertension, Myocardial Infarction ([place]), Osteoarthritis (OA), Thyroid Disorder, Vascular Disorder Additional Past Medical History / Comment(s): Chronic low back pain, recent L arm fracture and pt still has pain and swelling in that arm, legally blind d/t macular degeneration, PUD, hiatal hernia, diverticular disease, IBS, colitis, past bowel obstruction, sarcoidosis, occasional difficulty swallowing, anemia, irregular heart beat, varicose veins, hypothyroid, COVID+ 4\\21 Last Myocardial Infarction Date:: 2012 History of Any Multi-Drug Resistant Organisms: None Reported Past Surgical History: Back Surgery, Bowel Resection, Hernia Repair, Joint Replacement Additional Past Surgical History / Comment(s): 06/16/17 conversion hemiarthroplasty L shoulder, mayur knee and mayur hip replacements, SPLENECTOMY, NASAL/SINUS SX, FOOT SX FOR HAMMERTOE, had colosotomy then had reversal later, mayur cataracts, additional bowel repair r/t looped strangulation. Past Anesthesia/Blood Transfusion Reactions: No Reported Reaction Additional Past Anesthesia/Blood Transfusion Reaction / Comment(s): blood transfusion-no reaction Past Psychological History: Depression Additional Psychological History / Comment(s): Pt resides in her own home with 6 steps. Her great grandson lives with her but he works and goes to college. Pt is legally blind. Family manages her medications and drives her to [employer]. She has alot of visitors. She uses a walker when she goes out. She has a [place] n who comes twice a week to do chores. She has 2 permanent cats in her home and 2 "visitor" cats. Smoking Status: Never smoker Past Alcohol Use History: Occasional Past Drug Use History: None Reported - Past Family History Sister(s) Family Medical History: Cancer Mother Family Medical History: COPD Additional Family Medical History / Comment(s): SMOKER/EMPHYSEMA Medications and Allergies Home Medications Medication Instructions Recorded Confirmed Type Isosorbide Mononitrate ER [Imdur] 30 mg PO DAILY #30 tab.er.24h 01/08/18 10/14/20 Rx Carvedilol [Coreg] 25 mg PO BID 04/12/18 10/14/20 History Ferrous Sulfate [Feosol] 325 mg PO BID 04/12/18 10/14/20 History Pantoprazole Sodium [Protonix] 20 mg PO DAILY 10/07/19 10/14/20 History Apixaban [Eliquis] 2.5 mg PO BID 03/29/20 10/14/20 History Cholecalciferol [Vitamin D3 (25 50 mcg PO DAILY 03/29/20 10/14/20 History Mcg = 1000 Iu)] Citalopram Hydrobromide [CeleXA] 20 mg PO DAILY 03/29/20 10/14/20 History Levothyroxine Sodium [Synthroid] 100 mcg PO MOWEFR 03/29/20 10/14/20 History Levothyroxine Sodium [Synthroid] 125 mcg PO SUTUTHSA 03/29/20 10/14/20 History Memantine HCl/Donepezil HCl 1 cap PO DAILY 03/29/20 10/14/20 History [Namzaric 28 mg-10 mg Capsule] Menthol [Biofreeze] 1 applic TOPICAL DAILY PRN 05/22/20 10/14/20 History Vitamin B Complex W/Vitamin C 1 tab PO BID 05/22/20 10/14/20 History Ascorbic Acid [Vitamin C] 500 mg PO DAILY 07/17/20 10/14/20 History Budesonide/Formoterol Fumarate 2 puff INHALATION RT-BID 07/17/20 10/14/20 History [Symbicort 160-4.5 Mcg Inhaler] Zinc 50 mg PO DAILY 07/17/20 10/14/20 History Acetaminophen Tab [Tylenol] 650 mg PO Q6HR PRN tab 07/21/20 10/14/20 Rx HYDROcodone/APAP 5-325MG [[place] 1 tab PO TID PRN #6 tab 07/21/20 10/14/20 Rx 5-325] Morphine Sulfate ER [Ms Contin] 15 mg PO Q12H #6 tab 07/21/20 10/14/20 Rx Allergies Allergy/AdvReac Type Severity Reaction Status Date / Time benazepril Allergy tongue Verified 10/14/20 19:19 swelling Physical Exam Vitals: Vital Signs Temp Pulse Pulse Resp BP BP Pulse Ox 10/15/20 06:19 189/73 10/15/20 00:32 98.1 F 58 L 18 192/67 95 10/14/20 23:00 98.1 F 58 L 16 189/88 98 10/14/20 21:00 98.1 F 58 L 16 192/78 97 10/14/20 19:15 98.5 F 63 18 182/81 94 L Intake and Output 10/14/20 10/15/20 10/15/20 22:59 06:59 14:59 Other: # Voids 2 # Bowel Movements 3 Weight 49.895 kg 49.895 kg GENERAL: The patient is alert and oriented x3, not in any acute distress. Well developed, well nourished. HEENT: Pupils are round and equally reacting to light. EOMI. No scleral icterus. No conjunctival pallor. Normocephalic, atraumatic. No pharyngeal erythema. No thyromegaly. CARDIOVASCULAR: S1 and S2 present. No murmurs, rubs, or gallops. PULMONARY: Chest is clear to auscultation, no wheezing or crackles. -ABDOMEN: Soft, nontender, left lower quadrant tenderness with no rebound tenderness, normoactive bowel sounds. No palpable organomegaly. MUSCULOSKELETAL: No joint swelling or deformity. EXTREMITIES: No cyanosis, clubbing, or pedal edema. NEUROLOGICAL: Gross neurological examination did not reveal any focal deficits. SKIN: No rashes. No petechiae Results CBC & Chem 7: 10/15/20 08:17 10/15/20 08:17 Labs: Abnormal Lab Results - Last 24 Hours (Table) 10/14/20 10/14/20 10/14/20 Range/Units 20:36 20:36 21:35 MCV 104.2 H (80.0-100.0) fL Glucose 102 H (74-99) mg/dL Urine Protein Trace H (Negative) Thrombosis Risk Factor Assmnt - Choose All That Apply Any of the Below Risk Factors Present?: No Other Risk Factors: No Other congenital or acquired thrombophilia - If yes, enter type in comment: No Thrombosis Risk Factor Assessment Level: Very Low Risk Assessment and Plan Assessment: Acute gastroenteritis Generalized weakness Hypertension Hyperlipidemia History of dementia History of asthma/COPD, no acute exacerbation Chronic heart failure Chronic back pain Hypothyroidism Fluid blind due to macular degeneration History of peptic ulcer disease and hiatal hernia History of irritable bowel syndrome and diverticular disease History of sarcoidosis with occasional difficulty swallowing Previous Covid infection on 05/2020 Plan: This is a pleasant 85 years old female who presents with generalized weakness and acute gastroenteritis Continue with IV hydration. Follow-up stool studies Check TSH and vitamin B12, check hemoglobin A1c as a glucose is mildly opened 102. C. diff is negative Add Questran Labs and medication were reviewed.. Continue same treatment. Continue with symptomatic treatment. Resume home medication. Monitor lytes and vitals. DVT and GI prophylaxis. Further recommendations depends on the clinical course of the patient DVT prophylaxis: Eliquis GI Prophylaxis: Pepcid PT/OT: Pending Prognosis is guarded
[2020-10-15 16:38] LABS: Glucose,Whole Blood 239 mg/dL (75-99)
[2020-10-15 17:01] LABS: Folate, Serum >24.0 ng/mL
[2020-10-15] MEDS: amLODIPine 2.5 MG TAB PO SCH (17:43)
[2020-10-16] MEDS: HYDROcodone/APAP 5-325MG 1 EACH TAB PO PRN ×2 (04:05→15:58)
[2020-10-16] MEDS: MAGNESIUM SULFATE-D5W PMX 1 GM in DEXTROSE/WATER 1 100ML.BAG IVPB SCH ×2 (04:06→05:41)
[2020-10-16] MEDS ORDERED: LEVOTHYROXINE 100 MCG TAB PO SCH (06:30)
[2020-10-16] MEDS: [UNRECOGNIZED DRUG - OTHER] PO SCH (07:17)
[2020-10-16] MEDS: MEMANTINE HCL PO SCH (07:17)
[2020-10-16] MEDS: DONEPEZIL HCL PO SCH (07:17)
[2020-10-16] MEDS: carvediloL 12.5 MG TAB PO SCH (07:20)
[2020-10-16] MEDS: ISOSORBIDE MONONITRATE ER 30 MG TAB.ER.24H PO SCH (07:20)
[2020-10-16] MEDS: amLODIPine 2.5 MG TAB PO SCH (07:20)
[2020-10-16] MEDS: CITALOPRAM HYDROBROMIDE 20 MG TAB PO SCH (07:20)
[2020-10-16] MEDS: PANTOPRAZOLE 40 MG TABLET PO SCH (07:21)
[2020-10-16] MEDS: APIXABAN 2.5 MG TABLET PO SCH (07:21)
[2020-10-16] MEDS: MORPHINE SULFATE ER 15 MG TABLET PO SCH (07:22)
[2020-10-16 08:54] VITALS: BP 129/62; PULSE 55; TEMP 98.4
[2020-10-16] MEDS: SYMBICORT 160-4.5 MCG INHALER INHALATION SCH (09:22)
== END 2020-10-16 16:45 | disposition home or self-care (01) ==
LOC: EC 18:28 → 4SSUR 22:10
PROVIDERS: ADMIT Internal Medicine; ATTEND Internal Medicine
DX: K52.9 Noninfective gastroenteritis and colitis, unspecified (principal); R53.1 Weakness; D86.9 Sarcoidosis, unspecified; Z86.16 Personal history of COVID-19; K57.90 Diverticulosis of intestine, part unspecified, without perforation or abscess without bleeding; H54.8 Legal blindness, as defined in USA; Z79.01 Long term (current) use of anticoagulants; Z79.890 Hormone replacement therapy; Z79.51 Long term (current) use of inhaled steroids; Z79.899 Other long term (current) drug therapy; Z88.8 Allergy status to other drugs, medicaments and biological substances; E78.5 Hyperlipidemia, unspecified; I25.2 Old myocardial infarction; J44.9 Chronic obstructive pulmonary disease, unspecified; K21.9 Gastro-esophageal reflux disease without esophagitis; M19.90 Unspecified osteoarthritis, unspecified site; I11.0 Hypertensive heart disease with heart failure; I50.9 Heart failure, unspecified; E03.9 Hypothyroidism, unspecified; Z87.11 Personal history of peptic ulcer disease; M54.9 Dorsalgia, unspecified; F03.90 Unspecified dementia, unspecified severity, without behavioral disturbance, psychotic disturbance, mood disturbance, and anxiety; Z90.81 Acquired absence of spleen; G89.29 Other chronic pain; H35.30 Unspecified macular degeneration; Z82.5 Family history of asthma and other chronic lower respiratory diseases; F32.9 Major depressive disorder, single episode, unspecified
CPT/HCPCS: 96361 ×3; 96365; 96366 ×2; 96375; 99284; 36415; 94640 ×3; 97162; 97165; 84439; 80053; 80048; 80076; 84443; 82607; 82746; 83690; 83735 ×2; 84484; 85025 ×2; 81003; 87324; 83036; 71045; 74177; G0378 ×3; J2405; J3475 ×2; Q9967

== ENCOUNTER 2020-12-27 17:39 | Observation (INO) | payer MEDICARE, OTHER ==
[2020-12-27] MEDS ORDERED: SODIUM CHLORIDE 0.9% 1,000 ML IV ONE ×2 (18:31→20:44)
[2020-12-27] MEDS ORDERED: MORPHINE SULFATE 2 MG/ML SYRINGE IVP STA (18:32)
[2020-12-27] MEDS ORDERED: ONDANSETRON 4 MG/2 ML VIAL IVP STA (18:34)
--- NOTE | 2020-12-27 18:50 | ED ---
General Adult HPI - General Chief complaint: Abdominal Pain Stated complaint: vomiting & diarrhea Time Seen by Provider: 12/27/20 18:00 Source: patient, RN notes reviewed, old records reviewed Mode of arrival: wheelchair Limitations: no limitations - History of Present Illness Initial comments: 85-year-old female presents emergency department stating that since Monday she has been out of her morphine and ever since then she has been vomiting and hav ing diarrhea. Patient states she normally doesn't run out but when she hasn't passed this also occurs. Patient states Dr. Antony wrote her prescription for morphine at the pharmacy was unable to fill it because he didn't have any morphine so she was going to get it filled tomorrow. Patient states she continues to vomit or diarrhea so she felt dehydrated so she came to the emergency department. Patient states her abdomen is only sore when she vomiting otherwise does not hurt. Patient denies any other complaints of pain. Patient denies chest pain difficulty breathing. Patient denies fever chills. - Related Data Home Medications Medication Instructions Recorded Confirmed Carvedilol [Coreg] 25 mg PO BID 04/12/18 10/14/20 Ferrous Sulfate [Feosol] 325 mg PO BID 04/12/18 10/14/20 Pantoprazole Sodium [Protonix] 20 mg PO DAILY 10/07/19 10/14/20 Apixaban [Eliquis] 2.5 mg PO BID 03/29/20 10/14/20 Cholecalciferol [Vitamin D3 (25 50 mcg PO DAILY 03/29/20 10/14/20 Mcg = 1000 Iu)] Citalopram Hydrobromide [CeleXA] 20 mg PO DAILY 03/29/20 10/14/20 Levothyroxine Sodium [Synthroid] 100 mcg PO MOWEFR 03/29/20 10/14/20 Levothyroxine Sodium [Synthroid] 125 mcg PO SUTUTHSA 03/29/20 10/14/20 Memantine HCl/Donepezil HCl 1 cap PO DAILY 03/29/20 10/14/20 [Namzaric 28 mg-10 mg Capsule] Menthol [Biofreeze] 1 applic TOPICAL DAILY PRN 05/22/20 10/14/20 Vitamin B Complex W/Vitamin C 1 tab PO BID 05/22/20 10/14/20 Ascorbic Acid [Vitamin C] 500 mg PO DAILY 05/21/21 08/18/21 Budesonide/Formoterol Fumarate 2 puff INHALATION RT-BID 07/17/20 10/14/20 [Symbicort 160-4.5 Mcg Inhaler] Zinc 50 mg PO DAILY 07/17/20 10/14/20 Previous Rx's Medication Instructions Recorded Isosorbide Mononitrate ER [Imdur] 30 mg PO DAILY #30 tab.er.24h 01/08/18 Acetaminophen Tab [Tylenol] 650 mg PO Q6HR PRN tab 07/21/20 HYDROcodone/APAP 5-325MG [[place] 1 tab PO TID PRN #6 tab 07/21/20 5-325] Morphine Sulfate ER [Ms Contin] 15 mg PO Q12H #6 tab 07/21/20 amLODIPine [Norvasc] 2.5 mg PO DAILY #30 tab 10/16/20 Allergies Allergy/AdvReac Type Severity Reaction Status Date / Time benazepril Allergy tongue Verified 12/27/20 18:05 swelling Review of Systems ROS Statement: Those systems with pertinent positive or pertinent negative responses have been documented in the HPI. ROS Other: All systems not noted in ROS Statement are negative. Past Medical History Past Medical History: Asthma, Chest Pain / Angina, Heart Failure, COPD, Eye Disorder, GERD/Reflux, Hyperlipidemia, Hypertension, Myocardial Infarction ([place]), Osteoarthritis (OA), Thyroid Disorder, Vascular Disorder Additional Past Medical History / Comment(s): Chronic low back pain, recent L arm fracture and pt still has pain and swelling in that arm, legally blind d/t macular degeneration, PUD, hiatal hernia, diverticular disease, IBS, colitis, past bowel obstruction, sarcoidosis, occasional difficulty swallowing, anemia, irregular heart beat, varicose veins, hypothyroid, COVID+ 4\ Last Myocardial Infarction Date:: 2012 History of Any Multi-Drug Resistant Organisms: None Reported Past Surgical History: Back Surgery, Bowel Resection, Hernia Repair, Joint Replacement Additional Past Surgical History / Comment(s): 06/16/17 conversion hemiarthroplasty L shoulder, mayur knee and mayur hip replacements, SPLENECTOMY, NASAL/SINUS SX, FOOT SX FOR HAMMERTOE, had colosotomy then had reversal later, mayur cataracts, additional bowel repair r/t looped strangulation. Past Anesthesia/Blood Transfusion Reactions: No Reported Reaction Additional Past Anesthesia/Blood Transfusion Reaction / Comment(s): blood transfusion-no reaction Past Psychological History: Depression Smoking Status: Never smoker Past Alcohol Use History: Occasional Past Drug Use History: None Reported - Past Family History Sister(s) Family Medical History: Cancer Mother Family Medical History: COPD Additional Family Medical History / Comment(s): SMOKER/EMPHYSEMA General Exam - General Exam Comments Initial Comments: GENERAL: Patient is well-developed and well-nourished. Patient is nontoxic and well- hydrated and is in mild distress. ENT: Neck is soft and supple. No significant lymphadenopathy is noted. Oropharynx is clear. Moist mucous membranes. Neck has full range of motion without eliciting any pain. EYES: The sclera were anicteric and conjunctiva were pink and moist. Extraocular movements were intact and pupils were equal round and reactive to light. Eyelids were unremarkable. PULMONARY: Unlabored respirations. Good breath sounds bilaterally. No audible rales rhonchi or wheezing was noted. CARDIOVASCULAR: There is a regular rate and rhythm without any murmurs gallops or rubs. ABDOMEN: Soft and nontender with normal bowel sounds. SKIN: Skin is clear with no lesions or rashes and otherwise unremarkable. NEUROLOGIC: Patient is alert and oriented x3. Cranial nerves II through XII are grossly intact. Motor and sensory are also intact. Normal speech, volume and content. Symmetrical smile. MUSCULOSKELETAL: Normal extremities with adequate strength and full range of motion. LYMPHATICS: No significant lymphadenopathy is noted PSYCHIATRIC: Normal psychiatric evaluation. Limitations: no limitations Course Vital Signs 12/27/20 18:02 Temperature 97.9 F Pulse Rate 60 Respiratory 18 Rate Blood Pressure 192/66 O2 Sat by Pulse 97 Oximetry Medical Decision Making - Medical Decision Making I reviewed the patient's maps and she did run out of morphine on December 23. I gave the patient 2 mg of morphine in the emergency department she was feeling better and then I gave her her normal oral dose of 15 mg of morphine. Patient however was not feeling good enough to go home and be by herself so I spoke with [facility] agreed to admit the patient and the patient wrote admitting orders. I went back in and reevaluated the patient patient stated that she continues to have some diarrhea but is feeling better. Patient states her pain in her back but that is her chronic pain. She does not feel comfortable going home. - Lab Data Result diagrams: 12/27/20 19:21 12/27/20 19:21 Lab Results 12/27/20 12/27/20 Range/Units 19:21 19:21 WBC 13.4 H (3.8-10.6) k/uL RBC 3.66 L (3.80-5.40) m/uL Hgb 12.9 (11.4-16.0) gm/dL Hct 39.0 (34.0-46.0) % MCV 106.4 H (80.0-100.0) fL MCH 35.3 H (25.0-35.0) pg MCHC 33.2 (31.0-37.0) g/dL RDW 13.7 (11.5-15.5) % Plt Count 201 (150-450) k/uL MPV 9.0 Neutrophils % 86 % Lymphocytes % 9 % Monocytes % 2 % Eosinophils % 2 % Basophils % 0 % Neutrophils # 11.5 H (1.3-7.7) k/uL Lymphocytes # 1.3 (1.0-4.8) k/uL Monocytes # 0.2 (0-1.0) k/uL Eosinophils # 0.3 (0-0.7) k/uL Basophils # 0.0 (0-0.2) k/uL Macrocytosis Moderate Sodium 137 (137-145) mmol/L Potassium 4.4 (3.5-5.1) mmol/L Chloride 104 (98-107) mmol/L Carbon Dioxide 22 (22-30) mmol/L Anion Gap 11 mmol/L BUN 17 (7-17) mg/dL Creatinine 0.62 (0.52-1.04) mg/dL Est GFR (CKD-EPI)AfAm >90 (>60 ml/min/1.73 sqM) Est GFR (CKD-EPI)NonAf 82 (>60 ml/min/1.73 sqM) Glucose 140 H (74-99) mg/dL Calcium 10.2 (8.4-10.2) mg/dL Total Bilirubin 1.6 H (0.2-1.3) mg/dL AST 41 H (14-36) U/L ALT 14 (4-34) U/L Alkaline Phosphatase 80 (38-126) U/L Total Protein 8.2 (6.3-8.2) g/dL Albumin 4.6 (3.5-5.0) g/dL Amylase 63 (30-110) U/L Lipase 27 (23-300) U/L Disposition Clinical Impression: Nausea vomiting and diarrhea, Opiate withdrawal Disposition: ADMITTED IP TO THIS HOSP Referrals: Dean Antony MD [Primary Care Provider] - 1-2 days Time of Disposition: 20:43
[2020-12-27 19:29] LABS: Basophils % (A) 0 %; Eosinophils # (A) 0.3 k/uL (0-0.7); Eosinophils % (A) 2 %; HGB 12.9 gm/dL (11.4-16.0); Lymphocytes # (A) 1.3 k/uL (1.0-4.8); Lymphocytes % (A) 9 %; MCH 35.3 pg (25.0-35.0); MCHC 33.2 g/dL (31.0-37.0); MCV 106.4 fL (80.0-100.0); Macrocytosis Moderate; Monocytes # (A) 0.2 k/uL (0-1.0); Monocytes % (A) 2 %; Neutrophils # (A) 11.5 k/uL (1.3-7.7); Neutrophils % (A) 86 %; Platelet Count 201 k/uL (150-450); RBC 3.66 m/uL (3.80-5.40); RDW 13.7 % (11.5-15.5); WBC 13.4 k/uL (3.8-10.6)
--- NOTE | 2020-12-27 19:37 | XR ---
EXAMINATION TYPE: XR KUB DATE OF EXAM: 12/27/2020 COMPARISON: 10/18/2012 HISTORY: Abdominal pain TECHNIQUE: Single view FINDINGS: There is no sign of intestinal obstruction or pneumoperitoneum. There are clips over the st omach. Lung bases are clear. There is bilateral hip prosthesis. There is no sign of a mass. Fecal pat tern is normal. There are no calcifications over the kidneys. IMPRESSION: Nonacute abdomen.
[2020-12-27 19:39] LABS: ALT 14 U/L (4-34); AST 41 U/L (14-36); African American GFR (CKD) >90 (>60 ml/min/1.73 sqM); Albumin 4.6 g/dL (3.5-5.0); Alkaline Phosphatase 80 U/L (38-126); Amylase 63 U/L (30-110); Anion Gap 11 mmol/L; Blood Urea Nitrogen 17 mg/dL (7-17); Calcium 10.2 mg/dL (8.4-10.2); Carbon Dioxide 22 mmol/L (22-30); Chloride 104 mmol/L (98-107); Glucose 140 mg/dL (74-99); Lipase 27 U/L (23-300); Non-African American GFR(CKD) 82 (>60 ml/min/1.73 sqM); Sodium 137 mmol/L (137-145); Total Bilirubin 1.6 mg/dL (0.2-1.3); Total Protein 8.2 g/dL (6.3-8.2)
[2020-12-27] MEDS ORDERED: MORPHINE SULFATE ER 15 MG TABLET PO STA (20:00)
[2020-12-27 20:09] LABS: Potassium 4.4 mmol/L (3.5-5.1)
[2020-12-27] MEDS ORDERED: ONDANSETRON 4 MG/2 ML VIAL IVP PRN (20:45)
[2020-12-27] MEDS ORDERED: DIPHENOX-ATROP 2.5-0.025 MG 1 EACH TAB PO STA (20:45)
[2020-12-27] MEDS ORDERED: hydrALAZINE HCL 20 MG/ML 1 ML VIAL IVP STA (20:48)
[2020-12-27] MEDS: carvediloL 12.5 MG TAB PO SCH (22:49)
[2020-12-27] MEDS: ACETAMINOPHEN TAB 325 MG TAB PO PRN (22:49)
[2020-12-28] MEDS: HYDROcodone/APAP 5-325MG 1 EACH TAB PO PRN ×2 (01:17→12:10)
[2020-12-28 01:45] LABS: Appearance,Urine Clear (Clear); Bacteria,Urine Rare /hpf; Bilirubin,Urine Negative (Negative); Blood,Urine Negative (Negative); Calcium Oxalate Crystals,Urine Rare /hpf; Color,Urine Yellow; Glucose,Urine (UA) Negative (Negative); Ketones,Urine Negative (Negative); Leukocyte Esterase,Urine Small (Negative); Mucus,Urine Rare /hpf; Nitrite,Urine Negative (Negative); PH, Urine 6.5 (5.0-8.0); Protein,Urine 1+ (Negative); Specific Gravity,Urine 1.014 (1.001-1.035); Squamous Epithelial Cell,Urine 1 /hpf (0-4); Urobilinogen,Urine <2.0 mg/dL (<2.0); WBC,Urine 1 /hpf (0-5)
[2020-12-28] MEDS: ACETAMINOPHEN TAB 325 MG TAB PO PRN ×2 (04:17→14:26)
[2020-12-28] MEDS: carvediloL 12.5 MG TAB PO SCH (07:56)
[2020-12-28 15:40] VITALS: BP 131/49; PULSE 54; RESP 17; TEMP 98.7
--- NOTE | 2021-01-02 10:49 | P.HPIM ---
History of Present Illness H&P Date: 12/28/20 85-year-old female came in complaints of diarrhea excessive sweating, anxiety and palpitations. Patient has chronic low back pain does take morphine and regular basis patient on this medication about 2-3 days before hospitalization and the patient is found to have withdrawals from morphine. Patient was started on opiates after which patient symptoms resolved. Patient was having her nausea vomiting denied any significant abdominal pain but does have some abdominal soreness and cramping. REVIEW OF SYSTEMS: CONSTITUTIONAL: Mentioned in HPI r hearing problems. Denied any sore throat. CARDIOVASCULAR: No chest pain, orthopnea, PND, no syncope. PULMONARY: No shortness of breath, no cough, no hemoptysis. GASTROINTESTINAL: No diarrhea, no nausea, no vomiting, no abdominal pain. NEUROLOGICAL: No headaches, no weakness, no numbness. HEMATOLOGICAL: Denies any bleeding or petechiae. GENITOURINARY: Denies any burning micturition, frequency, or urgency. MUSCULOSKELETAL/RHEUMATOLOGICAL: Denies any joint pain, swelling, or any muscle pain. ENDOCRINE: Denies any polyuria or polydipsia. The rest of the 14-point review of systems is negative. PHYSICAL EXAMINATION: GENERAL: The patient is alert and oriented x3, not in any acute distress. Well developed, well nourished. HEENT: Pupils are round and equally reacting to light. EOMI. No scleral icterus. No conjunctival pallor. Normocephalic, atraumatic. No pharyngeal erythema. No thyromegaly. CARDIOVASCULAR: S1 and S2 present. No murmurs, rubs, or gallops. PULMONARY: Chest is clear to auscultation, no wheezing or crackles. ABDOMEN: Soft, nontender, nondistended, normoactive bowel sounds. No palpable organomegaly. MUSCULOSKELETAL: No joint swelling or deformity. EXTREMITIES: No cyanosis, clubbing, or pedal edema. NEUROLOGICAL: Gross neurological examination did not reveal any focal deficits. SKIN: No rashes. Assessment and plan: -Opiate withdrawal: Patient sent to significantly improved after the reinitiation of opiates. Although patient is not requiring morphine patient pain is fairly well controlled just with [place] patient will be discharged on [place] to follow up with primary care physician as an outpatient next and have leukocytosis reactive secondary to diarrhea and multiple other symptoms contributed related to opiate withdrawal. - asymptomatic bacteriuria urine showed red bacteria but not significantly abnormal will not require any antibiotics at this time. -COPD without any acute exacerbation extent-gastroesophageal reflux disease -Hyperlipidemia -Hypertension -Coronary artery disease -Progressive disease -Hypothyroidism For above-mentioned chronic medical problems patient was resumed on his medications and no significant changes were made to discharge patient is being discharged. Past Medical History Past Medical History: Asthma, Chest Pain / Angina, Heart Failure, COPD, Eye Disorder, GERD/Reflux, Hyperlipidemia, Hypertension, Myocardial Infarction ([place]), Osteoarthritis ([place]), Thyroid Disorder, Vascular Disorder Additional Past Medical History / Comment(s): Chronic low back pain, recent L arm fracture and pt still has pain and swelling in that arm, legally blind d/t macular degeneration, PUD, hiatal hernia, diverticular disease, IBS, colitis, past bowel obstruction, sarcoidosis, occasional difficulty swallowing, anemia, irregular heart beat, varicose veins, hypothyroid, COVID+ 4\\21 Last Myocardial Infarction Date:: 2012 History of Any Multi-Drug Resistant Organisms: None Reported Past Surgical History: Back Surgery, Bowel Resection, Hernia Repair, Joint Replacement Additional Past Surgical History / Comment(s): 06/16/17 conversion hemiarthroplasty L shoulder, mayur knee and mayur hip replacements, SPLENECTOMY, NASAL/SINUS SX, FOOT SX FOR HAMMERTOE, had colosotomy then had reversal later, mayur cataracts, additional bowel repair r/t looped strangulation. Past Anesthesia/Blood Transfusion Reactions: No Reported Reaction Additional Past Anesthesia/Blood Transfusion Reaction / Comment(s): blood transfusion-no reaction Past Psychological History: Depression Additional Psychological History / Comment(s): Pt resides in her own home with her daughter and son-in-law Pt is legally blind. Family manages her medications and drives her to [employer] She has alot of visitors. She uses a walker or transport chair when she goes out. She has 2 permanent cats in her home and 2 "visitor" cats. Smoking Status: Never smoker Past Alcohol Use History: Occasional Past Drug Use History: None Reported - Past Family History Sister(s) Family Medical History: Cancer Mother Family Medical History: COPD Additional Family Medical History / Comment(s): SMOKER/EMPHYSEMA Medications and Allergies Home Medications Medication Instructions Recorded Confirmed Type Isosorbide Mononitrate ER [Imdur] 30 mg PO DAILY #30 tab.er.24h 01/08/18 12/27/20 Rx Carvedilol [Coreg] 25 mg PO BID 04/12/18 12/27/20 History Ferrous Sulfate [Feosol] 325 mg PO BID 04/12/18 12/27/20 History Pantoprazole Sodium [Protonix] 20 mg PO DAILY 10/07/19 12/27/20 History Citalopram Hydrobromide [CeleXA] 20 mg PO DAILY 03/29/20 12/27/20 History Levothyroxine Sodium [Synthroid] 100 mcg PO MOWEFR 03/29/20 12/27/20 History Levothyroxine Sodium [Synthroid] 125 mcg PO SUTUTHSA 03/29/20 12/27/20 History Memantine HCl/Donepezil HCl 1 cap PO DAILY 03/29/20 12/27/20 History [Namzaric 28 mg-10 mg Capsule] Menthol [Biofreeze] 1 applic TOPICAL DAILY PRN 05/22/20 12/27/20 History Vitamin B Complex W/Vitamin C 1 tab PO BID 05/22/20 12/27/20 History Ascorbic Acid [Vitamin C] 500 mg PO DAILY 07/17/20 12/27/20 History Budesonide/Formoterol Fumarate 2 puff INHALATION RT-BID 07/17/20 12/27/20 History [Symbicort 160-4.5 Mcg Inhaler] Zinc 50 mg PO DAILY 07/17/20 12/27/20 History Acetaminophen Tab [Tylenol] 650 mg PO Q6HR PRN tab 07/21/20 12/27/20 Rx Cholecalciferol [Vitamin D3 (25 50 mcg PO DAILY 12/27/20 12/27/20 History Mcg = 1000 Iu)] HYDROcodone/APAP 5-325MG [[place] 1 tab PO TID 3 Days #20 tab 12/28/20 Rx 5-325] Allergies Allergy/AdvReac Type Severity Reaction Status Date / Time benazepril Allergy tongue Verified 12/27/20 18:05 swelling Results CBC & Chem 7: 12/27/20 19:21 12/27/20 19:21 Thrombosis Risk Factor Assmnt - Choose All That Apply Each Risk Factor Represents 3 Points: Age 75 years or older Thrombosis Risk Factor Assessment Total Risk Factor Score: 3 Thrombosis Risk Factor Assessment Level: Moderate Risk
--- NOTE | 2021-01-02 10:50 | P.DS ---
Providers Date of admission: 12/27/20 20:44 Attending physician: Judith Coker Primary care physician: [facility] Course: Please refer to HPI for further details Plan - Discharge Summary New Discharge Prescriptions: New HYDROcodone/APAP 5-325MG [[place] 5-325] 1 tab PO TID 3 Days #20 tab Continue Isosorbide Mononitrate ER [Imdur] 30 mg PO DAILY #30 tab.er.24h Ferrous Sulfate [Feosol] 325 mg PO BID Carvedilol [Coreg] 25 mg PO BID Pantoprazole Sodium [Protonix] 20 mg PO DAILY Memantine HCl/Donepezil HCl [Namzaric 28 mg-10 mg Capsule] 1 cap PO DAILY Levothyroxine Sodium [Synthroid] 125 mcg PO SUTUTHSA Levothyroxine Sodium [Synthroid] 100 mcg PO MOWEFR Citalopram Hydrobromide [CeleXA] 20 mg PO DAILY Vitamin B Complex W/Vitamin C 1 tab PO BID Ascorbic Acid [Vitamin C] 500 mg PO DAILY Zinc 50 mg PO DAILY Acetaminophen Tab [Tylenol] 650 mg PO Q6HR PRN tab PRN Reason: Fever And/ Or Pain Cholecalciferol [Vitamin D3 (25 Mcg = 1000 Iu)] 50 mcg PO DAILY Menthol [Biofreeze] 1 applic TOPICAL DAILY PRN PRN Reason: shoulder/lower back pain Budesonide/Formoterol Fumarate [Symbicort 160-4.5 Mcg Inhaler] 2 puff INHALATION RT-BID Discontinued amLODIPine [Norvasc] 2.5 mg PO DAILY #30 tab Morphine Sulfate ER [Ms Contin] 15 mg PO Q12H #6 tab HYDROcodone/APAP 5-325MG [[place] 5-325] 1 tab PO TID PRN #6 tab PRN Reason: Pain Discharge Medication List Isosorbide Mononitrate ER [Imdur] 30 mg PO DAILY #30 tab.er.24h 01/08/18 [Rx] Carvedilol [Coreg] 25 mg PO BID 04/12/18 [History] Ferrous Sulfate [Feosol] 325 mg PO BID 04/12/18 [History] Pantoprazole Sodium [Protonix] 20 mg PO DAILY 10/07/19 [History] Citalopram Hydrobromide [CeleXA] 20 mg PO DAILY 03/29/20 [History] Levothyroxine Sodium [Synthroid] 100 mcg PO MOWEFR 03/29/20 [History] Levothyroxine Sodium [Synthroid] 125 mcg PO SUTUTHSA 03/29/20 [History] Memantine HCl/Donepezil HCl [Namzaric 28 mg-10 mg Capsule] 1 cap PO DAILY 03/29/20 [History] Menthol [Biofreeze] 1 applic TOPICAL DAILY PRN 05/22/20 [History] Vitamin B Complex W/Vitamin C 1 tab PO BID 05/22/20 [History] Ascorbic Acid [Vitamin C] 500 mg PO DAILY 07/17/20 [History] Budesonide/Formoterol Fumarate [Symbicort 160-4.5 Mcg Inhaler] 2 puff INHALATION RT-BID 07/17/20 [History] Zinc 50 mg PO DAILY 07/17/20 [History] Acetaminophen Tab [Tylenol] 650 mg PO Q6HR PRN tab 07/21/20 [Rx] Cholecalciferol [Vitamin D3 (25 Mcg = 1000 Iu)] 50 mcg PO DAILY 12/27/20 [History] HYDROcodone/APAP 5-325MG [[place] 5-325] 1 tab PO TID 3 Days #20 tab 12/28/20 [Rx] Follow up Appointment(s)/Referral(s): Dean Antony MD [Primary Care Provider] - 12/31/20 10:40 am [facility], [NON-STAFF] - 1 Week ([facility] WILL CONTACT YOU.) Patient Instructions/Handouts: Opioid Withdrawal (DC) Discharge Disposition: HOME SELF-CARE
== END 2020-12-28 18:30 | disposition home or self-care (01) ==
LOC: EC 17:39 → 6NMEDSUR 20:44
PROVIDERS: ADMIT Hospitalist; ATTEND Hospitalist
DX: F11.23 Opioid dependence with withdrawal (principal); R82.71 Bacteriuria; J44.9 Chronic obstructive pulmonary disease, unspecified; K21.9 Gastro-esophageal reflux disease without esophagitis; E78.5 Hyperlipidemia, unspecified; I25.10 Atherosclerotic heart disease of native coronary artery without angina pectoris; E03.9 Hypothyroidism, unspecified; Z20.822 Contact with and (suspected) exposure to COVID-19; I11.0 Hypertensive heart disease with heart failure; I50.9 Heart failure, unspecified; I25.2 Old myocardial infarction; G89.29 Other chronic pain; M54.5 Low back pain; F32.9 Major depressive disorder, single episode, unspecified; F41.9 Anxiety disorder, unspecified; D86.9 Sarcoidosis, unspecified; H54.8 Legal blindness, as defined in USA; M19.90 Unspecified osteoarthritis, unspecified site; K57.90 Diverticulosis of intestine, part unspecified, without perforation or abscess without bleeding; K58.9 Irritable bowel syndrome, unspecified; I83.90 Asymptomatic varicose veins of unspecified lower extremity; K44.9 Diaphragmatic hernia without obstruction or gangrene; D64.9 Anemia, unspecified; H35.30 Unspecified macular degeneration; M20.41 Other hammer toe(s) (acquired), right foot; M20.42 Other hammer toe(s) (acquired), left foot; Z88.8 Allergy status to other drugs, medicaments and biological substances; Z79.899 Other long term (current) drug therapy; Z79.890 Hormone replacement therapy; Z79.01 Long term (current) use of anticoagulants; Z79.51 Long term (current) use of inhaled steroids; Z98.41 Cataract extraction status, right eye; Z98.42 Cataract extraction status, left eye; Z90.81 Acquired absence of spleen; Z87.11 Personal history of peptic ulcer disease; Z86.16 Personal history of COVID-19; Z90.49 Acquired absence of other specified parts of digestive tract; Z82.5 Family history of asthma and other chronic lower respiratory diseases; Z80.9 Family history of malignant neoplasm, unspecified
CPT/HCPCS: 99285; 96374; 96375; 36415; 97166; 80053; 82150; 83690; 85025; 81001; 87635; 74018; G0378 ×2; J0360; J2405; J2270

== ENCOUNTER → 2021-11-17 | Outpatient (CLI) | payer MEDICARE, OTHER ==
[2021-11-17 14:44] LABS: HCT 35.8 % (37.2-46.3); HGB 11.5 g/dL (12.0-15.0); MCH 33.7 pg (27.0-32.0); MCHC 32.1 g/dL (32.0-37.0); Mean Platelet Volume 11.6 fL (9.5-12.2); NRBC Per 100 WBC 0 /100 WBCS (0.0-0.0); Platelet Count 238 X 10*3/uL (140-440); RBC 3.41 X 10*6/uL (4.10-5.20); WBC 7.71 X 10*3/uL (4.50-10.00)
[2021-11-17 15:44] LABS: ALT 7 U/L (8-44); AST 14 U/L (13-35); BUN/Creat Ratio 18.23 Ratio (12.00-20.00); Blood Urea Nitrogen 13.6 mg/dL (9.0-27.0); Calcium 9.5 mg/dL (8.7-10.3); Carbon Dioxide 27.5 mmol/L (20.0-27.5); Chloride 106 mmol/L (96-109); Glucose 119 mg/dL (70-110); LDL Cholesterol,Calculated 85.5 mg/dL (0.0-131.0); Non-African American GFR(CKD) 71.6 (60.0-200.0); Potassium 4.2 mmol/L (3.5-5.5); Sodium 145 mmol/L (135-145)
== END | disposition home or self-care (01) ==
LOC: LABWHC1 10:52
PROVIDERS: ATTEND Internal Medicine Cardiovascular Disease
DX: E78.2 Mixed hyperlipidemia (principal)
CPT/HCPCS: 36415; 80048; 80061; 84443; 84450; 84460; 85027

== ENCOUNTER 2023-01-05 09:29 | Day surgery (SDC) | payer MEDICARE, OTHER ==
[2023-01-05] MEDS ORDERED: LACTATED RINGERS 1,000 ML IV ONE (10:14)
[2023-01-05 10:15] VITALS: TEMP 97.9
[2023-01-05] MEDS ORDERED: PROPOFOL 10 MG/ML 20 ML VIAL IV ONE (10:15)
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
--- NOTE | 2023-01-05 10:27 | P.OP ---
Date of Procedure: 01/05/23 Preoperative Diagnosis: Screening colonoscopy Postoperative Diagnosis: Diverticulosis Procedure(s) Performed: Colonoscopy Anesthesia: MAC Surgeon: Bharat Arias Pathology: none sent Condition: stable Disposition: PACU Description of Procedure: The patient's placed on the endoscopy table in the lateral position. He received IV sedation. Digital rectal exam was performed which revealed no ebonized. The flexible colonoscopy was then placed patient anus passed throughout the entire colon. The ileocecal valve was visualized. The cecum, ascending and transverse colon appeared normal. Descending colon had mild diverticulosis. The patient appeared to have a previous low anterior resection. The rectum appeared normal. Scope was withdrawn for patient.
[2023-01-05 11:08] VITALS: BP 161/82; PULSE 66; RESP 17
== END 2023-01-05 11:02 | disposition home or self-care (01) ==
LOC: ORWHC2ENDO 09:29
PROVIDERS: ATTEND Surgery
DX: Z12.11 Encounter for screening for malignant neoplasm of colon (principal); K57.30 Diverticulosis of large intestine without perforation or abscess without bleeding; J44.9 Chronic obstructive pulmonary disease, unspecified; I11.0 Hypertensive heart disease with heart failure; H57.9 Unspecified disorder of eye and adnexa; K21.9 Gastro-esophageal reflux disease without esophagitis; E78.5 Hyperlipidemia, unspecified; M19.90 Unspecified osteoarthritis, unspecified site; E07.9 Disorder of thyroid, unspecified; I99.9 Unspecified disorder of circulatory system; I25.2 Old myocardial infarction; G89.29 Other chronic pain; K58.9 Irritable bowel syndrome, unspecified; Z86.16 Personal history of COVID-19; Z87.11 Personal history of peptic ulcer disease; H54.8 Legal blindness, as defined in USA; H35.30 Unspecified macular degeneration; K44.9 Diaphragmatic hernia without obstruction or gangrene; K56.609 Unspecified intestinal obstruction, unspecified as to partial versus complete obstruction; D86.9 Sarcoidosis, unspecified; D64.9 Anemia, unspecified; I49.9 Cardiac arrhythmia, unspecified; F32.A Depression, unspecified; I83.90 Asymptomatic varicose veins of unspecified lower extremity; F10.90 Alcohol use, unspecified, uncomplicated; Z96.612 Presence of left artificial shoulder joint; Z96.643 Presence of artificial hip joint, bilateral; Z98.890 Other specified postprocedural states; Z79.890 Hormone replacement therapy; Z79.51 Long term (current) use of inhaled steroids; Z79.52 Long term (current) use of systemic steroids; Z79.1 Long term (current) use of non-steroidal anti-inflammatories (NSAID); Z79.899 Other long term (current) drug therapy; Z88.5 Allergy status to narcotic agent
CPT/HCPCS: J2704; G0121